=== PATIENT | male | born 1950 | race Caucasian/White ===

== ENCOUNTER → 2016-10-05 | Day surgery (SDC) | payer OTHER ==
[~2016-10-05] MED LIST: ENOX60P SQ; KLOR20TA6 PO; LACTATED RINGER'S 1000 ML INJ 1,000 ML ONE; LISI20 PO; LORA-474 PO; METO100T PO; PROPOFOL 500 MG/50 ML BTL IV ONE
== END | disposition home or self-care (01) ==
LOC: ESDC 11:25
PROVIDERS: ATTEND Internal Medicine Gastroenterology
DX: Z12.11 Encounter for screening for malignant neoplasm of colon (principal); Z86.010 Personal history of colon polyps; D12.3 Benign neoplasm of transverse colon; K62.1 Rectal polyp
CPT/HCPCS: 00810; 45385; 45388; 88305; J7120

== ENCOUNTER 2017-08-05 12:57 | Day surgery (SDC) | payer OTHER ==
[~2017-08-05 12:57] MED LIST changes: -LACTATED RINGER'S 1000 ML INJ 1,000 ML ONE; -PROPOFOL 500 MG/50 ML BTL IV ONE
[2017-08-05 13:24] VITALS: BP 142/76; PULSE 91; RESP 16; TEMP 98; O2SAT 98
[2017-08-05 14:22] VITALS: BP 141/90; PULSE 86; RESP 20; TEMP 97.3
[2017-08-05 14:37] VITALS: BP 149/102; PULSE 80; RESP 20; O2SAT 98
[2017-08-05] MEDS ORDERED: LIDOCAINE HCL 1% 20 ML VIAL ONE (15:27)
--- NOTE | 2017-08-05 16:13 | RADRPT ---
EXAM DATE/TIME: 08/05/2017 13:25 [facility] COMPARISON: No previous studies available for comparison. EXTERNAL COMPARISON: [facility], CT SOFT TISSUE NECK W/ CONTRAST, Jul 13 2017. INDICATIONS : Right neck lymphadenopathy. MEDICAL HISTORY : Hypertension. Gastroesophageal reflux disease. Seizures. Atrial fibrillation. Gout. Dyspnea. SURGICAL HISTORY : Tonsillectomy. Basal cell removed. ENCOUNTER: Initial ACUITY: 4 - 6 months PAIN SCORE: 0/10 LOCATION: Right neck ORGAN: Right lymph node neck. SPECIMENS: One core specimen(s) submitted for pathologic evaluation. DEVICE: 18 gauge Temno needle Post procedure scanning reveals no hematoma or other complication. The possibility does exist that the tissue obtained will be non-diagnostic. If the sample is non-kole gnostic a repeat biopsy or surgical biopsy may need to be performed. TECHNIQUE: 1. Ultrasound guidance for needle biopsy. 2. Needle biopsy. The risks, benefits and alternatives to the procedure were explained and verbal and written consent w as obtained. The site was prepped in sterile fashion. Full sterile technique was used, including ca p, mask, sterile gloves and gown and a large sterile sheet. Hand hygiene and 2% chlorhexidine and/or betadine/alcohol prep was utilized per protocol for cutaneous antisepsis. The skin and subcutaneous tissues were infiltrated with local anesthetic solution. Sterile gel and sterile probe cover were u tilized for ultrasound guidance. With the patient on the ultrasound table, images were obtained. A needle was advanced into the identified target and the number of specimens as above obtained and abad bmitted for pathologic evaluation. The patient tolerated the procedure well and left the ultrasound suite in stable condition. CONCLUSION: Uncomplicated ultrasound guided needle biopsy. Pankaj Whitley MD on August 05, 2017 at 16:10 Board Certified Radiologist. This report was verified electronically.
== END 2017-08-05 14:40 | disposition home or self-care (01) ==
LOC: HRAD 12:57 → HRIP 13:01 → HRAD 14:40
PROVIDERS: ATTEND Surgery
DX: R59.0 Localized enlarged lymph nodes (principal); I10 Essential (primary) hypertension; I48.91 Unspecified atrial fibrillation; K21.9 Gastro-esophageal reflux disease without esophagitis; M10.9 Gout, unspecified
CPT/HCPCS: 38505; 76942; 88305; 88341; 88342

== ENCOUNTER 2017-10-28 06:57 | Day surgery (SDC) | payer OTHER ==
[~2017-10-28] VITALS: Ht 304.8 cm; Wt 95.5 kg
[2017-10-28 07:25] VITALS: BP 129/103; PULSE 50; RESP 20; TEMP 97.9; O2SAT 97
[2017-10-28] MEDS ORDERED: NIFE30TA61 PO (07:33)
[2017-10-28] MEDS ORDERED: LOSA50TA PO (07:33)
[2017-10-28] MEDS ORDERED: ALLO300T2 PO (07:33)
[2017-10-28] MEDS ORDERED: LORA-392 PO (07:33)
[2017-10-28] MEDS ORDERED: REST30CA PO (07:33)
[2017-10-28] MEDS ORDERED: METO100T PO (07:33)
[2017-10-28 07:57] LABS: AUTOMATED NEUTROPHIL # 4.5 TH/MM3 (1.8-7.7); BASOPHIL # 0.1 TH/MM3 (0-0.2); BASOPHIL % 0.7 % (0.0-2.0); EOSINOPHIL # 0.4 TH/MM3 (0-0.4); HEMATOCRIT 38.8 % (39.0-51.0); HEMOGLOBIN 13.4 GM/DL (13.0-17.0); LYMPH % 30.6 % (9.0-44.0); LYMPHOCYTE # 2.6 TH/MM3 (1.0-4.8); MEAN CELL VOLUME 93.1 FL (80.0-100.0); MEAN CORPUSCULAR HEMOGLOBIN 32.2 PG (27.0-34.0); MEAN CORPUSCULAR HGB CONC 34.6 % (32.0-36.0); MEAN PLATELET VOLUME 9.2 FL (7.0-11.0); MONO % 10.7 % (0.0-8.0); MONOCYTE # 0.9 TH/MM3 (0-0.9); PLATELET COUNT 182 TH/MM3 (150-450); RED BLOOD COUNT 4.17 MIL/MM3 (4.50-5.90); RED CELL DISTRIBUTION WIDTH 14.8 % (11.6-17.2); WHITE BLOOD COUNT 8.4 TH/MM3 (4.0-11.0)
[2017-10-28] MEDS ORDERED: SODIUM CHLORIDE 0.9% 1000 ML IV SCH (08:00)
[2017-10-28 08:04] LABS: INTERNATIONAL NORMALIZED RATIO 1.1 RATIO; PROTHROMBIN TIME - PATIENT 11.1 SEC (9.8-11.6)
[2017-10-28] MEDS ORDERED: cefTRIAXone 2 GM PREMIX INJ 50 ML IV ONE (08:30)
[2017-10-28] MEDS ORDERED: MIDAZOLAM HCL 5 MG/5 ML VIAL ONE (08:36)
[2017-10-28] MEDS ORDERED: fentaNYL CITRATE 250 MCG/5 ML AMP ONE (08:37)
[2017-10-28] MEDS ORDERED: GLUCAGON 1 MG/ML VIAL ONE (08:53)
[2017-10-28] MEDS ORDERED: IOHEXOL 350 MG/ML 50 ML BTL (for RAD DIAG) G-TUBE ONE (09:15)
[2017-10-28 09:30] VITALS: BP 133/87; PULSE 95; RESP 16; TEMP 97.4; O2SAT 96
[2017-10-28 09:45] VITALS: BP 120/84; PULSE 81; RESP 18; O2SAT 95
--- NOTE | 2017-10-28 10:03 | PD.RAD ---
Post Procedure Progress Note Pre Procedure Diagnosis: (1) Cancer Post Procedure Diagnosis: (1) Cancer Procedure Date: Oct 28, 2017 Supervising Radiologist: Rom Sanchez Proceduralist/Assist: RT Gin(R), RT Rosy(R) Anesthesia: Conscious Sedation Plan of Activity Patient to Unit: [facility]OPU Patient Condition: Good See PACS Report for procedural detail/treatment Feeding Tube Gastrostomy Placement Rom Sanchez MD Oct 28, 2017 10:03
[2017-10-28 10:15] VITALS: BP 126/89; PULSE 70; RESP 16; O2SAT 94
[2017-10-28 10:45] VITALS: BP 145/92; PULSE 68; RESP 16; O2SAT 94
--- NOTE | 2017-10-28 14:39 | RADRPT ---
EXAM DATE/TIME: 10/28/2017 08:15 [facility] COMPARISON: No previous studies available for comparison. INDICATIONS : Patient with history of tongue cancer in need of G-Tube placement. MEDICAL HISTORY : Right neck mass, CVA, GERD, HTN, Seizure SURGICAL HISTORY : Neck mass biopsy, Neck mass dissection, Tonsillectomy ENCOUNTER: Initial ACUITY: 7-11 months PAIN SCORE: 3/10 LOCATION: Left leg/sciatica FLUORO TIME: 2.3 minutes IMAGE SERIES: 1 SEDATION TIME: 30 minutes CONTRAST: 20 cc Omnipaque (iohexol) 350 MEDICATION(S): 1.) 2 mg midazolam (Versed) IV 2.) 100 mcg Fentanyl (Sublimaze) IV Prophylactic antibiotics were administered with appropriate pre-procedure timing. Vancomycin within 2 hours of procedure, Ancef (or alternative) within 1 hour of procedure. DEVICE(S): 1.) 18 Fr gastrostomy tube PROCEDURE : 1. Limited abdominal ultrasound. 2. Fluoroscopically guided gastrostomy tube placement. 3. Conscious sedation with continuous EKG and oximetry monitoring. The risks, benefits and alternatives to the procedure were explained and verbal and written consent w as obtained. The site was prepped in sterile fashion. Full sterile technique was used, including ca p, mask, sterile gloves and gown and a large sterile sheet. Hand hygiene and 2% chlorhexidine and/or betadine/alcohol prep was utilized per protocol for cutaneous antisepsis. The skin and subcutaneous tissues were infiltrated with local anesthetic solution. Sterile gel and sterile probe cover were u tilized for ultrasound guidance. Ultrasound was used to abbie the position of the liver. The stomach was insufflated with room air. Th ree percutaneous fasteners were placed to secure the anterior gastric wall. A small incision was made between the fasteners. The stomach was accessed with an 18 gauge needle. A n 0.035 wire was advanced into the small bowel. The tract was dilated. The gastrostomy tube was int roduced through a peel-away sheath. The position was confirmed with an injection of contrast. Conscious sedation was performed with the prescribed dosages and duration as above in the presence of an independent trained radiology nurse to assist in the monitoring of the patient. EKG and oximetry remained stable throughout the procedure. The patient tolerated the procedure well and there were n o complications. The patient was sent to post anesthesia recovery in stable condition. CONCLUSION: Uncomplicated gastrostomy tube placement as above. Rom Sanchez MD on October 28, 2017 at 14:36 Board Certified Radiologist. This report was verified electronically.
== END 2017-10-28 11:45 | disposition home or self-care (01) ==
LOC: HROP 06:57 → HRIP 07:00 → HROP 11:45
PROVIDERS: ATTEND Internal Medicine Hematology & Oncology
DX: C01 Malignant neoplasm of base of tongue (principal); I48.91 Unspecified atrial fibrillation; I10 Essential (primary) hypertension; K21.9 Gastro-esophageal reflux disease without esophagitis; Z86.73 Personal history of transient ischemic attack (TIA), and cerebral infarction without residual deficits
CPT/HCPCS: 49440; 85025; 85610; 85730; 99152; 99153; C1769; C1887; J1610; J2250; J3010; J7030; Q9967

== ENCOUNTER 2017-12-11 17:28 | Inpatient (IN) | payer OTHER ==
[~2017-12-11] VITALS: Ht 175.3 cm; Wt 86.2 kg
[~2017-12-11 17:28] MED LIST changes: +ALLO300T2 PO; -ENOX60P SQ; -KLOR20TA6 PO; -LISI20 PO; +LORA-392 PO; -LORA-474 PO; +LOSA50TA PO; +NIFE30TA61 PO; +REST30CA PO
[2017-12-11 17:44] VITALS: BP 85/52; PULSE 85; RESP 20; TEMP 100.7; O2SAT 97
[2017-12-11 17:55] VITALS: BP 121/72; PULSE 112; RESP 14; TEMP 98.9; O2SAT 97
[2017-12-11] MEDS ORDERED: PROC10TA PO (17:55)
[2017-12-11] MEDS ORDERED: PROM1SUP9 RECTAL (17:55)
[2017-12-11] MEDS ORDERED: ACETAMINOPHEN 325 MG TAB PO ONE (19:00)
[2017-12-11 19:23] VITALS: O2SAT 97
--- NOTE | 2017-12-11 19:24 | RADRPT ---
EXAM DATE/TIME: 12/11/2017 19:00 [facility] COMPARISON: CHEST SINGLE AP, March 09, 2016, 15:16. INDICATIONS : Fever and cough with discharge. MEDICAL HISTORY : Hypertension. Coronary artery disease. SURGICAL HISTORY : Tonsillectomy. ENCOUNTER: Initial ACUITY: 1 day PAIN SCORE: 0/10 LOCATION: Bilateral chest FINDINGS: A single view of the chest demonstrates the lungs to be symmetrically aerated without evidence of mas s, infiltrate or effusion. The cardiomediastinal contours are unremarkable. Osseous structures are intact. A left central line in place. CONCLUSION: No acute disease. No significant change has occurred. Eduardo Sebastian MD on December 11, 2017 at 19:21 Board Certified Radiologist. This report was verified electronically.
--- NOTE | 2017-12-11 19:29 | PD ---
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 Toledo, had his radiation done just a few days ago, has been having nausea, thick oral secretions, feeling more weak, poor p.o. intake, and fevers according to his . His fevers have been 102. He denies any coughing, abdominal pains, shortness of breath, or other symptoms. Modifying Factors: None Associated Signs & Symptoms: Nausea, not feeling well, fevers Risk Factors: Oral cancer, on chemo and radiation PFSH Past Medical History Hx Anticoagulant Therapy: Yes Arthritis: Yes Atrial Fibrillation: Yes Autoimmune Disease: No Blood Disorders: No Anxiety: Yes Depression: Yes Heart Rhythm Problems: Yes (Afib) High Cholesterol: No Chest Pain: No Congestive Heart Failure: No Cerebrovascular Accident: Yes (DECEMBER 2015) Diminished Hearing: No Endocrine: No Gastrointestinal Disorders: Yes (LIVER ENZYMES RECENTLY ELEVATED) GERD: Yes Gout: Yes Genitourinary: No Headaches: Yes Hiatal Hernia: No Hypertension: Yes Immune Disorder: No Musculoskeletal: Yes (Gout) Neurologic: No Psychiatric: No Reproductive: No Migraines: Yes Seizures: Yes Sleep Apnea: Yes Ulcer: No PNEUMOCCOCAL Vaccine (Year): 2 Past Surgical History Abdominal Surgery: No AICD: No Arteriovenous Shunt: No Cardiac Surgery: No Ear Surgery: No Endocrine Surgery: No Eye Surgery: No Genitourinary Surgery: No Gynecologic Surgery: No Insulin Pump: No Joint Replacement: No Neurologic Surgery: No Oral Surgery: No Pacemaker: No Thoracic Surgery: No Tonsillectomy: Yes Social History Alcohol Use: Yes ("OCCASIONALLY") Tobacco Use: No (QUIT 71) Substance Use: No Allergies-Medications (Allergen,Severity, Reaction): Coded Allergies: codeine (Unverified Allergy, Severe, UNKNOWN CHILDHOOD, 10/28/17) doxycycline (Unverified Allergy, Severe, Rash, 10/28/17) *MDRO Multi-Drug Resistant Organism (Verified Adverse Reaction, Unknown, ) MRSA PCR screen (nares) POSITIVE - 03/09/16 Reported Meds & Prescriptions Reported Meds & Active Scripts Active Reported Promethazine Supp (Promethazine HCl) 25 Mg Supp 25 Mg RECTAL Q6H PRN Prochlorperazine Maleate 10 Mg Tab 10 Mg PO Q6H PRN Ativan (Lorazepam) 0.5 Mg Tab 0.5 Mg PO Q6H PRN Restoril (Temazepam) 30 Mg Cap 30 Mg PO HS PRN Losartan (Losartan Potassium) 50 Mg Tab 50 Mg PO DAILY Allopurinol 300 Mg Tab 300 Mg PO DAILY Nifedipine ER 24 HR (Nifedipine) 30 Mg Tab 30 Mg PO DAILY Metoprolol Tartrate 100 Mg Tab 100 Mg PO BID Review of Systems Except as stated in HPI: all other systems reviewed are Neg Physical Exam Narrative GENERAL: Well-developed elderly white male patient currently in moderate distress. Awake and oriented 3. SKIN: Focused skin assessment warm/dry. HEAD: Atraumatic. Normocephalic. EYES: Pupils equal and round. No scleral icterus. No injection or drainage. ENT: No nasal bleeding or discharge. Mucous membranes pink and moist. He is able to control his secretions. Airway intact. NECK: Trachea midline. No JVD. Supple. CARDIOVASCULAR: Regular rate and rhythm. No murmur appreciated. RESPIRATORY: No accessory muscle use. Clear to auscultation. Breath sounds equal bilaterally. GASTROINTESTINAL: Abdomen soft, non-tender, nondistended. Hepatic and splenic margins not palpable. G-tube in place. MUSCULOSKELETAL: No obvious deformities. No clubbing. No cyanosis. No edema. NEUROLOGICAL: Awake and alert. No obvious cranial nerve deficits. Motor grossly within normal limits. Normal speech. PSYCHIATRIC: Appropriate mood and affect; insight and judgment normal. Data Data Last Documented VS Vital Signs Date Time Temp Pulse Resp B/P (MAP) Pulse Ox O2 Delivery O2 Flow Rate FiO2 12/11/17 21:54 99 115/73 (87) 97 Room Air 12/11/17 17:57 14 12/11/17 17:55 98.9 Orders Orders Sepsis Workup Initiated (12/11/17 ) Complete Blood Count With Diff (12/11/17 18:58) Comprehensive Metabolic Panel (12/11/17 18:58) Lactic Acid Sepsis Protocol (12/11/17 18:58) Urinalysis - C+S If Indicated (12/11/17 18:58) Blood Culture (12/11/17 18:58) Chest, Single Ap (12/11/17 18:58) Blood Glucose (12/11/17 18:58) Ecg Monitoring (12/11/17 18:58) Iv Access Insert/Monitor (12/11/17 18:58) Oximetry (12/11/17 18:58) Oxygen Administration (12/11/17 18:58) Acetaminophen (Tylenol) (12/11/17 19:00) Potassium Chlor 20 Meq Premix (Kcl 20 Me (12/11/17 20:30) Sodium Chlor 0.9% 1000 Ml Inj (Ns 1000 M (12/11/17 21:00) Urine Culture (12/11/17 22:18) Piperacil-Tazo 4.5 Gm Premix (Zosyn 4.5 (12/11/17 22:53) Admit Order (Ed Use Only) (12/11/17 22:59) Labs Laboratory Tests Test 12/11/17 19:18 12/11/17 22:18 White Blood Count 6.0 TH/MM3 Red Blood Count 4.11 MIL/MM3 Hemoglobin 12.9 GM/DL Hematocrit 37.6 % Mean Corpuscular Volume 91.5 FL Mean Corpuscular Hemoglobin 31.4 PG Mean Corpuscular Hemoglobin Concent 34.3 % Red Cell Distribution Width 15.1 % Platelet Count 68 TH/MM3 Mean Platelet Volume 9.6 FL Neutrophils (%) (Auto) 90.7 % Lymphocytes (%) (Auto) 2.3 % Monocytes (%) (Auto) 6.7 % Eosinophils (%) (Auto) 0.1 % Basophils (%) (Auto) 0.2 % Neutrophils # (Auto) 5.4 TH/MM3 Lymphocytes # (Auto) 0.1 TH/MM3 Monocytes # (Auto) 0.4 TH/MM3 Eosinophils # (Auto) 0.0 TH/MM3 Basophils # (Auto) 0.0 TH/MM3 CBC Comment AUTO DIFF Differential Total Cells Counted 100 Neutrophils % (Manual) 83 % Band Neutrophils % 9 % Lymphocytes % 5 % Monocytes % 3 % Neutrophils # (Manual) 5.5 TH/MM3 Differential Comment FINAL DIFF MANUAL Toxic Vacuolation PRESENT Platelet Estimate LOW Platelet Morphology Comment ENLARGED Blood Urea Nitrogen 21 MG/DL Creatinine 1.59 MG/DL Random Glucose 116 MG/DL Total Protein 6.7 GM/DL Albumin 3.2 GM/DL Calcium Level 7.9 MG/DL Alkaline Phosphatase 71 U/L Aspartate Amino Transf (AST/SGOT) 60 U/L Alanine Aminotransferase (ALT/SGPT) 126 U/L Total Bilirubin 1.2 MG/DL Sodium Level 129 MEQ/L Potassium Level 2.0 MEQ/L Chloride Level 87 MEQ/L Carbon Dioxide Level 27.7 MEQ/L Anion Gap 14 MEQ/L Estimat Glomerular Filtration Rate 44 ML/MIN Lactic Acid Level 1.7 mmol/L Urine Color DARK-YELLOW Urine Turbidity HAZY Urine pH 6.5 Urine Specific [place] 1.029 Urine Protein 300 mg/dL Urine Glucose (UA) 300 mg/dL Urine Ketones 40 mg/dL Urine Occult Blood MOD Urine Nitrite NEG Urine Bilirubin NEG Urine Urobilinogen 8.0 MG/DL Urine Leukocyte Esterase NEG Urine RBC 4 /hpf Urine WBC 15 /hpf Urine Squamous Epithelial Cells 1 /hpf Urine Bacteria FEW /hpf Urine Mucus MANY /lpf Microscopic Urinalysis Comment CATH-CULTURE IND MDM Medical Decision Making Medical Screen Exam Complete: Yes Emergency Medical Condition: Yes Medical Record Reviewed: Yes Interpretation(s) Laboratory Tests Test 12/11/17 19:18 12/11/17 22:18 Red Blood Count 4.11 MIL/MM3 (4.50-5.90) Hemoglobin 12.9 GM/DL (13.0-17.0) Hematocrit 37.6 % (39.0-51.0) Platelet Count 68 TH/MM3 (150-450) Neutrophils (%) (Auto) 90.7 % (16.0-70.0) Lymphocytes (%) (Auto) 2.3 % (9.0-44.0) Lymphocytes # (Auto) 0.1 TH/MM3 (1.0-4.8) Neutrophils % (Manual) 83 % (16-70) Band Neutrophils % 9 % (0-6) Lymphocytes % 5 % (9-44) Toxic Vacuolation PRESENT (NONE SEEN) Platelet Estimate LOW (NORMAL) Platelet Morphology Comment ENLARGED (NORMAL) Blood Urea Nitrogen 21 MG/DL (7-18) Creatinine 1.59 MG/DL (0.60-1.30) Random Glucose 116 MG/DL (74-106) Albumin 3.2 GM/DL (3.4-5.0) Calcium Level 7.9 MG/DL (8.5-10.1) Aspartate Amino Transf (AST/SGOT) 60 U/L (15-37) Alanine Aminotransferase (ALT/SGPT) 126 U/L (12-78) Total Bilirubin 1.2 MG/DL (0.2-1.0) Sodium Level 129 MEQ/L (136-145) Potassium Level 2.0 MEQ/L (3.5-5.1) Chloride Level 87 MEQ/L (98-107) Estimat Glomerular Filtration Rate 44 ML/MIN (>89) Urine Color DARK-YELLOW (YELLW/STRAW) Urine Turbidity HAZY (CLEAR) Urine Protein 300 mg/dL (NEG-TRACE) Urine Glucose (UA) 300 mg/dL (NEG) Urine Ketones 40 mg/dL (NEG) Urine Occult Blood MOD (NEG) Urine Urobilinogen 8.0 MG/DL (LESS THAN Urine RBC 4 /hpf (0-3) Urine WBC 15 /hpf (0-5) Urine Bacteria FEW /hpf (NONE) Urine Mucus MANY /lpf (OCC) Last 24 hours Impressions Chest X-Ray 12/11/17 5415 Signed Impressions: Service Date/Time: Wednesday, December 11, 2017 19:00 - CONCLUSION: No acute disease. No significant change has occurred. Eduardo Sebastian MD Differential Diagnosis Neutropenic fever versus sepsis versus pneumonia versus dehydration versus electrolyte abnormalities Narrative Course Chest x-ray was unremarkable for signs of pneumonia. His lab work shows significant hypokalemia, low sodium as well and IV fluids as well as KCl IV was given. His BUN and creatinine is elevated and I do suspect underlying dehydration. His lactate is elevated. UA shows a UTI. IV antibiotics were initiated after cultures were drawn. At this point, my plan would be to admit the patient for further treatment. Case is discussed with Dr. Joseph for admission. Diagnosis Primary Impression: Hypokalemia Additional Impressions: Dehydration UTI (urinary tract infection) Sepsis Admitting Information Admitting Physician Requests: Admit Buck Guillermo MD December 11, 2017 19:29
[2017-12-11 19:34] LABS: AUTOMATED NEUTROPHIL # 5.4 TH/MM3 (1.8-7.7); BASOPHIL % 0.2 % (0.0-2.0); EOSINOPHIL % 0.1 % (0.0-4.0); HEMATOCRIT 37.6 % (39.0-51.0); HEMOGLOBIN 12.9 GM/DL (13.0-17.0); LYMPH % 2.3 % (9.0-44.0); LYMPHOCYTE # 0.1 TH/MM3 (1.0-4.8); MEAN CELL VOLUME 91.5 FL (80.0-100.0); MEAN CORPUSCULAR HEMOGLOBIN 31.4 PG (27.0-34.0); MEAN CORPUSCULAR HGB CONC 34.3 % (32.0-36.0); MEAN PLATELET VOLUME 9.6 FL (7.0-11.0); MONO % 6.7 % (0.0-8.0); MONOCYTE # 0.4 TH/MM3 (0-0.9); NEUT % 90.7 % (16.0-70.0); PLATELET COUNT 68 TH/MM3 (150-450); RED BLOOD COUNT 4.11 MIL/MM3 (4.50-5.90); RED CELL DISTRIBUTION WIDTH 15.1 % (11.6-17.2)
[2017-12-11 20:06] LABS: ALBUMIN 3.2 GM/DL (3.4-5.0); ALT (GPT) 126 U/L (12-78); AST (GOT) 60 U/L (15-37); BICARBONATE 27.7 MEQ/L (21.0-32.0); BLOOD UREA NITROGEN 21 MG/DL (7-18); CALCIUM 7.9 MG/DL (8.5-10.1); CHLORIDE 87 MEQ/L (98-107); CREATININE 1.59 MG/DL (0.60-1.30); GLOMERULAR FILTRATION RATE 44 ML/MIN (>89); GLUCOSE,RANDOM 116 MG/DL (74-106); SODIUM (NA) 129 MEQ/L (136-145)
[2017-12-11 20:07] LABS: BANDS 9 % (0-6); LYMPHOCYTES 5 % (9-44); MONOCYTES 3 % (0-8); NEUTROPHIL # MANUAL DIFF 5.5 TH/MM3 (1.8-7.7); POLYS (SEG NEUTROPHILS) 83 % (16-70)
[2017-12-11 20:08] LABS: TOXIC VACUOLATION PRESENT (NONE SEEN)
[2017-12-11 20:09] LABS: ALKALINE PHOSPHATASE 71 U/L (45-117); TOTAL BILIRUBIN ADULT 1.2 MG/DL (0.2-1.0); TOTAL PROTEIN 6.7 GM/DL (6.4-8.2)
[2017-12-11] MEDS ORDERED: SODIUM CHLOR 0.9% 1000 ML INJ 1,000 ML IV ONE (21:00)
[2017-12-11] MEDS: POTASSIUM CHLOR 20 MEQ PREMIX 100 ML IV SCH (21:10)
[2017-12-11 21:54] VITALS: BP 115/73; PULSE 99; O2SAT 97
[2017-12-11 22:45] LABS: BACTERIA, URINE FEW /hpf; BLOOD, URINE MOD (NEG); GLUCOSE,URINE 300 mg/dL (NEG); KETONE, URINE 40 mg/dL (NEG); MUCUS URINE MANY /lpf (OCC); NITRITE,URINE NEG (NEG); PH, URINE 6.5 (5.0-8.5); SQUAMOUS EPITHELIAL CELL URINE 1 /hpf (0-5); URINE COLOR DARK-YELLOW (YELLW/STRAW); URINE LEUKOCYTE ESTERASE NEG (NEG)
[2017-12-11 22:47] LABS: BILIRUBIN, URINE NEG (NEG)
[2017-12-11] MEDS ORDERED: PIPERACIL-TAZO 4.5 GM PREMIX 100 ML IV STA (22:53)
[2017-12-11] MEDS ORDERED: ONDANSETRON ODT 4 MG TAB PO PRN (23:15)
[2017-12-12 00:45] VITALS: BP 149/72; PULSE 90; RESP 18; TEMP 100.2; O2SAT 100
[2017-12-12 04:00] VITALS: BP 149/79; PULSE 100; RESP 18; TEMP 98; O2SAT 97
[2017-12-12] MEDS: PIPERACIL-TAZO 3.375 GM PREMIX 50 ML IV SCH ×3 (05:45→22:11)
[2017-12-12 07:24] LABS: AUTOMATED NEUTROPHIL # 4.8 TH/MM3 (1.8-7.7); BASOPHIL % 0.1 % (0.0-2.0); HEMATOCRIT 34.7 % (39.0-51.0); LYMPH % 1.1 % (9.0-44.0); LYMPHOCYTE # 0.1 TH/MM3 (1.0-4.8); MEAN CELL VOLUME 91.5 FL (80.0-100.0); MEAN CORPUSCULAR HEMOGLOBIN 31.7 PG (27.0-34.0); MEAN CORPUSCULAR HGB CONC 34.6 % (32.0-36.0); MONO % 6.7 % (0.0-8.0); MONOCYTE # 0.3 TH/MM3 (0-0.9); NEUT % 92.1 % (16.0-70.0); PLATELET COUNT 38 TH/MM3 (150-450); RED BLOOD COUNT 3.79 MIL/MM3 (4.50-5.90); WHITE BLOOD COUNT 5.2 TH/MM3 (4.0-11.0)
[2017-12-12 07:46] LABS: BICARBONATE 26.2 MEQ/L (21.0-32.0); CALCIUM 7.2 MG/DL (8.5-10.1); CREATININE 1.7 MG/DL (0.60-1.30)
[2017-12-12 08:00] VITALS: BP 112/73; PULSE 101; RESP 19; TEMP 99; O2SAT 94
[2017-12-12] MEDS: NS + KCL 20 MEQ INJ 1,000 ML IV SCH ×2 (08:15)
[2017-12-12 08:31] LABS: CALCIUM-PROTEIN CORRECTED 7.8 MG/DL (8.5-10.1)
[2017-12-12 08:48] LABS: BANDS 17 % (0-6); LYMPHOCYTES 2 % (9-44); MONOCYTES 2 % (0-8); POLYS (SEG NEUTROPHILS) 79 % (16-70)
[2017-12-12 08:49] LABS: KERATOCYTES 1+ (NORMAL)
[2017-12-12] MEDS ORDERED: Vancomycin Consult Pharmacy 1 EA OTHER SCH ×2 (09:45→16:45)
[2017-12-12] MEDS ORDERED: VANCOMYCIN INJ 1,000 MG in SODIUM CHLOR 0.9% 250 ML INJ 250 ML IV ONE (09:45)
--- NOTE | 2017-12-12 09:45 | HHI.HP ---
HPI Service [facility] Hospitalists Primary Care Physician Gary Arriaza D.O. Admission Diagnosis dehydration/hypokalemia/bacteremia Chief Complaint: fever, nausea, and decreased PO intake. 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 Patient currently on chemotherapy with Dr. Toledo and radiation with Dr. Summers for the past four weeks. Patient had radiation just a few days ago. Since that time patient has been having nausea, thick oral secretions, feeling more weak, poor p.o. intake, and fevers. Patient has a PEG tube in place but has not yet started using it. Patient had been tolerating smoothies orally up until two days ago. He denies chest pain, cough, abdominal pain, shortness of breath or dysuria. Review of Systems Constitutional: COMPLAINS OF: Fatigue, Fever, Chills, Change in appetite Ears, nose, mouth, throat: COMPLAINS OF: Throat pain Past Family Social History Past Medical History Alcohol withdrawal seizures pancreatitis Anxiety Atrial fibrillation GERD Gout Hypertension Personal history of alcohol abuse Personal history of tobaccoism Transiently positive for circulating lupus anticoagulant Hemorrhagic stroke (Was on warfarin at that time, INR was therapeutic when he presented at 2.1) in 2016 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 upper extremity DVTs in 2016 Pulmonary emboli in 2016 Past Surgical History Skin ca removed from left arm Tonsillectomy Tracheostomy creation and reversal in 2016 Oropharyngeal squamous cell cancer s/p resection with modified radical neck dissection 09/2017 at [facility] Reported Medications Promethazine Supp (Promethazine HCl) 25 Mg Supp 25 Mg RECTAL Q6H PRN Prochlorperazine Maleate 10 Mg Tab 10 Mg PO Q6H PRN Ativan (Lorazepam) 0.5 Mg Tab 0.5 Mg PO Q6H PRN Restoril (Temazepam) 30 Mg Cap 30 Mg PO HS PRN Losartan (Losartan Potassium) 50 Mg Tab 50 Mg PO DAILY Allopurinol 300 Mg Tab 300 Mg PO DAILY Nifedipine ER 24 HR (Nifedipine) 30 Mg Tab 30 Mg PO DAILY Metoprolol Tartrate 100 Mg Tab 100 Mg PO BID Allergies: Coded Allergies: codeine (Unverified Allergy, Severe, UNKNOWN CHILDHOOD, 10/28/17) doxycycline (Unverified Allergy, Severe, Rash, 10/28/17) *MDRO Multi-Drug Resistant Organism (Verified Adverse Reaction, Unknown, ) MRSA PCR screen (nares) POSITIVE - 03/09/16 Physical Exam Vital Signs Vital Signs Date Time Temp Pulse Resp B/P (MAP) Pulse Ox O2 Delivery O2 Flow Rate FiO2 12/12/17 08:00 99.0 101 19 112/73 (86) 94 12/12/17 04:00 98.0 100 18 149/79 (102) 97 12/12/17 00:45 100.2 90 18 149/72 (97) 100 12/11/17 21:54 99 115/73 (87) 97 Room Air 12/11/17 19:23 Room Air 12/11/17 19:23 97 Room Air 12/11/17 17:57 112 14 98 Room Air 12/11/17 17:55 98.9 112 14 121/72 (88) 97 Room Air 12/11/17 17:44 100.7 85 20 85/52 (63) 97 Physical Exam GENERAL: This is a well-developed patient 67 year old male patient, appears fatigued and actively vomiting SKIN: No rashes, ecchymoses or lesions. Cool and dry. PORT site accessed site appears clean no erythema, tenderness or drainage HEAD: Atraumatic. Normocephalic. No temporal or scalp tenderness. EYES: Extraocular motions intact. No scleral icterus. No injection or drainage. ENT: Nose without bleeding, purulent drainage or septal hematoma. Throat without erythema, tonsillar hypertrophy or exudate. Uvula midline. Airway patent. NECK: Trachea midline. No JVD or lymphadenopathy. Supple, nontender, no meningeal signs. CARDIOVASCULAR: Tachycardic RESPIRATORY: Clear to auscultation. Breath sounds equal bilaterally. GASTROINTESTINAL: Abdomen soft, non-tender, nondistended. PEG tube in place site appears clean no erythremia or drainage MUSCULOSKELETAL: Extremities without clubbing, cyanosis, or edema. No joint tenderness, effusion, or edema noted. No calf tenderness. Negative Homans sign bilaterally. NEUROLOGICAL: Awake and alert. Motor and sensory grossly within normal limits. Five out of 5 muscle strength in all muscle groups. Normal speech. Laboratory Laboratory Tests Test 12/11/17 19:18 12/11/17 22:18 12/12/17 06:09 White Blood Count 6.0 5.2 Red Blood Count 4.11 3.79 Hemoglobin 12.9 12.0 Hematocrit 37.6 34.7 Mean Corpuscular Volume 91.5 91.5 Mean Corpuscular Hemoglobin 31.4 31.7 Mean Corpuscular Hemoglobin Concent 34.3 34.6 Red Cell Distribution Width 15.1 15.0 Platelet Count 68 38 Mean Platelet Volume 9.6 9.0 Neutrophils (%) (Auto) 90.7 92.1 Lymphocytes (%) (Auto) 2.3 1.1 Monocytes (%) (Auto) 6.7 6.7 Eosinophils (%) (Auto) 0.1 0.0 Basophils (%) (Auto) 0.2 0.1 Neutrophils # (Auto) 5.4 4.8 Lymphocytes # (Auto) 0.1 0.1 Monocytes # (Auto) 0.4 0.3 Eosinophils # (Auto) 0.0 0.0 Basophils # (Auto) 0.0 0.0 CBC Comment AUTO DIFF AUTO DIFF Differential Total Cells Counted 100 100 Neutrophils % (Manual) 83 79 Band Neutrophils % 9 17 Lymphocytes % 5 2 Monocytes % 3 2 Neutrophils # (Manual) 5.5 5.0 Differential Comment FINAL DIFF MANUAL FINAL DIFF MANUAL Toxic Vacuolation PRESENT Platelet Estimate LOW LOW Platelet Morphology Comment ENLARGED NORMAL Blood Urea Nitrogen 21 26 Creatinine 1.59 1.70 Random Glucose 116 111 Total Protein 6.7 6.0 Albumin 3.2 Calcium Level 7.9 7.2 Alkaline Phosphatase 71 Aspartate Amino Transf (AST/SGOT) 60 Alanine Aminotransferase (ALT/SGPT) 126 Total Bilirubin 1.2 Sodium Level 129 132 Potassium Level 2.0 1.7 Chloride Level 87 92 Carbon Dioxide Level 27.7 26.2 Anion Gap 14 14 Estimat Glomerular Filtration Rate 44 40 Lactic Acid Level 1.7 Urine Color DARK-YELLOW Urine Turbidity HAZY Urine pH 6.5 Urine Specific [place] 1.029 Urine Protein 300 Urine Glucose (UA) 300 Urine Ketones 40 Urine Occult Blood MOD Urine Nitrite NEG Urine Bilirubin NEG Urine Urobilinogen 8.0 Urine Leukocyte Esterase NEG Urine RBC 4 Urine WBC 15 Urine Squamous Epithelial Cells 1 Urine Bacteria FEW Urine Mucus MANY Microscopic Urinalysis Comment CATH-CULTURE IND Keratocytes 1+ Protein Corrected Calcium 7.8 Magnesium Level 1.4 Date/Time Source Procedure Growth Status 12/11/17 19:18 Blood Peripheral Aerobic Blood Culture Pending Resulted 12/11/17 19:18 Anaerobic Blood Culture - Preliminary Gram Positive Cocci Resulted 12/11/17 22:18 Urine Catheterized Urine Urine Culture Pending Received Result Diagram: 12/12/17 0609 12/12/17 0609 Imaging Last Impressions Chest X-Ray 12/11/17 1858 Signed Impressions: Service Date/Time: Wednesday, December 11, 2017 19:00 - CONCLUSION: No acute disease. No significant change has occurred. MD Adeel Aguilar VTE Risk Assessment Siddharthrinmanav VTE Risk Assessment: Mod/High Risk (score >= 2) Caprini Risk Assessment Model Point Value = 1 Point Value = 2 Point Value = 3 Point Value = 5 Age 41-60 Minor surgery BMI > 25 kg/m2 Swollen legs Varicose veins or History of unexplained or recurrent spontaneous Oral contraceptives or hormone replacement Sepsis (< 1 month) Serious lung disease, including pneumonia (< 1 month) Abnormal pulmonary function Acute myocardial infarction Congestive heart failure (< 1 month) History of inflammatory bowel disease Medical patient at bed rest Age 61-74 Arthroscopic surgery Major open surgery (> 45 min) Laparoscopic surgery (> 45 min) Malignancy Confined to bed (> 72 hours) Immobilizing plaster cast Central venous access Age >= 75 History of VTE Family history of VTE Factor V Leiden Prothrombin [id number] Lupus anticoagulant Anticardiolipin antibodies Elevated serum homocysteine Heparin-induced thrombocytopenia Other congenital or acquired thrombophilia Stroke (< 1 month) Elective arthroplasty Hip, pelvis, or leg fracture Acute spinal cord injury (< 1 month) Prophylaxis Regimen Total Risk Factor Score Risk Level Prophylaxis Regimen 0-1 Low Early ambulation 2 Moderate Order ONE of the following: *Sequential Compression Device (SCD) *Heparin 5000 units SQ BID 3-4 Higher Order ONE of the following medications: *Heparin 5000 units SQ TID *Enoxaparin/Lovenox 40 mg SQ daily (WT < 150 kg, CrCl > 30 mL/min) *Enoxaparin/Lovenox 30 mg SQ daily (WT < 150 kg, CrCl > 10-29 mL/min) *Enoxaparin/Lovenox 30 mg SQ BID (WT < 150 kg, CrCl > 30 mL/min) AND/OR *Sequential Compression Device (SCD) 5 or more Highest Order ONE of the following medications: *Heparin 5000 units SQ TID (Preferred with Epidurals) *Enoxaparin/Lovenox 40 mg SQ daily (WT < 150 kg, CrCl > 30 mL/min) *Enoxaparin/Lovenox 30 mg SQ daily (WT < 150 kg, CrCl > 10-29 mL/min) *Enoxaparin/Lovenox 30 mg SQ BID (WT < 150 kg, CrCl > 30 mL/min) AND *Sequential Compression Device (SCD) Assessment and Plan Problem List: (1) Squamous cell carcinoma of oropharynx ICD Codes: C10.9 - Malignant neoplasm of oropharynx, unspecified Plan: This is a 67-year-old male with a past medical history which includes 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 Patient currently on chemotherapy with Dr. Toledo and radiation with Dr. Summers for the past four weeks. Patient had his radiation done just a few days ago. Since that time patient has been having nausea, thick oral secretions, feeling more weak, poor p.o. intake, and fevers according to his . Patient has a PEG tube in place but has not yet started using it. Patient had been tolerating smoothies orally up until two days ago. His fevers have been 102 at home. He denies any coughing, abdominal pains, shortness of breath, or other symptoms. Dr. Summers notified Will consult Dr. Toledo in AM (2) Bacteremia ICD Codes: R78.81 - Bacteremia Plan: Patient has 4/4 bottles growing gram positive cocci Patient on vancomycin with pharmacy to dose and Zosyn Draw Blood culture from PORT consult ID (3) Positive blood cultures ICD Codes: R78.81 - Bacteremia Plan: see above (4) Thrombocytopenia ICD Codes: D69.6 - Thrombocytopenia, unspecified Plan: Plt count 38,000. Patient with recent chemotherapy No active bleeding No chemical DVT prophylaxis recheck CBC in AM Consult Dr. Toledo in AM (5) Hypokalemia ICD Codes: E87.6 - Hypokalemia Status: Acute Plan: Patient has had poor PO intake after chemotherapy and radiation Potassium today 1.7 with magnesium 1.4 both replaced repeat potassium at 1700 continuous cardiac telemetry (6) Dehydration ICD Codes: E86.0 - Dehydration Status: Acute Plan: Poor PO intake after chemotherapy and radiation Continue aggressive IVF replacement BMP in AM Assessment and Plan Patient examined. Assessment and plan formulated with Lea Esparza PA-C. I agree with the above. Pt is a 67 y/o M with head/neck cancer. Pt underwent surgical resection 09/2017. Pt follows with Dr. Toledo, Oncology. Pt started on Radiation Therapy this week. Pt presented to ER with c/o fever, nausea, and decreased PO intake. Blood Cx --> Gram Positive Cocci Hypokalemia Replete potassium continue IV vancomycin consult infectious disease. Physician Certification 2 Midnight Certification Type: Admission for Inpatient Services Order for Inpatient Services The services are ordered in accordance with Medicare regulations or non- Medicare payer requirements, as applicable. In the case of services not specified as inpatient-only, they are appropriately provided as inpatient services in accordance with the 2-midnight benchmark. Estimated LOS (days): 3 days is the estimated time the patient will need to remain in the hospital, assuming treatment plan goals are met and no additional complications. Post-Hospital Plan: Not yet determined Lea Esparza December 12, 2017 09:45 Antonino Kearney DO December 12, 2017 10:33
[2017-12-12] MEDS ORDERED: POTASSIUM CHLORIDE 20 MEQ PWD PACKET PEG SCH (10:30)
[2017-12-12] MEDS: NS + KCL 40 MEQ INJ 1,000 ML IV SCH ×2 (10:36→20:30)
[2017-12-12] MEDS: MAGNESIUM SULFATE 1 GM PREMIX 100 ML IV SCH ×2 (10:36→12:38)
[2017-12-12] MEDS ORDERED: VANCOMYCIN 1,500 MG/NS 500 ML IV ONE ×2 (11:00)
[2017-12-12 12:00] VITALS: BP 116/80; PULSE 114; RESP 18; TEMP 98.9; O2SAT 96
[2017-12-12] MEDS: METOPROLOL TARTRATE 50 MG TAB PO SCH ×2 (12:41→20:47)
[2017-12-12] MEDS: METOCLOPRAMIDE HCL 10 MG/2 ML VIAL IV PUSH PRN (12:42)
[2017-12-12] MEDS: POTASSIUM CHLOR 20 MEQ PREMIX 100 ML IV SCH ×5 (14:53→20:48)
[2017-12-12 16:00] VITALS: BP 126/78; PULSE 105; RESP 16; TEMP 100.1; O2SAT 93
--- NOTE | 2017-12-12 17:11 | MB ---
cc: Seven Alonso MD DATE: 12/12/2017 REQUESTING PHYSICIAN: Dr. Kearney REASON: Bacteremia. HISTORY OF PRESENT ILLNESS: This is a 67-year-old white male who has a history of squamous cell carcinoma of the tongue. The patient presented to the Emergency Department with fever, nausea and decreased p.o. intake. In the Emergency Department, he had a temperature of 100.7 degrees and blood pressure of 85/52. Urinalysis showed a few bacteria and 15 white cells. Urine culture was obtained. Blood culture was taken and a blood culture has MRSA identified in 1 bottle and all 4 bottles have gram-positive cocci. The urine culture has immature growth. The patient received a dose of vancomycin. He is currently lying in bed and is in no acute distress. He tells me that he had some chills last night. Besides that, he states that he has back pain which he thinks is caused by lying in bed. The patient post-chemotherapy. He had an Infusaport in the left chest via which chemotherapy was given. He also received radiation therapy to the neck. The patient underwent modified radical neck dissection in September 2017 at [facility]. He had resection of the base of the tongue also. He denies dysuria. He denies urinary urgency. The temperature has improved. The white blood cell count has been normal since admission but there was left shift with 90% neutrophils and today's white count reveals 17% bands and the platelet count has dropped to 38,000 today. Yesterday's platelet count was 68,000. C. difficile toxin is negative. The patient is taking in mostly liquid nutrition. PAST MEDICAL HISTORY: Hypertension, atrial fibrillation, alcohol abuse, alcohol withdrawal seizures, anxiety, gastroesophageal reflux disease, gout, history of pulmonary embolism, history of DVT, history of hemorrhagic CVA, history of skin cancer removal from the left arm. ALLERGIES: DOXYCYCLINE, CODEINE. The patient had MRSA nares culture in March 2016. MEDICATIONS: 1. Vancomycin was given earlier today. 2. Piperacillin/tazobactam. 3. Restoril. 4. Lopressor. 5. Reglan. 6. Potassium. SOCIAL HISTORY: The patient is . No tobacco, occasional alcohol. No illicit drugs. FAMILY HISTORY: Noncontributory. REVIEW OF SYSTEMS: Significant for decreased hearing, occasional chills and back pain and some difficulty swallowing. Otherwise, negative on a 10-point review. PHYSICAL EXAMINATION: GENERAL: This is a well-developed, slender male, in no acute distress. VITAL SIGNS: Temperature 98.9, BP 116/80, respirations 18, heart rate 114. HEENT: The head is post-surgery with defect noted at the right side of the neck. Extraocular movements are grossly intact. Pupils reactive to light. No icterus. Oropharynx: Moist mucosa. NECK: Supple. No adenopathy. No swelling. LUNGS: Clear breath sounds. CHEST: Infusaport is present at the left chest and has no erythema at the entry. HEART: Irregular S1, S2. No murmurs, rubs or gallops. ABDOMEN: Bowel sounds present. Soft. No tenderness appreciated. RECTAL: Not performed. EXTREMITIES: No clubbing, cyanosis or edema. SKIN: No rash. NEUROLOGIC: No gross focal findings. PSYCHIATRIC: The patient is calm and cooperative. LABORATORY DATA: WBC 5.2, platelets 38, 79% neutrophils, 17% bands, hemoglobin 12.0. Creatinine 1.7, BUN 26, estimated GFR 4.0, sodium 132, AST 60, ALT 126. IMPRESSION: 1. Bacteremia due to methicillin-resistant staphylococcus aureus. 2. Abnormal urinary tract infection. Urine culture pending. 3. History of squamous cell carcinoma of the tongue. The patient undergoing radiation and chemotherapy. 4. The patient was admitted with fever and has renal insufficiency. 5. The renal insufficiency suggests acute kidney disease. RECOMMENDATIONS: 1. Continue the vancomycin adjusted for renal function. 2. Monitor urine culture. 3. Follow repeat blood culture, which was obtained today. 4. If the urine culture has MRSA, it could be the source of the infection. If not, one would have to consider the possibility of the catheter (Infusaport) being associated with infection. Thank you for this consultation. The patient's progress will be monitored and further recommendations will be given on followup if necessary. MD LEANNA Lopez/KAVON , 04:34 PM , 05:10 PM CARI
[2017-12-12 20:00] VITALS: BP 123/79; PULSE 100; RESP 18; TEMP 98.3; O2SAT 97
[2017-12-12 21:30] LABS: BICARBONATE 27.5 MEQ/L (21.0-32.0); CALCIUM 7.5 MG/DL (8.5-10.1); CREATININE 1.82 MG/DL (0.60-1.30)
[2017-12-13] VITALS (8 sets, daily range): BP systolic 116–127; BP diastolic 67–81; PULSE 67–109; RESP 16–18; TEMP 98–98.7; O2SAT 96–98
[2017-12-13] MEDS: POTASSIUM CHLOR 20 MEQ PREMIX 100 ML IV SCH ×8 (03:38→21:41)
[2017-12-13] MEDS: PIPERACIL-TAZO 3.375 GM PREMIX 50 ML IV SCH ×2 (05:07→14:00)
[2017-12-13] MEDS: NS + KCL 40 MEQ INJ 1,000 ML IV SCH ×2 (06:05→17:40)
[2017-12-13 07:06] LABS: HEMATOCRIT 33.9 % (39.0-51.0); HEMOGLOBIN 11.7 GM/DL (13.0-17.0); MEAN CELL VOLUME 91.5 FL (80.0-100.0); MEAN CORPUSCULAR HEMOGLOBIN 31.5 PG (27.0-34.0); MEAN CORPUSCULAR HGB CONC 34.4 % (32.0-36.0); MEAN PLATELET VOLUME 9.9 FL (7.0-11.0); PLATELET COUNT 33 TH/MM3 (150-450); RED CELL DISTRIBUTION WIDTH 15.2 % (11.6-17.2)
[2017-12-13 07:38] LABS: BICARBONATE 26.8 MEQ/L (21.0-32.0); CALCIUM 7.2 MG/DL (8.5-10.1); CREATININE 1.74 MG/DL (0.60-1.30)
[2017-12-13] MEDS ORDERED: DIPHENOXYLATE/ATROPINE 2.5 MG/0.025 MG TAB PO PRN (07:45)
[2017-12-13 08:00] LABS: TOTAL PROTEIN 5.6 GM/DL (6.4-8.2)
[2017-12-13 08:04] LABS: BANDS 15 % (0-6); LYMPHOCYTES 1 % (9-44); MONOCYTES 6 % (0-8); NEUTROPHIL # MANUAL DIFF 3.7 TH/MM3 (1.8-7.7); OVALOCYTES 1+ (NORMAL); POLYS (SEG NEUTROPHILS) 78 % (16-70)
[2017-12-13 08:05] LABS: TOXIC GRANULATION 1+ (NORMAL)
[2017-12-13] MEDS: METOPROLOL TARTRATE 50 MG TAB PO SCH ×2 (09:00→21:41)
--- NOTE | 2017-12-13 09:23 | PD.CONS ---
History of Present Illness Service Hematology/oncology Consult Requested By [facility]. Reason for Consult Patient with diagnosis of oropharyngeal squamous cell carcinoma, currently on concurrent chemoradiotherapy with cisplatin dosed at 100 mg per metered squared every 21 days. MRSA sepsis Chemotherapy associated myelosuppression Chemotherapy associated mucositis Primary Care Physician Gary Arriaza D.O. Diagnoses: History of Present Illness Chief complaint: Patient reports fatigue, soreness in the throat, thick mucus, difficulty swallowing. He also reports fevers of up to 101.9F measured at home. Patient reports ongoing weight loss secondary to difficulty swallowing and poor nutritional intake. History of presenting illness: Was initially seen by me about 2 years ago, he at that time was hospitalized following Mr. España is a 67-year-old man who is well-known to me from my outpatient practice. Mr. España uncontrolled seizures which were presumed to be secondary to alcohol withdrawal. The patient at that time was on a ventilator due to respiratory failure, he had developed deep venous thromboses and pulmonary emboli secondary to sepsis and intravenous access. He was initiated on anticoagulation, while on anticoagulation he developed an intracranial hemorrhage. Thankfully the deep venous thromboses and pulmonary emboli had resolved by then and he was not rechallenge with anticoagulation. About 4 months ago the patient was diagnosed with an oropharyngeal squamous cell carcinoma, he underwent transoral surgical resection of the primary tumor involving the base of the neck as well as surgical resection of the involved cervical lymph nodes. The patient was found to have pathologic stage T2 N2 M0; stage Priscilla disease. His primary surgical resection was performed at the [facility] in [place] and he has been on postoperative concurrent chemoradiotherapy here in [place]. The patient received his second dose of cisplatin 100 mg per metered squared about a week ago, he has had difficulty with increasing soreness in the throat , increasing difficulty swallowing and low-grade fevers at home. He came into the emergency department yesterday morning with complaints of fever , his measured a temperature of 101.9F at home. Blood cultures are positive for MRSA 2 bottles. He is on broad-spectrum antibiotic coverage with vancomycin and cefepime. Additionally the patient is noted to have acute renal insufficiency, electrolyte derangements including hypokalemia and hypomagnesemia and myelosuppression primarily with thrombocytopenia which is likely related to chemotherapy. Review of Systems Constitutional: COMPLAINS OF: Fatigue, Fever, Weight loss, Chills, Dizziness, Change in appetite, DENIES: Diaphoretic episodes, Weight gain, Night Sweats Endocrine: COMPLAINS OF: Heat/cold intolerance, DENIES: Polydipsia, Polyuria, Polyphagia Eyes: DENIES: Blurred vision, Diplopia, Eye inflammation, Eye pain, Vision loss , Photosensitivity, Double Vision Ears, nose, mouth, throat: COMPLAINS OF: Tinnitus, Hearing loss, DENIES: Vertigo, Nasal discharge, Oral lesions, Throat pain, Hoarseness, Ear Pain, Running Nose, Epistaxis, Sinus Pain, Toothache, Odynophagia Respiratory: COMPLAINS OF: Cough, Sputum production, Shortness of breath, DENIES: Apneas, Snoring, Wheezing, Hemoptysis Cardiovascular: COMPLAINS OF: Palpitations, Dyspnea on Exertion, DENIES: Chest pain, Syncope, PND, Lower Extremity Edema, Orthopnea, Claudication Gastrointestinal: COMPLAINS OF: Nausea, Vomiting, Difficulty Swallowing, Anorexia, DENIES: Abdominal pain, Black stools, Bloody stools, Constipation, Diarrhea Genitourinary: DENIES: Sexual dysfunction, Urinary frequency, Urinary incontinence, Urgency, Hematuria, Dysuria, Nocturia, Penile Discharge, Testicular Pain, Testicular Swelling Musculoskeletal: DENIES: Joint pain, Muscle aches, Stiffness, Joint Swelling, Back pain, Neck pain Integumentary: DENIES: Abnormal pigmentation, Nail changes, Pruritus, Rash Hematologic/lymphatic: DENIES: Bruising, Lymphadenopathy Immunologic/allergic: DENIES: Eczema, Urticaria Neurologic: COMPLAINS OF: Headache, DENIES: Abnormal gait, Localized weakness, Paresthesias, Seizures, Speech Problems, Tremor, Poor Balance Psychiatric: DENIES: Anxiety, Confusion, Mood changes, Depression, Hallucinations, Agitation, Suicidal Ideation, Homicidal Ideation, Delusions Except as stated in HPI: all other systems reviewed are Neg Past Family Social History Allergies: Coded Allergies: codeine (Unverified Allergy, Severe, UNKNOWN CHILDHOOD, 10/28/17) doxycycline (Unverified Allergy, Severe, Rash, 10/28/17) *MDRO Multi-Drug Resistant Organism (Verified Adverse Reaction, Unknown, ) MRSA PCR screen (nares) POSITIVE - 03/09/16 Past Medical History Squamosal carcinoma of the oropharynx. Atrial fibrillation History of alcohol withdrawal seizures Anxiety Gastroesophageal reflux disease Gout History of intracranial hemorrhage Hypertension History of pulmonary emboli History of lower extremity and upper extremity deep venous thromboses History of ischemic stroke Patient was also transiently positive for circulating lupus anticoagulant Past Surgical History Infusion port placement PEG tube placement Removal of non-melanoma skin cancers on left arm Tonsillectomy Tracheostomy with creation and reversal in 2015 Transoral resection of base of the tongue malignancy with modified radical right neck dissection and removal of pathologic enlarged cervical lymph nodes performed in September 2017. Active Ordered Medications Half normal saline 100 cc/h Zosyn 3.375 g IV every 8 hours Vancomycin per pharmacy protocol Lomotil 1 tablet p.o. every 6 hours needed for diarrhea Ativan 0.5 mg every 6 hours needed for anxiety Metoclopramide 10 mg IV every 6 hours needed for nausea and vomiting Metoprolol 50 mg p.o. every 12 hours Zofran 4 mg p.o. every 6 hours needed for nausea and vomiting. Potassium per replacement protocol Temazepam 30 mg p.o. nightly as needed for insomnia Family History No known oncologic diagnoses in the family. Social History Patient lives at home with his , he formerly was a smoker and heavy drinker , he no longer smokes or drinks. The patient is a musician, he actively plays in a band. Physical Exam Vital Signs Vital Signs Date Time Temp Pulse Resp B/P (MAP) Pulse Ox O2 Delivery O2 Flow Rate FiO2 12/13/17 05:05 98.3 106 18 124/73 (90) 97 12/13/17 00:00 98.6 99 18 123/74 (90) 96 12/12/17 20:00 98.3 100 18 123/79 (94) 97 12/12/17 16:00 100.1 105 16 126/78 (94) 93 12/12/17 12:00 98.9 114 18 116/80 (92) 96 Physical Exam GENERAL: Elderly male, laying in bed, he appears to be frail, he seems to have some difficulty speaking due to dryness in the mouth. He is not acutely distressed however. SKIN: Radiation related changes along the right side of his neck. hes, ecchymoses or lesions. Cool and dry. HEAD: Atraumatic. Normocephalic. No temporal or scalp tenderness. EYES: Pupils equal round and reactive. Extraocular motions intact. No scleral icterus. No injection or drainage. ENT: Oral exam, thick mucus which is dried and sticky on the hard and soft palate, he seems not to have any ulceration or active bleeding some erythema in the oropharynx. NECK: Trachea midline. No JVD or lymphadenopathy. Supple, nontender, no meningeal signs. No pathologically enlarged cervical lymph nodes. CARDIOVASCULAR: Irregular rhythm, S1-S2 no murmurs rubs gallops. RESPIRATORY: Good air movement of the upper and middle lung zones, decreased bibasilar breath sounds, poor inspiratory effort. GASTROINTESTINAL: PEG tube in place, abdomen is nontender nondistended no palpable organ enlargement. MUSCULOSKELETAL: Generally decreased muscle mass, adequate tone and strength. NEUROLOGICAL: Awake and alert. Cranial nerves II through XII intact. Motor and sensory grossly within normal limits. Five out of 5 muscle strength in all muscle groups. Normal speech. Laboratory Laboratory Tests Test 12/12/17 13:34 12/12/17 20:20 12/13/17 06:35 Stool C. difficile Toxin (PCR) NEGATIVE Stl C. difficile Toxin Epiderm 027 PRESUMPTIVE NEGATIVE Blood Urea Nitrogen 30 32 Creatinine 1.82 1.74 Random Glucose 109 143 Calcium Level 7.5 7.2 Sodium Level 133 136 Potassium Level 2.3 2.4 Chloride Level 95 99 Carbon Dioxide Level 27.5 26.8 Anion Gap 11 10 Estimat Glomerular Filtration Rate 37 39 White Blood Count 4.0 Red Blood Count 3.70 Hemoglobin 11.7 Hematocrit 33.9 Mean Corpuscular Volume 91.5 Mean Corpuscular Hemoglobin 31.5 Mean Corpuscular Hemoglobin Concent 34.4 Red Cell Distribution Width 15.2 Platelet Count 33 Mean Platelet Volume 9.9 CBC Comment AUTO DIFF Differential Total Cells Counted 100 Neutrophils % (Manual) 78 Band Neutrophils % 15 Lymphocytes % 1 Monocytes % 6 Neutrophils # (Manual) 3.7 Differential Comment FINAL DIFF MANUAL Toxic Granulation 1+ Platelet Estimate LOW Platelet Morphology Comment NORMAL Ovalocytes 1+ Total Protein 5.6 Protein Corrected Calcium 8.0 Random Vancomycin Level 20.0 Date/Time Source Procedure Growth Status 12/12/17 10:19 Blood Line Aerobic Blood Culture Pending Received 12/12/17 10:19 Blood Line Anaerobic Blood Culture Pending Received 12/11/17 22:18 Urine Catheterized Urine Urine Culture - Preliminary IMMATURE GROWTH - REINCUBATE Resulted Result Diagram: 12/13/17 0635 12/13/17 0635 Assessment and Plan Assessment and Plan 67-year-old man with a diagnosis of an oropharyngeal squamous cell carcinoma ( involving the right base of the tongue) associated with right cervical lymph node involvement. Status post surgical resection at the [facility] in September 2017; pathologic stage T2 N2 M0. Currently on postoperative concurrent chemoradiotherapy with cisplatin dosed at 100 mg per metered squared every 21 days. He is status post 2 infusions of chemotherapy with a third dose planned for late November 2017. The patient presents to the hospital with complaints of fevers of up to 101.9F measured at home, T-max in the hospital been 100.7. He was noted to have 2 sets of blood cultures positive for gram- positive cocci, microbiology lab indicates MRSA positivity. He is on broad- spectrum antibiotic coverage with vancomycin and cefepime. The patient has significant toxicity related to chemoradiotherapy with Acute renal injury, myelosuppression and electrolyte derangement specifically with hypokalemia and hypomagnesemia. He also has protein calorie malnutrition and relies heavily on his feeding tube and tube feeds for caloric intake. The oncology service is been asked to see him given the ongoing toxicity related to treatment. Plan: 1. Squamous cell carcinoma with oropharynx: He has significant treatment associated toxicity including mucositis, myelosuppression and likely renal injury secondary to cisplatin. Recommend aggressive hydration, electrolyte replacement and nutritional support with tube feeds. Chemotherapy will remain on hold until his renal function improves and his counts improve. Additional toxicity includes autotoxicity with Loss of hearing acuity especially out of his right ear. 2. MRSA bacteremia: Appreciate infectious diseases input. He is on vancomycin and Zosyn. He does have an infusion port in place and it is yet not clear if the port will need to be removed, if the port needs to come out, I would support that decision. 3. Electrolyte abnormalities: Magnesium and potassium. 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 Disposition: Continue ongoing care. Oncology for follow with you. Pascual Toledo MD December 13, 2017 09:23
--- NOTE | 2017-12-13 10:22 | HHI.PR ---
Subjective Remarks Patient continues to c/o thick sputum N/V improved diarrhea improved tolerating small amounts of liquid PO TF running at 35ml/H Objective Vitals Vital Signs Date Time Temp Pulse Resp B/P (MAP) Pulse Ox O2 Delivery O2 Flow Rate FiO2 12/13/17 08:00 98.4 104 18 116/81 (93) 96 12/13/17 05:05 98.3 106 18 124/73 (90) 97 12/13/17 00:00 98.6 99 18 123/74 (90) 96 12/12/17 20:00 98.3 100 18 123/79 (94) 97 12/12/17 16:00 100.1 105 16 126/78 (94) 93 12/12/17 12:00 98.9 114 18 116/80 (92) 96 Result Diagram: 12/13/17 0635 12/13/17 0635 Other Results Laboratory Tests Test 12/11/17 19:18 12/11/17 22:18 12/12/17 06:09 12/12/17 13:34 White Blood Count 6.0 TH/MM3 5.2 TH/MM3 Red Blood Count 4.11 MIL/MM3 3.79 MIL/MM3 Hemoglobin 12.9 GM/DL 12.0 GM/DL Hematocrit 37.6 % 34.7 % Mean Corpuscular Volume 91.5 FL 91.5 FL Mean Corpuscular Hemoglobin 31.4 PG 31.7 PG Mean Corpuscular Hemoglobin Concent 34.3 % 34.6 % Red Cell Distribution Width 15.1 % 15.0 % Platelet Count 68 TH/MM3 38 TH/MM3 Mean Platelet Volume 9.6 FL 9.0 FL Neutrophils (%) (Auto) 90.7 % 92.1 % Lymphocytes (%) (Auto) 2.3 % 1.1 % Monocytes (%) (Auto) 6.7 % 6.7 % Eosinophils (%) (Auto) 0.1 % 0.0 % Basophils (%) (Auto) 0.2 % 0.1 % Neutrophils # (Auto) 5.4 TH/MM3 4.8 TH/MM3 Lymphocytes # (Auto) 0.1 TH/MM3 0.1 TH/MM3 Monocytes # (Auto) 0.4 TH/MM3 0.3 TH/MM3 Eosinophils # (Auto) 0.0 TH/MM3 0.0 TH/MM3 Basophils # (Auto) 0.0 TH/MM3 0.0 TH/MM3 CBC Comment AUTO DIFF AUTO DIFF Differential Total Cells Counted 100 100 Neutrophils % (Manual) 83 % 79 % Band Neutrophils % 9 % 17 % Lymphocytes % 5 % 2 % Monocytes % 3 % 2 % Neutrophils # (Manual) 5.5 TH/MM3 5.0 TH/MM3 Differential Comment FINAL DIFF MANUAL FINAL DIFF MANUAL Toxic Vacuolation PRESENT Platelet Estimate LOW LOW Platelet Morphology Comment ENLARGED NORMAL Blood Urea Nitrogen 21 MG/DL 26 MG/DL Creatinine 1.59 MG/DL 1.70 MG/DL Random Glucose 116 MG/DL 111 MG/DL Total Protein 6.7 GM/DL 6.0 GM/DL Albumin 3.2 GM/DL Calcium Level 7.9 MG/DL 7.2 MG/DL Alkaline Phosphatase 71 U/L Aspartate Amino Transf (AST/SGOT) 60 U/L Alanine Aminotransferase (ALT/SGPT) 126 U/L Total Bilirubin 1.2 MG/DL Sodium Level 129 MEQ/L 132 MEQ/L Potassium Level 2.0 MEQ/L 1.7 MEQ/L Chloride Level 87 MEQ/L 92 MEQ/L Carbon Dioxide Level 27.7 MEQ/L 26.2 MEQ/L Anion Gap 14 MEQ/L 14 MEQ/L Estimat Glomerular Filtration Rate 44 ML/MIN 40 ML/MIN Lactic Acid Level 1.7 mmol/L Urine Color DARK-YELLOW Urine Turbidity HAZY Urine pH 6.5 Urine Specific [place] 1.029 Urine Protein 300 mg/dL Urine Glucose (UA) 300 mg/dL Urine Ketones 40 mg/dL Urine Occult Blood MOD Urine Nitrite NEG Urine Bilirubin NEG Urine Urobilinogen 8.0 MG/DL Urine Leukocyte Esterase NEG Urine RBC 4 /hpf Urine WBC 15 /hpf Urine Squamous Epithelial Cells 1 /hpf Urine Bacteria FEW /hpf Urine Mucus MANY /lpf Microscopic Urinalysis Comment CATH-CULTURE IND Keratocytes 1+ Protein Corrected Calcium 7.8 MG/DL Magnesium Level 1.4 MG/DL Stool C. difficile Toxin (PCR) NEGATIVE Stl C. difficile Toxin Epiderm 027 PRESUMPTIVE NEGATIVE Test 12/12/17 20:20 12/13/17 06:35 Blood Urea Nitrogen 30 MG/DL 32 MG/DL Creatinine 1.82 MG/DL 1.74 MG/DL Random Glucose 109 MG/DL 143 MG/DL Calcium Level 7.5 MG/DL 7.2 MG/DL Sodium Level 133 MEQ/L 136 MEQ/L Potassium Level 2.3 MEQ/L 2.4 MEQ/L Chloride Level 95 MEQ/L 99 MEQ/L Carbon Dioxide Level 27.5 MEQ/L 26.8 MEQ/L Anion Gap 11 MEQ/L 10 MEQ/L Estimat Glomerular Filtration Rate 37 ML/MIN 39 ML/MIN White Blood Count 4.0 TH/MM3 Red Blood Count 3.70 MIL/MM3 Hemoglobin 11.7 GM/DL Hematocrit 33.9 % Mean Corpuscular Volume 91.5 FL Mean Corpuscular Hemoglobin 31.5 PG Mean Corpuscular Hemoglobin Concent 34.4 % Red Cell Distribution Width 15.2 % Platelet Count 33 TH/MM3 Mean Platelet Volume 9.9 FL CBC Comment AUTO DIFF Differential Total Cells Counted 100 Neutrophils % (Manual) 78 % Band Neutrophils % 15 % Lymphocytes % 1 % Monocytes % 6 % Neutrophils # (Manual) 3.7 TH/MM3 Differential Comment FINAL DIFF MANUAL Toxic Granulation 1+ Platelet Estimate LOW Platelet Morphology Comment NORMAL Ovalocytes 1+ Total Protein 5.6 GM/DL Protein Corrected Calcium 8.0 MG/DL Magnesium Level 2.0 MG/DL Random Vancomycin Level 20.0 COMMENT Imaging Last Impressions Chest X-Ray 12/11/17 3004 Signed Impressions: Service Date/Time: Monday, December 11, 2017 19:00 - CONCLUSION: No acute disease. No significant change has occurred. Eduardo Sebastian MD Objective Remarks GENERAL: This is a well-developed patient 67 year old male patient, appears fatigued SKIN: No rashes, ecchymoses or lesions. Cool and dry. PORT site accessed site appears clean no erythema, tenderness or drainage HEAD: Atraumatic. Normocephalic. No temporal or scalp tenderness. ENT: dry mucous membranes CARDIOVASCULAR: Tachycardic RESPIRATORY: Clear to auscultation. Breath sounds equal bilaterally. GASTROINTESTINAL: Abdomen soft, non-tender, nondistended. PEG tube in place site appears clean no erythremia or drainage MUSCULOSKELETAL: Extremities without clubbing, cyanosis, or edema. No joint tenderness, effusion, or edema noted. No calf tenderness. Negative Homans sign bilaterally. NEUROLOGICAL: Awake and alert. Motor and sensory grossly within normal limits. Five out of 5 muscle strength in all muscle groups. soft speech. A/P Problem List: (1) Squamous cell carcinoma of oropharynx ICD Codes: C10.9 - Malignant neoplasm of oropharynx, unspecified Plan: Squamous cell carcinoma of oropharynx This is a 67-year-old male with a past medical history which includes oropharyngeal squamous cell cancer s/p resection with modified radical neck dissection 09/2017 at [facility]. Patient currently on chemotherapy with Dr. Toledo and radiation with Dr. Summers for the past four weeks. Patient had his radiation done just a few days ago. Since that time patient has been having nausea, thick oral secretions, feeling more weak, poor p.o. intake, and fevers according to his . Patient has a PEG tube in place but has not yet started using it. Patient had been tolerating smoothies orally up until two days ago. His fevers have been 102 at home. He denies any coughing, abdominal pains, shortness of breath, or other symptoms. Dr. Summers notified Consult medical oncology patient known to Dr. 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 Bacteremia Patient has 3/4 bottles growing gram positive cocci with 1/4 growing S. Aureus MRSA Patient on vancomycin with pharmacy to dose and Zosyn Draw Blood culture from PORT (pending) PORT may need to be removed consult ID, appreciate input Positive blood cultures see above Thrombocytopenia Plt count 38,000 -> 33,000 Patient with recent chemotherapy, currently on hold due to patient's KEVIN and blood counts No active bleeding No chemical DVT prophylaxis recheck CBC in AM Consult Dr. Toledo also following Hypokalemia Patient has had poor PO intake after chemotherapy and radiation Potassium on admission 1.7 -> 2.4 (12/13) magnesium on admission 1.4 -> 2.0 (12/13) replace repeat potassium at 1500 continuous cardiac telemetry Dehydration Poor PO intake after chemotherapy and radiation Continue aggressive IVF replacement BMP in AM (2) Bacteremia ICD Codes: R78.81 - Bacteremia (3) Positive blood cultures ICD Codes: R78.81 - Bacteremia (4) Thrombocytopenia ICD Codes: D69.6 - Thrombocytopenia, unspecified (5) Hypokalemia ICD Codes: E87.6 - Hypokalemia Status: Acute (6) Dehydration ICD Codes: E86.0 - Dehydration Status: Acute Assessment and Plan Patient examined. Assessment and plan formulated with Lea Esparza PA-C. I agree with the above. mrsa bacteremia. i think the port will need to be removed. abx per ID. will discuss with ID. oncology consulted discussed with enrobing machine corder. calorie count in progress. tf's titrating. Lea Esparza December 13, 2017 10:22 Anthony Lakhani MD December 13, 2017 21:26
[2017-12-13] MEDS ORDERED: VANCOMYCIN 1,500 MG/NS 500 ML IV ONE ×4 (15:00)
[2017-12-13] MEDS: LORazepam 0.5 MG TAB PO PRN (15:20)
--- NOTE | 2017-12-13 16:07 | HHI.IDPN ---
Note Infectious Disease Note Patient reports that he has some pain between the shoulders. He feels that it may be related to heartburn. Also thinks it could be from anxiety. is at bedside. Reports that he did not sleep much last night. He had complained yesterday of lower back pain which he says is still present. He denies chills. No redness of breath. The blood culture from 12/11 has MRSA in all 4 bottles. Urine culture from 12/11 has MRSA. Repeat blood culture from 12/12 has gram-positive cocci in 1 of 2 bottles. This is a 67-year-old white male who has a history of squamous cell carcinoma of the tongue. The patient presented to the Emergency Department with fever, nausea and decreased p.o. intake. In the Emergency Department, he had a temperature of 100.7 degrees and blood pressure of 85/52. Urinalysis showed a few bacteria and 15 white cells. The patient post-chemotherapy. He had an Infusaport in the left chest via which chemotherapy was given. This was placed 5 weeks ago. He also received radiation therapy to the neck. The patient underwent modified radical neck dissection in September 2017 at [facility]. PAST MEDICAL HISTORY: Hypertension, atrial fibrillation, alcohol abuse, alcohol withdrawal seizures, anxiety, gastroesophageal reflux disease, gout, history of pulmonary embolism, history of DVT, history of hemorrhagic CVA, history of skin cancer removal from the left arm. ALLERGIES: DOXYCYCLINE, CODEINE. The patient had MRSA nares culture in March 2016. MEDICATIONS: Current Medications Medications (Trade) Dose Ordered Sig/Fátima Route PRN Reason Start Time Stop Time Status Last Admin Dose Admin Ondansetron HCl (Zofran Odt) 4 mg Q6HR PRN PO nausea 12/11/17 23:15 12/11/17 23:58 Piperacillin Sod/ Tazobactam Sod 50 ml @ 100 mls/hr Q8HR IV 12/12/17 06:00 12/13/17 14:00 Pharmacy Profile Note 0 ml @ 0 mls/hr UNSCH OTHER 12/12/17 09:45 Potassium Chloride/Sodium Chloride 1,000 ml @ 100 mls/hr Q10H IV 12/12/17 10:30 12/12/17 10:36 Metoclopramide HCl (Reglan Inj) 10 mg Q6HR PRN IV PUSH NAUSEA OR VOMITING 12/12/17 11:15 12/12/17 12:42 Lorazepam (Ativan) 0.5 mg Q6H PRN PO ANXIETY AND/OR AGITATION 12/12/17 11:15 12/13/17 15:20 Temazepam (Restoril) 30 mg HS PRN PO INSOMNIA 12/12/17 21:00 Metoprolol Tartrate (Lopressor) 50 mg Q12HR PO 12/12/17 11:30 12/13/17 09:00 Diphenoxylate HCl/ Atropine (Lomotil Tab) 1 tab Q6H PRN PO DIARRHEA 12/13/17 07:45 Potassium Chloride 100 ml @ 50 mls/hr Q2H IV 12/13/17 10:00 12/13/17 21:59 12/13/17 14:00 Vancomycin HCl 1500 mg/Sodium Chloride 515 ml @ 257.5 mls/ hr ONCE ONCE IV 12/13/17 15:00 12/13/17 16:59 12/13/17 15:00 SOCIAL HISTORY: The patient is . No tobacco, occasional alcohol. No illicit drugs. Objective: Vital Signs Date Time Temp Pulse Resp B/P (MAP) Pulse Ox O2 Delivery O2 Flow Rate FiO2 12/13/17 14:28 109 12/13/17 13:09 98.0 98 17 122/76 (91) 97 12/13/17 08:00 98.4 104 18 116/81 (93) 96 12/13/17 05:05 98.3 106 18 124/73 (90) 97 12/13/17 00:00 98.6 99 18 123/74 (90) 96 12/12/17 20:00 98.3 100 18 123/79 (94) 97 12/12/17 16:00 100.1 105 16 126/78 (94) 93 Laboratory Tests Test 12/11/17 19:18 12/12/17 06:09 12/13/17 06:35 White Blood Count 6.0 TH/MM3 5.2 TH/MM3 4.0 TH/MM3 Red Blood Count 4.11 MIL/MM3 3.79 MIL/MM3 3.70 MIL/MM3 Hemoglobin 12.9 GM/DL 12.0 GM/DL 11.7 GM/DL Hematocrit 37.6 % 34.7 % 33.9 % Mean Corpuscular Volume 91.5 FL 91.5 FL 91.5 FL Mean Corpuscular Hemoglobin 31.4 PG 31.7 PG 31.5 PG Mean Corpuscular Hemoglobin Concent 34.3 % 34.6 % 34.4 % Red Cell Distribution Width 15.1 % 15.0 % 15.2 % Platelet Count 68 TH/MM3 38 TH/MM3 33 TH/MM3 Mean Platelet Volume 9.6 FL 9.0 FL 9.9 FL Neutrophils (%) (Auto) 90.7 % 92.1 % Lymphocytes (%) (Auto) 2.3 % 1.1 % Monocytes (%) (Auto) 6.7 % 6.7 % Eosinophils (%) (Auto) 0.1 % 0.0 % Basophils (%) (Auto) 0.2 % 0.1 % Neutrophils # (Auto) 5.4 TH/MM3 4.8 TH/MM3 Lymphocytes # (Auto) 0.1 TH/MM3 0.1 TH/MM3 Monocytes # (Auto) 0.4 TH/MM3 0.3 TH/MM3 Eosinophils # (Auto) 0.0 TH/MM3 0.0 TH/MM3 Basophils # (Auto) 0.0 TH/MM3 0.0 TH/MM3 CBC Comment AUTO DIFF AUTO DIFF AUTO DIFF Differential Total Cells Counted 100 100 100 Neutrophils % (Manual) 83 % 79 % 78 % Band Neutrophils % 9 % 17 % 15 % Lymphocytes % 5 % 2 % 1 % Monocytes % 3 % 2 % 6 % Neutrophils # (Manual) 5.5 TH/MM3 5.0 TH/MM3 3.7 TH/MM3 Differential Comment FINAL DIFF MANUAL FINAL DIFF MANUAL FINAL DIFF MANUAL Toxic Vacuolation PRESENT Platelet Estimate LOW LOW LOW Platelet Morphology Comment ENLARGED NORMAL NORMAL Keratocytes 1+ Toxic Granulation 1+ Ovalocytes 1+ Laboratory Tests Test 12/11/17 19:18 12/12/17 06:09 12/12/17 20:20 12/13/17 06:35 Blood Urea Nitrogen 21 MG/DL 26 MG/DL 30 MG/DL 32 MG/DL Creatinine 1.59 MG/DL 1.70 MG/DL 1.82 MG/DL 1.74 MG/DL Random Glucose 116 MG/DL 111 MG/DL 109 MG/DL 143 MG/DL Total Protein 6.7 GM/DL 6.0 GM/DL 5.6 GM/DL Albumin 3.2 GM/DL Calcium Level 7.9 MG/DL 7.2 MG/DL 7.5 MG/DL 7.2 MG/DL Alkaline Phosphatase 71 U/L Aspartate Amino Transf (AST/SGOT) 60 U/L Alanine Aminotransferase (ALT/SGPT) 126 U/L Total Bilirubin 1.2 MG/DL Sodium Level 129 MEQ/L 132 MEQ/L 133 MEQ/L 136 MEQ/L Potassium Level 2.0 MEQ/L 1.7 MEQ/L 2.3 MEQ/L 2.4 MEQ/L Chloride Level 87 MEQ/L 92 MEQ/L 95 MEQ/L 99 MEQ/L Carbon Dioxide Level 27.7 MEQ/L 26.2 MEQ/L 27.5 MEQ/L 26.8 MEQ/L Anion Gap 14 MEQ/L 14 MEQ/L 11 MEQ/L 10 MEQ/L Estimat Glomerular Filtration Rate 44 ML/MIN 40 ML/MIN 37 ML/MIN 39 ML/MIN Lactic Acid Level 1.7 mmol/L Protein Corrected Calcium 7.8 MG/DL 8.0 MG/DL Magnesium Level 1.4 MG/DL 2.0 MG/DL Test 12/13/17 14:43 Potassium Level 3.0 MEQ/L Microbiology Date/Time Source Procedure Growth Status 12/12/17 10:19 Blood Line Aerobic Blood Culture - Preliminary Gram Positive Cocci Resulted 12/12/17 10:19 Blood Line Anaerobic Blood Culture - Preliminary NO GROWTH IN 1 DAY Resulted 12/11/17 19:18 Blood Peripheral Aerobic Blood Culture - Final S. Aureus Mrsa Complete 12/11/17 19:18 Anaerobic Blood Culture - Final S. Aureus Mrsa Complete 12/11/17 19:01 Blood Peripheral Aerobic Blood Culture - Preliminary S. Aureus Mrsa Resulted 12/11/17 19:01 Anaerobic Blood Culture - Final S. Aureus Mrsa Resulted 12/11/17 22:18 Urine Catheterized Urine Urine Culture - Preliminary S. Aureus Mrsa Resulted PHYSICAL EXAMINATION: GENERAL: No acute distress. Patient is awake and alert. HEENT: The head is post-surgery with defect noted at the right side of the neck. Extraocular movements are grossly intact. Pupils reactive to light. No icterus. Oropharynx: Moist mucosa. NECK: Supple. No adenopathy. No swelling. LUNGS: Clear breath sounds. CHEST: Infusaport is present at the left chest and has no erythema at the entry. HEART: Irregular S1, S2. No murmurs, rubs or gallops. ABDOMEN: Bowel sounds present. Soft. No tenderness appreciated. EXTREMITIES: No clubbing, cyanosis or edema. SKIN: No rash. NEUROLOGIC: No gross focal findings. PSYCHIATRIC: Calm and cooperative. IMPRESSION: 1. Bacteremia due to MRSA. 2. Abnormal urinary tract infection. MRSA 3. History of squamous cell carcinoma of the tongue. Patient undergoing radiation and chemotherapy. 4. Acute kidney disease. Renal insufficiency. Clinically the patient looks stable. RECOMMENDATIONS: 1. We will hold off on additional Vancomycin and give daptomycin to avoid renal toxicity. 2. Stop piperacillin/tazobactam. 3. Repeat the blood culture. 4. Follow the last blood culture. If he has continued positive blood cultures it may be due to the [id number] and we May have to remove the [id number]. I have ordered a new set of blood cultures today. Seven Alonso MD December 13, 2017 16:07
[2017-12-13] MEDS: DAPTOmycin INJ 400 MG in SODIUM CHLORIDE 0.9% INJ 100 ML IV SCH (17:41)
[2017-12-14] VITALS (9 sets, daily range): BP systolic 118–141; BP diastolic 59–91; PULSE 62–139; RESP 17–20; TEMP 97.8–99.2; O2SAT 98–100
[2017-12-14] MEDS: NS + KCL 40 MEQ INJ 1,000 ML IV SCH ×2 (04:38→13:04)
[2017-12-14 08:20] LABS: BICARBONATE 27.6 MEQ/L (21.0-32.0); CALCIUM 7.5 MG/DL (8.5-10.1); CREATININE 1.57 MG/DL (0.60-1.30)
[2017-12-14] MEDS: METOPROLOL TARTRATE 50 MG TAB PO SCH ×2 (08:38→20:59)
[2017-12-14] MEDS ORDERED: POTASSIUM CHLORIDE 25 MEQ EFFERVESCENT TAB PO STA (08:56)
[2017-12-14] MEDS: METOCLOPRAMIDE HCL 10 MG/2 ML VIAL IV PUSH PRN (10:33)
[2017-12-14 11:44] LABS: AUTOMATED NEUTROPHIL # 4.5 TH/MM3 (1.8-7.7); BASOPHIL % 0.4 % (0.0-2.0); HEMATOCRIT 33.7 % (39.0-51.0); HEMOGLOBIN 11.5 GM/DL (13.0-17.0); LYMPH % 5.5 % (9.0-44.0); LYMPHOCYTE # 0.3 TH/MM3 (1.0-4.8); MEAN CELL VOLUME 91.8 FL (80.0-100.0); MEAN CORPUSCULAR HEMOGLOBIN 31.3 PG (27.0-34.0); MEAN CORPUSCULAR HGB CONC 34.1 % (32.0-36.0); MEAN PLATELET VOLUME 10.1 FL (7.0-11.0); MONO % 8.8 % (0.0-8.0); MONOCYTE # 0.5 TH/MM3 (0-0.9); NEUT % 85.3 % (16.0-70.0); PLATELET COUNT 30 TH/MM3 (150-450); RED BLOOD COUNT 3.67 MIL/MM3 (4.50-5.90); RED CELL DISTRIBUTION WIDTH 15.3 % (11.6-17.2); WHITE BLOOD COUNT 5.3 TH/MM3 (4.0-11.0)
--- NOTE | 2017-12-14 12:02 | HHI.PR ---
Subjective Remarks Patient continues to c/o thick oral secretions Potassium 2.6 this AM Objective Vitals Vital Signs Date Time Temp Pulse Resp B/P (MAP) Pulse Ox O2 Delivery O2 Flow Rate FiO2 12/14/17 05:00 104 12/14/17 04:30 98.3 62 20 118/60 (79) 98 12/14/17 01:14 105 12/14/17 00:40 97.8 64 17 120/59 (79) 99 12/13/17 22:14 101 12/13/17 21:30 98.7 67 16 125/67 (86) 98 12/13/17 16:00 98.0 89 18 127/75 (92) 96 12/13/17 14:28 109 12/13/17 13:09 98.0 98 17 122/76 (91) 97 12/14/17 12/14/17 12/15/17 15:00 23:00 07:00 Intake Total 641 ml Balance 641 ml Tube Feeding 641 ml Result Diagram: 12/13/17 0635 12/14/17 0636 Other Results Laboratory Tests Test 12/11/17 19:18 12/11/17 22:18 12/12/17 06:09 12/12/17 13:34 White Blood Count 6.0 TH/MM3 5.2 TH/MM3 Red Blood Count 4.11 MIL/MM3 3.79 MIL/MM3 Hemoglobin 12.9 GM/DL 12.0 GM/DL Hematocrit 37.6 % 34.7 % Mean Corpuscular Volume 91.5 FL 91.5 FL Mean Corpuscular Hemoglobin 31.4 PG 31.7 PG Mean Corpuscular Hemoglobin Concent 34.3 % 34.6 % Red Cell Distribution Width 15.1 % 15.0 % Platelet Count 68 TH/MM3 38 TH/MM3 Mean Platelet Volume 9.6 FL 9.0 FL Neutrophils (%) (Auto) 90.7 % 92.1 % Lymphocytes (%) (Auto) 2.3 % 1.1 % Monocytes (%) (Auto) 6.7 % 6.7 % Eosinophils (%) (Auto) 0.1 % 0.0 % Basophils (%) (Auto) 0.2 % 0.1 % Neutrophils # (Auto) 5.4 TH/MM3 4.8 TH/MM3 Lymphocytes # (Auto) 0.1 TH/MM3 0.1 TH/MM3 Monocytes # (Auto) 0.4 TH/MM3 0.3 TH/MM3 Eosinophils # (Auto) 0.0 TH/MM3 0.0 TH/MM3 Basophils # (Auto) 0.0 TH/MM3 0.0 TH/MM3 CBC Comment AUTO DIFF AUTO DIFF Differential Total Cells Counted 100 100 Neutrophils % (Manual) 83 % 79 % Band Neutrophils % 9 % 17 % Lymphocytes % 5 % 2 % Monocytes % 3 % 2 % Neutrophils # (Manual) 5.5 TH/MM3 5.0 TH/MM3 Differential Comment FINAL DIFF MANUAL FINAL DIFF MANUAL Toxic Vacuolation PRESENT Platelet Estimate LOW LOW Platelet Morphology Comment ENLARGED NORMAL Blood Urea Nitrogen 21 MG/DL 26 MG/DL Creatinine 1.59 MG/DL 1.70 MG/DL Random Glucose 116 MG/DL 111 MG/DL Total Protein 6.7 GM/DL 6.0 GM/DL Albumin 3.2 GM/DL Calcium Level 7.9 MG/DL 7.2 MG/DL Alkaline Phosphatase 71 U/L Aspartate Amino Transf (AST/SGOT) 60 U/L Alanine Aminotransferase (ALT/SGPT) 126 U/L Total Bilirubin 1.2 MG/DL Sodium Level 129 MEQ/L 132 MEQ/L Potassium Level 2.0 MEQ/L 1.7 MEQ/L Chloride Level 87 MEQ/L 92 MEQ/L Carbon Dioxide Level 27.7 MEQ/L 26.2 MEQ/L Anion Gap 14 MEQ/L 14 MEQ/L Estimat Glomerular Filtration Rate 44 ML/MIN 40 ML/MIN Lactic Acid Level 1.7 mmol/L Urine Color DARK-YELLOW Urine Turbidity HAZY Urine pH 6.5 Urine Specific [place] 1.029 Urine Protein 300 mg/dL Urine Glucose (UA) 300 mg/dL Urine Ketones 40 mg/dL Urine Occult Blood MOD Urine Nitrite NEG Urine Bilirubin NEG Urine Urobilinogen 8.0 MG/DL Urine Leukocyte Esterase NEG Urine RBC 4 /hpf Urine WBC 15 /hpf Urine Squamous Epithelial Cells 1 /hpf Urine Bacteria FEW /hpf Urine Mucus MANY /lpf Microscopic Urinalysis Comment CATH-CULTURE IND Keratocytes 1+ Protein Corrected Calcium 7.8 MG/DL Magnesium Level 1.4 MG/DL Stool C. difficile Toxin (PCR) NEGATIVE Stl C. difficile Toxin Epiderm 027 PRESUMPTIVE NEGATIVE Test 12/12/17 20:20 12/13/17 06:35 12/13/17 14:43 12/14/17 06:36 Blood Urea Nitrogen 30 MG/DL 32 MG/DL 29 MG/DL Creatinine 1.82 MG/DL 1.74 MG/DL 1.57 MG/DL Random Glucose 109 MG/DL 143 MG/DL 121 MG/DL Calcium Level 7.5 MG/DL 7.2 MG/DL 7.5 MG/DL Sodium Level 133 MEQ/L 136 MEQ/L 140 MEQ/L Potassium Level 2.3 MEQ/L 2.4 MEQ/L 3.0 MEQ/L 2.6 MEQ/L Chloride Level 95 MEQ/L 99 MEQ/L 102 MEQ/L Carbon Dioxide Level 27.5 MEQ/L 26.8 MEQ/L 27.6 MEQ/L Anion Gap 11 MEQ/L 10 MEQ/L 10 MEQ/L Estimat Glomerular Filtration Rate 37 ML/MIN 39 ML/MIN 44 ML/MIN White Blood Count 4.0 TH/MM3 Red Blood Count 3.70 MIL/MM3 Hemoglobin 11.7 GM/DL Hematocrit 33.9 % Mean Corpuscular Volume 91.5 FL Mean Corpuscular Hemoglobin 31.5 PG Mean Corpuscular Hemoglobin Concent 34.4 % Red Cell Distribution Width 15.2 % Platelet Count 33 TH/MM3 Mean Platelet Volume 9.9 FL CBC Comment AUTO DIFF Differential Total Cells Counted 100 Neutrophils % (Manual) 78 % Band Neutrophils % 15 % Lymphocytes % 1 % Monocytes % 6 % Neutrophils # (Manual) 3.7 TH/MM3 Differential Comment FINAL DIFF MANUAL Toxic Granulation 1+ Platelet Estimate LOW Platelet Morphology Comment NORMAL Ovalocytes 1+ Total Protein 5.6 GM/DL Protein Corrected Calcium 8.0 MG/DL Magnesium Level 2.0 MG/DL Random Vancomycin Level 20.0 COMMENT Test 12/14/17 10:51 Imaging Last Impressions Chest X-Ray 12/11/17 [id number] Signed Impressions: Service Date/Time: Monday, December 11, 2017 19:00 - CONCLUSION: No acute disease. No significant change has occurred. Eduardo Sebastian MD Objective Remarks GENERAL: This is a well-developed patient 67 year old male patient, appears fatigued SKIN: No rashes, ecchymoses or lesions. Cool and dry. PORT site accessed site appears clean no erythema, tenderness or drainage HEAD: Atraumatic. Normocephalic. No temporal or scalp tenderness. ENT: dry mucous membranes CARDIOVASCULAR: Tachycardic RESPIRATORY: Clear to auscultation. Breath sounds equal bilaterally. GASTROINTESTINAL: Abdomen soft, non-tender, nondistended. PEG tube in place site appears clean no erythremia or drainage MUSCULOSKELETAL: Extremities without clubbing, cyanosis, or edema. No joint tenderness, effusion, or edema noted. No calf tenderness. Negative Homans sign bilaterally. NEUROLOGICAL: Awake and alert. Motor and sensory grossly within normal limits. Five out of 5 muscle strength in all muscle groups. soft speech. A/P Problem List: (1) Squamous cell carcinoma of oropharynx ICD Codes: C10.9 - Malignant neoplasm of oropharynx, unspecified Plan: Squamous cell carcinoma of oropharynx This is a 67-year-old male with a past medical history which includes oropharyngeal squamous cell cancer s/p resection with modified radical neck dissection 09/2017 at [facility]. Patient currently on chemotherapy with Dr. Toledo and radiation with Dr. Summers for the past four weeks. Patient had his radiation done just a few days ago. Since that time patient has been having nausea, thick oral secretions, feeling more weak, poor p.o. intake, and fevers according to his . Patient has a PEG tube in place but has not yet started using it. Patient had been tolerating smoothies orally up until two days ago. His fevers have been 102 at home. He denies any coughing, abdominal pains, shortness of breath, or other symptoms. Dr. Summers notified Consult medical oncology patient known to Dr. 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 Bacteremia Positive blood cultures Patient has 5/5 bottles MRSA comanagement with ID, appreciate input DC's Vancomycin and Zosyn Repeat Blood culture pending PORT may need to be removed Thrombocytopenia Plt count 38,000 -> 33,000 Patient with recent chemotherapy, currently on hold due to patient's KEVIN and blood counts No active bleeding No chemical DVT prophylaxis recheck CBC pending and repeat in AM Consult Dr. Toledo also following Hypokalemia Patient has had poor PO intake after chemotherapy and radiation Potassium on admission 1.7 -> 2.4 (12/13) -> 3.0 (12/13) -> 2.6 (12/14) magnesium on admission 1.4 -> 2.0 (12/13) replace repeat potassium at 1500 continuous cardiac telemetry Dehydration Poor PO intake Poor PO intake after chemotherapy and radiation Continue aggressive IVF replacement Tube feeding Jevity goal rate of 55 ml?h Free water flush increased to 100 ml Q8H BMP in AM Xerostomia Start Salagen (2) Bacteremia ICD Codes: R78.81 - Bacteremia (3) Positive blood cultures ICD Codes: R78.81 - Bacteremia (4) Thrombocytopenia ICD Codes: D69.6 - Thrombocytopenia, unspecified (5) Hypokalemia ICD Codes: E87.6 - Hypokalemia Status: Acute (6) Dehydration ICD Codes: E86.0 - Dehydration Status: Acute Assessment and Plan Patient examined. Assessment and plan formulated with Lea Esparza PA-C. I agree with the above. mrsa bacteremia. i think the port will need to be removed. discussed with ID abx per ID. will discuss with ID. oncology consulted discussed with disabilities caregiver. calorie count in progress. tf's titrating. pt c/o dry/thick secretions Lea Esparza December 14, 2017 12:02 Anthony Lakhani MD December 14, 2017 12:04
[2017-12-14 12:21] LABS: OVALOCYTES 1+ (NORMAL); TOXIC GRANULATION 1+ (NORMAL)
[2017-12-14] MEDS: FREE WATER G-TUBE SCH ×2 (13:05→20:59)
[2017-12-14] MEDS: POTASSIUM CHLORIDE 25 MEQ EFFERVESCENT TAB G-TUBE SCH ×2 (13:05→17:08)
[2017-12-14] MEDS: PILOCARPINE HCL 5 MG TAB PO SCH ×2 (14:46→21:07)
--- NOTE | 2017-12-14 15:43 | HHI.IDPN ---
Note Infectious Disease Note Patient reports that he continues to get pain between the shoulders. Denies shortness of breath. is at bedside. No chills. No nausea or vomiting. Afebrile. The blood culture from 12/11 has MRSA in all 4 bottles. Urine culture from 12/11 has MRSA. Repeat blood culture from 12/12 has gram-positive cocci in 1 of 2 bottles. Blood culture from 12/13 has no growth in 1 day. Patient reports that the Ocfrbo-v-Irch is giving some difficulty withdrawing blood. This is a 67-year-old white male who has a history of squamous cell carcinoma of the tongue. The patient presented to the Emergency Department with fever, nausea and decreased p.o. intake. In the Emergency Department, he had a temperature of 100.7 degrees and blood pressure of 85/52. Urinalysis showed a few bacteria and 15 white cells. The patient post-chemotherapy. He had an Infusaport in the left chest via which chemotherapy was given. This was placed 5 weeks ago. He also received radiation therapy to the neck. The patient underwent modified radical neck dissection in September 2017 at [facility]. PAST MEDICAL HISTORY: Hypertension, atrial fibrillation, alcohol abuse, alcohol withdrawal seizures, anxiety, gastroesophageal reflux disease, gout, history of pulmonary embolism, history of DVT, history of hemorrhagic CVA, history of skin cancer removal from the left arm. ALLERGIES: DOXYCYCLINE, CODEINE. The patient had MRSA nares culture in March 2016. MEDICATIONS: Current Medications Medications (Trade) Dose Ordered Sig/Fátima Route PRN Reason Start Time Stop Time Status Last Admin Dose Admin Ondansetron HCl (Zofran Odt) 4 mg Q6HR PRN PO nausea 12/11/17 23:15 12/11/17 23:58 Potassium Chloride/Sodium Chloride 1,000 ml @ 100 mls/hr Q10H IV 12/12/17 10:30 12/14/17 13:04 Metoclopramide HCl (Reglan Inj) 10 mg Q6HR PRN IV PUSH NAUSEA OR VOMITING 12/12/17 11:15 12/14/17 10:33 Lorazepam (Ativan) 0.5 mg Q6H PRN PO ANXIETY AND/OR AGITATION 12/12/17 11:15 12/13/17 15:20 Temazepam (Restoril) 30 mg HS PRN PO INSOMNIA 12/12/17 21:00 12/14/17 00:00 Metoprolol Tartrate (Lopressor) 50 mg Q12HR PO 12/12/17 11:30 12/14/17 08:38 Diphenoxylate HCl/ Atropine (Lomotil Tab) 1 tab Q6H PRN PO DIARRHEA 12/13/17 07:45 Daptomycin 400 mg/ Sodium Chloride 100 ml @ 200 mls/hr Q24H IV 12/13/17 18:00 12/13/17 17:41 Potassium Bicarb/ Potassium Chloride (K-Lyte Cl Eff) 25 meq Q6HR G-TUBE 12/14/17 12:00 12/14/17 13:05 Water (Free Water) 100 ml Q8HR G-TUBE 12/14/17 14:00 12/14/17 13:05 [place] (Salagen) 5 mg Q8HR PO 12/14/17 14:00 12/14/17 14:46 SOCIAL HISTORY: The patient is . No tobacco, occasional alcohol. No illicit drugs. Objective: Vital Signs Date Time Temp Pulse Resp B/P (MAP) Pulse Ox O2 Delivery O2 Flow Rate FiO2 12/14/17 13:12 113 12/14/17 12:00 98.1 94 18 131/76 (94) 98 12/14/17 08:00 97.8 100 18 139/88 (105) 98 12/14/17 05:00 104 12/14/17 04:30 98.3 62 20 118/60 (79) 98 12/14/17 01:14 105 12/14/17 00:40 97.8 64 17 120/59 (79) 99 12/13/17 22:14 101 12/13/17 21:30 98.7 67 16 125/67 (86) 98 12/13/17 16:00 98.0 89 18 127/75 (92) 96 Laboratory Tests Test 12/13/17 06:35 12/14/17 10:51 White Blood Count 4.0 TH/MM3 5.3 TH/MM3 Red Blood Count 3.70 MIL/MM3 3.67 MIL/MM3 Hemoglobin 11.7 GM/DL 11.5 GM/DL Hematocrit 33.9 % 33.7 % Mean Corpuscular Volume 91.5 FL 91.8 FL Mean Corpuscular Hemoglobin 31.5 PG 31.3 PG Mean Corpuscular Hemoglobin Concent 34.4 % 34.1 % Red Cell Distribution Width 15.2 % 15.3 % Platelet Count 33 TH/MM3 30 TH/MM3 Mean Platelet Volume 9.9 FL 10.1 FL CBC Comment AUTO DIFF AUTO DIFF Differential Total Cells Counted 100 Neutrophils % (Manual) 78 % Band Neutrophils % 15 % Lymphocytes % 1 % Monocytes % 6 % Neutrophils # (Manual) 3.7 TH/MM3 Differential Comment FINAL DIFF MANUAL AUTO DIFF CONFIRMED Toxic Granulation 1+ 1+ Platelet Estimate LOW LOW Platelet Morphology Comment NORMAL NORMAL Ovalocytes 1+ 1+ Neutrophils (%) (Auto) 85.3 % Lymphocytes (%) (Auto) 5.5 % Monocytes (%) (Auto) 8.8 % Eosinophils (%) (Auto) 0.0 % Basophils (%) (Auto) 0.4 % Neutrophils # (Auto) 4.5 TH/MM3 Lymphocytes # (Auto) 0.3 TH/MM3 Monocytes # (Auto) 0.5 TH/MM3 Eosinophils # (Auto) 0.0 TH/MM3 Basophils # (Auto) 0.0 TH/MM3 Laboratory Tests Test 12/12/17 20:20 12/13/17 06:35 12/13/17 14:43 12/14/17 06:36 Blood Urea Nitrogen 30 MG/DL 32 MG/DL 29 MG/DL Creatinine 1.82 MG/DL 1.74 MG/DL 1.57 MG/DL Random Glucose 109 MG/DL 143 MG/DL 121 MG/DL Calcium Level 7.5 MG/DL 7.2 MG/DL 7.5 MG/DL Sodium Level 133 MEQ/L 136 MEQ/L 140 MEQ/L Potassium Level 2.3 MEQ/L 2.4 MEQ/L 3.0 MEQ/L 2.6 MEQ/L Chloride Level 95 MEQ/L 99 MEQ/L 102 MEQ/L Carbon Dioxide Level 27.5 MEQ/L 26.8 MEQ/L 27.6 MEQ/L Anion Gap 11 MEQ/L 10 MEQ/L 10 MEQ/L Estimat Glomerular Filtration Rate 37 ML/MIN 39 ML/MIN 44 ML/MIN Total Protein 5.6 GM/DL Protein Corrected Calcium 8.0 MG/DL Magnesium Level 2.0 MG/DL Test 12/14/17 10:51 Potassium Level 2.8 MEQ/L Microbiology Date/Time Source Procedure Growth Status 12/13/17 18:05 Blood Peripheral Aerobic Blood Culture - Preliminary NO GROWTH IN 1 DAY Resulted 12/13/17 18:05 Blood Peripheral Anaerobic Blood Culture - Preliminary NO GROWTH IN 1 DAY Resulted 12/13/17 18:00 Blood Peripheral Aerobic Blood Culture - Preliminary NO GROWTH IN 1 DAY Resulted 12/13/17 18:00 Blood Peripheral Anaerobic Blood Culture - Preliminary NO GROWTH IN 1 DAY Resulted 12/12/17 10:19 Blood Line Aerobic Blood Culture - Final S. Aureus Mrsa Resulted 12/12/17 10:19 Blood Line Anaerobic Blood Culture - Preliminary NO GROWTH IN 2 DAYS Resulted 12/11/17 19:18 Blood Peripheral Aerobic Blood Culture - Final S. Aureus Mrsa Complete 12/11/17 19:18 Anaerobic Blood Culture - Final S. Aureus Mrsa Complete 12/11/17 19:01 Blood Peripheral Aerobic Blood Culture - Final S. Aureus Mrsa Complete 12/11/17 19:01 Anaerobic Blood Culture - Final S. Aureus Mrsa Complete 12/11/17 22:18 Urine Catheterized Urine Urine Culture - Final S. Aureus Mrsa Complete PHYSICAL EXAMINATION: GENERAL: No acute distress. Patient is awake and alert. HEENT: Extraocular movements are grossly intact. Pupils reactive to light. No icterus. Oropharynx: Moist mucosa. NECK: Supple. No adenopathy. No swelling. LUNGS: Clear breath sounds. CHEST: Infusaport is present at the left chest and has no erythema at the entry. HEART: Irregular S1, S2. No murmurs, rubs or gallops. ABDOMEN: Bowel sounds present. Soft. No tenderness appreciated. EXTREMITIES: No clubbing, cyanosis or edema. SKIN: No rash. NEUROLOGIC: No gross focal findings. PSYCHIATRIC: Calm and cooperative. IMPRESSION: 1. Bacteremia due to MRSA. Probably originated from urinary tract infection. 2. UTI due to MRSA 3. History of squamous cell carcinoma of the tongue. Patient undergoing radiation and chemotherapy. 4. Acute kidney disease. Renal insufficiency. 5. Thrombocytopenia. RECOMMENDATIONS: 1. Continue Daptomycin IV. Monitor CPK. 2. Monitor the repeat blood culture. 3. Monitor clinical status. If he has continued positive blood cultures it may be due to the [id number] and we May have to remove the [id number]. Await blood cultures to be negative before decision for outpatient antibiotics. Seven Alonso MD December 14, 2017 15:43
[2017-12-14] MEDS: DAPTOmycin INJ 400 MG in SODIUM CHLORIDE 0.9% INJ 100 ML IV SCH (17:08)
[2017-12-14 19:52] LABS: INTERNATIONAL NORMALIZED RATIO 1.1 RATIO; PROTHROMBIN TIME - PATIENT 11.5 SEC (9.8-11.6)
[2017-12-14 20:06] LABS: CALCIUM 7.3 MG/DL (8.5-10.1); CREATININE 1.23 MG/DL (0.60-1.30)
[2017-12-14 20:36] LABS: CALCIUM-PROTEIN CORRECTED 8.2 MG/DL (8.5-10.1); TOTAL PROTEIN 5.5 GM/DL (6.4-8.2)
[2017-12-14] MEDS: TEMAZEPAM 15 MG CAP PO PRN ×2 (20:59)
[2017-12-15] VITALS (11 sets, daily range): BP systolic 117–150; BP diastolic 76–99; PULSE 81–121; RESP 18–20; TEMP 97.6–98.6; O2SAT 95–99
[2017-12-15] MEDS: POTASSIUM CHLORIDE 25 MEQ EFFERVESCENT TAB G-TUBE SCH ×4 (00:07→17:03)
[2017-12-15] MEDS: LORazepam 0.5 MG TAB PO PRN ×3 (00:07→21:13)
[2017-12-15] MEDS: NS + KCL 40 MEQ INJ 1,000 ML IV SCH ×3 (00:13→17:03)
[2017-12-15] MEDS: FREE WATER G-TUBE SCH ×3 (05:59→21:23)
[2017-12-15] MEDS: PILOCARPINE HCL 5 MG TAB PO SCH ×3 (05:59→21:16)
[2017-12-15 08:28] LABS: AUTOMATED NEUTROPHIL # 4.1 TH/MM3 (1.8-7.7); BASOPHIL % 0.3 % (0.0-2.0); EOSINOPHIL % 0.1 % (0.0-4.0); HEMATOCRIT 31.8 % (39.0-51.0); HEMOGLOBIN 10.8 GM/DL (13.0-17.0); LYMPH % 6.2 % (9.0-44.0); LYMPHOCYTE # 0.3 TH/MM3 (1.0-4.8); MEAN CELL VOLUME 92.2 FL (80.0-100.0); MEAN CORPUSCULAR HEMOGLOBIN 31.2 PG (27.0-34.0); MEAN CORPUSCULAR HGB CONC 33.8 % (32.0-36.0); MEAN PLATELET VOLUME 9.6 FL (7.0-11.0); MONO % 8.6 % (0.0-8.0); MONOCYTE # 0.4 TH/MM3 (0-0.9); NEUT % 84.8 % (16.0-70.0); PLATELET COUNT 29 TH/MM3 (150-450); RED BLOOD COUNT 3.45 MIL/MM3 (4.50-5.90); RED CELL DISTRIBUTION WIDTH 15.4 % (11.6-17.2); WHITE BLOOD COUNT 4.8 TH/MM3 (4.0-11.0)
[2017-12-15] MEDS: METOPROLOL TARTRATE 50 MG TAB PO SCH ×2 (08:49→21:13)
[2017-12-15 08:52] LABS: CALCIUM 7.6 MG/DL (8.5-10.1); CREATININE 1.16 MG/DL (0.60-1.30)
--- NOTE | 2017-12-15 11:04 | PD.ONC.PN ---
Subjective Subjective Remarks Afebrile overnight. Patient resting in bed. frustrated that he is still waiting to go downstairs. he states he was woken up at 5AM and told he was going down for port removal today. he is very concerned that the radiation he has been receiving has ruined his port. he is also wondering if he needs to continue to receive any additional chemotherapy or radiation since he has completed almost all of his treatments. Objective Data Date Time Temp Pulse Resp B/P (MAP) Pulse Ox O2 Delivery O2 Flow Rate FiO2 12/15/17 10:16 121 12/15/17 08:12 97.8 104 18 135/87 (103) 97 12/15/17 04:00 97.6 111 20 129/77 (94) 99 12/15/17 02:34 111 12/15/17 00:00 98.0 105 20 117/76 (90) 95 12/14/17 20:00 99.2 90 20 141/91 (108) 98 12/14/17 16:00 97.9 87 17 131/80 (97) 100 12/14/17 16:00 94 12/14/17 13:12 113 12/14/17 12:00 98.1 94 18 131/76 (94) 98 12/14/17 12:00 139 12/15/17 12/15/17 12/15/17 07:00 15:00 23:00 Intake Total 1390 ml 875 ml Output Total 500 ml Balance 890 ml 875 ml Result Diagram: 12/15/17 0702 12/15/17 0702 Laboratory Results Laboratory Tests Test 12/14/17 18:50 12/15/17 07:02 Prothrombin Time 11.5 SEC Prothromb Time International Ratio 1.1 RATIO Blood Urea Nitrogen 25 MG/DL 23 MG/DL Creatinine 1.23 MG/DL 1.16 MG/DL Random Glucose 81 MG/DL 84 MG/DL Total Protein 5.5 GM/DL Calcium Level 7.3 MG/DL 7.6 MG/DL Sodium Level 139 MEQ/L 140 MEQ/L Potassium Level 3.3 MEQ/L 3.6 MEQ/L Chloride Level 104 MEQ/L 106 MEQ/L Carbon Dioxide Level 25.0 MEQ/L 25.0 MEQ/L Anion Gap 10 MEQ/L 9 MEQ/L Estimat Glomerular Filtration Rate 59 ML/MIN 63 ML/MIN Protein Corrected Calcium 8.2 MG/DL White Blood Count 4.8 TH/MM3 Red Blood Count 3.45 MIL/MM3 Hemoglobin 10.8 GM/DL Hematocrit 31.8 % Mean Corpuscular Volume 92.2 FL Mean Corpuscular Hemoglobin 31.2 PG Mean Corpuscular Hemoglobin Concent 33.8 % Red Cell Distribution Width 15.4 % Platelet Count 29 TH/MM3 Mean Platelet Volume 9.6 FL Neutrophils (%) (Auto) 84.8 % Lymphocytes (%) (Auto) 6.2 % Monocytes (%) (Auto) 8.6 % Eosinophils (%) (Auto) 0.1 % Basophils (%) (Auto) 0.3 % Neutrophils # (Auto) 4.1 TH/MM3 Lymphocytes # (Auto) 0.3 TH/MM3 Monocytes # (Auto) 0.4 TH/MM3 Eosinophils # (Auto) 0.0 TH/MM3 Basophils # (Auto) 0.0 TH/MM3 CBC Comment AUTO DIFF Differential Comment AUTO DIFF CONFIRMED Total Creatine Kinase 15 U/L Culture Results Microbiology Date/Time Source Procedure Growth Status 12/13/17 18:05 Blood Peripheral Aerobic Blood Culture - Final S. Aureus Mrsa Resulted 12/13/17 18:05 Blood Peripheral Anaerobic Blood Culture - Preliminary NO GROWTH IN 1 DAY Resulted 12/13/17 18:00 Blood Peripheral Aerobic Blood Culture - Preliminary Gram Positive Cocci Resulted 12/13/17 18:00 Blood Peripheral Anaerobic Blood Culture - Preliminary NO GROWTH IN 1 DAY Resulted Administered Medications Medications (Trade) Dose Ordered Sig/Fátima Route PRN Reason Start Time Stop Time Status Last Admin Dose Admin Ondansetron HCl (Zofran Odt) 4 mg Q6HR PRN PO nausea 12/11/17 23:15 12/11/17 23:58 Potassium Chloride/Sodium Chloride 1,000 ml @ 100 mls/hr Q10H IV 12/12/17 10:30 12/15/17 08:50 Metoclopramide HCl (Reglan Inj) 10 mg Q6HR PRN IV PUSH NAUSEA OR VOMITING 12/12/17 11:15 12/14/17 10:33 Lorazepam (Ativan) 0.5 mg Q6H PRN PO ANXIETY AND/OR AGITATION 12/12/17 11:15 12/15/17 05:59 Temazepam (Restoril) 30 mg HS PRN PO INSOMNIA 12/12/17 21:00 12/14/17 20:59 Metoprolol Tartrate (Lopressor) 50 mg Q12HR PO 12/12/17 11:30 12/15/17 08:49 Daptomycin 400 mg/ Sodium Chloride 100 ml @ 200 mls/hr Q24H IV 12/13/17 18:00 12/14/17 17:08 Potassium Bicarb/ Potassium Chloride (K-Lyte Cl Eff) 25 meq Q6HR G-TUBE 12/14/17 12:00 12/15/17 05:58 Water (Free Water) 100 ml Q8HR G-TUBE 12/14/17 14:00 12/15/17 05:59 Pilocarpine (Salagen) 5 mg Q8HR PO 12/14/17 14:00 12/15/17 05:59 Objective Remarks GENERAL: middle aged male, sitting up in bed. SKIN: Warm and dry. port in place, left chest wall. radiation dermatitis noted along neck/chest. HEAD: Normocephalic. EYES: No injection or drainage. MOUTH: thick oral secretions. NECK: Supple, trachea midline. CARDIOVASCULAR: Regular rate and rhythm RESPIRATORY: Breath sounds equal bilaterally. No accessory muscle use. GASTROINTESTINAL: Abdomen soft, non-tender, nondistended. PEG tube clamped. EXTREMITIES: No cyanosis NEUROLOGICAL: awake and alert. normal speech. moving all extremities. Assessment/Plan Assessment 67y/o male with oropharyngeal carcinoma admitted with sepsis. History: s/p surgical resection at the [facility] in September 2017; pathologic stage T2 N2 M0. --Currently on postoperative concurrent chemoradiotherapy with cisplatin dosed at 100 mg per metered squared every 21 days. He is status post 2 infusions of chemotherapy with a third dose planned for late November 2017. Plan 1. Oropharyngeal squamous cell carcinoma: next chemo late November 2017 2. mucositis: continue nutrition via tube feeds. aggressive hydration with IVF. replace electrolytes. pilocarpine PO. 3. sepsis: agree with removal of port. removal has already been arranged in invasive radiology this AM. we will give his next chemotherapy via peripheral line in the clinic. currently receiving Daptomycin. MRSA positive blood cultures 4. electrolyte abnormalities: replace as needed. monitor magnesium daily. 5. malnutrition: resume tube feeds after removal of port. receives Jevity 1.5@ 65cc/hr. currently undergoing calorie count as well by brass buffer. Adilia Jeter December 15, 2017 11:04
--- NOTE | 2017-12-15 13:01 | HHI.PR ---
Subjective Remarks says cotton mouth feels better eager for removal of port Objective Vitals white mucous in mouth less heart reg lung cta abd s/nt/bs/peg ext no edema Vital Signs Date Time Temp Pulse Resp B/P (MAP) Pulse Ox O2 Delivery O2 Flow Rate FiO2 12/15/17 12:00 98.6 81 18 150/79 (102) 97 12/15/17 10:16 121 12/15/17 08:12 97.8 104 18 135/87 (103) 97 12/15/17 04:00 97.6 111 20 129/77 (94) 99 12/15/17 02:34 111 12/15/17 00:00 98.0 105 20 117/76 (90) 95 12/14/17 20:00 99.2 90 20 141/91 (108) 98 12/14/17 16:00 97.9 87 17 131/80 (97) 100 12/14/17 16:00 94 12/14/17 13:12 113 12/15/17 12/15/17 12/16/17 15:00 23:00 07:00 Intake Total 875 ml Balance 875 ml IV Total 875 ml Result Diagram: 12/15/17 0702 12/15/17 0702 Imaging Last Impressions Chest X-Ray 12/11/17 1858 Signed Impressions: Service Date/Time: Monday, December 11, 2017 19:00 - CONCLUSION: No acute disease. No significant change has occurred. Eduardo Sebastian MD A/P Problem List: (1) Squamous cell carcinoma of oropharynx ICD Codes: C10.9 - Malignant neoplasm of oropharynx, unspecified Status: Acute Plan: Squamous cell carcinoma of oropharynx This is a 67-year-old male with a past medical history which includes oropharyngeal squamous cell cancer s/p resection with modified radical neck dissection 09/2017 at [facility]. Patient currently on chemotherapy with Dr. Toledo and radiation with Dr. Summers for the past four weeks. Patient had his radiation done just a few days ago. Since that time patient has been having nausea, thick oral secretions, feeling more weak, poor p.o. intake, and fevers according to his . Patient has a PEG tube in place but has not yet started using it. Patient had been tolerating smoothies orally up until two days ago. His fevers have been 102 at home. He denies any coughing, abdominal pains, shortness of breath, or other symptoms. Dr. Summers notified Consult medical oncology patient known to Dr. 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 Bacteremia Positive blood cultures all blood and urine cx mrsa antibiotics per ID Daptomycin port to be removed today will plan for survellience cx's after port removal. plan picc if neg x 3 days Thrombocytopenia Patient with recent chemotherapy, currently on hold due to patient's KEVIN and blood counts No active bleeding No chemical DVT prophylaxis Dr. Toldeo also following Hypokalemia Patient has had poor PO intake after chemotherapy and radiation continue aggressive replacement. Dehydration Poor PO intake Poor PO intake after chemotherapy and radiation Continue aggressive IVF replacement Tube feeding Jevity goal rate of 55 ml?h Free water flush increased to 100 ml Q8H Xerostomia Start Salagen (2) Bacteremia ICD Codes: R78.81 - Bacteremia (3) Positive blood cultures ICD Codes: R78.81 - Bacteremia (4) Thrombocytopenia ICD Codes: D69.6 - Thrombocytopenia, unspecified (5) Hypokalemia ICD Codes: E87.6 - Hypokalemia Status: Acute (6) Dehydration ICD Codes: E86.0 - Dehydration Status: Acute Anthony Lakhani MD December 15, 2017 13:01
[2017-12-15] MEDS ORDERED: MIDAZOLAM HCL 5 MG/5 ML VIAL ONE (14:31)
[2017-12-15] MEDS ORDERED: fentaNYL CITRATE 250 MCG/5 ML AMP ONE (14:31)
[2017-12-15] MEDS ORDERED: LIDOCAINE 1%/EPINEPHrine 1:100,000 SOLN 30 ML VIAL ONE (14:45)
--- NOTE | 2017-12-15 16:01 | RADRPT ---
EXAM DATE/TIME: 12/15/2017 00:00 [place] COMPARISON: No previous studies available for comparison. INDICATIONS : Patient presents with tongue cancer in need of port removal due to positive blood cultures. 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 Vancomycin within 2 hrs of procedure, Ancef (or alternative) within 1 hr of procedure. PROCEDURE : 1. Removal of [id number]. 2. Conscious sedation with continuous EKG and oximetry monitoring. The risk, benefits and potential complications of [id number] removal were discussed. Written conse nt was obtained. The patient was placed supine. The chest wall was prepped in sterile fashion. Full sterile techniqu e was used, including cap, mask, sterile gloves and gown, and a large sterile sheet. Hand hygiene an d 2% chlorhexidine and/or Betadine/alcohol prep was utilized per protocol for cutaneous antisepsis. The skin and subcutaneous tissues were infiltrated with local anesthetic solution. A small incision w as made, the subcutaneous pocket was opened. The port was dissected from the subcutaneous tissues and easily removed in one piece. The pocket incision was closed with subcuticular Vicryl suture. Steri -Strips were applied. Conscious sedation was performed with the prescribed dosages and duration as above in the presence of an independent trained radiology nurse to assist in the monitoring of the patient. EKG and oximetry remained stable throughout the procedure. The patient tolerated the procedure well and there were no complications. The patient was sent to post anesthesia recovery in stable condition. CONCLUSION: Uncomplicated port removal as above. Abdirashid Bowens MD on December 15, 2017 at 15:59 Board Certified Radiologist. This report was verified electronically.
[2017-12-15] MEDS: DAPTOmycin INJ 400 MG in SODIUM CHLORIDE 0.9% INJ 100 ML IV SCH (17:03)
[2017-12-15 21:08] LABS: MAGNESIUM 1.1 MG/DL (1.5-2.5)
[2017-12-16] VITALS (9 sets, daily range): BP systolic 120–138; BP diastolic 73–96; PULSE 91–112; RESP 18–20; TEMP 97.3–99.1; O2SAT 95–99
[2017-12-16] MEDS: NS + KCL 40 MEQ INJ 1,000 ML IV SCH ×3 (00:13→21:21)
[2017-12-16] MEDS: POTASSIUM CHLORIDE 25 MEQ EFFERVESCENT TAB G-TUBE SCH ×4 (00:15→18:06)
[2017-12-16] MEDS: FREE WATER G-TUBE SCH ×3 (06:00→21:20)
[2017-12-16] MEDS: PILOCARPINE HCL 5 MG TAB PO SCH ×3 (06:03→21:19)
[2017-12-16 08:51] LABS: AUTOMATED NEUTROPHIL # 3.4 TH/MM3 (1.8-7.7); BASOPHIL % 0.2 % (0.0-2.0); EOSINOPHIL % 0.2 % (0.0-4.0); HEMATOCRIT 31.5 % (39.0-51.0); HEMOGLOBIN 10.7 GM/DL (13.0-17.0); LYMPH % 7.5 % (9.0-44.0); LYMPHOCYTE # 0.3 TH/MM3 (1.0-4.8); MEAN CELL VOLUME 92.9 FL (80.0-100.0); MEAN CORPUSCULAR HEMOGLOBIN 31.5 PG (27.0-34.0); MEAN CORPUSCULAR HGB CONC 33.9 % (32.0-36.0); MEAN PLATELET VOLUME 9.1 FL (7.0-11.0); MONO % 7.4 % (0.0-8.0); MONOCYTE # 0.3 TH/MM3 (0-0.9); NEUT % 84.7 % (16.0-70.0); PLATELET COUNT 49 TH/MM3 (150-450); RED BLOOD COUNT 3.39 MIL/MM3 (4.50-5.90); RED CELL DISTRIBUTION WIDTH 15.4 % (11.6-17.2)
[2017-12-16] MEDS: METOPROLOL TARTRATE 50 MG TAB PO SCH ×2 (08:58→21:20)
[2017-12-16 09:15] LABS: CALCIUM 7.5 MG/DL (8.5-10.1); CREATININE 1.12 MG/DL (0.60-1.30); MAGNESIUM 1.1 MG/DL (1.5-2.5)
--- NOTE | 2017-12-16 10:38 | HHI.PR ---
Subjective Remarks Pt is frustrated today and complains of his lips peeling related to his radiation and difficulty with his hearing deficits related to his chemo He is not eating much by mouth because he can't taste much food Pt had port out yesterday Tolerating food feeds @ 55mL/hr Objective Vitals Vital Signs Date Time Temp Pulse Resp B/P (MAP) Pulse Ox O2 Delivery O2 Flow Rate FiO2 12/16/17 08:17 98.1 91 20 138/73 (94) 97 12/16/17 04:00 98.1 99 18 135/85 (102) 97 12/16/17 00:00 97.3 99 18 124/84 (97) 97 12/15/17 20:03 107 12/15/17 20:00 97.8 98 18 135/91 (106) 99 12/15/17 17:01 97.9 98 18 147/99 (115) 97 12/15/17 14:10 98.1 100 20 143/91 99 12/15/17 12:14 96 12/15/17 12:00 98.6 81 18 150/79 (102) 97 12/16/17 12/16/17 12/17/17 15:00 23:00 07:00 Output Total 300 ml Balance -300 ml Output Urine Total 300 ml Result Diagram: 12/16/1772612/16/17726 Other Results Laboratory Tests Test 12/14/17 10:51 12/14/17 18:50 12/15/17 07:02 12/15/17 20:29 White Blood Count 5.3 TH/MM3 4.8 TH/MM3 Red Blood Count 3.67 MIL/MM3 3.45 MIL/MM3 Hemoglobin 11.5 GM/DL 10.8 GM/DL Hematocrit 33.7 % 31.8 % Mean Corpuscular Volume 91.8 FL 92.2 FL Mean Corpuscular Hemoglobin 31.3 PG 31.2 PG Mean Corpuscular Hemoglobin Concent 34.1 % 33.8 % Red Cell Distribution Width 15.3 % 15.4 % Platelet Count 30 TH/MM3 29 TH/MM3 Mean Platelet Volume 10.1 FL 9.6 FL Neutrophils (%) (Auto) 85.3 % 84.8 % Lymphocytes (%) (Auto) 5.5 % 6.2 % Monocytes (%) (Auto) 8.8 % 8.6 % Eosinophils (%) (Auto) 0.0 % 0.1 % Basophils (%) (Auto) 0.4 % 0.3 % Neutrophils # (Auto) 4.5 TH/MM3 4.1 TH/MM3 Lymphocytes # (Auto) 0.3 TH/MM3 0.3 TH/MM3 Monocytes # (Auto) 0.5 TH/MM3 0.4 TH/MM3 Eosinophils # (Auto) 0.0 TH/MM3 0.0 TH/MM3 Basophils # (Auto) 0.0 TH/MM3 0.0 TH/MM3 CBC Comment AUTO DIFF AUTO DIFF Differential Comment AUTO DIFF CONFIRMED AUTO DIFF CONFIRMED Toxic Granulation 1+ Platelet Estimate LOW Platelet Morphology Comment NORMAL Ovalocytes 1+ Potassium Level 2.8 MEQ/L 3.3 MEQ/L 3.6 MEQ/L 3.2 MEQ/L Prothrombin Time 11.5 SEC Prothromb Time International Ratio 1.1 RATIO Blood Urea Nitrogen 25 MG/DL 23 MG/DL Creatinine 1.23 MG/DL 1.16 MG/DL Random Glucose 81 MG/DL 84 MG/DL Total Protein 5.5 GM/DL Calcium Level 7.3 MG/DL 7.6 MG/DL Sodium Level 139 MEQ/L 140 MEQ/L Chloride Level 104 MEQ/L 106 MEQ/L Carbon Dioxide Level 25.0 MEQ/L 25.0 MEQ/L Anion Gap 10 MEQ/L 9 MEQ/L Estimat Glomerular Filtration Rate 59 ML/MIN 63 ML/MIN Protein Corrected Calcium 8.2 MG/DL Total Creatine Kinase 15 U/L Magnesium Level 1.1 MG/DL Test 12/16/17 07:27 White Blood Count 4.0 TH/MM3 Red Blood Count 3.39 MIL/MM3 Hemoglobin 10.7 GM/DL Hematocrit 31.5 % Mean Corpuscular Volume 92.9 FL Mean Corpuscular Hemoglobin 31.5 PG Mean Corpuscular Hemoglobin Concent 33.9 % Red Cell Distribution Width 15.4 % Platelet Count 49 TH/MM3 Mean Platelet Volume 9.1 FL Neutrophils (%) (Auto) 84.7 % Lymphocytes (%) (Auto) 7.5 % Monocytes (%) (Auto) 7.4 % Eosinophils (%) (Auto) 0.2 % Basophils (%) (Auto) 0.2 % Neutrophils # (Auto) 3.4 TH/MM3 Lymphocytes # (Auto) 0.3 TH/MM3 Monocytes # (Auto) 0.3 TH/MM3 Eosinophils # (Auto) 0.0 TH/MM3 Basophils # (Auto) 0.0 TH/MM3 CBC Comment AUTO DIFF Differential Comment AUTO DIFF CONFIRMED Platelet Estimate LOW Platelet Morphology Comment NORMAL Blood Urea Nitrogen 21 MG/DL Creatinine 1.12 MG/DL Random Glucose 134 MG/DL Calcium Level 7.5 MG/DL Magnesium Level 1.1 MG/DL Sodium Level 141 MEQ/L Potassium Level 3.6 MEQ/L Chloride Level 106 MEQ/L Carbon Dioxide Level 26.0 MEQ/L Anion Gap 9 MEQ/L Estimat Glomerular Filtration Rate 65 ML/MIN Imaging Last Impressions Port Line Revision 12/15/17 0000 Signed Impressions: Service Date/Time: Friday, December 15, 2017 00:00 - CONCLUSION: Uncomplicated port removal as above. Abdirashid Bowens MD Chest X-Ray 12/11/17 1858 Signed Impressions: Service Date/Time: Monday, December 11, 2017 19:00 - CONCLUSION: No acute disease. No significant change has occurred. Eduardo Sebastian MD Objective Remarks General: NAD, ENT: White mucous in mouth less, lips are peeling Cardiac: Regular Chest: CTA Abd: +Bs, soft, nontender, peg in place Ext: No edema A/P Problem List: (1) Squamous cell carcinoma of oropharynx ICD Codes: C10.9 - Malignant neoplasm of oropharynx, unspecified Status: Acute Plan: Squamous cell carcinoma of oropharynx Mucositis Dehydration Poor PO intake - This is a 67-year-old male with a past medical history which includes oropharyngeal squamous cell cancer s/p resection with modified radical neck dissection 09/2017 at [facility]. Patient currently on chemotherapy with Dr. Toledo and radiation with Dr. Summers for the past four weeks. Patient had his radiation done just a few days ago. Since that time patient has been having nausea, thick oral secretions, feeling more weak, poor p.o. intake, and fevers according to his . Patient has a PEG tube in place but has not yet started using it. - Patient had been tolerating smoothies orally up until two days ago. His fevers have been 102 at home. - Dr. Summers notified - Medical oncology following patient known to Dr. 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 - Pt with poor PO intake after chemo - Pt started on pilocarpine PO with some improvement - Continue nutrition via tube feeds with Jevity goal rate of 55 ml/hr, pt with ongoing calorie count and to be re-evaluated by Gripper Machine Operator today - Would like recommendations for bolus +/- continues night feedings depending on caloric needs - Free water flush 100 ml Q8H - IVF - Replace electrolytes PRN MRSA Bacteremia - All blood and urine cx MRSA - Antibiotics per ID Daptomycin - Port removed on 12/15 - Surveillance cx's drawn on 12/16, after port removal. Plan picc if neg x 3 days Thrombocytopenia - Patient with recent chemotherapy, currently on hold due to patient's KEVIN and blood counts - No active bleeding - No chemical DVT prophylaxis - Dr. Toledo also following Hypokalemia - Patient has had poor PO intake after chemotherapy and radiation - Replacement PRN (2) Bacteremia ICD Codes: R78.81 - Bacteremia (3) Positive blood cultures ICD Codes: R78.81 - Bacteremia (4) Thrombocytopenia ICD Codes: D69.6 - Thrombocytopenia, unspecified (5) Hypokalemia ICD Codes: E87.6 - Hypokalemia Status: Acute (6) Dehydration ICD Codes: E86.0 - Dehydration Status: Acute Assessment and Plan Patient examined. Assessment and plan formulated with Brandi Canada PA-C. I agree with the above. mrsa bacteremia. persistent positive cx's. port removed. repeat blood cx today. picc when 3d neg cx. on dapto cont tf. calorie count ending today. pt/ demanding home losartan be resumed despite well controlled bp. Brandi Canada December 16, 2017 10:38 Anthony Lakhani MD December 16, 2017 14:03
--- NOTE | 2017-12-16 13:52 | HHI.IDPN ---
Note Infectious Disease Note Patient states he feels okay. Went for removal of Cuyoez-d-Etxr on 12/15. Denies chills. Pain No shortness of breath. Afebrile. Last blood culture from 12/13 still has MRSA. The blood culture from 12/11 has MRSA in all 4 bottles. Urine culture from 12/11 has MRSA. Repeat blood culture from 12/12 has MRSA. This is a 67-year-old white male who has a history of squamous cell carcinoma of the tongue. The patient presented to the Emergency Department with fever, nausea and decreased p.o. intake. In the Emergency Department, he had a temperature of 100.7 degrees and blood pressure of 85/52. Urinalysis showed a few bacteria and 15 white cells. The patient post-chemotherapy. He had an Infusaport in the left chest via which chemotherapy was given. This was placed 5 weeks ago. He also received radiation therapy to the neck. The patient underwent modified radical neck dissection in September [address] [facility]. PAST MEDICAL HISTORY: Hypertension, atrial fibrillation, alcohol abuse, alcohol withdrawal seizures, anxiety, gastroesophageal reflux disease, gout, history of pulmonary embolism, history of DVT, history of hemorrhagic CVA, history of skin cancer removal from the left arm. ALLERGIES: DOXYCYCLINE, CODEINE. The patient had MRSA nares culture in March 2016. MEDICATIONS: Current Medications Medications (Trade) Dose Ordered Sig/Fátima Route PRN Reason Start Time Stop Time Status Last Admin Dose Admin Ondansetron HCl (Zofran Odt) 4 mg Q6HR PRN PO nausea 12/11/17 23:15 12/11/17 23:58 Potassium Chloride/Sodium Chloride 1,000 ml @ 100 mls/hr Q10H IV 12/12/17 10:30 12/16/17 10:21 Metoclopramide HCl (Reglan Inj) 10 mg Q6HR PRN IV PUSH NAUSEA OR VOMITING 12/12/17 11:15 12/14/17 10:33 Lorazepam (Ativan) 0.5 mg Q6H PRN PO ANXIETY AND/OR AGITATION 12/12/17 11:15 12/15/17 21:13 Temazepam (Restoril) 30 mg HS PRN PO INSOMNIA 12/12/17 21:00 12/14/17 20:59 Diphenoxylate HCl/ Atropine (Lomotil Tab) 1 tab Q6H PRN PO DIARRHEA 12/13/17 07:45 Daptomycin 400 mg/ Sodium Chloride 100 ml @ 200 mls/hr Q24H IV 12/13/17 18:00 12/15/17 17:03 Potassium Bicarb/ Potassium Chloride (K-Lyte Cl Eff) 25 meq Q6HR G-TUBE 12/14/17 12:00 12/16/17 11:50 Water (Free Water) 100 ml Q8HR G-TUBE 12/14/17 14:00 12/16/17 06:00 Pilocarpine (Salagen) 5 mg Q8HR PO 12/14/17 14:00 12/16/17 06:03 Metoprolol Tartrate (Lopressor) 75 mg Q12HR PO 12/15/17 21:00 12/16/17 08:58 Losartan Potassium (Cozaar) 25 mg DAILY PO 12/17/17 09:00 SOCIAL HISTORY: The patient is . No tobacco, occasional alcohol. No illicit drugs. Objective: Vital Signs Date Time Temp Pulse Resp B/P (MAP) Pulse Ox O2 Delivery O2 Flow Rate FiO2 12/16/17 13:25 112 12/16/17 11:19 98.6 96 20 120/85 (97) 96 12/16/17 11:14 103 12/16/17 08:17 98.1 91 20 138/73 (94) 97 12/16/17 04:00 98.1 99 18 135/85 (102) 97 12/16/17 00:00 97.3 99 18 124/84 (97) 97 12/15/17 20:03 107 12/15/17 20:00 97.8 98 18 135/91 (106) 99 12/15/17 17:01 97.9 98 18 147/99 (115) 97 12/15/17 14:10 98.1 100 20 143/91 99 Laboratory Tests Test 12/15/17 07:02 12/16/17 07:27 White Blood Count 4.8 TH/MM3 4.0 TH/MM3 Red Blood Count 3.45 MIL/MM3 3.39 MIL/MM3 Hemoglobin 10.8 GM/DL 10.7 GM/DL Hematocrit 31.8 % 31.5 % Mean Corpuscular Volume 92.2 FL 92.9 FL Mean Corpuscular Hemoglobin 31.2 PG 31.5 PG Mean Corpuscular Hemoglobin Concent 33.8 % 33.9 % Red Cell Distribution Width 15.4 % 15.4 % Platelet Count 29 TH/MM3 49 TH/MM3 Mean Platelet Volume 9.6 FL 9.1 FL Neutrophils (%) (Auto) 84.8 % 84.7 % Lymphocytes (%) (Auto) 6.2 % 7.5 % Monocytes (%) (Auto) 8.6 % 7.4 % Eosinophils (%) (Auto) 0.1 % 0.2 % Basophils (%) (Auto) 0.3 % 0.2 % Neutrophils # (Auto) 4.1 TH/MM3 3.4 TH/MM3 Lymphocytes # (Auto) 0.3 TH/MM3 0.3 TH/MM3 Monocytes # (Auto) 0.4 TH/MM3 0.3 TH/MM3 Eosinophils # (Auto) 0.0 TH/MM3 0.0 TH/MM3 Basophils # (Auto) 0.0 TH/MM3 0.0 TH/MM3 CBC Comment AUTO DIFF AUTO DIFF Differential Comment AUTO DIFF CONFIRMED AUTO DIFF CONFIRMED Platelet Estimate LOW Platelet Morphology Comment NORMAL Laboratory Tests Test 12/14/17 18:50 12/15/17 07:02 12/15/17 20:29 12/16/17 07:27 Blood Urea Nitrogen 25 MG/DL 23 MG/DL 21 MG/DL Creatinine 1.23 MG/DL 1.16 MG/DL 1.12 MG/DL Random Glucose 81 MG/DL 84 MG/DL 134 MG/DL Total Protein 5.5 GM/DL Calcium Level 7.3 MG/DL 7.6 MG/DL 7.5 MG/DL Sodium Level 139 MEQ/L 140 MEQ/L 141 MEQ/L Potassium Level 3.3 MEQ/L 3.6 MEQ/L 3.2 MEQ/L 3.6 MEQ/L Chloride Level 104 MEQ/L 106 MEQ/L 106 MEQ/L Carbon Dioxide Level 25.0 MEQ/L 25.0 MEQ/L 26.0 MEQ/L Anion Gap 10 MEQ/L 9 MEQ/L 9 MEQ/L Estimat Glomerular Filtration Rate 59 ML/MIN 63 ML/MIN 65 ML/MIN Protein Corrected Calcium 8.2 MG/DL Total Creatine Kinase 15 U/L Magnesium Level 1.1 MG/DL 1.1 MG/DL Microbiology Date/Time Source Procedure Growth Status 12/16/17 07:44 Blood Peripheral Aerobic Blood Culture Pending Received 12/16/17 07:44 Blood Peripheral Anaerobic Blood Culture Pending Received 12/16/17 07:27 Blood Peripheral Aerobic Blood Culture Pending Received 12/16/17 07:27 Blood Peripheral Anaerobic Blood Culture Pending Received 12/13/17 18:05 Blood Peripheral Aerobic Blood Culture - Final S. Aureus Mrsa Resulted 12/13/17 18:05 Blood Peripheral Anaerobic Blood Culture - Preliminary NO GROWTH IN 3 DAYS Resulted 12/13/17 18:00 Blood Peripheral Aerobic Blood Culture - Final S. Aureus Mrsa Resulted 12/13/17 18:00 Blood Peripheral Anaerobic Blood Culture - Preliminary NO GROWTH IN 3 DAYS Resulted PHYSICAL EXAMINATION: GENERAL: No acute distress. Patient is awake and alert. HEENT: Extraocular movements are grossly intact. Pupils reactive to light. No icterus. Oropharynx: Moist mucosa. NECK: Supple. No adenopathy. No swelling. LUNGS: Breath sounds are clear. CHEST: Infusaport is present at the left chest and has no erythema at the entry. HEART: Irregular S1, S2. No murmurs, rubs or gallops. ABDOMEN: Bowel sounds present. Soft. No tenderness appreciated. EXTREMITIES: No clubbing, cyanosis or edema. SKIN: No rash. NEUROLOGIC: No gross focal findings. PSYCHIATRIC: Calm and cooperative. IMPRESSION: 1. Bacteremia due to MRSA. Secondary to infected Bjijpi-o-Ybez. Infuse-a- Port removed. 2. UTI due to MRSA 3. History of squamous cell carcinoma of the tongue. Patient undergoing radiation and chemotherapy. 4. Acute kidney disease. Renal insufficiency. 5. Thrombocytopenia. RECOMMENDATIONS: 1. Continue Daptomycin IV. 2. Obtain 2D echocardiogram to make sure there is no vegetation on the heart valves. 3. Monitor the repeat blood culture. 3. Monitor clinical status. Once we get clear blood cultures we can place a PICC line and continue treatment outpatient. Duration of antibiotics depending upon whether he has Heart valve vegetation on not. Discussed with Dr. Elise Toledo. Seven Alonso MD December 16, 2017 13:52
[2017-12-16] MEDS: DAPTOmycin INJ 400 MG in SODIUM CHLORIDE 0.9% INJ 100 ML IV SCH (18:06)
--- NOTE | 2017-12-16 19:54 | PD.ONC.PN ---
Subjective Subjective Remarks Pt seen and examined at 1:15pm. This note reflects the findings of that encounter. Mr. España reports continued soreness and dryness of the mouth, he has a thick phlegm which makes it hard for him to speak and swallow. His port was d/arvin yesterday. Objective Data Date Time Temp Pulse Resp B/P (MAP) Pulse Ox O2 Delivery O2 Flow Rate FiO2 12/16/17 16:43 102 12/16/17 16:08 99.1 96 20 138/96 (110) 98 12/16/17 13:25 112 12/16/17 11:19 98.6 96 20 120/85 (97) 96 12/16/17 11:14 103 12/16/17 08:17 98.1 91 20 138/73 (94) 97 12/16/17 04:00 98.1 99 18 135/85 (102) 97 12/16/17 00:00 97.3 99 18 124/84 (97) 97 12/15/17 20:03 107 12/15/17 20:00 97.8 98 18 135/91 (106) 99 12/16/17 12/16/17 12/16/17 07:00 15:00 23:00 Intake Total 200 ml 1786 ml 360 ml Output Total 800 ml 550 ml Balance 200 ml 986 ml -190 ml Result Diagram: 12/16/1772612/16/17726 Laboratory Results Laboratory Tests Test 12/15/17 20:29 12/16/17 07:27 Potassium Level 3.2 MEQ/L 3.6 MEQ/L Magnesium Level 1.1 MG/DL 1.1 MG/DL White Blood Count 4.0 TH/MM3 Red Blood Count 3.39 MIL/MM3 Hemoglobin 10.7 GM/DL Hematocrit 31.5 % Mean Corpuscular Volume 92.9 FL Mean Corpuscular Hemoglobin 31.5 PG Mean Corpuscular Hemoglobin Concent 33.9 % Red Cell Distribution Width 15.4 % Platelet Count 49 TH/MM3 Mean Platelet Volume 9.1 FL Neutrophils (%) (Auto) 84.7 % Lymphocytes (%) (Auto) 7.5 % Monocytes (%) (Auto) 7.4 % Eosinophils (%) (Auto) 0.2 % Basophils (%) (Auto) 0.2 % Neutrophils # (Auto) 3.4 TH/MM3 Lymphocytes # (Auto) 0.3 TH/MM3 Monocytes # (Auto) 0.3 TH/MM3 Eosinophils # (Auto) 0.0 TH/MM3 Basophils # (Auto) 0.0 TH/MM3 CBC Comment AUTO DIFF Differential Comment AUTO DIFF CONFIRMED Platelet Estimate LOW Platelet Morphology Comment NORMAL Blood Urea Nitrogen 21 MG/DL Creatinine 1.12 MG/DL Random Glucose 134 MG/DL Calcium Level 7.5 MG/DL Sodium Level 141 MEQ/L Chloride Level 106 MEQ/L Carbon Dioxide Level 26.0 MEQ/L Anion Gap 9 MEQ/L Estimat Glomerular Filtration Rate 65 ML/MIN Culture Results Microbiology Date/Time Source Procedure Growth Status 12/16/17 07:44 Blood Peripheral Aerobic Blood Culture Pending Received 12/16/17 07:44 Blood Peripheral Anaerobic Blood Culture Pending Received 12/16/17 07:27 Blood Peripheral Aerobic Blood Culture Pending Received 12/16/17 07:27 Blood Peripheral Anaerobic Blood Culture Pending Received Administered Medications Medications (Trade) Dose Ordered Sig/Fátima Route PRN Reason Start Time Stop Time Status Last Admin Dose Admin Ondansetron HCl (Zofran Odt) 4 mg Q6HR PRN PO nausea 12/11/17 23:15 12/11/17 23:58 Potassium Chloride/Sodium Chloride 1,000 ml @ 100 mls/hr Q10H IV 12/12/17 10:30 12/16/17 10:21 Metoclopramide HCl (Reglan Inj) 10 mg Q6HR PRN IV PUSH NAUSEA OR VOMITING 12/12/17 11:15 12/14/17 10:33 Lorazepam (Ativan) 0.5 mg Q6H PRN PO ANXIETY AND/OR AGITATION 12/12/17 11:15 12/15/17 21:13 Temazepam (Restoril) 30 mg HS PRN PO INSOMNIA 12/12/17 21:00 12/14/17 20:59 Daptomycin 400 mg/ Sodium Chloride 100 ml @ 200 mls/hr Q24H IV 12/13/17 18:00 12/16/17 18:06 Potassium Bicarb/ Potassium Chloride (K-Lyte Cl Eff) 25 meq Q6HR G-TUBE 12/14/17 12:00 12/16/17 18:06 Water (Free Water) 100 ml Q8HR G-TUBE 12/14/17 14:00 5/17/18 15:19 Pilocarpine (Salagen) 5 mg Q8HR PO 12/14/17 14:00 12/16/17 15:19 Metoprolol Tartrate (Lopressor) 75 mg Q12HR PO 12/15/17 21:00 12/16/17 08:58 Objective Remarks GENERAL: Elderly male, laying in bed, he appears to be frail, he seems to have some difficulty speaking due to dryness in the mouth. He is not acutely distressed however. SKIN: Radiation related changes along the right side of his neck. NO, ecchymoses or lesions. Cool and dry. HEAD: Atraumatic. Normocephalic. No temporal or scalp tenderness. EYES: Pupils equal round and reactive. Extraocular motions intact. No scleral icterus. No injection or drainage. ENT: Oral exam, thick mucus which is dried and sticky on the hard and soft palate, he seems not to have any ulceration or active bleeding some erythema in the oropharynx. NECK: Trachea midline. No JVD or lymphadenopathy. Supple, nontender, no meningeal signs. No pathologically enlarged cervical lymph nodes. CARDIOVASCULAR: Irregular rhythm, S1-S2 no murmurs rubs gallops. RESPIRATORY: Good air movement of the upper and middle lung zones, decreased bibasilar breath sounds, poor inspiratory effort. GASTROINTESTINAL: PEG tube in place, abdomen is nontender nondistended no palpable organ enlargement. MUSCULOSKELETAL: Generally decreased muscle mass, adequate tone and strength. NEUROLOGICAL: Awake and alert. Cranial nerves II through XII intact. Motor and sensory grossly within normal limits. Five out of 5 muscle strength in all muscle groups. Normal speech, but hard to understand at times due to dryness of the mouth. Assessment/Plan Assessment 67y/o male with oropharyngeal carcinoma admitted with MRSA sepsis. History: s/p surgical resection at the [facility] in September 2017; pathologic stage T2 N2 M0. --Currently on postoperative concurrent chemoradiotherapy with cisplatin dosed at 100 mg per metered squared every 21 days. He is status post 2 infusions of chemotherapy with a third dose planned for late November 2017. Plan 1. Oropharyngeal squamous cell carcinoma: next chemo late November 2017, he may not be able to tolerate this dose. 2. Mucositis: continue nutrition via tube feeds. aggressive hydration with IVF. replace electrolytes. pilocarpine PO. 3. MRSA sepsis: with persistent bacteremia. Will monitor repeat blood cultures drawn today. Case discussed with ID attending. Concern for endocarditis; ECHO ordered. On Daptomycin. 4. Electrolyte abnormalities: replace as needed. monitor magnesium daily. 5. Malnutrition: resume tube feeds after removal of port. receives Jevity 1.5@ 65cc/hr. currently undergoing calorie count as well by it support consultant. 6. Chemotherapy related myelosuppression; significant thrombocytopenia; s/p 1 unit plt transfusion on 12/15 prior to port d/c. 7. KEVIN: Improved; this was also likely due to cisplatin chemotherapy. His renal function is improved. Pascual Toledo MD December 16, 2017 19:54
[2017-12-16] MEDS: TEMAZEPAM 15 MG CAP PO PRN (21:20)
[2017-12-17] VITALS (8 sets, daily range): BP systolic 132–151; BP diastolic 78–91; PULSE 58–116; RESP 18–20; TEMP 97.1–98.9; O2SAT 97–98
[2017-12-17] MEDS: POTASSIUM CHLORIDE 25 MEQ EFFERVESCENT TAB G-TUBE SCH ×5 (00:28→22:58)
[2017-12-17 05:11] LABS: AUTOMATED NEUTROPHIL # 2.9 TH/MM3 (1.8-7.7); BASOPHIL % 0.3 % (0.0-2.0); EOSINOPHIL % 0.3 % (0.0-4.0); HEMATOCRIT 28.8 % (39.0-51.0); HEMOGLOBIN 9.8 GM/DL (13.0-17.0); LYMPH % 11.6 % (9.0-44.0); LYMPHOCYTE # 0.4 TH/MM3 (1.0-4.8); MEAN CELL VOLUME 92.7 FL (80.0-100.0); MEAN CORPUSCULAR HEMOGLOBIN 31.5 PG (27.0-34.0); MONOCYTE # 0.4 TH/MM3 (0-0.9); NEUT % 77.8 % (16.0-70.0); PLATELET COUNT 61 TH/MM3 (150-450); RED CELL DISTRIBUTION WIDTH 15.5 % (11.6-17.2); WHITE BLOOD COUNT 3.7 TH/MM3 (4.0-11.0)
[2017-12-17] MEDS: PILOCARPINE HCL 5 MG TAB PO SCH ×3 (05:25→21:43)
[2017-12-17] MEDS: FREE WATER G-TUBE SCH ×3 (05:26→22:00)
[2017-12-17 05:40] LABS: BICARBONATE 26.1 MEQ/L (21.0-32.0); CALCIUM 7.4 MG/DL (8.5-10.1); CREATININE 1.04 MG/DL (0.60-1.30)
[2017-12-17 06:03] LABS: CALCIUM-PROTEIN CORRECTED 8.4 MG/DL (8.5-10.1); TOTAL PROTEIN 5.3 GM/DL (6.4-8.2)
[2017-12-17] MEDS: NS + KCL 40 MEQ INJ 1,000 ML IV SCH ×2 (09:32→21:40)
[2017-12-17] MEDS: MAGNESIUM SULFATE 1 GM PREMIX 100 ML IV SCH ×3 (09:32→12:23)
[2017-12-17] MEDS: METOPROLOL TARTRATE 50 MG TAB PO SCH (09:32)
[2017-12-17] MEDS: LOSARTAN 25 MG TAB PO SCH (09:33)
--- NOTE | 2017-12-17 10:34 | HHI.PR ---
Subjective Remarks Pt complains of some chest wall pain with coughing today Afebrile Objective Vitals Vital Signs Date Time Temp Pulse Resp B/P (MAP) Pulse Ox O2 Delivery O2 Flow Rate FiO2 12/17/17 09:47 108 12/17/17 08:24 97.4 73 20 151/79 (103) 98 12/17/17 04:00 98.9 98 18 144/78 (100) 97 12/17/17 00:00 97.5 105 18 133/84 (100) 98 12/16/17 20:00 97.8 108 18 125/73 (90) 99 12/16/17 16:43 102 12/16/17 16:08 99.1 96 20 138/96 (110) 98 12/16/17 13:25 112 12/16/17 11:19 98.6 96 20 120/85 (97) 96 12/16/17 11:14 103 Result Diagram: 12/17/17 0400 12/17/17 0430 Other Results Laboratory Tests Test 12/15/17 20:29 12/16/17 07:27 12/17/17 04:00 12/17/17 04:30 Potassium Level 3.2 MEQ/L 3.6 MEQ/L 3.6 MEQ/L Magnesium Level 1.1 MG/DL 1.1 MG/DL 1.0 MG/DL White Blood Count 4.0 TH/MM3 3.7 TH/MM3 Red Blood Count 3.39 MIL/MM3 3.10 MIL/MM3 Hemoglobin 10.7 GM/DL 9.8 GM/DL Hematocrit 31.5 % 28.8 % Mean Corpuscular Volume 92.9 FL 92.7 FL Mean Corpuscular Hemoglobin 31.5 PG 31.5 PG Mean Corpuscular Hemoglobin Concent 33.9 % 34.0 % Red Cell Distribution Width 15.4 % 15.5 % Platelet Count 49 TH/MM3 61 TH/MM3 Mean Platelet Volume 9.1 FL 9.0 FL Neutrophils (%) (Auto) 84.7 % 77.8 % Lymphocytes (%) (Auto) 7.5 % 11.6 % Monocytes (%) (Auto) 7.4 % 10.0 % Eosinophils (%) (Auto) 0.2 % 0.3 % Basophils (%) (Auto) 0.2 % 0.3 % Neutrophils # (Auto) 3.4 TH/MM3 2.9 TH/MM3 Lymphocytes # (Auto) 0.3 TH/MM3 0.4 TH/MM3 Monocytes # (Auto) 0.3 TH/MM3 0.4 TH/MM3 Eosinophils # (Auto) 0.0 TH/MM3 0.0 TH/MM3 Basophils # (Auto) 0.0 TH/MM3 0.0 TH/MM3 CBC Comment AUTO DIFF AUTO DIFF Differential Comment AUTO DIFF CONFIRMED AUTO DIFF CONFIRMED Platelet Estimate LOW LOW Platelet Morphology Comment NORMAL NORMAL Blood Urea Nitrogen 21 MG/DL 18 MG/DL Creatinine 1.12 MG/DL 1.04 MG/DL Random Glucose 134 MG/DL 125 MG/DL Calcium Level 7.5 MG/DL 7.4 MG/DL Sodium Level 141 MEQ/L 143 MEQ/L Chloride Level 106 MEQ/L 110 MEQ/L Carbon Dioxide Level 26.0 MEQ/L 26.1 MEQ/L Anion Gap 9 MEQ/L 7 MEQ/L Estimat Glomerular Filtration Rate 65 ML/MIN 71 ML/MIN Total Protein 5.3 GM/DL Protein Corrected Calcium 8.4 MG/DL Imaging Last Impressions Port Line Revision 12/15/17 0000 Signed Impressions: Service Date/Time: Friday, December 15, 2017 00:00 - CONCLUSION: Uncomplicated port removal as above. Abdirashid Bowens MD Chest X-Ray 12/11/178 Signed Impressions: Service Date/Time: Monday, December 11, 2017 19:00 - CONCLUSION: No acute disease. No significant change has occurred. Eduardo Sebastian MD Objective Remarks General: NAD, ENT: White mucous in mouth less, lips are peeling Cardiac: Regular Chest: CTA Abd: +Bs, soft, nontender, peg in place Ext: No edema A/P Problem List: (1) Squamous cell carcinoma of oropharynx ICD Codes: C10.9 - Malignant neoplasm of oropharynx, unspecified Status: Acute Plan: Squamous cell carcinoma of oropharynx Mucositis Dehydration Poor PO intake - This is a 67-year-old male with a past medical history which includes oropharyngeal squamous cell cancer s/p resection with modified radical neck dissection 09/2017 at [facility]. Patient currently on chemotherapy with Dr. Toledo and radiation with Dr. Summers for the past four weeks. Patient had his radiation done just a few days ago. Since that time patient has been having nausea, thick oral secretions, feeling more weak, poor p.o. intake, and fevers according to his . Patient has a PEG tube in place but has not yet started using it. - Patient had been tolerating smoothies orally up until two days ago. His fevers have been 102 at home. - Dr. Summers notified - Medical oncology following patient known to Dr. 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 - Pt with poor PO intake after chemo - Pt started on pilocarpine PO with some improvement - Continue nutrition via tube feeds with Jevity goal rate of 65 ml/hr - Would like recommendations for bolus +/- continues night feedings depending on caloric needs - Free water flush 100 ml Q8H - IVF - Replace electrolytes PRN MRSA Bacteremia - All blood and urine cx MRSA - Antibiotics per ID Daptomycin - Port removed on 12/15 - Surveillance cx's drawn on 12/16 are pending, after port removal. Plan picc if neg x 3 days - 2D echo ordered to assess for any vegetation on the heart valves Thrombocytopenia - Patient with recent chemotherapy, currently on hold due to patient's KEVIN and blood counts - Labs are improving - No active bleeding - No chemical DVT prophylaxis - Dr. Toledo also following Hypokalemia - Patient has had poor PO intake after chemotherapy and radiation - Replacement PRN (2) Bacteremia ICD Codes: R78.81 - Bacteremia (3) Positive blood cultures ICD Codes: R78.81 - Bacteremia (4) Thrombocytopenia ICD Codes: D69.6 - Thrombocytopenia, unspecified (5) Hypokalemia ICD Codes: E87.6 - Hypokalemia Status: Acute (6) Dehydration ICD Codes: E86.0 - Dehydration Status: Acute Assessment and Plan Patient examined. Assessment and plan formulated with Brandi Canada PA-C. I agree with the above. mrsa bacteremia. persistent positive cx's. port removed. repeat blood ngtd x 1 day. picc when 3d neg cx. on dapto await nutrition regimen for home tf Brandi Canada December 17, 2017 10:34 Anthony Lakhani MD December 17, 2017 13:24
[2017-12-17] MEDS: NAPROXEN 500 MG TAB PO SCH ×4 (11:00→22:57)
--- NOTE | 2017-12-17 14:54 | HHI.IDPN ---
Note Infectious Disease Note Patient reports that he has pain in his right chest anteriorly when he coughs. Went for removal of [id number] on 12/15. No shortness of breath. No chills. Afebrile. 2D echo pending. Line blood culture from 12/16 has no growth in 24 hours. last blood culture from 12/13 still has MRSA. The blood culture from 12/11 has MRSA in all 4 bottles. Urine culture from 12/11 has MRSA. Repeat blood culture from 12/12 has MRSA. This is a 67-year-old white male who has a history of squamous cell carcinoma of the tongue. The patient presented to the Emergency Department with fever, nausea and decreased p.o. intake. In the Emergency Department, he had a temperature of 100.7 degrees and blood pressure of 85/52. Urinalysis showed a few bacteria and 15 white cells. The patient post-chemotherapy. He had an Infusaport in the left chest via which chemotherapy was given. This was placed 5 weeks ago. He also received radiation therapy to the neck. The patient underwent modified radical neck dissection in September 2017 at [facility]. PAST MEDICAL HISTORY: Hypertension, atrial fibrillation, alcohol abuse, alcohol withdrawal seizures, anxiety, gastroesophageal reflux disease, gout, history of pulmonary embolism, history of DVT, history of hemorrhagic CVA, history of skin cancer removal from the left arm. ALLERGIES: DOXYCYCLINE, CODEINE. The patient had MRSA nares culture in March 2016. MEDICATIONS: Current Medications Medications (Trade) Dose Ordered Sig/Fátima Route PRN Reason Start Time Stop Time Status Last Admin Dose Admin Ondansetron HCl (Zofran Odt) 4 mg Q6HR PRN PO nausea 12/11/17 23:15 12/11/17 23:58 Potassium Chloride/Sodium Chloride 1,000 ml @ 100 mls/hr Q10H IV 12/12/17 10:30 12/17/17 09:32 Metoclopramide HCl (Reglan Inj) 10 mg Q6HR PRN IV PUSH NAUSEA OR VOMITING 12/12/17 11:15 12/14/17 10:33 Lorazepam (Ativan) 0.5 mg Q6H PRN PO ANXIETY AND/OR AGITATION 12/12/17 11:15 12/15/17 21:13 Temazepam (Restoril) 30 mg HS PRN PO INSOMNIA 12/12/17 21:00 12/16/17 21:20 Diphenoxylate HCl/ Atropine (Lomotil Tab) 1 tab Q6H PRN PO DIARRHEA 12/13/17 07:45 Daptomycin 400 mg/ Sodium Chloride 100 ml @ 200 mls/hr Q24H IV 12/13/17 18:00 12/16/17 18:06 Potassium Bicarb/ Potassium Chloride (K-Lyte Cl Eff) 25 meq Q6HR G-TUBE 12/14/17 12:00 12/17/17 12:23 Water (Free Water) 100 ml Q8HR G-TUBE 12/14/17 14:00 12/17/17 14:47 Pilocarpine (Salagen) 5 mg Q8HR PO 12/14/17 14:00 12/17/17 14:47 Metoprolol Tartrate (Lopressor) 75 mg Q12HR PO 12/15/17 21:00 12/17/17 09:32 Losartan Potassium (Cozaar) 25 mg DAILY PO 12/17/17 09:00 12/17/17 09:33 Naproxen (Naprosyn) 500 mg Q12H PO 12/17/17 11:00 12/17/17 23:01 SOCIAL HISTORY: The patient is . No tobacco, occasional alcohol. No illicit drugs. Objective: Vital Signs Date Time Temp Pulse Resp B/P (MAP) Pulse Ox O2 Delivery O2 Flow Rate FiO2 12/17/17 13:18 109 12/17/17 11:57 97.7 58 20 139/91 (107) 98 12/17/17 09:47 108 12/17/17 08:24 97.4 73 20 151/79 (103) 98 12/17/17 04:00 98.9 98 18 144/78 (100) 97 12/17/17 00:00 97.5 105 18 133/84 (100) 98 12/16/17 20:00 97.8 108 18 125/73 (90) 99 12/16/17 16:43 102 12/16/17 16:08 99.1 96 20 138/96 (110) 98 Laboratory Tests Test 12/16/17 07:27 12/17/17 04:00 White Blood Count 4.0 TH/MM3 3.7 TH/MM3 Red Blood Count 3.39 MIL/MM3 3.10 MIL/MM3 Hemoglobin 10.7 GM/DL 9.8 GM/DL Hematocrit 31.5 % 28.8 % Mean Corpuscular Volume 92.9 FL 92.7 FL Mean Corpuscular Hemoglobin 31.5 PG 31.5 PG Mean Corpuscular Hemoglobin Concent 33.9 % 34.0 % Red Cell Distribution Width 15.4 % 15.5 % Platelet Count 49 TH/MM3 61 TH/MM3 Mean Platelet Volume 9.1 FL 9.0 FL Neutrophils (%) (Auto) 84.7 % 77.8 % Lymphocytes (%) (Auto) 7.5 % 11.6 % Monocytes (%) (Auto) 7.4 % 10.0 % Eosinophils (%) (Auto) 0.2 % 0.3 % Basophils (%) (Auto) 0.2 % 0.3 % Neutrophils # (Auto) 3.4 TH/MM3 2.9 TH/MM3 Lymphocytes # (Auto) 0.3 TH/MM3 0.4 TH/MM3 Monocytes # (Auto) 0.3 TH/MM3 0.4 TH/MM3 Eosinophils # (Auto) 0.0 TH/MM3 0.0 TH/MM3 Basophils # (Auto) 0.0 TH/MM3 0.0 TH/MM3 CBC Comment AUTO DIFF AUTO DIFF Differential Comment AUTO DIFF CONFIRMED AUTO DIFF CONFIRMED Platelet Estimate LOW LOW Platelet Morphology Comment NORMAL NORMAL Laboratory Tests Test 12/15/17 20:29 12/16/17 07:27 12/17/17 04:30 Potassium Level 3.2 MEQ/L 3.6 MEQ/L 3.6 MEQ/L Magnesium Level 1.1 MG/DL 1.1 MG/DL 1.0 MG/DL Blood Urea Nitrogen 21 MG/DL 18 MG/DL Creatinine 1.12 MG/DL 1.04 MG/DL Random Glucose 134 MG/DL 125 MG/DL Calcium Level 7.5 MG/DL 7.4 MG/DL Sodium Level 141 MEQ/L 143 MEQ/L Chloride Level 106 MEQ/L 110 MEQ/L Carbon Dioxide Level 26.0 MEQ/L 26.1 MEQ/L Anion Gap 9 MEQ/L 7 MEQ/L Estimat Glomerular Filtration Rate 65 ML/MIN 71 ML/MIN Total Protein 5.3 GM/DL Protein Corrected Calcium 8.4 MG/DL Microbiology Date/Time Source Procedure Growth Status 12/16/17 07:44 Blood Peripheral Aerobic Blood Culture - Preliminary NO GROWTH IN 1 DAY Resulted 12/16/17 07:44 Blood Peripheral Anaerobic Blood Culture - Preliminary NO GROWTH IN 1 DAY Resulted 12/16/17 07:27 Blood Peripheral Aerobic Blood Culture - Preliminary NO GROWTH IN 1 DAY Resulted 12/16/17 07:27 Blood Peripheral Anaerobic Blood Culture - Preliminary NO GROWTH IN 1 DAY Resulted Microbiology Date/Time Source Procedure Growth Status 12/16/17 07:44 Blood Peripheral Aerobic Blood Culture Pending Received 12/16/17 07:44 Blood Peripheral Anaerobic Blood Culture Pending Received 12/16/17 07:27 Blood Peripheral Aerobic Blood Culture Pending Received 12/16/17 07:27 Blood Peripheral Anaerobic Blood Culture Pending Received 12/13/17 18:05 Blood Peripheral Aerobic Blood Culture - Final S. Aureus Mrsa Resulted 12/13/17 18:05 Blood Peripheral Anaerobic Blood Culture - Preliminary NO GROWTH IN 3 DAYS Resulted 12/13/17 18:00 Blood Peripheral Aerobic Blood Culture - Final S. Aureus Mrsa Resulted 12/13/17 18:00 Blood Peripheral Anaerobic Blood Culture - Preliminary NO GROWTH IN 3 DAYS Resulted PHYSICAL EXAMINATION: GENERAL: No acute distress. Awake and alert. HEENT: Extraocular movements are grossly intact. Pupils reactive to light. No icterus. Oropharynx: Moist mucosa. NECK: Supple. No adenopathy. No swelling. LUNGS: Clear breath sounds HEART: Irregular S1, S2. No murmurs, rubs or gallops. ABDOMEN: Bowel sounds present. Soft. No tenderness appreciated. EXTREMITIES: No clubbing, cyanosis or edema. SKIN: No rash. NEUROLOGIC: No gross focal findings. PSYCHIATRIC: Calm and cooperative. IMPRESSION: 1. Bacteremia due to MRSA. Secondary to infected [id number]. Infuse-a- Port removed. 2. UTI due to MRSA 3. History of squamous cell carcinoma of the tongue. Patient undergoing radiation and chemotherapy. 4. Acute kidney disease. 5. Thrombocytopenia improving. RECOMMENDATIONS: 1. Continue Daptomycin IV. 2. Awaiting 2D echocardiogram to make sure there is no vegetation on the heart valves. 3. Monitor the repeat blood culture. 3. Monitor clinical status. Once we get clear blood cultures we can place a PICC line and continue treatment outpatient. Duration of antibiotics depending upon whether he has heart valve vegetation or not. Seven Alonso MD December 17, 2017 14:54
--- NOTE | 2017-12-17 16:16 | ECHRPT ---
Indication: SEPSIS ENDOCARDITIS CONCLUSIONS Normal left ventricular size. Wall thickness is measured at the upper limits of normal. The left ventricular systolic function is low normal with an estimated ejection fraction in the rang e of 50- 55%. The left atrial size is moderately dilated. The pulmonary valve is not well visualized. BP: / HR: Rhythm: Atrial fibrillation Technical Quality: FINDINGS LEFT VENTRICLE Normal left ventricular size. Wall thickness is measured at the upper limits of normal. The left ventricular systolic function is low normal with an estimated ejection fraction in the rang e of 50- 55%. RIGHT VENTRICLE Normal right ventricular size and systolic function. LEFT ATRIUM The left atrial size is moderately dilated. RIGHT ATRIUM The right atrial size is normal. ATRIAL SEPTUM Normal atrial septal thickness without atrial level shunting by limited color doppler interrogation. AORTA The aortic root and proximal ascending aorta are normal in size on limited imaging. MITRAL VALVE Structurally normal mitral valve. No mitral valve stenosis or regurgitation. AORTIC VALVE Trileaflet aortic valve. No aortic valve stenosis or regurgitation. TRICUSPID VALVE Structurally normal tricuspid valve. No tricuspid valve stenosis or regurgitation. PULMONARY VALVE The pulmonary valve is not well visualized. VESSELS The inferior vena cava is normal in size. PERICARDIUM No pericardial effusion. Denis Abad MD, FACC (Electronically Signed) Final Date:17 Dec 2017 16:15
[2017-12-17] MEDS: DAPTOmycin INJ 400 MG in SODIUM CHLORIDE 0.9% INJ 100 ML IV SCH (17:03)
[2017-12-17] MEDS: LORazepam 0.5 MG TAB PO PRN (17:09)
[2017-12-17] MEDS: TEMAZEPAM 15 MG CAP PO PRN (21:43)
[2017-12-17] MEDS: METOPROLOL TARTRATE 100 MG TAB PO SCH (21:49)
[2017-12-18] VITALS: BP 122/84; PULSE 87; RESP 16; TEMP 97.7; O2SAT 99
[2017-12-18 04:34] VITALS: BP 116/85; PULSE 100; RESP 20; TEMP 98; O2SAT 98
[2017-12-18] MEDS: FREE WATER G-TUBE SCH ×3 (05:03→21:10)
[2017-12-18] MEDS: PILOCARPINE HCL 5 MG TAB PO SCH ×3 (05:04→21:11)
[2017-12-18] MEDS: POTASSIUM CHLORIDE 25 MEQ EFFERVESCENT TAB G-TUBE SCH (05:04)
[2017-12-18 07:46] LABS: BASOPHIL % 0.5 % (0.0-2.0); EOSINOPHIL % 0.8 % (0.0-4.0); HEMATOCRIT 29.3 % (39.0-51.0); LYMPH % 11.2 % (9.0-44.0); LYMPHOCYTE # 0.3 TH/MM3 (1.0-4.8); MEAN CELL VOLUME 92.4 FL (80.0-100.0); MEAN CORPUSCULAR HEMOGLOBIN 31.6 PG (27.0-34.0); MEAN CORPUSCULAR HGB CONC 34.2 % (32.0-36.0); MEAN PLATELET VOLUME 9.6 FL (7.0-11.0); MONO % 13.5 % (0.0-8.0); MONOCYTE # 0.4 TH/MM3 (0-0.9); PLATELET COUNT 75 TH/MM3 (150-450); RED BLOOD COUNT 3.17 MIL/MM3 (4.50-5.90); RED CELL DISTRIBUTION WIDTH 15.5 % (11.6-17.2); WHITE BLOOD COUNT 2.7 TH/MM3 (4.0-11.0)
[2017-12-18 08:00] VITALS: BP 123/92; PULSE 108; PULSE 123; RESP 18; TEMP 97.7; O2SAT 98
[2017-12-18] MEDS: METOPROLOL TARTRATE 100 MG TAB PO SCH ×2 (08:12→21:09)
[2017-12-18] MEDS: LORazepam 0.5 MG TAB PO PRN ×2 (08:12→21:11)
[2017-12-18] MEDS: LOSARTAN 25 MG TAB PO SCH (08:13)
[2017-12-18] MEDS: NS + KCL 40 MEQ INJ 1,000 ML IV SCH (08:13)
[2017-12-18 08:16] LABS: BICARBONATE 28.6 MEQ/L (21.0-32.0); CALCIUM 7.6 MG/DL (8.5-10.1); CREATININE 0.99 MG/DL (0.60-1.30); MAGNESIUM 1.5 MG/DL (1.5-2.5)
--- NOTE | 2017-12-18 09:06 | HHI.PR ---
Subjective Remarks c/o right ant chest and right scapular pain with coughing Objective Vitals heart irreg lung course bs abd s/nt. peg ext no edema Vital Signs Date Time Temp Pulse Resp B/P (MAP) Pulse Ox O2 Delivery O2 Flow Rate FiO2 12/18/17 04:34 98.0 100 20 116/85 (95) 98 12/18/17 00:00 97.7 87 16 122/84 (97) 99 12/17/17 20:40 97.1 103 20 146/79 (101) 98 12/17/17 16:09 98.6 116 20 132/85 (101) 98 12/17/17 13:18 109 12/17/17 11:57 97.7 58 20 139/91 (107) 98 12/17/17 09:47 108 Result Diagram: 12/18/17 0616 12/18/17 0616 Imaging Last Impressions Port Line Revision 12/15/17 0000 Signed Impressions: Service Date/Time: Friday, December 15, 2017 00:00 - CONCLUSION: Uncomplicated port removal as above. Abdirashid Bowens MD Chest X-Ray 12/11/17 2128 Signed Impressions: Service Date/Time: Monday, December 11, 2017 19:00 - CONCLUSION: No acute disease. No significant change has occurred. Eduardo Sebastian MD Objective Remarks General: NAD, A/P Problem List: (1) Squamous cell carcinoma of oropharynx ICD Codes: C10.9 - Malignant neoplasm of oropharynx, unspecified Status: Acute Plan: Squamous cell carcinoma of oropharynx Mucositis Dehydration Poor PO intake - This is a 67-year-old male with a past medical history which includes oropharyngeal squamous cell cancer s/p resection with modified radical neck dissection 09/2017 at [facility]. Patient currently on chemotherapy with Dr. Toledo and radiation with Dr. Summers for the past four weeks. Patient had his radiation done just a few days ago. Since that time patient has been having nausea, thick oral secretions, feeling more weak, poor p.o. intake, and fevers according to his . Patient has a PEG tube in place but has not yet started using it. - Patient had been tolerating smoothies orally up until two days ago. His fevers have been 102 at home. - Dr. Summers notified - Medical oncology following patient known to Dr. 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 - Pt with poor PO intake after chemo - Pt started on pilocarpine PO with some improvement of oral thick secretion and mucositis - Continue nutrition via tube feeds with Jevity goal rate of 65 ml/hr - Would like recommendations for bolus +/- continues night feedings depending on caloric needs. pending - Free water flush 100 ml Q8H -pt k and mg much better today. stop ivf, kcl replacement and recheck. MRSA Bacteremia - All blood and urine cx MRSA - Antibiotics per ID Daptomycin - Port removed on 12/15 - Surveillance cx's drawn on 12/16 are ngtd, after port removal. Plan picc if neg x 3 days - 2D echo ordered to assess for any vegetation on the heart valves. no vegetation noted. Thrombocytopenia - Patient with recent chemotherapy, currently on hold due to patient's KEVIN and blood counts - Labs are improving - No active bleeding - No chemical DVT prophylaxis - Dr. Toledo also following Hypokalemia - Patient has had poor PO intake after chemotherapy and radiation - Replacement PRN AFIB -PT with afib/rvr his lopressor is increase back to 100mg po bid. monitor. hold losartan in case we need the bp for additional rate control meds. (2) Bacteremia ICD Codes: R78.81 - Bacteremia (3) Positive blood cultures ICD Codes: R78.81 - Bacteremia (4) Thrombocytopenia ICD Codes: D69.6 - Thrombocytopenia, unspecified (5) Hypokalemia ICD Codes: E87.6 - Hypokalemia Status: Acute (6) Dehydration ICD Codes: E86.0 - Dehydration Status: Acute Anthony Lakhani MD December 18, 2017 09:06
[2017-12-18] MEDS ORDERED: CYCLOBENZAPRINE HCL 10 MG TAB PO ONE (09:30)
[2017-12-18] MEDS ORDERED: PILL SPLITTER OTHER PRN (09:30)
--- NOTE | 2017-12-18 10:10 | PD.ONC.PN ---
Subjective Subjective Remarks Afebrile Patient resting in bed watching TV in no obvious distress Reports he still has thick saliva making it difficult to swallow Tolerating Ensures okay Objective Data Date Time Temp Pulse Resp B/P (MAP) Pulse Ox O2 Delivery O2 Flow Rate FiO2 12/18/17 08:00 97.7 108 18 123/92 (102) 98 12/18/17 04:34 98.0 100 20 116/85 (95) 98 12/18/17 00:00 97.7 87 16 122/84 (97) 99 12/17/17 20:40 97.1 103 20 146/79 (101) 98 12/17/17 16:09 98.6 116 20 132/85 (101) 98 12/17/17 13:18 109 12/17/17 11:57 97.7 58 20 139/91 (107) 98 12/18/17 12/18/17 12/18/17 07:00 15:00 23:00 Intake Total 0 ml 800 ml Balance 0 ml 800 ml Result Diagram: 12/18/1716 12/18/17615 Laboratory Results Laboratory Tests Test 12/18/17 06:16 White Blood Count 2.7 TH/MM3 Red Blood Count 3.17 MIL/MM3 Hemoglobin 10.0 GM/DL Hematocrit 29.3 % Mean Corpuscular Volume 92.4 FL Mean Corpuscular Hemoglobin 31.6 PG Mean Corpuscular Hemoglobin Concent 34.2 % Red Cell Distribution Width 15.5 % Platelet Count 75 TH/MM3 Mean Platelet Volume 9.6 FL Neutrophils (%) (Auto) 74.0 % Lymphocytes (%) (Auto) 11.2 % Monocytes (%) (Auto) 13.5 % Eosinophils (%) (Auto) 0.8 % Basophils (%) (Auto) 0.5 % Neutrophils # (Auto) 2.0 TH/MM3 Lymphocytes # (Auto) 0.3 TH/MM3 Monocytes # (Auto) 0.4 TH/MM3 Eosinophils # (Auto) 0.0 TH/MM3 Basophils # (Auto) 0.0 TH/MM3 CBC Comment AUTO DIFF Blood Urea Nitrogen 20 MG/DL Creatinine 0.99 MG/DL Random Glucose 108 MG/DL Calcium Level 7.6 MG/DL Magnesium Level 1.5 MG/DL Sodium Level 145 MEQ/L Potassium Level 5.0 MEQ/L Chloride Level 110 MEQ/L Carbon Dioxide Level 28.6 MEQ/L Anion Gap 6 MEQ/L Estimat Glomerular Filtration Rate 75 ML/MIN Culture Results Microbiology Date/Time Source Procedure Growth Status 12/16/17 07:44 Blood Peripheral Aerobic Blood Culture - Preliminary NO GROWTH IN 1 DAY Resulted 12/16/17 07:44 Blood Peripheral Anaerobic Blood Culture - Preliminary NO GROWTH IN 1 DAY Resulted 12/16/17 07:27 Blood Peripheral Aerobic Blood Culture - Preliminary NO GROWTH IN 1 DAY Resulted 12/16/17 07:27 Blood Peripheral Anaerobic Blood Culture - Preliminary NO GROWTH IN 1 DAY Resulted 12/18/17 04:50 Urine Catheterized Urine Urine Culture Pending Received Administered Medications Medications (Trade) Dose Ordered Sig/Fátima Route PRN Reason Start Time Stop Time Status Last Admin Dose Admin Ondansetron HCl (Zofran Odt) 4 mg Q6HR PRN PO nausea 12/11/17 23:15 12/11/17 23:58 Metoclopramide HCl (Reglan Inj) 10 mg Q6HR PRN IV PUSH NAUSEA OR VOMITING 12/12/17 11:15 12/14/17 10:33 Lorazepam (Ativan) 0.5 mg Q6H PRN PO ANXIETY AND/OR AGITATION 12/12/17 11:15 12/18/17 08:12 Temazepam (Restoril) 30 mg HS PRN PO INSOMNIA 12/12/17 21:00 12/17/17 21:43 Daptomycin 400 mg/ Sodium Chloride 100 ml @ 200 mls/hr Q24H IV 12/13/17 18:00 12/17/17 17:03 Water (Free Water) 100 ml Q8HR G-TUBE 12/14/17 14:00 12/18/17 05:03 Pilocarpine (Salagen) 5 mg Q8HR PO 12/14/17 14:00 12/18/17 05:04 Metoprolol Tartrate (Lopressor) 100 mg BID PO 12/17/17 21:00 12/18/17 08:12 Objective Remarks GENERAL: Older male resting in bed in no obvious distress SKIN: Warm and dry. XRT changes to left neck, shoulder HEAD: Normocephalic. Xerostomia EYES: No scleral icterus. No injection or drainage. NECK: Supple, trachea midline. No JVD or lymphadenopathy. CARDIOVASCULAR: Regular rate and rhythm without murmurs. RESPIRATORY: Breath sounds equal bilaterally. No accessory muscle use. GASTROINTESTINAL: PEG tube in place with tube feed infusing continuously EXTREMITIES: No cyanosis, or edema. MUSCULOSKELETAL: Adequate muscle tone. NEUROLOGICAL: No obvious focal deficit. Awake, alert, and oriented x3. Assessment/Plan Assessment 67y/o male with oropharyngeal carcinoma admitted with MRSA sepsis. History: s/p surgical resection at the [facility] in September 2017; pathologic stage T2 N2 M0. --Currently on postoperative concurrent chemoradiotherapy with cisplatin dosed at 100 mg per metered squared every 21 days. He is status post 2 infusions of chemotherapy with a third dose planned for late November 2017. Plan 1. Oropharyngeal squamous cell carcinoma: next chemo late November 2017, he may not be able to tolerate this dose. 2. Mucositis: Continue pilocarpine, free water flushes 3. MRSA sepsis: with persistent bacteremia. Echocardiogram shows no vegetation. ID following. On daptomycin. 4. Malnutrition: resume tube feeds after removal of port. receives Jevity 1.5; dietitian following. Patient may be switched to bolus tube feeds as opposed to continuous pump. 5. Chemotherapy related myelosuppression; significant thrombocytopenia; continue to monitor CBC. May need to start Neupogen in the next few days 6. KEVIN: Improved; this was also likely due to cisplatin chemotherapy. His renal function is improved. Attending Statement The exam, history, and the medical decision-making described in the above note were completed with the assistance of the mid-level provider. I reviewed and agree with the findings presented. I attest that I had a [id number] encounter with the patient on the same day, and personally performed and documented my assessment and findings in the medical record. Feeling better. Now afebrile, still has thick mucus. WBC trending down. Not neutropenic. Continue to monitor. Ileana Espitia December 18, 2017 10:10 Edmund Grant MD December 18, 2017 14:54
[2017-12-18 12:00] VITALS: BP 126/74; PULSE 117; PULSE 83; RESP 18; TEMP 98.4; O2SAT 99
[2017-12-18 16:00] VITALS: BP 148/95; PULSE 104; PULSE 126; RESP 18; TEMP 97.6; O2SAT 96
[2017-12-18] MEDS: DAPTOmycin INJ 400 MG in SODIUM CHLORIDE 0.9% INJ 100 ML IV SCH (17:10)
[2017-12-18 20:00] VITALS: BP 156/94; PULSE 120; RESP 19; TEMP 98; O2SAT 95
[2017-12-19] VITALS (9 sets, daily range): BP systolic 122–137; BP diastolic 79–95; PULSE 104–139; RESP 18–20; TEMP 97.6–98.3; O2SAT 96–98
[2017-12-19] MEDS: FREE WATER G-TUBE SCH ×3 (06:00→20:59)
[2017-12-19] MEDS: PILOCARPINE HCL 5 MG TAB PO SCH ×3 (06:15→20:50)
[2017-12-19] MEDS: METOPROLOL TARTRATE 100 MG TAB PO SCH ×2 (08:08→20:49)
[2017-12-19 09:07] LABS: BICARBONATE 27.4 MEQ/L (21.0-32.0); CALCIUM 7.6 MG/DL (8.5-10.1); CREATININE 1.01 MG/DL (0.60-1.30); MAGNESIUM 1.1 MG/DL (1.5-2.5)
--- NOTE | 2017-12-19 12:53 | HHI.PR ---
Subjective Remarks Pt has no new clinical complaints. Objective Vitals Vital Signs Date Time Temp Pulse Resp B/P (MAP) Pulse Ox O2 Delivery O2 Flow Rate FiO2 12/19/17 12:31 139 12/19/17 08:00 128 12/19/17 08:00 98.3 104 18 133/90 (104) 97 12/19/17 04:00 97.7 129 19 122/85 (97) 97 12/19/17 00:00 97.6 110 20 123/88 (100) 98 12/18/17 20:00 98.0 120 19 156/94 (114) 95 12/18/17 16:00 126 12/18/17 16:00 97.6 104 18 148/95 (112) 96 Result Diagram: 12/18/17 0616 12/19/17 0749 Imaging Last Impressions Port Line Revision 12/15/17 0000 Signed Impressions: Service Date/Time: Friday, December 15, 2017 00:00 - CONCLUSION: Uncomplicated port removal as above. Abdirashid Bowens MD Chest X-Ray 12/11/17 9888 Signed Impressions: Service Date/Time: Monday, December 11, 2017 19:00 - CONCLUSION: No acute disease. No significant change has occurred. Eduardo Sebastian MD Objective Remarks GENERAL: This is a well-nourished, well-developed patient, in no apparent distress. CARDIOVASCULAR: Regular rate and rhythm without murmurs, gallops, or rubs. RESPIRATORY: Clear to auscultation. Breath sounds equal bilaterally. No wheezes , rales, or rhonchi. GASTROINTESTINAL: Abdomen soft, non-tender, nondistended. Normal active bowel sounds MUSCULOSKELETAL: Extremities without clubbing, cyanosis, or edema. NEURO: Alert & Oriented x4 to person, place, time, situation. Moves all ext x4 A/P Problem List: (1) Squamous cell carcinoma of oropharynx ICD Codes: C10.9 - Malignant neoplasm of oropharynx, unspecified Status: Acute Plan: Squamous cell carcinoma of oropharynx Mucositis Dehydration Poor PO intake - This is a 67-year-old male with a past medical history which includes oropharyngeal squamous cell cancer s/p resection with modified radical neck dissection 09/2017 at [facility]. Patient currently on chemotherapy with Dr. Toledo and radiation with Dr. Summers for the past four weeks. Patient had his radiation done just a few days ago. Since that time patient has been having nausea, thick oral secretions, feeling more weak, poor p.o. intake, and fevers according to his . Patient has a PEG tube in place but has not yet started using it. - Patient had been tolerating smoothies orally up until two days ago. His fevers have been 102 at home. - Dr. Summers notified - Medical oncology following patient known to Dr. 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 - Pt with poor PO intake after chemo - Pt started on pilocarpine PO with some improvement of oral thick secretion and mucositis - Continue nutrition via tube feeds with Jevity goal rate of 65 ml/hr - Change TF to bolus feeding per Dietary recommendations - 360mls at 8am, 12pm, 8pm 240mls at 11am, 5pm 30mls water flush before and after each bolus feeding 300mls free water flush q 6 hrs - Continue replacing Magnesium - repeat BMP/Mag in AM MRSA Bacteremia - All blood and urine cx MRSA - Antibiotics per ID Daptomycin - Port removed on 12/15 - Repeat Blood Cx (12/16) --> NGD - Will d/w ID. Would like to place PICC at this time. Anticipate PICC 12/20 - 2D echo ordered to assess for any vegetation on the heart valves. no vegetation noted. - D/t sensitivities pt will need to be discharged on Daptomycin. Thrombocytopenia - Patient with recent chemotherapy, currently on hold due to patient's KEVIN and blood counts - Labs are improving - No active bleeding - No chemical DVT prophylaxis - Dr. Toledo also following Hypokalemia - Patient has had poor PO intake after chemotherapy and radiation - Replacement PRN AFIB -PT with afib/rvr his lopressor is increase back to 100mg po bid. monitor. hold losartan in case we need the bp for additional rate control meds. (2) Atrial fibrillation with RVR ICD Codes: I48.91 - Atrial fibrillation with RVR Status: Acute Plan: - pt has chronic atrial fibrillation - continue metoprolol 100mg PO BID - start Cardizem CD 120mg daily, may require dose adjustment - observe on telemetry - Pt has thrombocytopenia (3) Bacteremia ICD Codes: R78.81 - Bacteremia Status: Acute (4) Positive blood cultures ICD Codes: R78.81 - Bacteremia (5) Thrombocytopenia ICD Codes: D69.6 - Thrombocytopenia, unspecified (6) Hypokalemia ICD Codes: E87.6 - Hypokalemia Status: Acute (7) Dehydration ICD Codes: E86.0 - Dehydration Status: Acute Antonino Kearney DO December 19, 2017 12:53
[2017-12-19] MEDS: MAGNESIUM SULFATE 1 GM PREMIX 100 ML IV SCH ×3 (13:23→15:45)
[2017-12-19] MEDS: DILTIAZEM-CD 120 MG CAP ER PO SCH (14:25)
[2017-12-19] MEDS: DAPTOmycin INJ 400 MG in SODIUM CHLORIDE 0.9% INJ 100 ML IV SCH (17:31)
[2017-12-19] MEDS: LORazepam 0.5 MG TAB PO PRN (17:44)
[2017-12-19] MEDS: TEMAZEPAM 15 MG CAP PO PRN (23:41)
[2017-12-20] VITALS (9 sets, daily range): BP systolic 126–148; BP diastolic 68–86; PULSE 99–118; RESP 16–20; TEMP 97.5–98.8; O2SAT 95–98
[2017-12-20] MEDS: PILOCARPINE HCL 5 MG TAB PO SCH ×3 (06:05→22:04)
[2017-12-20] MEDS: FREE WATER G-TUBE SCH ×3 (06:09→22:05)
--- NOTE | 2017-12-20 07:50 | PD.ONC.PN ---
Subjective Subjective Remarks Patient seen and examined, vital signs, labs, medications and microbiology reports reviewed. Subjectively; patient reports soreness in his mouth is improved, he is taking sips of water and nutritional supplements. His tube feedings are no longer on continuous infusion but rather on bolus feeds. He tells me he has been able to get up and get out of bed and ambulate in the room. Blood cultures have remained negative since 12/16/2017. Objective Data Date Time Temp Pulse Resp B/P (MAP) Pulse Ox O2 Delivery O2 Flow Rate FiO2 12/20/17 04:00 97.5 114 20 131/80 (97) 96 12/20/17 00:00 98.8 99 18 148/80 (102) 96 12/19/17 20:03 109 12/19/17 20:00 98.2 109 18 137/88 (104) 97 12/19/17 16:35 119 12/19/17 16:00 98.0 111 18 137/79 (98) 96 12/19/17 12:31 139 12/19/17 12:00 97.7 111 18 137/95 (109) 98 12/19/17 08:00 128 12/19/17 08:00 98.3 104 18 133/90 (104) 97 12/20/17 12/20/17 12/20/17 07:00 15:00 23:00 Intake Total 380 ml Output Total 450 ml Balance -70 ml Result Diagram: 12/18/17 0616 12/19/17 0749 Laboratory Results Laboratory Tests Test 12/19/17 07:49 Blood Urea Nitrogen 22 MG/DL Creatinine 1.01 MG/DL Random Glucose 131 MG/DL Calcium Level 7.6 MG/DL Magnesium Level 1.1 MG/DL Sodium Level 142 MEQ/L Potassium Level 4.1 MEQ/L Chloride Level 107 MEQ/L Carbon Dioxide Level 27.4 MEQ/L Anion Gap 8 MEQ/L Estimat Glomerular Filtration Rate 73 ML/MIN Culture Results Microbiology Date/Time Source Procedure Growth Status 12/18/17 04:50 Urine Catheterized Urine Urine Culture - Preliminary Lorena Albicans Resulted Administered Medications Medications (Trade) Dose Ordered Sig/Fátima Route PRN Reason Start Time Stop Time Status Last Admin Dose Admin Ondansetron HCl (Zofran Odt) 4 mg Q6HR PRN PO nausea 12/11/17 23:15 12/11/17 23:58 Metoclopramide HCl (Reglan Inj) 10 mg Q6HR PRN IV PUSH NAUSEA OR VOMITING 12/12/17 11:15 12/14/17 10:33 Lorazepam (Ativan) 0.5 mg Q6H PRN PO ANXIETY AND/OR AGITATION 12/12/17 11:15 12/19/17 17:44 Temazepam (Restoril) 30 mg HS PRN PO INSOMNIA 12/12/17 21:00 12/19/17 23:41 Daptomycin 400 mg/ Sodium Chloride 100 ml @ 200 mls/hr Q24H IV 12/13/17 18:00 12/19/17 17:31 Water (Free Water) 100 ml Q8HR G-TUBE 12/14/17 14:00 12/20/17 06:09 Pilocarpine (Salagen) 5 mg Q8HR PO 12/14/17 14:00 12/20/17 06:05 Metoprolol Tartrate (Lopressor) 100 mg BID PO 12/17/17 21:00 12/19/17 20:49 Diltiazem HCl (Cardizem Cd) 120 mg DAILY PO 12/19/17 14:00 12/19/17 14:25 Objective Remarks GENERAL: Elderly male, laying in bed, he appears to be frail, he seems to have some difficulty speaking due to dryness in the mouth. He is not acutely distressed however. Clinically appears to be doing better. SKIN: Radiation radiation related skin changes have improved when compared to last week. HEAD: Atraumatic. Normocephalic. No temporal or scalp tenderness. EYES: Pupils equal round and reactive. Extraocular motions intact. No scleral icterus. No injection or drainage. ENT: Oral exam: Continues to have mucositis, he has thick phlegm but this is decreased. NECK: Trachea midline. No JVD or lymphadenopathy. Supple, nontender, no meningeal signs. No pathologically enlarged cervical lymph nodes. Postsurgical changes noted. CARDIOVASCULAR: Irregular rhythm, S1-S2 no murmurs rubs gallops. RESPIRATORY: Good air movement of the upper and middle lung zones, decreased bibasilar breath sounds, poor inspiratory effort. GASTROINTESTINAL: PEG tube in place, abdomen is nontender nondistended no palpable organ enlargement. MUSCULOSKELETAL: Generally decreased muscle mass, adequate tone and strength. NEUROLOGICAL: Awake and alert. Cranial nerves II through XII intact. Motor and sensory grossly within normal limits. Five out of 5 muscle strength in all muscle groups. Normal speech, but hard to understand at times due to dryness of the mouth. Assessment/Plan Assessment 67y/o male with oropharyngeal carcinoma admitted with MRSA sepsis. History: s/p surgical resection at the [facility] in September 2017; pathologic stage T2 N2 M0. Currently on postoperative concurrent chemoradiotherapy with cisplatin dosed at 100 mg per metered squared every 21 days. He is status post 2 infusions of chemotherapy with a third dose planned for late November 2017. Plan 1. Oropharyngeal squamous cell carcinoma: Chemoradiotherapy is currently on hold, awaiting recovery from his acute issues. 2. Mucositis: Continue pilocarpine, free water flushes. Clinically improved. 3. MRSA sepsis: with persistent bacteremia. Echocardiogram shows no vegetation. ID following. On daptomycin. 4. Malnutrition: He is back to his bolus tube feeds and is also taking sips of liquids orally. 5. Chemotherapy related myelosuppression: Repeat CBC this morning. 6. KEVIN: Renal function is back to baseline. Continue ongoing care. He may be approaching discharge with outpatient intravenous antibiotic delivery. Pascual Toledo MD December 20, 2017 07:50
[2017-12-20] MEDS: METOPROLOL TARTRATE 100 MG TAB PO SCH ×2 (08:45→22:04)
[2017-12-20] MEDS: DILTIAZEM-CD 120 MG CAP ER PO SCH (08:45)
[2017-12-20 08:52] LABS: CREATININE 0.98 MG/DL (0.60-1.30); MAGNESIUM 1.5 MG/DL (1.5-2.5)
[2017-12-20 11:29] LABS: AUTOMATED NEUTROPHIL # 1.2 TH/MM3 (1.8-7.7); BASOPHIL % 0.7 % (0.0-2.0); EOSINOPHIL % 0.8 % (0.0-4.0); HEMATOCRIT 26.8 % (39.0-51.0); LYMPH % 17.8 % (9.0-44.0); LYMPHOCYTE # 0.3 TH/MM3 (1.0-4.8); MEAN CELL VOLUME 93.2 FL (80.0-100.0); MEAN CORPUSCULAR HEMOGLOBIN 31.4 PG (27.0-34.0); MEAN CORPUSCULAR HGB CONC 33.6 % (32.0-36.0); MEAN PLATELET VOLUME 9.5 FL (7.0-11.0); MONOCYTE # 0.4 TH/MM3 (0-0.9); NEUT % 59.7 % (16.0-70.0); PLATELET COUNT 107 TH/MM3 (150-450); RED BLOOD COUNT 2.87 MIL/MM3 (4.50-5.90); RED CELL DISTRIBUTION WIDTH 15.7 % (11.6-17.2)
--- NOTE | 2017-12-20 12:41 | HHI.PR ---
Subjective Remarks Pt having PICC line placed No new complaints Afebrile HR is still not well controlled Objective Vitals Vital Signs Date Time Temp Pulse Resp B/P (MAP) Pulse Ox O2 Delivery O2 Flow Rate FiO2 12/20/17 08:48 98.1 118 19 129/86 (100) 97 12/20/17 08:00 114 12/20/17 04:00 97.5 114 20 131/80 (97) 96 12/20/17 00:00 98.8 99 18 148/80 (102) 96 12/19/17 20:03 109 12/19/17 20:00 98.2 109 18 137/88 (104) 97 12/19/17 16:35 119 12/19/17 16:00 98.0 111 18 137/79 (98) 96 12/20/17 12/20/17 12/21/17 15:00 23:00 07:00 Output Total 60.0 ml Balance -60.0 ml Tube Feeding Residual Discard 60.0 ml Result Diagram: 12/20/17 1110 12/20/17 0723 Other Results Laboratory Tests Test 12/19/17 07:49 12/20/17 07:23 12/20/17 11:10 Blood Urea Nitrogen 22 MG/DL 17 MG/DL Creatinine 1.01 MG/DL 0.98 MG/DL Random Glucose 131 MG/DL 86 MG/DL Calcium Level 7.6 MG/DL 8.0 MG/DL Magnesium Level 1.1 MG/DL 1.5 MG/DL Sodium Level 142 MEQ/L 140 MEQ/L Potassium Level 4.1 MEQ/L 4.2 MEQ/L Chloride Level 107 MEQ/L 104 MEQ/L Carbon Dioxide Level 27.4 MEQ/L 28.0 MEQ/L Anion Gap 8 MEQ/L 8 MEQ/L Estimat Glomerular Filtration Rate 73 ML/MIN 76 ML/MIN White Blood Count 2.0 TH/MM3 Red Blood Count 2.87 MIL/MM3 Hemoglobin 9.0 GM/DL Hematocrit 26.8 % Mean Corpuscular Volume 93.2 FL Mean Corpuscular Hemoglobin 31.4 PG Mean Corpuscular Hemoglobin Concent 33.6 % Red Cell Distribution Width 15.7 % Platelet Count 107 TH/MM3 Mean Platelet Volume 9.5 FL Neutrophils (%) (Auto) 59.7 % Lymphocytes (%) (Auto) 17.8 % Monocytes (%) (Auto) 21.0 % Eosinophils (%) (Auto) 0.8 % Basophils (%) (Auto) 0.7 % Neutrophils # (Auto) 1.2 TH/MM3 Lymphocytes # (Auto) 0.3 TH/MM3 Monocytes # (Auto) 0.4 TH/MM3 Eosinophils # (Auto) 0.0 TH/MM3 Basophils # (Auto) 0.0 TH/MM3 CBC Comment DIFF FINAL Differential Comment Imaging Last Impressions Port Line Revision 12/15/17 0000 Signed Impressions: Service Date/Time: Friday, December 15, 2017 00:00 - CONCLUSION: Uncomplicated port removal as above. Abdirashid Bowens MD Chest X-Ray 12/11/17 1858 Signed Impressions: Service Date/Time: Monday, December 11, 2017 19:00 - CONCLUSION: No acute disease. No significant change has occurred. Eduardo Sebastian MD Objective Remarks General: NAD, Cardiac: Irregular, tachy Chest: CTA Abd: +Bs, soft, nontender, peg in place Ext: No edema A/P Problem List: (1) Squamous cell carcinoma of oropharynx ICD Codes: C10.9 - Malignant neoplasm of oropharynx, unspecified Status: Acute Plan: Squamous cell carcinoma of oropharynx Mucositis Dehydration Poor PO intake - This is a 67-year-old male with a past medical history which includes oropharyngeal squamous cell cancer s/p resection with modified radical neck dissection 09/[address] [facility]. Patient currently on chemotherapy with Dr. Toledo and radiation with Dr. Summers for the past four weeks. Patient had his radiation done just a few days ago. Since that time patient has been having nausea, thick oral secretions, feeling more weak, poor p.o. intake, and fevers according to his . Patient has a PEG tube in place but has not yet started using it. - Patient had been tolerating smoothies orally up until two days ago. His fevers have been 102 at home. - Dr. Summers notified - Medical oncology following patient known to Dr. 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 - Pt with poor PO intake after chemo - Pt started on pilocarpine PO with some improvement of oral thick secretion and mucositis - Continue nutrition via tube feeds with Jevity goal rate of 65 ml/hr - Change TF to bolus feeding per Dietary recommendations - 360mls at 8am, 12pm, 8pm - 240mls at 11am, 5pm - 30mls water flush before and after each bolus feeding - 300mls free water flush q 6 hrs - repeat BMP/Mag in AM MRSA Bacteremia - All blood and urine cx MRSA - Antibiotics per ID Daptomycin - Port removed on 12/15 - Repeat Blood Cx (12/16) --> NGD - PICC to be placed today - 2D echo ordered to assess for any vegetation on the heart valves. no vegetation noted. - D/t sensitivities pt will need to be discharged on Daptomycin. C Abx ordered have been written on ID Thrombocytopenia - Patient with recent chemotherapy, currently on hold due to patient's KEVIN and blood counts - Labs are improving - No active bleeding - No chemical DVT prophylaxis - Dr. Toledo also following Hypokalemia - Patient has had poor PO intake after chemotherapy and radiation - Replacement PRN A. FIB, chronic - Pt with A. fib/rvr - His Lopressor was increased back to 100mg po bid but still with intermittent RVR - Pt started on Cardizem 120mg po daily on 12/19/17 - HR still not well controlled on 12/20, Cardizem increased to 180mg po daily today - Losartan has been held for addition of rate control meds. - Telemetry (2) Atrial fibrillation with RVR ICD Codes: I48.91 - Atrial fibrillation with RVR Status: Acute Plan: - See above (3) Bacteremia ICD Codes: R78.81 - Bacteremia Status: Acute Plan: - See above (4) Thrombocytopenia ICD Codes: D69.6 - Thrombocytopenia, unspecified Plan: - See above (5) Hypokalemia ICD Codes: E87.6 - Hypokalemia Status: Acute Plan: - See above (6) Dehydration ICD Codes: E86.0 - Dehydration Status: Acute Plan: - See above Assessment and Plan Patient examined. Assessment and plan formulated with Brandi Canada PA-C. I agree with the above. Brandi Canada December 20, 2017 12:41 Antonino Kearney DO December 22, 2017 15:01
--- NOTE | 2017-12-20 12:50 | HHI.FF ---
Infusion Therapy Location of Infusion Therapy: Home Health Care IV Infusion Order Patient Information Patient Weight 89 kg Diagnosis: (1) Sepsis (2) UTI (urinary tract infection) Coded Allergies: codeine (Unverified Allergy, Severe, UNKNOWN CHILDHOOD, 10/28/17) doxycycline (Unverified Allergy, Severe, Rash, 10/28/17) *MDRO Multi-Drug Resistant Organism (Verified Adverse Reaction, Unknown, ) MRSA PCR screen (nares) POSITIVE - 03/09/16 Administer Medication Daptomycin 600 mg IV q 24 hours Stop Treatment: December 30, 2017 Additional Information Venous access: PICC Line Additional Instructions [x] Peripheral flush and dressing changes per protocol [x] Implanted port and central commercial lines assistant: * Implanted port: 10 ml Normal Saline followed by 5 ml Heparin 100 units/ml Heparin flush after each use and monthly to maintain. [] May leave port accessed during therapy. [] May leave peripheral site accessed for duration of therapy. [x] If patient has SOB or respiratory distress, check oxygen saturation. If less than 90% or clinical signs of respiratory distress, administer oxygen at 2 L/min. via nasal cannula and notify physician. [x] Anaphylaxis/Reaction orders: * Stop infusion. * Keep IV line open with saline flush. * Notify physician. * Monitor vital signs every 15 minutes until symptoms resolve. * Check Oxygen saturation; Oxygen at 2 L/min. via nasal cannula if less than 90% or clinical signs of respiratory distress. * Administer diphenhydramine (Benadryl) 25 mg IV STAT, (unless patient has received as pre-med). May repeat once, if necessary. * Solu-Cortef 250 mg IVP over 30-60 seconds, use 100 mg vials for each dissolution. * Epinephrine (1mg/1 ml) 0.3 mg subcutaneously or IVP now with any signs of respiratory distress. * Check with physician for new additional pre-med orders if patient is re- challenged or re-treated. [x] May remove PICC line when treatment complete, after confirming with Physician. [x] If the patient is admitted to the hospital, the ED, or transferred via [facility] , complete transfer form including medication reconciliation order sheet. Laboratory Tests Weekly Labs: CBC w/diff, Serum CK Levels Seven Alonso MD December 20, 2017 12:50
--- NOTE | 2017-12-20 13:00 | HHI.IDPN ---
Note Infectious Disease Note Patient notes chest pressure in the right chest when he tries to hiccup. Notes pain at the lateral left knee. Ambulated in room. No shortness of breath. No chills. Afebrile. 2D ECHO has no vegetation. Blood culture from 12/16 has no growth. Blood culture from 12/13 still has MRSA. Went for removal of Pctvie-f-Iyel on 12/15. The blood culture from 12/11 has MRSA in all 4 bottles. Urine culture from 12/11 has MRSA. Repeat blood culture from 12/12 has MRSA. This is a 67-year-old white male who has a history of squamous cell carcinoma of the tongue. The patient presented to the Emergency Department with fever, nausea and decreased p.o. intake. In the Emergency Department, he had a temperature of 100.7 degrees and blood pressure of 85/52. Urinalysis showed a few bacteria and 15 white cells. The patient post-chemotherapy. He had an Infusaport in the left chest via which chemotherapy was given. This was placed 5 weeks ago. He also received radiation therapy to the neck. The patient underwent modified radical neck dissection in September 2017 at [facility]. PAST MEDICAL HISTORY: Hypertension, atrial fibrillation, alcohol abuse, alcohol withdrawal seizures, anxiety, gastroesophageal reflux disease, gout, history of pulmonary embolism, history of DVT, history of hemorrhagic CVA, history of skin cancer removal from the left arm. ALLERGIES: DOXYCYCLINE, CODEINE. The patient had MRSA nares culture in March 2016. MEDICATIONS: Current Medications Medications (Trade) Dose Ordered Sig/Fátima Route PRN Reason Start Time Stop Time Status Last Admin Dose Admin Ondansetron HCl (Zofran Odt) 4 mg Q6HR PRN PO nausea 12/11/17 23:15 12/11/17 23:58 Metoclopramide HCl (Reglan Inj) 10 mg Q6HR PRN IV PUSH NAUSEA OR VOMITING 12/12/17 11:15 12/14/17 10:33 Lorazepam (Ativan) 0.5 mg Q6H PRN PO ANXIETY AND/OR AGITATION 12/12/17 11:15 12/19/17 17:44 Temazepam (Restoril) 30 mg HS PRN PO INSOMNIA 12/12/17 21:00 12/19/17 23:41 Diphenoxylate HCl/ Atropine (Lomotil Tab) 1 tab Q6H PRN PO DIARRHEA 12/13/17 07:45 Daptomycin 400 mg/ Sodium Chloride 100 ml @ 200 mls/hr Q24H IV 12/13/17 18:00 12/19/17 17:31 Water (Free Water) 100 ml Q8HR G-TUBE 12/14/17 14:00 12/20/17 06:09 Pilocarpine (Salagen) 5 mg Q8HR PO 12/14/17 14:00 12/20/17 06:05 Metoprolol Tartrate (Lopressor) 100 mg BID PO 12/17/17 21:00 12/20/17 08:45 Miscellaneous (Pill Splitter) 1 ea UNSCH PRN OTHER SEE LABEL COMMENTS 12/18/17 09:30 Diltiazem HCl (Cardizem Cd) 120 mg DAILY PO 12/19/17 14:00 12/20/17 08:45 SOCIAL HISTORY: The patient is . No tobacco, occasional alcohol. No illicit drugs. Objective: Vital Signs Date Time Temp Pulse Resp B/P (MAP) Pulse Ox O2 Delivery O2 Flow Rate FiO2 12/20/17 08:48 98.1 118 19 129/86 (100) 97 12/20/17 08:00 114 12/20/17 04:00 97.5 114 20 131/80 (97) 96 12/20/17 00:00 98.8 99 18 148/80 (102) 96 12/19/17 20:03 109 12/19/17 20:00 98.2 109 18 137/88 (104) 97 12/19/17 16:35 119 12/19/17 16:00 98.0 111 18 137/79 (98) 96 Laboratory Tests Test 12/20/17 11:10 White Blood Count 2.0 TH/MM3 Red Blood Count 2.87 MIL/MM3 Hemoglobin 9.0 GM/DL Hematocrit 26.8 % Mean Corpuscular Volume 93.2 FL Mean Corpuscular Hemoglobin 31.4 PG Mean Corpuscular Hemoglobin Concent 33.6 % Red Cell Distribution Width 15.7 % Platelet Count 107 TH/MM3 Mean Platelet Volume 9.5 FL Neutrophils (%) (Auto) 59.7 % Lymphocytes (%) (Auto) 17.8 % Monocytes (%) (Auto) 21.0 % Eosinophils (%) (Auto) 0.8 % Basophils (%) (Auto) 0.7 % Neutrophils # (Auto) 1.2 TH/MM3 Lymphocytes # (Auto) 0.3 TH/MM3 Monocytes # (Auto) 0.4 TH/MM3 Eosinophils # (Auto) 0.0 TH/MM3 Basophils # (Auto) 0.0 TH/MM3 CBC Comment DIFF FINAL Differential Comment Laboratory Tests Test 12/19/17 07:49 12/20/17 07:23 Blood Urea Nitrogen 22 MG/DL 17 MG/DL Creatinine 1.01 MG/DL 0.98 MG/DL Random Glucose 131 MG/DL 86 MG/DL Calcium Level 7.6 MG/DL 8.0 MG/DL Magnesium Level 1.1 MG/DL 1.5 MG/DL Sodium Level 142 MEQ/L 140 MEQ/L Potassium Level 4.1 MEQ/L 4.2 MEQ/L Chloride Level 107 MEQ/L 104 MEQ/L Carbon Dioxide Level 27.4 MEQ/L 28.0 MEQ/L Anion Gap 8 MEQ/L 8 MEQ/L Estimat Glomerular Filtration Rate 73 ML/MIN 76 ML/MIN Microbiology Date/Time Source Procedure Growth Status 12/18/17 04:50 Urine Catheterized Urine Urine Culture - Final Lorena Albicans Complete PHYSICAL EXAMINATION: GENERAL: No acute distress. Awake and alert. HEENT: Extraocular movements are grossly intact. Pupils reactive to light. No icterus. Oropharynx: Moist mucosa. NECK: Supple. No adenopathy. No swelling. LUNGS: Clear. HEART: Irregular S1, S2. No murmurs, rubs or gallops. ABDOMEN: Bowel sounds present. Soft. No tenderness appreciated. EXTREMITIES: No clubbing, cyanosis or edema. Lateral left knee mildly tender. No erythema. SKIN: No rash. NEUROLOGIC: No gross focal findings. PSYCHIATRIC: Calm and cooperative. IMPRESSION: 1. Bacteremia due to MRSA. Secondary to infected [id number]. Infuse-a- Port removed. Repeat blood culture negative. 2. UTI due to MRSA 3. History of squamous cell carcinoma of the tongue. Patient undergoing radiation and chemotherapy. 4. Acute kidney disease. Improved. 5. Thrombocytopenia improved. 6. Left knee pain probably from strain. RECOMMENDATIONS: 1. Continue Daptomycin IV until 12/30/2017. 2. PIC line. 3. Antibiotics written on infusion form. Case management to arrange antibiotics. Seven Alonso MD December 20, 2017 13:00
[2017-12-20] MEDS ORDERED: DILTIAZEM HCL 60 MG TAB PO ONE (14:30)
[2017-12-20] MEDS: LORazepam 0.5 MG TAB PO PRN ×2 (14:30→22:04)
[2017-12-20] MEDS ORDERED: SODIUM CHLORIDE 0.9% FLUSH 10 ML FLUSH IV FLUSH PRN (14:45)
--- NOTE | 2017-12-20 15:49 | RADRPT ---
EXAM DATE/TIME: 12/20/2017 15:11 [facility] COMPARISON: No previous studies available for comparison. INDICATIONS : Post attempted PICC line insertion MEDICAL HISTORY : Hypertension. Coronary artery disease SURGICAL HISTORY : Tonsillectomy. ENCOUNTER: Subsequent ACUITY: 1 week PAIN SCORE: 0/10 LOCATION: chest FINDINGS: Right arm PICC line turns back on itself over the medial right subclavian region. The tip does not re ach the SVC. Lungs are symmetrically aerated and grossly clear. Cardiac contours are satisfactory for technique and projection. CONCLUSION: PICC line is coiled in the right innominate vein Wagner Mccray MD on December 20, 2017 at 15:47 Board Certified Radiologist. This report was verified electronically.
[2017-12-20] MEDS: DAPTOmycin INJ 600 MG in SODIUM CHLORIDE 0.9% INJ 100 ML IV SCH (18:29)
--- NOTE | 2017-12-20 20:06 | RADRPT ---
EXAM DATE/TIME: 12/20/2017 19:46 [facility] COMPARISON: CHEST SINGLE AP, December 20, 2017, 15:11. INDICATIONS : Post PICC line reposition MEDICAL HISTORY : Hypertension. Coronary artery disease SURGICAL HISTORY : Tonsillectomy. ENCOUNTER: Subsequent ACUITY: 1 week PAIN SCORE: 0/10 LOCATION: chest FINDINGS: A single view of the chest demonstrates the lungs to be symmetrically aerated without evidence of mas s, infiltrate or effusion. The cardiomediastinal contours are unremarkable. Osseous structures are intact. A right-sided PICC line with the tip at the caval atrial junction. CONCLUSION: 1. PICC line in good position. Tremayne Haji Jr., MD on December 20, 2017 at 20:04 Board Certified Radiologist. This report was verified electronically.
[2017-12-20] MEDS ORDERED: ACETAMINOPHEN 325 MG TAB PO PRN (21:30)
[2017-12-21] VITALS: BP_SYST 111; BP_SYST 114; BP_DIAS 62; BP_DIAS 72; PULSE 102; PULSE 61; RESP 16; TEMP 98.4; O2SAT 97
[2017-12-21 04:00] VITALS: BP 135/78; PULSE 110; RESP 16; TEMP 97.6; O2SAT 95
[2017-12-21] MEDS: PILOCARPINE HCL 5 MG TAB PO SCH ×3 (05:42→21:04)
[2017-12-21] MEDS: FREE WATER G-TUBE SCH ×3 (05:43→21:05)
[2017-12-21 06:29] LABS: AUTOMATED NEUTROPHIL # 1.1 TH/MM3 (1.8-7.7); BASOPHIL % 0.4 % (0.0-2.0); EOSINOPHIL % 0.8 % (0.0-4.0); HEMATOCRIT 26.3 % (39.0-51.0); LYMPH % 20.8 % (9.0-44.0); LYMPHOCYTE # 0.5 TH/MM3 (1.0-4.8); MEAN CELL VOLUME 93.2 FL (80.0-100.0); MEAN CORPUSCULAR HEMOGLOBIN 31.9 PG (27.0-34.0); MEAN CORPUSCULAR HGB CONC 34.2 % (32.0-36.0); MEAN PLATELET VOLUME 9.4 FL (7.0-11.0); MONO % 28.4 % (0.0-8.0); MONOCYTE # 0.6 TH/MM3 (0-0.9); NEUT % 49.6 % (16.0-70.0); PLATELET COUNT 120 TH/MM3 (150-450); RED BLOOD COUNT 2.82 MIL/MM3 (4.50-5.90); RED CELL DISTRIBUTION WIDTH 15.8 % (11.6-17.2); WHITE BLOOD COUNT 2.2 TH/MM3 (4.0-11.0)
[2017-12-21 06:50] LABS: BICARBONATE 30.2 MEQ/L (21.0-32.0); CALCIUM 7.6 MG/DL (8.5-10.1); CREATININE 0.96 MG/DL (0.60-1.30); MAGNESIUM 1.4 MG/DL (1.5-2.5)
[2017-12-21 08:00] VITALS: BP 137/80; PULSE 103; PULSE 119; RESP 17; TEMP 98.9; O2SAT 96
[2017-12-21] MEDS ORDERED: DILTIAZEM-CD 180 MG CAP ER PO SCH (09:00)
[2017-12-21] MEDS: SODIUM CHLORIDE 0.9% FLUSH 10 ML FLUSH IV FLUSH SCH (10:17)
[2017-12-21] MEDS: METOPROLOL TARTRATE 100 MG TAB PO SCH ×2 (10:21→21:05)
[2017-12-21 12:00] VITALS: BP 107/72; PULSE 100; PULSE 93; RESP 18; TEMP 99.2; O2SAT 97
--- NOTE | 2017-12-21 13:56 | HHI.PR ---
Subjective Remarks Pt having trouble tolerating the bolus TF per nursing staff He is still having issues with A. fib RVR with HR in the 100-120's on telemetry Objective Vitals Vital Signs Date Time Temp Pulse Resp B/P (MAP) Pulse Ox O2 Delivery O2 Flow Rate FiO2 12/21/17 08:00 119 12/21/17 08:00 98.9 103 17 137/80 (99) 96 12/21/17 04:00 97.6 110 16 135/78 (97) 95 12/21/17 00:00 98.4 102 16 114/72 (86) 97 12/20/17 20:13 118 12/20/17 20:00 98.2 116 16 137/77 (97) 97 12/20/17 16:00 97.8 99 18 130/71 (90) 98 Result Diagram: 12/21/17 0600 12/21/17 0600 Other Results Laboratory Tests Test 12/20/17 07:23 12/20/17 11:10 12/21/17 06:00 Blood Urea Nitrogen 17 MG/DL 19 MG/DL Creatinine 0.98 MG/DL 0.96 MG/DL Random Glucose 86 MG/DL 88 MG/DL Calcium Level 8.0 MG/DL 7.6 MG/DL Magnesium Level 1.5 MG/DL 1.4 MG/DL Sodium Level 140 MEQ/L 140 MEQ/L Potassium Level 4.2 MEQ/L 3.7 MEQ/L Chloride Level 104 MEQ/L 101 MEQ/L Carbon Dioxide Level 28.0 MEQ/L 30.2 MEQ/L Anion Gap 8 MEQ/L 9 MEQ/L Estimat Glomerular Filtration Rate 76 ML/MIN 78 ML/MIN White Blood Count 2.0 TH/MM3 2.2 TH/MM3 Red Blood Count 2.87 MIL/MM3 2.82 MIL/MM3 Hemoglobin 9.0 GM/DL 9.0 GM/DL Hematocrit 26.8 % 26.3 % Mean Corpuscular Volume 93.2 FL 93.2 FL Mean Corpuscular Hemoglobin 31.4 PG 31.9 PG Mean Corpuscular Hemoglobin Concent 33.6 % 34.2 % Red Cell Distribution Width 15.7 % 15.8 % Platelet Count 107 TH/MM3 120 TH/MM3 Mean Platelet Volume 9.5 FL 9.4 FL Neutrophils (%) (Auto) 59.7 % 49.6 % Lymphocytes (%) (Auto) 17.8 % 20.8 % Monocytes (%) (Auto) 21.0 % 28.4 % Eosinophils (%) (Auto) 0.8 % 0.8 % Basophils (%) (Auto) 0.7 % 0.4 % Neutrophils # (Auto) 1.2 TH/MM3 1.1 TH/MM3 Lymphocytes # (Auto) 0.3 TH/MM3 0.5 TH/MM3 Monocytes # (Auto) 0.4 TH/MM3 0.6 TH/MM3 Eosinophils # (Auto) 0.0 TH/MM3 0.0 TH/MM3 Basophils # (Auto) 0.0 TH/MM3 0.0 TH/MM3 CBC Comment DIFF FINAL DIFF FINAL Differential Comment Imaging Last Impressions Port Line Revision 12/15/17 0000 Signed Impressions: Service Date/Time: Friday, December 15, 2017 00:00 - CONCLUSION: Uncomplicated port removal as above. Abdirashid Bowens MD Chest X-Ray 12/11/17 1858 Signed Impressions: Service Date/Time: Monday, December 11, 2017 19:00 - CONCLUSION: No acute disease. No significant change has occurred. Eduardo Sebastian MD Objective Remarks General: NAD, Cardiac: Irregular, tachy Chest: CTA Abd: +Bs, soft, nontender, peg in place Ext: No edema A/P Problem List: (1) Squamous cell carcinoma of oropharynx ICD Codes: C10.9 - Malignant neoplasm of oropharynx, unspecified Status: Acute Plan: Squamous cell carcinoma of oropharynx Mucositis Dehydration Poor PO intake - This is a 67-year-old male with a past medical history which includes oropharyngeal squamous cell cancer s/p resection with modified radical neck dissection 09/2017 at [facility]. Patient currently on chemotherapy with Dr. Toledo and radiation with Dr. Summers for the past four weeks. Patient had his radiation done just a few days ago. Since that time patient has been having nausea, thick oral secretions, feeling more weak, poor p.o. intake, and fevers according to his . Patient has a PEG tube in place but has not yet started using it. - Patient had been tolerating smoothies orally up until two days ago. His fevers have been 102 at home. - Dr. Summers notified - Medical oncology following patient known to Dr. 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 - Pt with poor PO intake after chemo - Pt started on pilocarpine PO with some improvement of oral thick secretion and mucositis - TF changed to bolus feeding per Dietary recommendations on 12/19: - 360mls at 8am, 12pm, 8pm - 240mls at 11am, 5pm - 30mls water flush before and after each bolus feeding - 300mls free water flush q 6 hrs - Pt unable to tolerate the 11Am and 5PM TF in addition to the 8AM, 12PM and 8PM and flushes. The 11Am and 5PM TF were stopped on 12/20 - Pt still not tolerating bolus TF, change back to continuous TF with Jevity 1.5 to goal rate of 65mL/hr on 12/21 MRSA Bacteremia - All blood and urine cx MRSA - Antibiotics per ID Daptomycin - Port removed on 12/15 - Repeat Blood Cx (12/16) --> NGD - PICC placed on 12/20 - 2D echo ordered to assess for any vegetation on the heart valves. no vegetation noted. - D/t sensitivities pt will need to be discharged on Daptomycin. C Abx ordered have been written on ID - Pt will complete a course of Daptomycin 600 mg IV [id number], stop treatment on 12/30/2017 Thrombocytopenia - Patient with recent chemotherapy, currently on hold due to patient's KEVIN and blood counts - Labs are improving - No active bleeding - No chemical DVT prophylaxis - Dr. Toledo also following Hypokalemia Hypomagnesemia - Patient has had poor PO intake after chemotherapy and radiation - Electrolyte replacement PRN - Repeat BMP/Mag in AM A. FIB, chronic - Pt with A. fib/rvr - His Lopressor was increased back to 100mg po bid but still with intermittent RVR - Pt started on Cardizem 120mg po daily on 12/19/17 - HR still not well controlled, Cardizem increased to 180mg po daily on 12/20 but HR is still not well controlled - Increase Cardizem CD to 240mg daily on 12/21 - Losartan has been held for addition of rate control meds. - Telemetry (2) Atrial fibrillation with RVR ICD Codes: I48.91 - Atrial fibrillation with RVR Status: Acute Plan: - See above (3) Bacteremia ICD Codes: R78.81 - Bacteremia Status: Acute Plan: - See above (4) Thrombocytopenia ICD Codes: D69.6 - Thrombocytopenia, unspecified Plan: - See above (5) Hypokalemia ICD Codes: E87.6 - Hypokalemia Status: Acute Plan: - See above (6) Dehydration ICD Codes: E86.0 - Dehydration Status: Acute Plan: - See above Assessment and Plan Patient examined. Assessment and plan formulated with Brandi Canada PA-C. I agree with the above. Brandi Canada December 21, 2017 13:56 Antonino Kearney DO December 22, 2017 15:02
[2017-12-21] MEDS: MAGNESIUM SULFATE 1 GM PREMIX 100 ML IV SCH ×2 (15:24→18:12)
[2017-12-21] MEDS ORDERED: DILTIAZEM HCL 60 MG TAB PO ONE (15:45)
[2017-12-21 16:00] VITALS: BP 117/75; PULSE 102; RESP 19; TEMP 98.9; O2SAT 99
[2017-12-21] MEDS: ACETAMINOPHEN/HYDROcodone 325 MG/5 MG TAB PO PRN (18:13)
[2017-12-21] MEDS: CELECOXIB 100 MG CAP PO SCH ×2 (18:13→21:04)
[2017-12-21] MEDS: DAPTOmycin INJ 600 MG in SODIUM CHLORIDE 0.9% INJ 100 ML IV SCH (18:17)
[2017-12-21 20:00] VITALS: BP 118/71; PULSE 106; PULSE 86; RESP 18; TEMP 98.7; O2SAT 96
[2017-12-21] MEDS: TEMAZEPAM 15 MG CAP PO PRN (23:07)
[2017-12-22] VITALS (9 sets, daily range): BP systolic 115–129; BP diastolic 68–97; PULSE 84–122; RESP 18; TEMP 97.4–98.3; O2SAT 96–98
[2017-12-22] MEDS: FREE WATER G-TUBE SCH ×3 (05:24→21:17)
[2017-12-22] MEDS: PILOCARPINE HCL 5 MG TAB PO SCH ×3 (05:24→21:17)
[2017-12-22] MEDS: METOPROLOL TARTRATE 100 MG TAB PO SCH ×2 (09:40→21:17)
[2017-12-22] MEDS: SODIUM CHLORIDE 0.9% FLUSH 10 ML FLUSH IV FLUSH SCH (09:40)
[2017-12-22] MEDS: CELECOXIB 100 MG CAP PO SCH ×2 (09:40→21:17)
[2017-12-22] MEDS: DILTIAZEM-CD 240 MG CAP ER PO SCH (09:40)
--- NOTE | 2017-12-22 15:01 | HHI.PR ---
Subjective Remarks No new complaints. Objective Vitals Vital Signs Date Time Temp Pulse Resp B/P (MAP) Pulse Ox O2 Delivery O2 Flow Rate FiO2 12/22/17 12:00 98.3 84 18 129/77 (94) 97 12/22/17 08:00 97.8 98 18 115/97 (103) 97 12/22/17 04:00 98.0 101 18 119/73 (88) 98 12/22/17 03:42 91 12/22/17 00:35 97.4 100 18 120/81 (94) 97 12/22/17 00:15 122 12/21/17 20:00 98.7 86 18 118/71 (87) 96 12/21/17 20:00 106 12/21/17 16:00 98.9 102 19 117/75 (89) 99 Result Diagram: 12/21/17 0600 12/21/17 0600 Imaging Last Impressions Chest X-Ray 12/20/17 0000 Signed Impressions: Service Date/Time: Wednesday, December 20, 2017 19:46 - CONCLUSION: 1. PICC line in good position. Tremayne Haji Jr., MD Port Line Revision 12/15/17 0000 Signed Impressions: Service Date/Time: Friday, December 15, 2017 00:00 - CONCLUSION: Uncomplicated port removal as above. Abdirashid Bowens MD Objective Remarks General: NAD, Cardiac: Irregular, tachy Chest: CTA Abd: +Bs, soft, nontender, peg in place Ext: No edema A/P Problem List: (1) Squamous cell carcinoma of oropharynx ICD Codes: C10.9 - Malignant neoplasm of oropharynx, unspecified Status: Acute Plan: Squamous cell carcinoma of oropharynx Mucositis Dehydration Poor PO intake - This is a 67-year-old male with a past medical history which includes oropharyngeal squamous cell cancer s/p resection with modified radical neck dissection 09/2017 at [facility]. Patient currently on chemotherapy with Dr. Toledo and radiation with Dr. Summers for the past four weeks. Patient had his radiation done just a few days ago. Since that time patient has been having nausea, thick oral secretions, feeling more weak, poor p.o. intake, and fevers according to his . Patient has a PEG tube in place but has not yet started using it. - Patient had been tolerating smoothies orally up until two days ago. His fevers have been 102 at home. - Dr. uSmmers notified - Medical oncology following patient known to Dr. 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 - Pt with poor PO intake after chemo - Pt started on pilocarpine PO with some improvement of oral thick secretion and mucositis - TF changed to bolus feeding per Dietary recommendations on 12/19: - 360mls at 8am, 12pm, 8pm - 240mls at 11am, 5pm - 30mls water flush before and after each bolus feeding - 300mls free water flush q 6 hrs - Pt unable to tolerate the 11Am and 5PM TF in addition to the 8AM, 12PM and 8PM and flushes. The 11Am and 5PM TF were stopped on 12/20 - Pt still not tolerating bolus TF, change back to continuous TF with Jevity 1.5 to goal rate of 65mL/hr on 12/21 MRSA Bacteremia - All blood and urine cx MRSA - Antibiotics per ID Daptomycin - Port removed on 12/15 - Repeat Blood Cx (12/16) --> NGD - PICC placed on 12/20 - 2D echo ordered to assess for any vegetation on the heart valves. no vegetation noted. - D/t sensitivities pt will need to be discharged on Daptomycin. C Abx ordered have been written on ID - Pt will complete a course of Daptomycin 600 mg IV [id number], stop treatment on 12/30/2017 Thrombocytopenia - Patient with recent chemotherapy, currently on hold due to patient's KEVIN and blood counts - Labs are improving - No active bleeding - No chemical DVT prophylaxis - Dr. Toledo also following Hypokalemia Hypomagnesemia - Patient has had poor PO intake after chemotherapy and radiation - Electrolyte replacement PRN - Repeat BMP/Mag in AM A. FIB, chronic - Pt with A. fib/rvr - His Lopressor was increased back to 100mg po bid but still with intermittent RVR - Pt started on Cardizem 120mg po daily on 12/19/17 - HR still not well controlled, Cardizem increased to 180mg po daily on 12/20 but HR is still not well controlled - Increase Cardizem CD to 240mg daily on 12/21 - Pt's telemetry showed A.Fib RVR for several hours today (12/22) - Pt did NOT receive any prn treatment but HR did improve. For now continue current dosing. - If pt again develops RVR then will increase Cardizem CD to 360mg - Losartan has been held for addition of rate control meds. - Anticipate d/c in 1-2 days, but need to make sure A.Fib is controlled prior to discharge. - Telemetry (2) Atrial fibrillation with RVR ICD Codes: I48.91 - Atrial fibrillation with RVR Status: Acute Plan: - See above (3) Bacteremia ICD Codes: R78.81 - Bacteremia Status: Acute Plan: - See above (4) Thrombocytopenia ICD Codes: D69.6 - Thrombocytopenia, unspecified Plan: - See above (5) Hypokalemia ICD Codes: E87.6 - Hypokalemia Status: Acute Plan: - See above (6) Dehydration ICD Codes: E86.0 - Dehydration Status: Acute Plan: - See above Antonino Kearney DO December 22, 2017 15:01
[2017-12-22] MEDS: DAPTOmycin INJ 600 MG in SODIUM CHLORIDE 0.9% INJ 100 ML IV SCH (18:31)
[2017-12-22] MEDS: ACETAMINOPHEN/HYDROcodone 325 MG/5 MG TAB PO PRN (18:33)
[2017-12-22] MEDS: LORazepam 0.5 MG TAB PO PRN (21:17)
[2017-12-22] MEDS: TEMAZEPAM 15 MG CAP PO PRN (21:17)
[2017-12-23] VITALS (8 sets, daily range): BP systolic 114–134; BP diastolic 67–75; PULSE 85–115; RESP 16–18; TEMP 97.6–99.3; O2SAT 97–98
[2017-12-23] MEDS: ACETAMINOPHEN/HYDROcodone 325 MG/5 MG TAB PO PRN ×2 (00:31→22:30)
[2017-12-23] MEDS: FREE WATER G-TUBE SCH ×3 (05:36→22:38)
[2017-12-23] MEDS: PILOCARPINE HCL 5 MG TAB PO SCH ×3 (05:36→22:29)
[2017-12-23 06:01] LABS: AUTOMATED NEUTROPHIL # 1.1 TH/MM3 (1.8-7.7); BASOPHIL % 0.4 % (0.0-2.0); EOSINOPHIL % 1.3 % (0.0-4.0); HEMOGLOBIN 9.5 GM/DL (13.0-17.0); LYMPH % 17.6 % (9.0-44.0); LYMPHOCYTE # 0.4 TH/MM3 (1.0-4.8); MEAN CELL VOLUME 94.3 FL (80.0-100.0); MEAN CORPUSCULAR HEMOGLOBIN 31.9 PG (27.0-34.0); MEAN CORPUSCULAR HGB CONC 33.8 % (32.0-36.0); MEAN PLATELET VOLUME 9.4 FL (7.0-11.0); MONO % 28.7 % (0.0-8.0); MONOCYTE # 0.6 TH/MM3 (0-0.9); PLATELET COUNT 164 TH/MM3 (150-450); RED BLOOD COUNT 2.96 MIL/MM3 (4.50-5.90); RED CELL DISTRIBUTION WIDTH 15.4 % (11.6-17.2); WHITE BLOOD COUNT 2.1 TH/MM3 (4.0-11.0)
[2017-12-23 06:25] LABS: ALBUMIN 2.3 GM/DL (3.4-5.0); AST (GOT) 19 U/L (15-37); BICARBONATE 31.2 MEQ/L (21.0-32.0); BLOOD UREA NITROGEN 22 MG/DL (7-18); CHLORIDE 100 MEQ/L (98-107); CREATININE 0.97 MG/DL (0.60-1.30); GLOMERULAR FILTRATION RATE 77 ML/MIN (>89); GLUCOSE,RANDOM 123 MG/DL (74-106); MAGNESIUM 1.4 MG/DL (1.5-2.5); SODIUM (NA) 139 MEQ/L (136-145)
[2017-12-23 06:26] LABS: ALT (GPT) 23 U/L (12-78)
[2017-12-23 06:29] LABS: ALKALINE PHOSPHATASE 71 U/L (45-117); TOTAL BILIRUBIN ADULT 0.4 MG/DL (0.2-1.0); TOTAL PROTEIN 6.2 GM/DL (6.4-8.2)
[2017-12-23] MEDS: SODIUM CHLORIDE 0.9% FLUSH 10 ML FLUSH IV FLUSH SCH (09:00)
[2017-12-23] MEDS: DILTIAZEM-CD 240 MG CAP ER PO SCH (10:05)
[2017-12-23] MEDS: ENOXAPARIN SODIUM 40 MG/0.4 ML SYRINGE SQ SCH (10:06)
[2017-12-23] MEDS: METOPROLOL TARTRATE 100 MG TAB PO SCH ×2 (10:06→22:29)
[2017-12-23] MEDS: CELECOXIB 100 MG CAP PO SCH ×2 (10:07→22:30)
[2017-12-23] MEDS: LORazepam 0.5 MG TAB PO PRN (14:24)
[2017-12-23] MEDS ORDERED: DILTIAZEM HCL 60 MG TAB PO ONE (17:30)
[2017-12-23] MEDS: DAPTOmycin INJ 600 MG in SODIUM CHLORIDE 0.9% INJ 100 ML IV SCH (17:46)
[2017-12-23] MEDS: TEMAZEPAM 15 MG CAP PO PRN (22:30)
[2017-12-24 00:50] VITALS: BP 119/65; PULSE 89; RESP 16; TEMP 98.8; O2SAT 99
[2017-12-24 04:40] VITALS: BP 120/69; PULSE 80; RESP 17; TEMP 98; O2SAT 100
[2017-12-24] MEDS: PILOCARPINE HCL 5 MG TAB PO SCH ×3 (06:47→21:38)
[2017-12-24] MEDS: ACETAMINOPHEN/HYDROcodone 325 MG/5 MG TAB PO PRN (06:48)
[2017-12-24] MEDS: FREE WATER G-TUBE SCH ×3 (06:51→21:38)
[2017-12-24 08:00] VITALS: BP 108/59; PULSE 96; RESP 19; TEMP 97.8; O2SAT 95
--- NOTE | 2017-12-24 08:32 | PD.CONS ---
HPI Service cardiology Consult Requested By Reason for Consult afib RVR Primary Care Physician Gary Arriaza D.O. History of Present Illness This is a 67 yo WM with afib, HTN, DVT/PE (non-occlusive RUE), etoh abuse, tobacco abuse, hemorrhagic CVA and recently diagnosed tongue cancer with several rounds of chemotherapy and radiation admitted on 12/12/17 for fever, nausea, poor oral intake and MRSA bacteremia. We are consulted to address his afib which has been of elevated rate over the past several days (~110). Rate controlling medications have been titrated up and rate is currently controlled on cardizem and lopressor. Recent echocardiogram shows normal EF without vegetations. Last lexiscan in 2016 shows no ischemia. He reports R-sided pleuritic/muscular-type chest discomfort with deep breaths. No sob or palpitations. He is receiving bolus tube feeds and oral intake improving. (Marisel Brar) Review of Systems Consitutional: COMPLAINS OF: Fatigue, Fever, Weight loss, DENIES: Chills, Weight gain Respiratory: COMPLAINS OF: See HPI, Cough, DENIES: Snoring, Shortness of breath , Wheezing, Sputum production Cardiovascular: COMPLAINS OF: See HPI, Tachycardia, DENIES: Chest pain, Palpitations, Syncope Gastrointestinal: COMPLAINS OF: Nausea, DENIES: Vomiting, Change in bowel habits, Reflux, Bloody stools, Melena (Marisel Brar) Past Family Social History Allergies: Coded Allergies: codeine (Unverified Allergy, Severe, UNKNOWN CHILDHOOD, 12/21/17) Patient states, "I have tolerated Lortab without allergic reaction." doxycycline (Unverified Allergy, Severe, Rash, 10/28/17) *MDRO Multi-Drug Resistant Organism (Verified Adverse Reaction, Unknown, ) MRSA PCR screen (nares) POSITIVE - 03/09/16 Past Medical History Alcohol withdrawal seizures pancreatitis Anxiety Atrial fibrillation GERD Gout Hypertension Personal history of alcohol abuse Personal history of tobaccoism Transiently positive for circulating lupus anticoagulant Hemorrhagic stroke (Was on warfarin at that time, INR was therapeutic when he presented at 2.1) in 2016 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 upper extremity DVTs in 2016 Pulmonary emboli in 2016 Past Surgical History Skin ca removed from left arm Tonsillectomy Tracheostomy creation and reversal in 2016 Oropharyngeal squamous cell cancer s/p resection with modified radical neck dissection 09/2017 at [facility] Reported Medications Reported Meds & Active Scripts Active Reported Promethazine Supp (Promethazine HCl) 25 Mg Supp 25 Mg RECTAL Q6H PRN Prochlorperazine Maleate 10 Mg Tab 10 Mg PO Q6H PRN Ativan (Lorazepam) 0.5 Mg Tab 0.5 Mg PO Q6H PRN Restoril (Temazepam) 30 Mg Cap 30 Mg PO HS PRN Losartan (Losartan Potassium) 50 Mg Tab 25 Mg PO DAILY Allopurinol 300 Mg Tab 300 Mg PO DAILY Nifedipine ER 24 HR (Nifedipine) 30 Mg Tab 30 Mg PO DAILY Metoprolol Tartrate 100 Mg Tab 100 Mg PO BID Active Ordered Medications Current Medications Medications (Trade) Dose Ordered Sig/Fátima Route Start Time Stop Time Status Last Admin (Zofran Odt) 4 mg Q6HR PRN PO 12/11/17 23:15 12/11/17 23:58 (Reglan Inj) 10 mg Q6HR PRN IV PUSH 12/12/17 11:15 12/14/17 10:33 (Ativan) 0.5 mg Q6H PRN PO 12/12/17 11:15 12/23/17 14:24 (Restoril) 30 mg HS PRN PO 12/12/17 21:00 12/23/17 22:30 (Lomotil Tab) 1 tab Q6H PRN PO 12/13/17 07:45 (Free Water) 100 ml Q8HR G-TUBE 12/14/17 14:00 12/24/17 06:51 (Salagen) 5 mg Q8HR PO 12/14/17 14:00 12/24/17 06:47 (Lopressor) 100 mg BID PO 12/17/17 21:00 12/23/17 22:29 (Pill Splitter) 1 ea UNSCH PRN OTHER 12/18/17 09:30 Daptomycin 600 mg/ Sodium Chloride 100 ml @ 200 mls/hr Q24H IV 12/20/17 18:00 12/23/17 17:46 (NS Flush) See Protocol DAILY IV FLUSH 12/21/17 09:00 12/23/17 09:00 (NS Flush) See Protocol UNSCH PRN IV FLUSH 12/20/17 14:45 (Heparin Central Flush) See Protocol DAILY IV FLUSH 12/21/17 09:00 12/23/17 10:08 (Heparin Central Flush) See Protocol UNSCH PRN IV FLUSH 12/20/17 14:45 (NS Flush) UNSCH PRN IV FLUSH 12/20/17 14:45 (Tylenol) 650 mg Q6H PRN PO 12/20/17 21:30 12/20/17 22:04 ([place] 5-325 Mg) 1 tab Q6H PRN PO 12/20/17 21:30 Future hold 12/24/17 06:48 (Lovenox Inj) 40 mg Q24H SQ 12/23/17 08:00 12/23/17 10:06 (Cardizem Cd) 360 mg DAILY PO 12/24/17 09:00 Family History non-contributory Social History Personal history of alcohol and tobacco abuse (Marisel Brar) Physical Exam Vital Signs Vital Signs Date Time Temp Pulse Resp B/P (MAP) Pulse Ox O2 Delivery O2 Flow Rate FiO2 12/24/17 04:40 98.0 80 17 120/69 (86) 100 12/24/17 00:50 98.8 89 16 119/65 (83) 99 12/23/17 23:34 18 12/23/17 21:20 99.0 87 16 117/67 (84) 98 12/23/17 16:00 99.3 99 18 122/71 (88) 98 12/23/17 12:00 98.6 85 18 122/68 (86) 98 Physical Exam GENERAL: SKIN: Warm and dry. HEAD: Atraumatic. Normocephalic. EYES: Pupils equal and round. No scleral icterus. No injection or drainage. ENT: No nasal bleeding or discharge. Mucous membranes pink and moist. NECK: Trachea midline. No JVD. CARDIOVASCULAR: Regular rate, irregularly irregular rhythm. no murmurs RESPIRATORY: No accessory muscle use. Clear to auscultation. Breath sounds equal bilaterally. GASTROINTESTINAL: Abdomen soft, non-tender, nondistended. MUSCULOSKELETAL: Extremities without clubbing, cyanosis, or edema. No obvious deformities. NEUROLOGICAL: Awake and alert. No obvious cranial nerve deficits. Normal speech. PSYCHIATRIC: Appropriate mood and affect; insight and judgment normal. Laboratory Date/Time Source Procedure Growth Status 12/16/17 07:44 Blood Peripheral Aerobic Blood Culture - Final NO GROWTH IN 5 DAYS Complete 12/16/17 07:44 Blood Peripheral Anaerobic Blood Culture - Final NO GROWTH IN 5 DAYS Complete 12/18/17 04:50 Urine Catheterized Urine Urine Culture - Final Lorena Albicans Complete (Marisel Brar) Result Diagram: 12/23/17 0535 12/23/17 0535 Assessment and Plan Problem List: (1) atrial fibrillation with RVR Status: Acute Assessment and Plan 67 yo WM with afib, HTN, DVT/PE (non-occlusive RUE), etoh abuse, tobacco abuse, hemorrhagic CVA and recently diagnosed tongue cancer with several rounds of chemotherapy and radiation admitted on 12/12/17 for fever, nausea, poor oral intake and MRSA bacteremia. We are consulted to address his afib which has been of elevated rate over the past several days (~110). Rate controlling medications have been titrated up and rate is currently controlled on cardizem and lopressor. Recent echocardiogram shows normal EF without vegetations. Last lexiscan in 2015 shows no ischemia. He reports R-sided pleuritic/muscular-type chest discomfort with deep breaths. No sob or palpitations. He is receiving bolus tube feeds and oral intake improving. afib RVR- rate currently controlled on cardizem and lopressor. continue rate control strategy. normal EF will sign off contact with questions. (Marisel Brar) Assessment and Plan agree with above (Denis Abad MD) Marisel Brar December 24, 2017 08:32 Denis Abad MD December 24, 2017 09:02
--- NOTE | 2017-12-24 08:46 | PD.ONC.PN ---
Subjective Subjective Remarks Patient seen and examined, vital signs, labs, medications, microbiology and managed security sales consultant notes reviewed. Patient has been advised continuation of daptomycin until 12/30/2017 by infectious diseases. Subjectively; patient reports pain in his left knee associated with swelling. Reports having new bedsores and tells me he is back on continuous tube feeds because he was unable to tolerate the bolus tube feeds. He tells me he is mostly bedbound and though he is able to ambulate he prefers to be in bed. Objective Data Date Time Temp Pulse Resp B/P (MAP) Pulse Ox O2 Delivery O2 Flow Rate FiO2 12/24/17 04:40 98.0 80 17 120/69 (86) 100 12/24/17 00:50 98.8 89 16 119/65 (83) 99 12/23/17 23:34 18 12/23/17 21:20 99.0 87 16 117/67 (84) 98 12/23/17 16:00 99.3 99 18 122/71 (88) 98 12/23/17 12:00 98.6 85 18 122/68 (86) 98 12/24/17 12/24/17 12/24/17 07:00 15:00 23:00 Intake Total 850 ml Output Total 975 ml Balance -125 ml Result Diagram: 12/23/17 0535 12/23/17 0535 Administered Medications Medications (Trade) Dose Ordered Sig/Fátima Route PRN Reason Start Time Stop Time Status Last Admin Dose Admin Ondansetron HCl (Zofran Odt) 4 mg Q6HR PRN PO nausea 12/11/17 23:15 12/11/17 23:58 Metoclopramide HCl (Reglan Inj) 10 mg Q6HR PRN IV PUSH NAUSEA OR VOMITING 12/12/17 11:15 12/14/17 10:33 Lorazepam (Ativan) 0.5 mg Q6H PRN PO ANXIETY AND/OR AGITATION 12/12/17 11:15 12/23/17 14:24 Temazepam (Restoril) 30 mg HS PRN PO INSOMNIA 12/12/17 21:00 12/23/17 22:30 Water (Free Water) 100 ml Q8HR G-TUBE 12/14/17 14:00 12/24/17 06:51 Pilocarpine (Salagen) 5 mg Q8HR PO 12/14/17 14:00 12/24/17 06:47 Metoprolol Tartrate (Lopressor) 100 mg BID PO 12/17/17 21:00 12/23/17 22:29 Daptomycin 600 mg/ Sodium Chloride 100 ml @ 200 mls/hr Q24H IV 12/20/17 18:00 12/23/17 17:46 Sodium Chloride (NS Flush) See Protocol DAILY IV FLUSH 12/21/17 09:00 12/23/17 09:00 Heparin Sodium (Porcine) (Heparin Central Flush) See Protocol DAILY IV FLUSH 12/21/17 09:00 12/23/17 10:08 Acetaminophen (Tylenol) 650 mg Q6H PRN PO PAIN SCALE 1 TO 5 12/20/17 21:30 12/20/17 22:04 Acetaminophen/ Hydrocodone Bitart ([place] 5-325 Mg) 1 tab Q6H PRN PO PAIN SCALE 6 TO 10 12/20/17 21:30 Future hold 12/24/17 06:48 Enoxaparin Sodium (Lovenox Inj) 40 mg Q24H SQ 12/23/17 08:00 12/23/17 10:06 Objective Remarks GENERAL: Elderly male, laying in bed, he appears to be frail, he seems to have some difficulty speaking due to dryness in the mouth. He is not acutely distressed however. SKIN: Radiation radiation related skin changes have improved when compared to last week. Buttocks was also examined, he has a cream over the buttocks and along the gluteal cleft. There appears to be some erythema and blistering of the skin on both the right and the left buttock just adjacent to the cleft. HEAD: Atraumatic. Normocephalic. No temporal or scalp tenderness. EYES: Pupils equal round and reactive. Extraocular motions intact. No scleral icterus. No injection or drainage. ENT: Oral exam: Continues to have mucositis, he has thick phlegm but this is decreased. NECK: Trachea midline. No JVD or lymphadenopathy. Supple, nontender, no meningeal signs. No pathologically enlarged cervical lymph nodes. Postsurgical changes noted. CARDIOVASCULAR: Irregular rhythm, S1-S2 no murmurs rubs gallops. RESPIRATORY: Good air movement of the upper and middle lung zones, decreased bibasilar breath sounds, poor inspiratory effort. GASTROINTESTINAL: PEG tube in place, abdomen is nontender nondistended no palpable organ enlargement. MUSCULOSKELETAL: Generally decreased muscle mass, adequate tone and strength. NEUROLOGICAL: Awake and alert. Cranial nerves II through XII intact. Motor and sensory grossly within normal limits. Five out of 5 muscle strength in all muscle groups. Normal speech, but hard to understand at times due to dryness of the mouth. Assessment/Plan Assessment 67y/o male with oropharyngeal carcinoma admitted with MRSA sepsis. History: s/p surgical resection at the [facility] in September 2017; pathologic stage T2 N2 M0. Currently on postoperative concurrent chemoradiotherapy with cisplatin dosed at 100 mg per metered squared every 21 days. He is status post 2 infusions of chemotherapy with a third dose planned for late November 2017. Plan 1. Oropharyngeal squamous cell carcinoma: Chemoradiotherapy is currently on hold, awaiting recovery from his acute issues. He has approximately 10 fractions of radiation remaining, I would advise he complete his treatment without additional systemic chemotherapy due to the toxicities he suffered previously. 2. Mucositis: Gradually improving, he tells me he is able to swallow a little bit better. 3. MRSA sepsis: with persistent bacteremia. Echocardiogram shows no vegetation. On daptomycin; blood cultures have been negative since 12/16/2017. Daptomycin has been recommended up until 12/30/2017. 4. Malnutrition: He is back to his bolus tube feeds and is also taking sips of liquids orally. 5. Chemotherapy related myelosuppression: Mostly resolved, platelet counts are back to normal, hemoglobin is improving, he is slightly leukopenic but is not neutropenic. 6. KEVIN: Renal function is back to baseline. Continue ongoing care. Pascual Toledo MD December 24, 2017 08:46
[2017-12-24] MEDS: SODIUM CHLORIDE 0.9% FLUSH 10 ML FLUSH IV FLUSH SCH (09:00)
[2017-12-24] MEDS: ENOXAPARIN SODIUM 40 MG/0.4 ML SYRINGE SQ SCH (10:16)
[2017-12-24] MEDS: DILTIAZEM-CD 180 MG CAP ER PO SCH (10:16)
[2017-12-24] MEDS: METOPROLOL TARTRATE 100 MG TAB PO SCH ×2 (10:19→21:37)
[2017-12-24 12:00] VITALS: BP 117/72; PULSE 91; RESP 20; TEMP 98.8; O2SAT 98
[2017-12-24 16:00] VITALS: BP 118/56; PULSE 78; RESP 20; TEMP 98; O2SAT 97
--- NOTE | 2017-12-24 16:04 | HHI.PR ---
Subjective Remarks Patient offers no new concerns/complaints HR improved Objective Vitals Vital Signs Date Time Temp Pulse Resp B/P (MAP) Pulse Ox O2 Delivery O2 Flow Rate FiO2 12/24/17 12:00 98.8 91 20 117/72 (87) 98 12/24/17 08:00 97.8 96 19 108/59 (75) 95 12/24/17 04:40 98.0 80 17 120/69 (86) 100 12/24/17 00:50 98.8 89 16 119/65 (83) 99 12/23/17 23:34 18 12/23/17 21:20 99.0 87 16 117/67 (84) 98 12/24/17 12/24/17 12/25/17 15:00 23:00 07:00 Intake Total 120 ml Balance 120 ml Intake Oral 120 ml Result Diagram: 12/23/17 0535 12/23/17 0535 Other Results Laboratory Tests Test 12/23/17 05:35 White Blood Count 2.1 TH/MM3 Red Blood Count 2.96 MIL/MM3 Hemoglobin 9.5 GM/DL Hematocrit 28.0 % Mean Corpuscular Volume 94.3 FL Mean Corpuscular Hemoglobin 31.9 PG Mean Corpuscular Hemoglobin Concent 33.8 % Red Cell Distribution Width 15.4 % Platelet Count 164 TH/MM3 Mean Platelet Volume 9.4 FL Neutrophils (%) (Auto) 52.0 % Lymphocytes (%) (Auto) 17.6 % Monocytes (%) (Auto) 28.7 % Eosinophils (%) (Auto) 1.3 % Basophils (%) (Auto) 0.4 % Neutrophils # (Auto) 1.1 TH/MM3 Lymphocytes # (Auto) 0.4 TH/MM3 Monocytes # (Auto) 0.6 TH/MM3 Eosinophils # (Auto) 0.0 TH/MM3 Basophils # (Auto) 0.0 TH/MM3 CBC Comment DIFF FINAL Differential Comment Blood Urea Nitrogen 22 MG/DL Creatinine 0.97 MG/DL Random Glucose 123 MG/DL Total Protein 6.2 GM/DL Albumin 2.3 GM/DL Calcium Level 8.0 MG/DL Magnesium Level 1.4 MG/DL Alkaline Phosphatase 71 U/L Aspartate Amino Transf (AST/SGOT) 19 U/L Alanine Aminotransferase (ALT/SGPT) 23 U/L Total Bilirubin 0.4 MG/DL Sodium Level 139 MEQ/L Potassium Level 3.6 MEQ/L Chloride Level 100 MEQ/L Carbon Dioxide Level 31.2 MEQ/L Anion Gap 8 MEQ/L Estimat Glomerular Filtration Rate 77 ML/MIN Imaging Last Impressions Chest X-Ray 12/20/17 0000 Signed Impressions: Service Date/Time: Wednesday, December 20, 2017 19:46 - CONCLUSION: 1. PICC line in good position. Tremayne Haji Jr., MD [place] Revision 12/15/17 0000 Signed Impressions: Service Date/Time: Friday, December 15, 2017 00:00 - CONCLUSION: Uncomplicated port removal as above. 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 Patient currently on chemotherapy with Dr. Toledo and radiation with Dr. Summers for the past four weeks. Patient had his radiation done just a few days ago. Since that time patient has been having nausea, thick oral secretions, feeling more weak, poor p.o. intake, and fevers according to his . Patient has a PEG tube in place but has not yet started using it. - Patient had been tolerating smoothies orally up until two days ago. His fevers have been 102 at home. - Dr. Summers notified - Medical oncology following patient known to Dr. 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 - Pt with poor PO intake after chemo - Pt started on pilocarpine PO with some improvement of oral thick secretion and mucositis - Pt unable to tolerate bolus TF - TF with Jevity 1.5 to goal rate of 65mL/hr on 12/21 MRSA Bacteremia - All blood and urine cx MRSA - Antibiotics per ID Daptomycin - Port removed on 12/15 - Repeat Blood Cx (12/16) --> NGD - PICC placed on 12/20 - 2D echo ordered to assess for any vegetation on the heart valves. no vegetation noted. - D/t sensitivities pt will need to be discharged on Daptomycin. [facility] Abx ordered have been written on ID - Pt will complete a course of Daptomycin 600 mg IV [id number], stop treatment on 12/30/2017 Thrombocytopenia - Patient with recent chemotherapy, currently on hold due to patient's KEVIN and blood counts - Labs are improving - No active bleeding - No chemical DVT prophylaxis - Dr. Toledo also following Hypokalemia Hypomagnesemia - Patient has had poor PO intake after chemotherapy and radiation - Electrolyte replacement PRN - Repeat BMP/Mag in AM A. FIB, chronic - Pt with A. fib/rvr - His Lopressor was increased back to 100mg po bid but still with intermittent RVR - Pt started on Cardizem 120mg po daily on 12/19/17 - HR still not well controlled, Cardizem increased to 180mg po daily on 12/20 but HR is still not well controlled - Increase Cardizem CD to 240mg daily on 12/21 - Pt's telemetry showed A.Fib RVR for several hours today (12/22) - Pt did NOT receive any prn treatment but HR did improve. For now continue current dosing. - If pt again develops RVR then will increase Cardizem CD to 360mg - Losartan has been held for addition of rate control meds. - Telemetry - cardiology consulted, agree with current plan. Cardiology signed off -Plan to DC in AM (2) Atrial fibrillation with RVR ICD Codes: I48.91 - Atrial fibrillation with RVR Status: Acute Plan: - See above (3) Bacteremia ICD Codes: R78.81 - Bacteremia Status: Acute Plan: - See above (4) Thrombocytopenia ICD Codes: D69.6 - Thrombocytopenia, unspecified Plan: - See above (5) Hypokalemia ICD Codes: E87.6 - Hypokalemia Status: Acute Plan: - See above (6) Dehydration ICD Codes: E86.0 - Dehydration Status: Acute Plan: - See above Assessment and Plan Patient examined. Assessment and plan formulated with Lea Esparza PA-C. I agree with the above. Pt stable. Discharge orders written 12/24 for in the AM 12/25. Await arrangement per Case MgmtLea Green December 24, 2017 16:04 Antonino Kearney DO December 26, 2017 23:23
[2017-12-24] MEDS ORDERED: Free Water G-TUBE (16:08)
[2017-12-24] MEDS ORDERED: PILO5 PO (16:08)
[2017-12-24] MEDS ORDERED: CARD180C5 PO (16:08)
--- NOTE | 2017-12-24 16:10 | HHI.FF ---
Face to Face Verification Diagnosis: (1) Atrial fibrillation with RVR (2) Bacteremia (3) Squamous cell carcinoma of oropharynx (4) Thrombocytopenia (5) Positive blood cultures (6) Dehydration Home Health Nursing Order: Medical education Signs/symptoms of disease process Medication education-adverse effect Nursing assessment with vital signs IV medication administration Instructions: Tube feeding CBC and BMP in 1 week with results to PCP Dr. Arriaza and oncologist Dr. Toledo Weekly: CBC w/diff, Serum CK Levels results to PCP Dr. Arriaza and oncologist Dr. Toledo I have seen patient Royer España on 12/24/17. My clinical findings support the need for the requested home health care services because: Ltd mobility - disease progression Deconditioned w/ increased weakness Limited ability to care for self I certify that my clinical findings support that this patient is homebound because: Unsafe to leave home unassisted Lea Esparza December 24, 2017 16:10 Antonino Kearney DO December 24, 2017 16:44
[2017-12-24] MEDS ORDERED: KANGAROO JOEY P1 MIS (16:14)
--- NOTE | 2017-12-24 16:19 | HHI.DCPOC ---
Discharge Care Plan Diagnosis: (1) Dehydration (2) Positive blood cultures (3) Atrial fibrillation with RVR (4) Squamous cell carcinoma of oropharynx (5) Bacteremia Goals to Promote Your Health * To prevent worsening of your condition and complications * To maintain your health at the optimal level Directions to Meet Your Goals Take your medications as prescribed Follow your dietary instruction Follow activity as directed Keep your appointments as scheduled Take your immunizations and boosters as scheduled If your symptoms worsen call your PCP, if no PCP go to Urgent Care Center or Emergency Room Smoking is Dangerous to Your Health. Avoid second hand smoke Call the 24-hour hour crisis hotline for domestic abuse at Lea Esparza December 24, 2017 16:19 Antonino Kearney DO December 26, 2017 23:26
--- NOTE | 2017-12-24 16:23 | HHI.DS ---
Discharge Summary Admission Date December 11, 2017 at 23:00 Discharge Date: December 26, 2017 Admitting Diagnosis dehydration/hypokalemia/bacteremia (1) Squamous cell carcinoma of oropharynx Diagnosis: Principal ICD Codes: C10.9 - Malignant neoplasm of oropharynx, unspecified Status: Acute (2) Atrial fibrillation with RVR Diagnosis: Principal ICD Codes: I48.91 - Atrial fibrillation with RVR Status: Acute (3) Bacteremia Diagnosis: Principal ICD Codes: R78.81 - Bacteremia Status: Acute (4) Thrombocytopenia Diagnosis: Secondary ICD Codes: D69.6 - Thrombocytopenia, unspecified (5) Hypokalemia Diagnosis: Principal ICD Codes: E87.6 - Hypokalemia Status: Acute (6) Dehydration Diagnosis: Principal ICD Codes: E86.0 - Dehydration Status: Acute Consultants Dr. Alonso, ID Dr. Toledo, oncology Dr. Abad, cardiology Procedures Port removed on 12/15 Brief History This is a 67-year-old male with a past medical history which includes: ETOH abuse, pancreatitis, ETOH withdraw seizures, anxiety, atrial fibrillation, GERD , gout, hypertension, tobacco abuse, DVT, PE, hemorrhagic CVA and oropharyngeal squamous cell cancer s/p resection with modified radical neck dissection 09/2017 at [facility]. Patient currently on chemotherapy with Dr. Toledo and radiation with Dr. Summers for the past four weeks. Patient had radiation just a few days ago. Since that time patient has been having nausea, thick oral secretions, feeling more weak, poor p.o. intake, and fevers. Patient has a PEG tube in place but has not yet started using it. Patient had been tolerating smoothies orally up until two days ago. He denies chest pain, cough, abdominal pain, shortness of breath or dysuria. CBC/BMP: 12/23/17 0535 12/23/17 0535 Significant Findings Laboratory Tests Test 12/23/17 05:35 White Blood Count 2.1 TH/MM3 (4.0-11.0) Red Blood Count 2.96 MIL/MM3 (4.50-5.90) Hemoglobin 9.5 GM/DL (13.0-17.0) Hematocrit 28.0 % (39.0-51.0) Monocytes (%) (Auto) 28.7 % (0.0-8.0) Neutrophils # (Auto) 1.1 TH/MM3 (1.8-7.7) Lymphocytes # (Auto) 0.4 TH/MM3 (1.0-4.8) Blood Urea Nitrogen 22 MG/DL (7-18) Random Glucose 123 MG/DL (74-106) Total Protein 6.2 GM/DL (6.4-8.2) Albumin 2.3 GM/DL (3.4-5.0) Calcium Level 8.0 MG/DL (8.5-10.1) Magnesium Level 1.4 MG/DL (1.5-2.5) Estimat Glomerular Filtration Rate 77 ML/MIN (>89) PE at Discharge General: NAD, Cardiac: Irregular irregular Chest: CTA Abd: +Bs, soft, nontender, peg in place Ext: No edema Hospital Course Squamous cell carcinoma of oropharynx Mucositis Dehydration Poor PO intake - This is a 67-year-old male with a past medical history which includes oropharyngeal squamous cell cancer s/p resection with modified radical neck dissection 09/2017 at [facility]. Patient currently on chemotherapy with Dr. Toledo and radiation with Dr. Summers for the past four weeks. Patient had his radiation done just a few days ago. Since that time patient has been having nausea, thick oral secretions, feeling more weak, poor p.o. intake, and fevers according to his . Patient has a PEG tube in place but has not yet started using it. - Patient had been tolerating smoothies orally up until two days ago. His fevers have been 102 at home. - Dr. Summers notified - Medical oncology following patient known to Dr. 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 - Pt with poor PO intake after chemo - Pt started on pilocarpine PO with some improvement of oral thick secretion and mucositis - Pt unable to tolerate bolus TF - TF with Jevity 1.5 to goal rate of 65mL/hr on 12/21 MRSA Bacteremia - All blood and urine cx MRSA - Antibiotics per ID Daptomycin - Port removed on 12/15 - Repeat Blood Cx (12/16) --> NGD - PICC placed on 12/20 - 2D echo ordered to assess for any vegetation on the heart valves. no vegetation noted. - D/t sensitivities pt will need to be discharged on Daptomycin. [facility] Abx ordered have been written on ID - Pt will complete a course of Daptomycin 600 mg IV [id number], stop treatment on 12/30/2017 Thrombocytopenia - Patient with recent chemotherapy, currently on hold due to patient's KEVIN and blood counts - Labs are improving - No active bleeding - No chemical DVT prophylaxis - Dr. Toledo also following Hypokalemia Hypomagnesemia - Patient has had poor PO intake after chemotherapy and radiation - Electrolyte replacement PRN - Repeat BMP/Mag in AM A. FIB, chronic - Pt with A. fib/rvr - His Lopressor was increased back to 100mg po bid but still with intermittent RVR - Pt started on Cardizem 120mg po daily on 12/19/17 - HR still not well controlled, Cardizem increased to 180mg po daily on 12/20 but HR is still not well controlled - Increase Cardizem CD to 240mg daily on 12/21 - Pt's telemetry showed A.Fib RVR for several hours today (12/22) - Pt did NOT receive any prn treatment but HR did improve. For now continue current dosing. - If pt again develops RVR then will increase Cardizem CD to 360mg - Losartan has been held for addition of rate control meds. - Telemetry - cardiology consulted, agree with current plan. Cardiology signed off - patient is weak and is a high fall risk will not initiate anticoagulation at this time. Will defer to cardiology at outpatient follow up. Pt Condition on Discharge: Stable Discharge Disposition: Disch w/ Home Health Serv Discharge Instructions DIET: Follow Instructions for: As Tolerated, No Restrictions, On Tube Feeding Activities you can perform: Regular-No Restrictions Follow up Referrals: Oncology - [address] Toledo PCP Follow-up - [address] Arriaza New Medications: Kangaroo Javi Feeding Tube Pump Set (Kangaroo Javi Feeding Tube Pump Set) 1 Mis Mis EA .XX DIRECTED, #1 Diltiazem CD 24 HR (Cardizem CD 24 HR) 180 Mg Caper 360 MG PO DAILY for heart rate, #30 CAP 0 Refills Hydrocodone/Acetaminophen (Hydrocodone-Acetamin 5-325 mg) 5 Mg-325 Mg Tablet 1 TAB PO Q4HR PRN for pain, #20 TAB 0 Refills Pilocarpine (Salagen) 5 Mg Tab 5 MG PO Q8HR for Excess saliva, #20 TAB 0 Refills [Free Water] () 1 ML FLUSH 100 ML G-TUBE Q8HR for flush feedig tube for 30 Days, EACH 0 Refills Continued Medications: Allopurinol (Allopurinol) 300 Mg Tab 300 MG PO DAILY for Gout, #30 TAB 0 Refills Lorazepam (Ativan) 0.5 Mg Tab 0.5 MG PO Q6H PRN for ANXIETY AND/OR AGITATION, TAB 0 Refills Metoprolol Tartrate (Metoprolol Tartrate) 100 Mg Tab 100 MG PO BID, #60 TAB 0 Refills Temazepam (Restoril) 30 Mg Cap 30 MG PO HS PRN for INSOMNIA, #30 CAP 0 Refills Discontinued Medications: Losartan (Losartan) 50 Mg Tab 25 MG PO DAILY for Blood Pressure Management, #30 TAB 0 Refills Nifedipine ER 24 HR (Nifedipine ER 24 HR) 30 Mg Tab 30 MG PO DAILY, #30 TAB 0 Refills Prochlorperazine Maleate (Prochlorperazine Maleate) 10 Mg Tab 10 MG PO Q6H PRN for NAUSEA OR VOMITING, TAB 0 Refills Promethazine Supp (Promethazine Supp) 25 Mg Supp 25 MG RECTAL Q6H PRN for NAUSEA OR VOMITING, SUPP 0 Refills Additional Information Patient examined. Assessment and plan formulated with Lea Esparza PA-C. I agree with the above. Discharge to home with [facility] was held up for several days due to difficulties arranging for equipment over the . Lea Esparza December 24, 2017 16:23 Antonino Kearney DO December 28, 2017 15:23
[2017-12-24] MEDS ORDERED: HYDR-3516 PO (16:45)
[2017-12-24] MEDS: DAPTOmycin INJ 600 MG in SODIUM CHLORIDE 0.9% INJ 100 ML IV SCH (18:27)
[2017-12-24] MEDS: LORazepam 0.5 MG TAB PO PRN (18:47)
[2017-12-24 20:30] VITALS: BP 111/63; PULSE 80; RESP 18; TEMP 98; O2SAT 98
[2017-12-24] MEDS: TEMAZEPAM 15 MG CAP PO PRN (21:38)
[2017-12-25 00:45] VITALS: BP 115/66; PULSE 74; RESP 17; TEMP 97.6; O2SAT 98
[2017-12-25 03:30] VITALS: BP 110/64; PULSE 68; RESP 22; TEMP 97.5; O2SAT 98
[2017-12-25 04:00] VITALS: PULSE 102
[2017-12-25] MEDS: PILOCARPINE HCL 5 MG TAB PO SCH ×3 (06:33→22:15)
[2017-12-25] MEDS: FREE WATER G-TUBE SCH ×3 (06:36→22:00)
[2017-12-25 08:23] VITALS: BP 141/90; PULSE 108; RESP 18; TEMP 98.2; O2SAT 95
[2017-12-25] MEDS: SODIUM CHLORIDE 0.9% FLUSH 10 ML FLUSH IV FLUSH SCH (09:00)
[2017-12-25] MEDS: METOPROLOL TARTRATE 100 MG TAB PO SCH ×2 (09:24→22:15)
[2017-12-25] MEDS: ENOXAPARIN SODIUM 40 MG/0.4 ML SYRINGE SQ SCH (09:24)
[2017-12-25] MEDS: DILTIAZEM-CD 180 MG CAP ER PO SCH (09:24)
[2017-12-25] MEDS ORDERED: JEVILIQ12 PEG (13:51)
[2017-12-25] MEDS: DAPTOmycin INJ 600 MG in SODIUM CHLORIDE 0.9% INJ 100 ML IV SCH (18:36)
[2017-12-25] MEDS: LORazepam 0.5 MG TAB PO PRN (18:42)
[2017-12-25 20:00] VITALS: BP 126/79; PULSE 100; RESP 18; TEMP 98.5; O2SAT 96
[2017-12-25] MEDS: ACETAMINOPHEN/HYDROcodone 325 MG/5 MG TAB PO PRN (22:15)
[2017-12-26] VITALS (7 sets, daily range): BP systolic 121–141; BP diastolic 68–87; PULSE 62–136; RESP 16–19; TEMP 97.8–98.8; O2SAT 93–98
[2017-12-26] MEDS: FREE WATER G-TUBE SCH ×3 (05:31→22:00)
[2017-12-26] MEDS: PILOCARPINE HCL 5 MG TAB PO SCH ×3 (05:31→22:36)
[2017-12-26] MEDS: ENOXAPARIN SODIUM 40 MG/0.4 ML SYRINGE SQ SCH (08:03)
[2017-12-26] MEDS: SODIUM CHLORIDE 0.9% FLUSH 10 ML FLUSH IV FLUSH SCH (08:05)
[2017-12-26] MEDS: DILTIAZEM-CD 180 MG CAP ER PO SCH (08:08)
[2017-12-26] MEDS: METOPROLOL TARTRATE 100 MG TAB PO SCH ×2 (08:08→22:36)
[2017-12-26] MEDS: DAPTOmycin INJ 600 MG in SODIUM CHLORIDE 0.9% INJ 100 ML IV SCH (18:29)
[2017-12-26] MEDS: LORazepam 0.5 MG TAB PO PRN (19:34)
--- NOTE | 2017-12-26 20:03 | HHI.PR ---
Subjective Remarks No new complaints. Objective Vitals Vital Signs Date Time Temp Pulse Resp B/P (MAP) Pulse Ox O2 Delivery O2 Flow Rate FiO2 12/26/17 19:30 98.4 100 19 140/78 (98) 96 12/26/17 16:14 98.3 91 18 141/72 (95) 93 12/26/17 12:16 98.8 88 18 121/70 (87) 98 12/26/17 07:58 98.3 62 16 122/68 (86) 95 12/26/17 05:27 98.2 107 19 124/87 (99) 97 12/26/17 05:19 97.8 136 18 137/87 (104) 98 12/26/17 00:50 98.6 85 18 126/74 (91) 95 12/26/17 12/26/17 12/27/17 15:00 23:00 07:00 Output Total 600 ml 350 ml Balance -600 ml -350 ml Output Urine Total 600 ml 350 ml # Bowel Movements 1 Result Diagram: 12/23/17 0535 12/23/17 0535 Imaging Last Impressions Chest X-Ray 12/20/17 0000 Signed Impressions: Service Date/Time: Wednesday, December 20, 2017 19:46 - CONCLUSION: 1. PICC line in good position. Tremayne Haji Jr., MD [place] Revision 12/15/17 0000 Signed Impressions: Service Date/Time: Friday, December 15, 2017 00:00 - CONCLUSION: Uncomplicated port removal as above. Abdirashid Bowens MD Objective Remarks General: NAD, Cardiac: Irregular irregular Chest: CTA Abd: +Bs, soft, nontender, peg in place Ext: No edema Procedures Port removed on 12/15 A/P Problem List: (1) Squamous cell carcinoma of oropharynx ICD Codes: C10.9 - Malignant neoplasm of oropharynx, unspecified Status: Acute Plan: Squamous cell carcinoma of oropharynx Mucositis Dehydration Poor PO intake - This is a 67-year-old male with a past medical history which includes oropharyngeal squamous cell cancer s/p resection with modified radical neck dissection 09/2017 at [facility]. Patient currently on chemotherapy with Dr. Toledo and radiation with Dr. Summers for the past four weeks. Patient had his radiation done just a few days ago. Since that time patient has been having nausea, thick oral secretions, feeling more weak, poor p.o. intake, and fevers according to his . Patient has a PEG tube in place but has not yet started using it. - Patient had been tolerating smoothies orally up until two days ago. His fevers have been 102 at home. - Dr. Summers notified - Medical oncology following patient known to Dr. 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 - Pt with poor PO intake after chemo - Pt started on pilocarpine PO with some improvement of oral thick secretion and mucositis - Pt unable to tolerate bolus TF - TF with Jevity 1.5 to goal rate of 65mL/hr on 12/21 MRSA Bacteremia - All blood and urine cx MRSA - Antibiotics per ID Daptomycin - Port removed on 12/15 - Repeat Blood Cx (12/16) --> NGD - PICC placed on 12/20 - 2D echo ordered to assess for any vegetation on the heart valves. no vegetation noted. - D/t sensitivities pt will need to be discharged on Daptomycin. [facility] Abx ordered have been written on ID - Pt will complete a course of Daptomycin 600 mg IV [id number], stop treatment on 12/30/2017 Thrombocytopenia - Patient with recent chemotherapy, currently on hold due to patient's KEVIN and blood counts - Labs are improving - No active bleeding - No chemical DVT prophylaxis - Dr. Toledo also following Hypokalemia Hypomagnesemia - Patient has had poor PO intake after chemotherapy and radiation - Electrolyte replacement PRN - Repeat BMP/Mag in AM A. FIB, chronic - Pt with A. fib/rvr - His Lopressor was increased back to 100mg po bid but still with intermittent RVR - Pt started on Cardizem 120mg po daily on 12/19/17 - HR still not well controlled, Cardizem increased to 180mg po daily on 12/20 but HR is still not well controlled - Increase Cardizem CD to 240mg daily on 12/21 - Pt's telemetry showed A.Fib RVR for several hours today (12/22) - Pt did NOT receive any prn treatment but HR did improve. For now continue current dosing. - If pt again develops RVR then will increase Cardizem CD to 360mg - Losartan has been held for addition of rate control meds. - Telemetry (2) Atrial fibrillation with RVR ICD Codes: I48.91 - Atrial fibrillation with RVR Status: Acute Plan: - See above (3) Bacteremia ICD Codes: R78.81 - Bacteremia Status: Acute Plan: - See above (4) Thrombocytopenia ICD Codes: D69.6 - Thrombocytopenia, unspecified Plan: - See above (5) Hypokalemia ICD Codes: E87.6 - Hypokalemia Status: Acute Plan: - See above (6) Dehydration ICD Codes: E86.0 - Dehydration Status: Acute Plan: - See above Assessment and Plan Discharge orders written 12/24 for in the AM 12/25. Discharge to home with HHC and home PT per previously written orders once all arrangements made to ensure safe discharge per orders. Antonino Kearney DO December 26, 2017 20:03
[2017-12-26] MEDS: ACETAMINOPHEN/HYDROcodone 325 MG/5 MG TAB PO PRN (22:10)
[2017-12-26] MEDS: TEMAZEPAM 15 MG CAP PO PRN (23:51)
[2017-12-27 01:11] VITALS: BP 116/80; PULSE 95; RESP 18; TEMP 97.8; O2SAT 97
[2017-12-27 04:22] VITALS: BP 132/80; PULSE 77; RESP 18; TEMP 97.4; O2SAT 95
[2017-12-27] MEDS: PILOCARPINE HCL 5 MG TAB PO SCH (05:59)
[2017-12-27] MEDS: FREE WATER G-TUBE SCH (05:59)
[2017-12-27] MEDS: ACETAMINOPHEN/HYDROcodone 325 MG/5 MG TAB PO PRN ×2 (06:10→12:39)
[2017-12-27 07:30] VITALS: PULSE 100
[2017-12-27 08:33] VITALS: BP 121/80; PULSE 86; RESP 18; TEMP 98.3; O2SAT 97
[2017-12-27] MEDS: METOPROLOL TARTRATE 100 MG TAB PO SCH (09:55)
[2017-12-27] MEDS: ENOXAPARIN SODIUM 40 MG/0.4 ML SYRINGE SQ SCH (09:55)
[2017-12-27] MEDS: DILTIAZEM-CD 180 MG CAP ER PO SCH (09:55)
[2017-12-27 12:00] VITALS: PULSE 92
[2017-12-27 12:34] VITALS: BP 139/75; PULSE 91; RESP 18; TEMP 97.4; O2SAT 99
== END 2017-12-27 14:06 | disposition home health service (06) | DRG 872 ==
LOC: NEPC 17:28 → NEDA 23:00 → N05B 12-12 00:47
PROVIDERS: ADMIT Hospitalist; ATTEND Hospitalist
PROC: 0JPT0WZ Removal of Totally Implantable Vascular Access Device from Trunk Subcutaneous Tissue and Fascia, Open Approach (ICD-10-PCS; principal; 2017-12-15)
PROC: 6A550Z2 Pheresis of Platelets, Single (ICD-10-PCS; 2017-12-15)
DX: A41.02 Sepsis due to Methicillin resistant Staphylococcus aureus (principal); N17.9 Acute kidney failure, unspecified; E46 Unspecified protein-calorie malnutrition; I48.2 Chronic atrial fibrillation; D69.59 Other secondary thrombocytopenia; E83.42 Hypomagnesemia; C10.9 Malignant neoplasm of oropharynx, unspecified; R13.10 Dysphagia, unspecified; N39.0 Urinary tract infection, site not specified; I10 Essential (primary) hypertension; E86.0 Dehydration; Z93.1 Gastrostomy status; E87.6 Hypokalemia; K21.9 Gastro-esophageal reflux disease without esophagitis; M10.9 Gout, unspecified; F41.9 Anxiety disorder, unspecified; Z87.891 Personal history of nicotine dependence; Z86.73 Personal history of transient ischemic attack (TIA), and cerebral infarction without residual deficits; Z86.718 Personal history of other venous thrombosis and embolism; Z86.711 Personal history of pulmonary embolism; Z85.810 Personal history of malignant neoplasm of tongue; Z85.828 Personal history of other malignant neoplasm of skin; Z86.14 Personal history of Methicillin resistant Staphylococcus aureus infection; K12.30 Oral mucositis (ulcerative), unspecified; T45.1X5A Adverse effect of antineoplastic and immunosuppressive drugs, initial encounter; H91.91 Unspecified hearing loss, right ear; S86.812A Strain of other muscle(s) and tendon(s) at lower leg level, left leg, initial encounter; X58.XXXA Exposure to other specified factors, initial encounter
CPT/HCPCS: 36430; 36569; 36590; 71045; 76937; 80048; 80053; 80202; 81001; 82550; 83605; 83735; 84132; 84155; 85007; 85025; 85027; 85610; 86403; 87040; 87086; 87147; 87186; 87205; 87493; 93306; 96365; 96366; 99152; J0878; J1642; J1650; J2250; J2543; J2765; J3010; J3370; J3475; J3480; J7030; J7040; P9035

== ENCOUNTER 2018-02-25 17:02 | Inpatient (IN) ==
[2018-02-25] MEDS ORDERED: Piperacil/Tazo 4.5 GM Premix 4.5 GM/100 ML BAG IV.SIG STA (17:36)
[2018-02-25] MEDS ORDERED: Vancomycin Inj 1,000 MG in Sodium Chlor 0.9% Inj 250 ML IV.SIG STA (17:36)
--- NOTE | 2018-02-25 18:00 | ED ---
HPI General Chief complaint: Neuro Symptoms/Deficit Stated complaint: back pain Time Seen by Provider: 02/25/18 17:35 Source: patient and family Mode of arrival: ambulatory Limitations: no limitations History of Present Illness HPI narrative: 67-year-old male patient with history of head and neck cancer currently on chemotherapy, complicated by recent sepsis; has been having back pain for the last week, low-grade fevers, had an MRI done today ordered by his oncologist, Dr. Toledo, and it was found that he has an L4-L5 epidural abscess. Dr. Toledo sent him in after having a discussion with Dr. Lacy who would like the patient to be admitted, get an IR consult in order to drain abscess for evaluation, and to receive IV antibiotics. Dr. Toledo would also like ID consult on the case. Patient reports no incontinence, new neurological deficits , or other issues. Related Data Home Medications Medication Instructions Recorded Confirmed allopurinol 300 mg FEEDING TUBE DAILY 02/25/18 02/25/18 lorazepam 0.5 mg FEEDING TUBE DAILY 02/25/18 02/25/18 metoprolol tartrate 50 mg FEEDING TUBE BID 02/25/18 02/25/18 verapamil 40 mg FEEDING TUBE TID 02/25/18 02/25/18 Allergies Allergy/AdvReac Type Severity Reaction Status Date / Time codeine Allergy Severe Itching Verified 02/25/18 17:42 doxycycline Allergy Severe Rash Verified 02/25/18 17:42 Review of Systems Except as stated in HPI: all other systems reviewed are negative [facility] Medical History Medical History Afib (Acute) G tube feedings (Acute) Gout (Acute) HBP (high blood pressure) (Acute) Hearing impairment (Acute) Tongue cancer (Acute) Social History Social History Substance History: No History of Abuse Second Hand Smoke Exposure: No Smoking Status: Former smoker Tobacco Type: Cigarettes How Often Do You Have a Drink Containing Alcohol: Never Recent Travel in [facility] within the Last 8 Weeks: No Recent Out of Country Travel within the Last 8 Weeks: No Immunization History Tetanus Immunization: >5 Years Hx Influenza Vaccine This Season: No Exam Narrative Exam Narrative: GENERAL: Well-developed elderly white male patient currently in mild distress. Awake, alert, oriented 3. SKIN: Focused skin assessment warm/dry. HEAD: Atraumatic. Normocephalic. EYES: Pupils equal and round. No scleral icterus. No injection or drainage. ENT: No nasal bleeding or discharge. Mucous membranes pink and moist. NECK: Trachea midline. No JVD. There is notable scarring in the neck especially in the right side, postsurgical scarring. CARDIOVASCULAR: Irregularly irregular, no rubs or murmurs. RESPIRATORY: No accessory muscle use. Clear to auscultation. Breath sounds equal bilaterally. GASTROINTESTINAL: Abdomen soft, non-tender, nondistended. Hepatic and splenic margins not palpable. MUSCULOSKELETAL: No obvious deformities. No clubbing. No cyanosis. No edema. NEUROLOGICAL: Awake and alert. No obvious cranial nerve deficits. Motor grossly within normal limits. Normal speech. PSYCHIATRIC: Appropriate mood and affect; insight and judgment normal. Course Hospital Course: Case was discussed with Dr. Galvan who lays out the plan for me, IV antibiotics were initiated after cultures were drawn. Case had been discussed with Dr. Lakhani for admission for further treatment. Patient will need IR, ID consult as well as consult to Dr. Toledo who states he will come put in a consult on the patient. Initial Documented Vital Signs Temperature 97.2 F L 02/25/18 17:13 Respiratory Rate 22 02/25/18 17:13 Blood Pressure 126/77 02/25/18 17:13 Pulse Oximetry 99 02/25/18 17:13 Last Documented Vital Signs Temperature 97.2 F L 02/25/18 17:13 Pulse Rate 83 02/25/18 17:36 Respiratory Rate 22 02/25/18 17:13 Blood Pressure 126/77 02/25/18 17:13 Pulse Oximetry 98 02/25/18 17:36 Medical Decision Making Differential Diagnosis Differential Diagnosis: Epidural abscess versus tumor mass versus inflammatory fluid Discharge Plan Discharge Disposition Patient Disposition: 30 Still Patient Discharge Condition Condition: Stable Discharge Details Anticipated Discharge Date: 02/25/18 Diagnosis: Epidural abscess Physicians Team ED Provider: Buck Guillermo Primary Care Provider: Gary Arriaza Rxs /Orders / Referrals /Forms Prescriptions: No Action verapamil 40 mg Tablet 40 mg Feeding Tube TID RF: 0 lorazepam 0.5 mg Tablet 0.5 mg Feeding Tube DAILY RF: 0 metoprolol tartrate 50 mg Tablet 50 mg Feeding Tube BID RF: 0 allopurinol 300 mg Tablet 300 mg Feeding Tube DAILY RF: 0 Status ED Status: With Doctor
[2018-02-25 18:01] LABS: Baso % (Auto) 0.5 % (0.0-2.0); Eos % (Auto) 0.4 % (0.0-4.0); Hematocrit 29.1 % (39.0-51.0); Hemoglobin 9.5 gm/dL (13.0-17.0); Lymph # (Auto) 0.4 th/mm3 (1.0-4.8); Lymph % (Auto) 6.4 % (9.0-44.0); Mean Corpuscular HGB Conc 32.6 % (32.0-36.0); Mean Corpuscular Hemoglobin 29.2 pg (27.0-34.0); Mean Corpuscular Volume 89.7 fL (80.0-100.0); Mean Platelet Volume 8.6 fL (7.0-11.0); Mono # (Auto) 0.8 th/mm3 (0.0-0.9); Mono % (Auto) 12.4 % (0.0-8.0); Neut # (Auto) 5.4 th/mm3 (1.8-7.7); Neut % (Auto) 80.3 % (16.0-70.0); Platelet Count 250 th/mm3 (150-450); Red Blood Count 3.24 mil/mm3 (4.50-5.90); Red Cell Distribution Width 15.8 % (11.6-17.2); White Blood Count 6.8 th/mm3 (4.0-11.0)
[2018-02-25 18:21] LABS: Alanine Aminotransferase 57 U/L (12-78); Albumin 2.7 g/dL (3.4-5.0); Anion Gap 6 meq/L (5-15); Aspartate Aminotransferase 25 U/L (15-37); Blood Urea Nitrogen 21 mg/dL (7-18); Calcium 8.4 mg/dL (8.5-10.1); Carbon Dioxide 28.1 meq/L (21.0-32.0); Chloride 108 meq/L (98-107); Glomerular Filtration Rate Greater Than 89 mL/min (>89); Glucose,Random 102 mg/dL (74-106); Potassium 3.8 meq/L (3.5-5.1); Sodium 142 meq/L (136-145)
[2018-02-25 18:22] LABS: Activated Partial Thrombo Time 27.8 sec (24.3-30.1); INR 1.2 Ratio; Prothrombin Time 11.9 sec (9.8-11.6)
[2018-02-25 18:24] LABS: Alkaline Phosphatase 94 U/L (45-117); Total Protein 6.8 g/dL (6.4-8.2)
--- NOTE | 2018-02-25 18:51 | XR ---
EXAM DATE: 02/25/2018 6:31 PM EDT AGE/SEX: 67 years / Male INDICATIONS: Chest pain. CLINICAL DATA: This is the patient's initial encounter. Patient reports that signs and symptoms have been present for 3 days and indicates a pain score of 4/10. MEDICAL/SURGICAL HISTORY: . Hypertension. Gastroesophageal reflux disease. Seizures. Atrial fib rillation. Gout. Dyspnea. Tonsillectomy. [place] [facility] [place]. . FINDINGS: A single AP view of the chest demonstrates the lungs to be symmetrically aerated without evidence of mass, infiltrate or effusion. The cardiomediastinal contours are unremarkable. Osseous structures a re intact. CONCLUSION: No acute cardiopulmonary process. Electronically signed by: Wagner Aguilar MD 02/25/2018 6:49 PM EDT
--- NOTE | 2018-02-25 19:05 | P.HPIM ---
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 Pt recieved 2 doses of cisplatin and about 50% of his radiation when he was admitted to [place] for mrsa bacteremia. He had port removed also during this admission and seen by ID. He was given daptomycin and ultimately sent home with daptomycin and f/u. Pt has been unable to resume chemo or radiation due to general weakness. He gets most of his calories thourgh bolus tube feeding and all meds are though the peg. He has had persistent midback pain and now fever. Seen by Dr Toledo last week and MRI ordered. Now shows concern for T4/5 abscess. Pt reviewed with Dr Lacy and Tre and sent here for iv abx, IR bx/aspiration. Pt given vanco and zosyn in ED. Past Medical History Alcohol withdrawal seizures oropharyngeal SCC pancreatitis Anxiety Atrial fibrillation GERD Gout Hypertension Personal history of alcohol abuse Personal history of tobaccoism Transiently positive for circulating lupus anticoagulant Hemorrhagic stroke (Was on warfarin at that time, INR was therapeutic when he presented at 2.1) in 2016 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 upper extremity DVTs in 2016 Pulmonary emboli in 2016 Past Surgical History Skin ca removed from left arm Tonsillectomy Tracheostomy creation and reversal in 2016 Oropharyngeal squamous cell cancer s/p resection with modified radical neck dissection 09/2017 at [facility] Primary Care Physician: Gary Arriaza - Diagnosis (1) Epidural abscess Review of Systems midback pain and fevers PMFSH - History History Provided By: Patient - Medical History Medical History: Medical History (Last Reviewed 02/25/18 @ 17:58 by Buck Guillermo MD) Afib G tube feedings Gout HBP (high blood pressure) Hearing impairment Tongue cancer - Tobacco History Second Hand Smoke Exposure: No Tobacco Use In Past 30 Days: No Smoking Status: Former smoker Tobacco Type: Cigarettes - Alcohol History How Often Do You Have a Drink Containing Alcohol: Never - Substance Use History Substance History: No History of Abuse - Travel History Recent Travel in the [place] Within the Last 8 Weeks: No Recent Travel Out of the Country Within the Last 8 Weeks: No - Immunization History Tetanus Immunization: >5 Years Hx Influenza Vaccine This Season: No Medications and Allergies Active Medications: Active Medications Allopurinol (Zyloprim) 300 mg G-TUBE DAILY BRINA Acetaminophen (Ofirmev Inj) 1,000 mg in 100 mls @ 400 mls/hr IV.SIG ONCE ONE Stop: 02/25/18 19:13 Lorazepam (Ativan) 0.5 mg G-TUBE Q8HR PRN PRN Reason: ANXIETY Metoprolol Tartrate (Lopressor) 100 mg G-TUBE BID BRINA Tramadol HCl (Ultram) 50 mg G-TUBE Q4H PRN PRN Reason: pain 3-10 Verapamil HCl (Isoptin) 40 mg G-TUBE TID BRINA Allergies Allergy/AdvReac Type Severity Reaction Status Date / Time codeine Allergy Severe Itching Verified 02/25/18 17:42 doxycycline Allergy Severe Rash Verified 02/25/18 17:42 Home Medications Medication Instructions Recorded Confirmed Type allopurinol 300 mg FEEDING TUBE DAILY 02/25/18 02/25/18 History lorazepam 0.5 mg FEEDING TUBE DAILY 02/25/18 02/25/18 History metoprolol tartrate 100 mg FEEDING TUBE BID 02/25/18 02/25/18 History verapamil 40 mg FEEDING TUBE TID 02/25/18 02/25/18 History Exam Vital signs: Vital Signs 02/25/18 17:13 02/25/18 17:36 Temperature 97.2 F L Pulse Rate 83 Respiratory Rate 22 Blood Pressure 126/77 Pulse Oximetry 99 98 Intake & Output 02/25/18 02/25/18 02/26/18 06:59 18:59 06:59 Intake Total 100 / 100 Balance 100 / 100 Weight 81.647 kg Intake: IV 100 / 100 Zosyn 4.5 GM Premix 4.5 gm In 100 / 100 100 ml @ 200 mls/hr IV.SIG STAT STA Rx#:[id number] nad heart irreg lung cta abd s/nt/peg no pus or erythema ext no edema no lower ext weakness on exam Results - Labs CBC & Chem 7: 02/25/18 17:40 02/25/18 17:40 Labs: Short CBC 02/25/18 Range/Units 17:40 WBC 6.8 (4.0-11.0) th/mm3 Hgb 9.5 L (13.0-17.0) gm/dL Hct 29.1 L (39.0-51.0) % Plt Count 250 (150-450) th/mm3 BMP 02/25/18 17:40 Sodium 142 Potassium 3.8 Chloride 108 H Carbon Dioxide 28.1 BUN 21 H Creatinine 0.72 Calcium 8.4 L Liver Function 02/25/18 Range/Units 17:40 Total Bilirubin 0.3 (0.2-1.0) mg/dL AST 25 (15-37) U/L ALT 57 (12-78) U/L Alkaline Phosphatase 94 (45-117) U/L Albumin 2.7 L (3.4-5.0) g/dL - Imaging Impressions Chest X-Ray 02/25/18 17:36 CONCLUSION: No acute cardiopulmonary process. Caprini VTE Risk Assessment Caprini VTE Risk Assessment: Moderate/High Risk (score >= 2) Caprini Risk Assessment Model: Point Value = 1 Point Value = 2 Point Value = 3 Point Value = 5 Age 41-60 Minor surgery BMI > 25 kg/m2 Swollen legs Varicose veins or History of unexplained or recurrent spontaneous Oral contraceptives or hormone replacement Sepsis (< 1 month) Serious lung disease, including pneumonia (< 1 month) Abnormal pulmonary function Acute myocardial infarction Congestive heart failure (< 1 month) History of inflammatory bowel disease Medical patient at bed rest Age 61-74 Arthroscopic surgery Major open surgery (> 45 min) Laparoscopic surgery (> 45 min) Malignancy Confined to bed (> 72 hours) Immobilizing plaster cast Central venous access Age >= 75 History of VTE Family history of VTE Factor V Leiden Prothrombin [id number] Lupus anticoagulant Anticardiolipin antibodies Elevated serum homocysteine Heparin-induced thrombocytopenia Other congenital or acquired thrombophilia Stroke (< 1 month) Elective arthroplasty Hip, pelvis, or leg fracture Acute spinal cord injury (< 1 month) Prophylaxis Regimen: Total Risk Factor Score Risk Level Prophylaxis Regimen 0-1 Low Early ambulation 2 Moderate Order ONE of the following: *Sequential Compression Device (SCD) *Heparin 5000 units SQ BID 3-4 Higher Order ONE of the following medications: *Heparin 5000 units SQ TID *Enoxaparin/Lovenox 40 mg SQ daily (WT < 150 kg, CrCl > 30 mL/min) *Enoxaparin/Lovenox 30 mg SQ daily (WT < 150 kg, CrCl > 10-29 mL/min) *Enoxaparin/Lovenox 30 mg SQ BID (WT < 150 kg, CrCl > 30 mL/min) AND/OR *Sequential Compression Device (SCD) 5 or more Highest Order ONE of the following medications: *Heparin 5000 units SQ TID (Preferred with Epidurals) *Enoxaparin/Lovenox 40 mg SQ daily (WT < 150 kg, CrCl > 30 mL/min) *Enoxaparin/Lovenox 30 mg SQ daily (WT < 150 kg, CrCl > 10-29 mL/min) *Enoxaparin/Lovenox 30 mg SQ BID (WT < 150 kg, CrCl > 30 mL/min) AND *Sequential Compression Device (SCD) Assessment and Plan - Assessment (1) Epidural abscess Code(s): G06.2 - Extradural and subdural abscess, unspecified Status: Acute Plan: 1. SCC oropharyngeal. mod radical neck dissection [place] 09/19 Pt was initiated on cisplatin but after second treatment stopped due to infection Pt has only completed about 50percent of his radiation treatment Pt was admitted in November and had persistent positive blood cx for MRSA. infusaport infection s/p removal Pt given picc and iv daptomycin through 12/30 2. Epidural abscess. Pt presented to Dr Toledo last week with persistent mid back pain. MRI concerning for t4/[address] Toledo discussed with Dr Regino gunderson and me. Will resume daptomycin and get ID consult. ED gave vanco and zosyn blood cx's Radiology consult for biospy/aspirate of t4/5 prn pain control keep npo after MN. will hold his tube feeding and give IVF for now. 3. afib. controlled cont verapamil and metoprolol in peg. no anticoagulation..poor candidate
[2018-02-25] MEDS ORDERED: Sod Chloride 0.9% Inj 1,000 ML IV.CONT SCH (19:15)
--- NOTE | 2018-02-25 19:59 | P.CON ---
History of Present Illness Service: Hematology/oncology Consult date: 02/25/18 Requesting Physician: Anthony Lakhani Reason for Consult: Recent diagnosis of head and neck cancer. Primary Care Provider: Gary Arriaza Family Provider: Gary Arriaza Chief Complaint: Severe back pain. History of Present Illness: Mr. España is a 67-year-old man, well-known to the hematology/oncology service. The patient was hospitalized in November 2017 with MRSA bacteremia and was treated with inpatient antibiotic therapy consisting of vancomycin and then daptomycin. Since discharge she has reported progressive midline back pain which initially was localized in between the shoulder blades but over the past 1 week has progressed to radiate in a ringlike pattern along the mid chest at the level of the nipples. He also reports having numbness and tingling in the underarms. The patient has noted low-grade temperatures and feels "warm and sweaty at night ". He saw me about a week ago in my outpatient clinic, I recommended MRI of the thoracic spine to be done, this procedure was performed on 02/25/2018, MRI findings were suspicious for inflammatory process at the T4-T5 level with epidural component causing cord impingement as well as a large paravertebral soft tissue mass/fluid collection. The likely differential diagnosis was inflammatory change, malignant process was the other consideration. I called the patient and advised him to come into the emergency department, for management of an epidural abscess/infection. In August 2017 the patient was diagnosed with T2 N2 M0; stage for a (P 16 positive) Squamous cell carcinoma of the base of the tongue at the [facility]. He underwent surgical resection, he is found to have 2 out of 29 lymph nodes positive. There was extracapsular spread and he was therefore recommended postoperative adjuvant combined chemoradiotherapy. Initiated treatment with cisplatin and radiation, he was only able to tolerate 2 doses cisplatin at a dose of 100 mg per metered squared every 21 days. Radiation was initiated but he completed just a little over half the prescribed fractions of radiation. Radiation was interrupted along with chemotherapy due to renal failure and MRSA sepsis. Review of Systems Constitutional: Reports anorexia, Reports body ache(s), Reports chills, Reports fever(s), Reports lack of energy, Reports malaise, Reports night sweats, Reports weakness, Reports weight loss Eyes: Denies blurry vision Ears, Nose, Mouth, and Throat: Reports abnormal hearing, Reports change in voice , Reports hoarseness Comments: Dryness of the mouth and difficulty swallowing. Cardiovascular: Reports chest pain, Reports chest pain at rest, Reports chest pain with activity, Reports shortness of breath, Denies excessive sweating Respiratory: Reports change in phlegm color, Reports chest congestion, Reports cough, Reports pain on inspiration, Reports pain with cough, Reports shortness of breath, Denies coughing up blood Gastrointestinal: Reports belching, Denies abdominal pain, Denies black, tarry stools, Denies bloating, Denies vomiting, Denies vomiting blood Genitourinary: Denies blood in urine Musculoskeletal: Reports abnormal walking, Reports back pain, Reports body aches , Reports decreased muscle mass, Reports joint pain Skin/Breast: Denies acne, Denies bleeding lesions Neurologic: Reports abnormal hearing Psychiatric: Reports abnormal sleep pattern PMFSH - History History Provided By: Patient - Medical History Medical History: Medical History (Last Updated 02/25/18 @ 19:50 by Pascual Toledo MD) Afib Alcohol withdrawal seizure Bloodstream infection due to Port-A-Cath DVT of upper extremity (deep vein thrombosis) Deep venous thrombosis of both lower extremities G tube feedings Gout HBP (high blood pressure) Hearing impairment History of alcoholism Infection due to Port-A-Cath MRSA (methicillin resistant Staphylococcus aureus) septicemia 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 Pulmonary emboli Squamous cell carcinoma of base of tongue Stroke Subdural hematoma - Surgical History Surgical History: Surgical History (Last Updated 02/25/18 @ 19:50 by Pascual Toledo MD) History of removal of Port-a-Cath History of tonsillectomy S/P percutaneous endoscopic gastrostomy (PEG) tube placement Status post neck dissection Status post partial glossectomy - Tobacco History Second Hand Smoke Exposure: No Tobacco Use In Past 30 Days: No Smoking Status: Former smoker Tobacco Type: Cigarettes - Alcohol History How Often Do You Have a Drink Containing Alcohol: Never - Substance Use History Substance History: No History of Abuse - Travel History Recent Travel in the [place] Within the Last 8 Weeks: No Recent Travel Out of the Country Within the Last 8 Weeks: No - Immunization History Tetanus Immunization: >5 Years Hx Influenza Vaccine This Season: No Medications and Allergies Active Medications: Active Medications Allopurinol (Zyloprim) 300 mg G-TUBE DAILY BRINA Acetaminophen (Ofirmev Inj) 1,000 mg in 100 mls @ 400 mls/hr IV.SIG ONCE ONE Stop: 02/25/18 19:59 Sodium Chloride (Ns Inj) 1,000 mls @ 84 mls/hr IV.CONT .[id number] BRINA Lorazepam (Ativan) 0.5 mg G-TUBE Q8H PRN PRN Reason: ANXIETY Metoprolol Tartrate (Lopressor) 100 mg G-TUBE BID BRINA Tramadol HCl (Ultram) 50 mg G-TUBE Q4H PRN PRN Reason: pain 3-10 Verapamil HCl (Isoptin) 40 mg G-TUBE Q8HR BRINA Allergies Allergy/AdvReac Type Severity Reaction Status Date / Time codeine Allergy Severe Itching Verified 02/25/18 17:42 doxycycline Allergy Severe Rash Verified 02/25/18 17:42 Home Medications Medication Instructions Recorded Confirmed Type allopurinol 300 mg FEEDING TUBE DAILY 02/25/18 02/25/18 History lorazepam 0.5 mg FEEDING TUBE DAILY 02/25/18 02/25/18 History metoprolol tartrate 100 mg FEEDING TUBE BID 02/25/18 02/25/18 History verapamil 40 mg FEEDING TUBE TID 02/25/18 02/25/18 History Physical Exam Vital signs: Vital Signs 02/25/18 17:13 02/25/18 17:36 Temperature 97.2 F L Pulse Rate 83 Respiratory Rate 22 Blood Pressure 126/77 Pulse Oximetry 99 98 Intake & Output 02/25/18 02/25/18 02/26/18 06:59 18:59 06:59 Intake Total 100 / 100 Balance 100 / 100 Weight 81.647 kg Intake: IV 100 / 100 Zosyn 4.5 GM Premix 4.5 gm In 100 / 100 100 ml @ 200 mls/hr IV.SIG STAT STA Rx#:[id number] - Constitutional no acute distress, chronically ill appearing Comments: Laying in bed, very still, he tells me if he moves his back hurts. He is under multiple covers. is at bedside. - Routine HEENT Exam Head: Present: normocephalic, atraumatic Eye: Present: EOMI, PERRL ENT: Present: mucous membranes dry Comments: Dry mucous membranes, thick phlegm in the mouth, no masses noted, no candidiasis. - Routine Neck Exam Present: supple Comments: Status post right-sided neck dissection, - Routine Respiratory Exam Present: CTA bilaterally. Absent: accessory muscle use, prolonged expiratory phase, respiratory distress, rhonchi, stridor - Routine Cardiovascular Exam Present: RRR, S1, S2 - Routine Abdominal Exam Present: soft, normoactive bowel sounds. Absent: tenderness, distended Comments: PEG tube in place. - Routine Extremities Exam Absent: cyanosis - Routine Skin Exam Present: intact - Routine Neurological Exam Present: alert, oriented X3, CN II-XII intact - Detailed Neurological Exam: Coma Scale Eye Opening: Spontaneous - Routine Psychiatric Exam Present: normal affect Assessment and Plan - Plan Mr. España is a 67-year-old man with multiple medical comorbid conditions, from a hematologic standpoint he has a history of bilateral upper and lower extremity deep venous thromboses and pulmonary emboli, these were diagnosed in the setting of sepsis and critical illness several years ago. He was treated with anticoagulation however while on anticoagulation he developed subdural hematomas which necessitated discontinuation of anticoagulation. As of right now he does not have any significant clot burden in the upper and lower extremities. In August 2017 he was diagnosed with locally advanced oropharyngeal squamous cell carcinoma; the tumor was based in the right base of the tongue with metastatic disease to upper cervical lymph nodes; T2N2 (P 16 positive). He underwent surgical resection at the [facility]; trans-oral robot -assisted partial glossectomy with tonsillectomy and right sided selective neck dissection. He was recommended adjuvant systemic chemotherapy which was initiated in October, he received cisplatin for total of 2 doses and was correction through his radiation when he developed MRSA bacteremia, acute kidney failure and was hospitalized at this facility for about 2 weeks. Radiation therapy could not be resumed after that and he still has half of the prescribed radiation fractions remaining. Patient now with severe back pain, MRI of the thoracic spine performed on 2017 with and without IV contrast indicates grossly abnormal findings centered at the T4-T5 vertebral bodies. Findings consistent with suspicious mass/ inflammatory process with epidural soft tissue prominence. Primary concern was for an epidural abscess, secondary differential would be that of malignant process. Recommendations: 1. Epidural fluid collection: Initiate empiric antibiotic therapy for MRSA coverage, daptomycin recommended. Blood cultures have already been ordered. Infectious diseases consult requested. 2. Request neurosurgical evaluation. 3. Request interventional radiology evaluation for CT-guided aspiration/biopsy. Oncology will follow with you. Discussed Condition With: Hospitalist physician. Neurosurgeon. Patient and his . Emergency department physician.
[2018-02-25] MEDS: Metoprolol Tartrate 100 MG Tablet G-TUBE SCH (20:46)
[2018-02-25 20:54] LABS: Bilirubin,Urine Negative (Negative); Clarity,Urine Clear (Clear); Color,Urine Yellow (Yellw/Straw); Glucose,Urine (UA) Negative (Negative); Leukocyte Esterase,Urine Negative (Negative); Nitrite,Urine Negative (Negative); Specific Gravity,Urine 1.023 (1.002-1.035)
[2018-02-25] MEDS: LORazepam 0.5 MG Tablet G-TUBE PRN (22:46)
[2018-02-26] MEDS ORDERED: DAPTOmycin Inj 600 MG in Sodium Chlor 0.9% Inj 100 ML IV.SIG SCH (08:00)
--- NOTE | 2018-02-26 08:58 | P.CONID ---
History of Present Illness Service: Infectious disease Consult date: 02/26/18 Requesting Physician: Anthony Lakhani Primary Care Provider: Gary Arriaza Family Provider: Gary Arriaza Chief Complaint: Severe back pain. History of Present Illness: Patient seen and examined. Records reviewed. Patient is a 67-year-old man, admitted to the hospital for further management of his worsening upper back pain. Patient's last hospitalization was back in November and at that time he had high-grade MRSA bacteremia. He had blood cultures from December 11, and December 13 that were positive for MRSA. His [id number] was removed at that time, however the port was not sent for culture. Patient received IV Cubicin until December 30. He developed acute renal insufficiency due to vancomycin, and that is why he was switched over to daptomycin. According to the patient during that hospitalization he has complained of upper back pain. The pain persisted when he was discharged, and he stated about 3 weeks ago he had a CAT scan of his spine. Because of the persistent pain he had an MRI done February 25, and it showed findings suspicious for inflammatory process at T4-T5 level with an epidural component causing cord impingement, and there is a large paravertebral soft tissue mass/fluid collection. Patient was therefore admitted to the hospital for further evaluation and treatment. He has had some night sweats. Denies any respiratory complaint. No nausea or vomiting. Since admission his temperatures have been documented to be normal. His WBC is normal. Patient has known head and neck cancer, and has had surgery for it back in September. He has received some chemo and radiation, but due to his recent problems they have not been completed. Infectious disease consultation has been requested to evaluate the patient Review of Systems Constitutional: Reports fatigue, Reports malaise, Reports night sweats Eyes: Denies discharge, Denies pain Ears, Nose, Mouth, and Throat: Denies facial pain, Denies nasal discharge, Denies sore throat Cardiovascular: Denies chest pain, Denies shortness of breath Respiratory: Denies cough, Denies shortness of breath Gastrointestinal: Denies abdominal pain, Denies loose stools, Denies nausea, Denies vomiting Genitourinary: Denies painful urination Musculoskeletal: Reports back pain, Denies joint pain, Denies joint swelling Skin/Breast: Denies rash Neurologic: Denies headache(s) PMFSH - History History Provided By: Patient, Significant Other - Medical History Medical History: Medical History (Last Updated 02/26/18 @ 09:15 by Amanda Bland MD) Afib Alcohol withdrawal seizure Bloodstream infection due to Port-A-Cath DVT of upper extremity (deep vein thrombosis) Deep venous thrombosis of both lower extremities G tube feedings Gout Hearing impairment History of alcoholism Hypertension Infection due to Port-A-Cath MRSA (methicillin resistant Staphylococcus aureus) septicemia 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 Pulmonary emboli Squamous cell carcinoma of base of tongue Stroke Subdural hematoma - Surgical History Surgical History: Surgical History (Last Reviewed 02/26/18 @ 08:56 by Amanda Bland MD) History of removal of Port-a-Cath History of tonsillectomy S/P percutaneous endoscopic gastrostomy (PEG) tube placement Status post neck dissection Status post partial glossectomy - Tobacco History Second Hand Smoke Exposure: No Tobacco Use In Past 30 Days: No Smoking Status: Former smoker Tobacco Type: Cigarettes - Alcohol History How Often Do You Have a Drink Containing Alcohol: Never - Substance Use History Substance History: No History of Abuse - Travel History Recent Travel in the [place] Within the Last 8 Weeks: No Recent Travel Out of the Country Within the Last 8 Weeks: No - Immunization History Tetanus Immunization: Unsure Hx Influenza Vaccine This Season: No Medications and Allergies Active Medications: Active Medications Allopurinol (Zyloprim) 300 mg G-TUBE DAILY BRINA Sodium Chloride (Ns Inj) 1,000 mls @ 84 mls/hr IV.CONT .[id number] [facility] Last Admin: 02/25/18 20:27 Dose: 84 mls/hr Daptomycin 600 mg/ Sodium (Chloride) 100 mls @ 200 mls/hr IV.SIG Q24H BRINA Lorazepam (Ativan) 0.5 mg G-TUBE Q8H PRN PRN Reason: ANXIETY Last Admin: 02/25/18 22:46 Dose: 0.5 mg Metoprolol Tartrate (Lopressor) 100 mg G-TUBE BID BRINA Last Admin: 02/25/18 20:46 Dose: 100 mg Tramadol HCl (Ultram) 50 mg G-TUBE Q4H PRN PRN Reason: pain 3-10 Last Admin: 02/26/18 06:26 Dose: 50 mg Verapamil HCl (Isoptin) 40 mg G-TUBE Q8HR BRINA Last Admin: 02/26/18 06:26 Dose: 40 mg Allergies Allergy/AdvReac Type Severity Reaction Status Date / Time codeine Allergy Severe Itching Verified 02/25/18 17:42 doxycycline Allergy Severe Rash Verified 02/25/18 17:42 Home Medications Medication Instructions Recorded Confirmed Type allopurinol 300 mg FEEDING TUBE DAILY 02/25/18 02/25/18 History lorazepam 0.5 mg FEEDING TUBE DAILY 02/25/18 02/25/18 History metoprolol tartrate 100 mg FEEDING TUBE BID 02/25/18 02/25/18 History verapamil 40 mg FEEDING TUBE TID 02/25/18 02/25/18 History Exam Vital signs: Vital Signs 02/25/18 17:13 02/25/18 17:36 02/25/18 20:24 Temperature 97.2 F L Pulse Rate 83 92 H Respiratory Rate 22 16 Blood Pressure 126/77 127/78 Pulse Oximetry 99 98 99 02/25/18 21:36 02/25/18 23:17 02/26/18 00:00 Temperature 97.7 F 97.4 F L Pulse Rate 86 93 H Respiratory Rate 16 16 16 Blood Pressure 108/63 125/88 Pulse Oximetry 97 97 02/26/18 04:00 Temperature 98.4 F Pulse Rate 127 H Respiratory Rate 16 Blood Pressure 137/82 Pulse Oximetry 98 Intake & Output 02/25/18 02/26/18 02/26/18 18:59 06:59 18:59 Intake Total 100 / 100 350 / 350 Output Total 1000 / 1000 Balance 100 / 100 -650 / -650 Weight 81.647 kg 189 kg Intake: IV 100 / 100 350 / 350 Ofirmev Inj 1,000 mg In 100 ml 100 / 100 @ 400 mls/hr IV.SIG ONCE ONE Rx #:[id number] Zosyn 4.5 GM Premix 4.5 gm In 100 / 100 100 ml @ 200 mls/hr IV.SIG STAT STA Rx#:[id number] Vancomycin Inj 1,000 MG In NS 250 / 250 Inj 250 ML @ 250 mls/hr IV.SIG STAT STA Rx#:[id number] Output: Urine 1000 / 1000 Other: Date of Last Bowel Movement 02/25/18 Weight On Admission 81.647 kg Narrative: Physical Examination GENERAL: Patient is a well-nourished, well-developed male, awake and alert, not in respiratory distress. SKIN: Warm and dry. No generalized rash, no ecchymoses and no evidence of embolic lesions. HEAD: Atraumatic. Normocephalic. No temporal wasting, or tenderness. EYES: [place] conjunctiva. No petechia or hemorrhage. Pupils equal, round and reactive to light. Extraocular movements full and intact. No scleral icterus. No injection or drainage. EARS, NOSE AND THROAT: Nose without bleeding or purulent nasal discharge. No sinus tenderness. Mucous membranes dry. NECK: Supple and not tender, no meningeal signs. Has scars C/W surgical history CARDIOVASCULAR: Regular rate and rhythm. No murmurs, rubs or gallops heard RESPIRATORY: Clear to auscultation. Breath sounds equal bilaterally. No rales , wheezing or rhonchi ABDOMEN: Soft, non-tender, nondistended. Bowel sounds present and normoactive. No guarding. No rebound. No organomegaly. EXTREMITIES: No clubbing, cyanosis, or edema.No joint effusion, has good ROM. No calf tenderness. Well perfused and warm. BACK: Has a mild deformity in thoracic spine, and he is tender below this deformity, no skin changes noted NEUROLOGICAL: Awake and alert. Cranial nerves grossly intact. Motor grossly within normal limits. PSYCHIATRIC: Normal affect, calm and cooperative. LINE: No evidence of infection Results - Labs CBC & Chem 7: 02/25/18 17:40 02/25/18 17:40 Labs: Laboratory Results - last 24 hr 02/25/18 02/25/18 02/25/18 17:40 17:40 17:40 WBC 6.8 RBC 3.24 L Hgb 9.5 L Hct 29.1 L MCV 89.7 MCH 29.2 MCHC 32.6 RDW 15.8 Plt Count 250 MPV 8.6 Neut % (Auto) 80.3 H Lymph % (Auto) 6.4 L [place] % (Auto) 12.4 H Eos % (Auto) 0.4 Baso % (Auto) 0.5 Neut # (Auto) 5.4 Lymph # (Auto) 0.4 L [place] # (Auto) 0.8 Eos # (Auto) 0.0 Baso # (Auto) 0.0 WBC Differential . Differential Comment Auto diff final PT 11.9 H INR 1.2 APTT 27.8 Sodium 142 Potassium 3.8 Chloride 108 H Carbon Dioxide 28.1 Anion Gap 6 BUN 21 H Creatinine 0.72 Estimated GFR Greater than 89 Random Glucose 102 Lactic Acid Calcium 8.4 L Total Bilirubin 0.3 AST 25 ALT 57 Alkaline Phosphatase 94 Total Protein 6.8 Albumin 2.7 L Urine Color Urine Clarity Urine pH Ur Specific [place] Urine Protein Urine Glucose (UA) Urine Ketones Urine Occult Blood Urine Nitrate Urine Bilirubin Urine Urobilinogen Ur Leukocyte Esterase Urine RBC Urine WBC Micro UA Comment Urine Culture Comments 02/25/18 02/25/18 17:40 20:30 WBC RBC Hgb Hct MCV MCH MCHC RDW Plt Count MPV Neut % (Auto) Lymph % (Auto) [place] % (Auto) Eos % (Auto) Baso % (Auto) Neut # (Auto) Lymph # (Auto) [place] # (Auto) Eos # (Auto) Baso # (Auto) WBC Differential Differential Comment PT INR APTT Sodium Potassium Chloride Carbon Dioxide Anion Gap BUN Creatinine Estimated GFR Random Glucose Lactic Acid 1.1 Calcium Total Bilirubin AST ALT Alkaline Phosphatase Total Protein Albumin Urine Color Yellow Urine Clarity Clear Urine pH 6.0 Ur Specific [place] 1.023 Urine Protein Negative Urine Glucose (UA) Negative Urine Ketones Negative Urine Occult Blood Negative Urine Nitrate Negative Urine Bilirubin Negative Urine Urobilinogen 2.0 H Ur Leukocyte Esterase Negative Urine RBC 1 Urine WBC 1 Micro UA Comment Culture not ind Urine Culture Comments Culture not ind - Imaging Impressions Chest X-Ray 02/25/18 17:36 CONCLUSION: No acute cardiopulmonary process. Assessment and Plan - Plan Impression T4-T5 discitis, epidural abscess - very suspicious that he had seeding of spine when he had MRSA sepsis MRSA sepsis December 11, and December 13 - S/P 2 weeks IV Abx Renal insufficiency during Vancomycin Rx Head and NEck CA, S/P surgery, has not completed his chemo and radiation Rx Recommendation Follow C/S IR to do diagnostic aspiration and biopsy of thoracic spine for infection and malignancy IV Cubicin Monitor progress Will make further recommendations on Rx once wokr-up is completed I will follow along with you Thank you for this consultation Explained plan to the patient D/W Dr Lakhani
[2018-02-26 09:14] LABS: Baso % (Auto) 0.5 % (0.0-2.0); Eos # (Auto) 0.1 th/mm3 (0.0-0.4); Eos % (Auto) 1.1 % (0.0-4.0); Hematocrit 26.7 % (39.0-51.0); Hemoglobin 8.7 gm/dL (13.0-17.0); Lymph # (Auto) 0.4 th/mm3 (1.0-4.8); Lymph % (Auto) 5.7 % (9.0-44.0); Mean Corpuscular HGB Conc 32.7 % (32.0-36.0); Mean Corpuscular Volume 88.7 fL (80.0-100.0); Mean Platelet Volume 8.7 fL (7.0-11.0); Mono # (Auto) 0.7 th/mm3 (0.0-0.9); Mono % (Auto) 9.2 % (0.0-8.0); Neut # (Auto) 6.3 th/mm3 (1.8-7.7); Neut % (Auto) 83.5 % (16.0-70.0); Platelet Count 224 th/mm3 (150-450); Red Blood Count 3.02 mil/mm3 (4.50-5.90); Red Cell Distribution Width 15.7 % (11.6-17.2); White Blood Count 7.5 th/mm3 (4.0-11.0)
[2018-02-26 09:37] LABS: Anion Gap 7 meq/L (5-15); Blood Urea Nitrogen 15 mg/dL (7-18); Calcium 8.1 mg/dL (8.5-10.1); Carbon Dioxide 25.7 meq/L (21.0-32.0); Chloride 110 meq/L (98-107); Glomerular Filtration Rate Greater Than 89 mL/min (>89); Glucose,Random 84 mg/dL (74-106); Potassium 3.2 meq/L (3.5-5.1); Sodium 143 meq/L (136-145)
[2018-02-26 09:41] LABS: Creatine Kinase 9 U/L (39-308)
--- NOTE | 2018-02-26 10:17 | P.PNIM ---
Subjective Interval history: no events overnight. Physical Exam Vital signs: Vital Signs 02/25/18 17:13 02/25/18 17:36 02/25/18 20:24 Temperature 97.2 F L Pulse Rate 83 92 H Respiratory Rate 22 16 Blood Pressure 126/77 127/78 Pulse Oximetry 99 98 99 02/25/18 21:36 02/25/18 23:17 02/26/18 00:00 Temperature 97.7 F 97.4 F L Pulse Rate 86 93 H Respiratory Rate 16 16 16 Blood Pressure 108/63 125/88 Pulse Oximetry 97 97 02/26/18 04:00 02/26/18 08:00 Temperature 98.4 F 98.1 F Pulse Rate 127 H 109 H Respiratory Rate 16 14 Blood Pressure 137/82 147/72 H Pulse Oximetry 98 95 Intake & Output 02/25/18 02/26/18 02/26/18 18:59 06:59 18:59 Intake Total 100 / 100 350 / 350 Output Total 1000 / 1000 Balance 100 / 100 -650 / -650 Weight 81.647 kg 189 kg Intake: IV 100 / 100 350 / 350 Ofirmev Inj 1,000 mg In 100 ml 100 / 100 @ 400 mls/hr IV.SIG ONCE ONE Rx #:[id number] Zosyn 4.5 GM Premix 4.5 gm In 100 / 100 100 ml @ 200 mls/hr IV.SIG STAT STA Rx#:[id number] Vancomycin Inj 1,000 MG In NS 250 / 250 Inj 250 ML @ 250 mls/hr IV.SIG STAT STA Rx#:[id number] Output: Urine 1000 / 1000 Other: Date of Last Bowel Movement 02/25/18 Weight On Admission 81.647 kg haert irreg lung cta abd peg tube ext no edema Results - Labs CBC & Chem 7: 02/26/18 07:26 02/26/18 07:26 Laboratory Results - last 24 hr 02/25/18 02/25/18 02/25/18 17:40 17:40 17:40 WBC 6.8 RBC 3.24 L Hgb 9.5 L Hct 29.1 L MCV 89.7 MCH 29.2 MCHC 32.6 RDW 15.8 Plt Count 250 MPV 8.6 Neut % (Auto) 80.3 H Lymph % (Auto) 6.4 L [place] % (Auto) 12.4 H Eos % (Auto) 0.4 Baso % (Auto) 0.5 Neut # (Auto) 5.4 Lymph # (Auto) 0.4 L [place] # (Auto) 0.8 Eos # (Auto) 0.0 Baso # (Auto) 0.0 WBC Differential . Differential Comment Auto diff final PT 11.9 H INR 1.2 APTT 27.8 Sodium 142 Potassium 3.8 Chloride 108 H Carbon Dioxide 28.1 Anion Gap 6 BUN 21 H Creatinine 0.72 Estimated GFR Greater than 89 Random Glucose 102 Lactic Acid Calcium 8.4 L Total Bilirubin 0.3 AST 25 ALT 57 Alkaline Phosphatase 94 Total Creatine Kinase Total Protein 6.8 Albumin 2.7 L Urine Color Urine Clarity Urine pH Ur Specific [place] Urine Protein Urine Glucose (UA) Urine Ketones Urine Occult Blood Urine Nitrate Urine Bilirubin Urine Urobilinogen Ur Leukocyte Esterase Urine RBC Urine WBC Micro UA Comment Urine Culture Comments 02/25/18 02/25/18 02/26/18 17:40 20:30 07:26 WBC 7.5 RBC 3.02 L Hgb 8.7 L Hct 26.7 L MCV 88.7 MCH 29.0 MCHC 32.7 RDW 15.7 Plt Count 224 MPV 8.7 Neut % (Auto) 83.5 H Lymph % (Auto) 5.7 L [place] % (Auto) 9.2 H Eos % (Auto) 1.1 Baso % (Auto) 0.5 Neut # (Auto) 6.3 Lymph # (Auto) 0.4 L [place] # (Auto) 0.7 Eos # (Auto) 0.1 Baso # (Auto) 0.0 WBC Differential . Differential Comment Auto diff final PT INR APTT Sodium Potassium Chloride Carbon Dioxide Anion Gap BUN Creatinine Estimated GFR Random Glucose Lactic Acid 1.1 Calcium Total Bilirubin AST ALT Alkaline Phosphatase Total Creatine Kinase Total Protein Albumin Urine Color Yellow Urine Clarity Clear Urine pH 6.0 Ur Specific [place] 1.023 Urine Protein Negative Urine Glucose (UA) Negative Urine Ketones Negative Urine Occult Blood Negative Urine Nitrate Negative Urine Bilirubin Negative Urine Urobilinogen 2.0 H Ur Leukocyte Esterase Negative Urine RBC 1 Urine WBC 1 Micro UA Comment Culture not ind Urine Culture Comments Culture not ind 02/26/18 07:26 WBC RBC Hgb Hct MCV MCH MCHC RDW Plt Count MPV Neut % (Auto) Lymph % (Auto) [place] % (Auto) Eos % (Auto) Baso % (Auto) Neut # (Auto) Lymph # (Auto) [place] # (Auto) Eos # (Auto) Baso # (Auto) WBC Differential Differential Comment PT INR APTT Sodium 143 Potassium 3.2 L Chloride 110 H Carbon Dioxide 25.7 Anion Gap 7 BUN 15 Creatinine 0.57 L Estimated GFR Greater than 89 Random Glucose 84 Lactic Acid Calcium 8.1 L Total Bilirubin AST ALT Alkaline Phosphatase Total Creatine Kinase 9 L Total Protein Albumin Urine Color Urine Clarity Urine pH Ur Specific [place] Urine Protein Urine Glucose (UA) Urine Ketones Urine Occult Blood Urine Nitrate Urine Bilirubin Urine Urobilinogen Ur Leukocyte Esterase Urine RBC Urine WBC Micro UA Comment Urine Culture Comments - Imaging Impressions Chest X-Ray 02/25/18 17:36 CONCLUSION: No acute cardiopulmonary process. Assessment and Plan - Assessment (1) Epidural abscess Code(s): G06.2 - Extradural and subdural abscess, unspecified Status: Acute Plan: 1. SCC oropharyngeal. mod radical neck dissection [place] 09/19 Pt was initiated on cisplatin but after second treatment stopped due to infection Pt has only completed about 50percent of his radiation treatment Pt was admitted in November and had persistent positive blood cx for MRSA. infusaport infection s/p removal Pt given picc and iv daptomycin through 12/30 2. Epidural abscess and concern for discitis at t4/[address] Toledo last week with persistent mid back pain. MRI concerning for t4/[address] Toledo discussed with Dr Regino gunderson and me. Will resume daptomycin and get ID consult. ED gave beba and rachid Discussed with ID. I called and discussed with Dr Sanchez who will proceed with bx of t4/5 disc and aspiration of ?adjacent abscess today blood cx's prn pain control ivf.replace kcl. resume tube feeding after the procedure today. 3. afib. controlled cont verapamil and metoprolol in peg. no anticoagulation..poor candidate
[2018-02-26] MEDS ORDERED: Potassium Chloride 25 MEQ Effervescent Tablet G-TUBE ONE (11:00)
[2018-02-26] MEDS: Allopurinol 300 MG Tablet G-TUBE SCH (11:04)
[2018-02-26] MEDS: Metoprolol Tartrate 100 MG Tablet G-TUBE SCH ×2 (11:04→21:13)
[2018-02-26] MEDS: DAPTOmycin Inj 700 MG in Sodium Chlor 0.9% Inj 100 ML IV.SIG SCH (11:31)
[2018-02-26] MEDS: LORazepam 0.5 MG Tablet G-TUBE PRN (12:10)
--- NOTE | 2018-02-26 12:17 | P.PNONC ---
Subjective Interval history: Afebrile Patient reports his back pain is currently controlled States he woke up in the middle the night and had to reach for his urinal which exacerbated his pain at that time. Denies shortness of breath Denies fever or chills Objective Vital Signs/Intake & Output: Vital Signs 02/25/18 17:13 02/25/18 17:36 02/25/18 20:24 Temperature 97.2 F L Pulse Rate 83 92 H Respiratory Rate 22 16 Blood Pressure 126/77 127/78 Pulse Oximetry 99 98 99 02/25/18 21:36 02/25/18 23:17 02/26/18 00:00 Temperature 97.7 F 97.4 F L Pulse Rate 86 93 H Respiratory Rate 16 16 16 Blood Pressure 108/63 125/88 Pulse Oximetry 97 97 02/26/18 04:00 02/26/18 08:00 Temperature 98.4 F 98.1 F Pulse Rate 127 H 109 H Respiratory Rate 16 14 Blood Pressure 137/82 147/72 H Pulse Oximetry 98 95 Intake & Output 02/25/18 02/26/18 02/26/18 18:59 06:59 18:59 Intake Total 100 / 100 350 / 350 Output Total 1000 / 1000 Balance 100 / 100 -650 / -650 Weight 180 lb 416 lb 10.778 oz Intake: IV 100 / 100 350 / 350 Ofirmev Inj 1,000 mg In 100 ml 100 / 100 @ 400 mls/hr IV.SIG ONCE ONE Rx #:[id number] Zosyn 4.5 GM Premix 4.5 gm In 100 / 100 100 ml @ 200 mls/hr IV.SIG STAT STA Rx#:[id number] Vancomycin Inj 1,000 MG In NS 250 / 250 Inj 250 ML @ 250 mls/hr IV.SIG STAT STA Rx#:[id number] Output: Urine 1000 / 1000 Other: Date of Last Bowel Movement 02/25/18 Weight On Admission 180 lb 0.013 oz Result Diagrams: 02/26/18 07:26 02/26/18 07:26 Laboratory Results: Laboratory Results - last 24 hr 02/25/18 02/25/18 02/25/18 17:40 17:40 17:40 WBC 6.8 RBC 3.24 L Hgb 9.5 L Hct 29.1 L MCV 89.7 MCH 29.2 MCHC 32.6 RDW 15.8 Plt Count 250 MPV 8.6 Neut % (Auto) 80.3 H Lymph % (Auto) 6.4 L [place] % (Auto) 12.4 H Eos % (Auto) 0.4 Baso % (Auto) 0.5 Neut # (Auto) 5.4 Lymph # (Auto) 0.4 L [place] # (Auto) 0.8 Eos # (Auto) 0.0 Baso # (Auto) 0.0 WBC Differential . Differential Comment Auto diff final PT 11.9 H INR 1.2 APTT 27.8 Sodium 142 Potassium 3.8 Chloride 108 H Carbon Dioxide 28.1 Anion Gap 6 BUN 21 H Creatinine 0.72 Estimated GFR Greater than 89 Random Glucose 102 Lactic Acid Calcium 8.4 L Total Bilirubin 0.3 AST 25 ALT 57 Alkaline Phosphatase 94 Total Creatine Kinase Total Protein 6.8 Albumin 2.7 L Urine Color Urine Clarity Urine pH Ur Specific [place] Urine Protein Urine Glucose (UA) Urine Ketones Urine Occult Blood Urine Nitrate Urine Bilirubin Urine Urobilinogen Ur Leukocyte Esterase Urine RBC Urine WBC Micro UA Comment Urine Culture Comments 02/25/18 02/25/18 02/26/18 17:40 20:30 07:26 WBC 7.5 RBC 3.02 L Hgb 8.7 L Hct 26.7 L MCV 88.7 MCH 29.0 MCHC 32.7 RDW 15.7 Plt Count 224 MPV 8.7 Neut % (Auto) 83.5 H Lymph % (Auto) 5.7 L [place] % (Auto) 9.2 H Eos % (Auto) 1.1 Baso % (Auto) 0.5 Neut # (Auto) 6.3 Lymph # (Auto) 0.4 L [place] # (Auto) 0.7 Eos # (Auto) 0.1 Baso # (Auto) 0.0 WBC Differential . Differential Comment Auto diff final PT INR APTT Sodium Potassium Chloride Carbon Dioxide Anion Gap BUN Creatinine Estimated GFR Random Glucose Lactic Acid 1.1 Calcium Total Bilirubin AST ALT Alkaline Phosphatase Total Creatine Kinase Total Protein Albumin Urine Color Yellow Urine Clarity Clear Urine pH 6.0 Ur Specific [place] 1.023 Urine Protein Negative Urine Glucose (UA) Negative Urine Ketones Negative Urine Occult Blood Negative Urine Nitrate Negative Urine Bilirubin Negative Urine Urobilinogen 2.0 H Ur Leukocyte Esterase Negative Urine RBC 1 Urine WBC 1 Micro UA Comment Culture not ind Urine Culture Comments Culture not ind 02/26/18 07:26 WBC RBC Hgb Hct MCV MCH MCHC RDW Plt Count MPV Neut % (Auto) Lymph % (Auto) [place] % (Auto) Eos % (Auto) Baso % (Auto) Neut # (Auto) Lymph # (Auto) [place] # (Auto) Eos # (Auto) Baso # (Auto) WBC Differential Differential Comment PT INR APTT Sodium 143 Potassium 3.2 L Chloride 110 H Carbon Dioxide 25.7 Anion Gap 7 BUN 15 Creatinine 0.57 L Estimated GFR Greater than 89 Random Glucose 84 Lactic Acid Calcium 8.1 L Total Bilirubin AST ALT Alkaline Phosphatase Total Creatine Kinase 9 L Total Protein Albumin Urine Color Urine Clarity Urine pH Ur Specific [place] Urine Protein Urine Glucose (UA) Urine Ketones Urine Occult Blood Urine Nitrate Urine Bilirubin Urine Urobilinogen Ur Leukocyte Esterase Urine RBC Urine WBC Micro UA Comment Urine Culture Comments Culture Results: Microbiology 02/25/18 17:40 Aerobic Blood Culture - Preliminary Blood - Peripheral No growth in 1 day Anaerobic Blood Culture - Preliminary No growth in 1 day 02/25/18 17:35 Aerobic Blood Culture - Preliminary Blood - Peripheral No growth in 1 day Anaerobic Blood Culture - Preliminary No growth in 1 day Imaging Studies: Impressions Chest X-Ray 02/25/18 17:36 CONCLUSION: No acute cardiopulmonary process. Medications: Active Medications Generic Name Dose Route Start Last Admin Trade Name Freq PRN Reason Stop Dose Admin Allopurinol 300 mg 02/26/18 09:00 02/26/18 11:04 Zyloprim G-TUBE 300 mg DAILY BRINA Administration Sodium Chloride 1,000 mls @ 84 mls/hr 02/25/18 19:15 02/25/18 20:27 Ns Inj IV.CONT 84 mls/hr .[id number] BRINA Administration Daptomycin 700 mg/ Sodium 100 mls @ 200 mls/hr 02/26/18 11:00 02/26/18 11:31 Chloride IV.SIG 200 mls/hr Q24H BRINA Administration Lorazepam 0.5 mg 02/25/18 19:02 02/26/18 12:10 Ativan G-TUBE 0.5 mg Q8H PRN Administration ANXIETY Metoprolol Tartrate 100 mg 02/25/18 21:00 02/26/18 11:04 Lopressor G-TUBE 100 mg BID BRINA Administration Tramadol HCl 50 mg 02/25/18 18:59 02/26/18 12:10 Ultram G-TUBE 50 mg Q4H PRN Administration pain 3-10 Verapamil HCl 40 mg 02/25/18 22:00 02/26/18 06:26 Isoptin G-TUBE 40 mg Q8HR BRINA Administration Objective Remarks: GENERAL: Elderly male asleep in bed in no obvious distress. He wakens easily to verbal stimuli. SKIN: Warm and dry. HEAD: Normocephalic. EYES: No scleral icterus. No injection or drainage. NECK: Supple, trachea midline. No JVD or lymphadenopathy. CARDIOVASCULAR: Irregular rhythm. Tachycardic. RESPIRATORY: Clear but diminished anteriorly. GASTROINTESTINAL: Abdomen soft, non-tender, nondistended. EXTREMITIES: No cyanosis, or edema. MUSCULOSKELETAL: Adequate muscle tone. NEUROLOGICAL: Awake and alert. No obvious focal deficit. Moving all extremities. Assessment/Plan (1) Tongue cancer Code(s): C02.9 - Malignant neoplasm of tongue, unspecified Status: Acute (2) Epidural abscess Code(s): G06.2 - Extradural and subdural abscess, unspecified Status: Acute (3) MRSA (methicillin resistant Staphylococcus aureus) septicemia Code(s): A41.02 - Sepsis due to Methicillin resistant Staphylococcus aureus Status: Acute - Plan 67-year-old male with history of P-16 positive squamous cell carcinoma of the base of the tongue admitted after MRI on 02/25/18 showed findings suspicious for inflammatory process at the T4-T5 level as well as a large paravertebral soft tissue mass/fluid collection. 1. Biopsy today by Dr. Sanchez. Keep patient n.p.o. until after procedure 2. Continue daptomycin for likely infectious process. 3. Continue supportive care. Potassium replacement per attending today.
[2018-02-26] MEDS ORDERED: fentaNYL Citrate Inj 250 MCG/5 ML Ampul ONE (13:47)
[2018-02-26] MEDS ORDERED: Lidocaine 1%/Epinephrine 1:100,000 Inj 20 ML Vial ONE (14:09)
--- NOTE | 2018-02-26 14:34 | ECG ---
Date Performed: 02/25/2018 Time Performed: 17:46:11 PTAGE: 67 years EKG: ATRIAL FIBRILLATION WITH ABERRANT CONDUCTION OR VENTRICULAR PREMATURE COMPLEXES Since previ ous tracing, no significant change noted ABNORMAL RHYTHM ECG PREVIOUS TRACING : 03/09/2016 15.33 DOCTOR: Keshav Membreno Interpretating Date/Time 02/26/2018 14:34:03
--- NOTE | 2018-02-26 15:39 | P.RAD ---
Post CT Procedure Prog Note - Pre Procedure Diagnosis (1) Epidural abscess - Post Procedure Diagnosis (1) Epidural abscess - Procedure Information Procedure Date: 02/26/18 Supervising Radiologist: Rom Sanchez MD Anesthesia: Conscious Sedation - Plan of Activity Patient to Unit: Nursing Unit Patient condition: Fair See PACS Report for procedural detail/treatment. Biopsy CT right Spine Specimen: Fluid Fluid Description: Purulent
--- NOTE | 2018-02-26 16:51 | P.CONNS ---
History of Present Illness Service: neurosurgery Consult date: 02/26/18 Requesting Physician: Anthony Lakhnai Reason for Consult: thoracic lesion Primary Care Provider: Gary Arriaza Family Provider: Gary Arriaza Chief Complaint: Severe back pain. History of Present Illness: This is a 67-year-old male with a history of ETOH abuse, pancreatitis, ETOH withdraw seizures, anxiety, atrial fibrillation, GERD, gout, hypertension, tobacco abuse, DVT, PE, hemorrhagic CVA and oropharyngeal squamous cell cancer s /p resection o0f the carcinoma with a modified radical neck dissection 09/2017 at [facility]. He recieved 2 doses of cisplatin and about 50% of his radiation when he was admitted to [place] for mrsa bacteremia. He had port removed also during this admission and seen by ID. He was given daptomycin and ultimately sent home with daptomycin and f/u. Pt has been unable to resume chemo or radiation due to general weakness. He gets most of his calories thourgh bolus tube feeding and all meds are though the peg. He has had persistent midback pain and now fever. He was seen by Dr Toledo last week and MRI ordered. The study shows a lesion at T4/5. He was given vanco and zosyn in ED. Neurosurgical consultation was requested Review of Systems All other systems reviewed negative except as stated in HPI PMFSH - History History Provided By: Patient, Significant Other - Medical History Medical History: Medical History (Last Reviewed 02/26/18 @ 16:37 by Per Lacy MD) Afib Alcohol withdrawal seizure Bloodstream infection due to Port-A-Cath DVT of upper extremity (deep vein thrombosis) Deep venous thrombosis of both lower extremities G tube feedings Gout Hearing impairment History of alcoholism Hypertension Infection due to Port-A-Cath MRSA (methicillin resistant Staphylococcus aureus) septicemia 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 Pulmonary emboli Squamous cell carcinoma of base of tongue Stroke Subdural hematoma - Surgical History Surgical History: Surgical History (Last Reviewed 02/26/18 @ 16:37 by Per Lacy MD) History of removal of Port-a-Cath History of tonsillectomy S/P percutaneous endoscopic gastrostomy (PEG) tube placement Status post neck dissection Status post partial glossectomy - Tobacco History Second Hand Smoke Exposure: No Tobacco Use In Past 30 Days: No Smoking Status: Former smoker Tobacco Type: Cigarettes - Alcohol History How Often Do You Have a Drink Containing Alcohol: Never - Substance Use History Substance History: No History of Abuse - Travel History Recent Travel in the [place] Within the Last 8 Weeks: No Recent Travel Out of the Country Within the Last 8 Weeks: No - Immunization History Tetanus Immunization: Unsure Hx Influenza Vaccine This Season: No Medications and Allergies Active Medications: Active Medications Allopurinol (Zyloprim) 300 mg G-TUBE DAILY [facility] Last Admin: 02/26/18 11:04 Dose: 300 mg Sodium Chloride (Ns Inj) 1,000 mls @ 84 mls/hr IV.CONT .[id number] [facility] Last Admin: 02/25/18 20:27 Dose: 84 mls/hr Daptomycin 700 mg/ Sodium (Chloride) 100 mls @ 200 mls/hr IV.SIG Q24H [facility] Last Admin: 02/26/18 11:31 Dose: 200 mls/hr Lorazepam (Ativan) 0.5 mg G-TUBE Q8H PRN PRN Reason: ANXIETY Last Admin: 02/26/18 12:10 Dose: 0.5 mg Metoprolol Tartrate (Lopressor) 100 mg G-TUBE BID [facility] Last Admin: 02/26/18 11:04 Dose: 100 mg Tramadol HCl (Ultram) 50 mg G-TUBE Q4H PRN PRN Reason: pain 3-10 Last Admin: 02/26/18 12:10 Dose: 50 mg Verapamil HCl (Isoptin) 40 mg G-TUBE Q8HR [facility] Last Admin: 02/26/18 14:18 Dose: 40 mg Allergies Allergy/AdvReac Type Severity Reaction Status Date / Time codeine Allergy Severe Itching Verified 02/25/18 17:42 doxycycline Allergy Severe Rash Verified 02/25/18 17:42 Home Medications Medication Instructions Recorded Confirmed Type allopurinol 300 mg FEEDING TUBE DAILY 02/25/18 02/25/18 History lorazepam 0.5 mg FEEDING TUBE DAILY 02/25/18 02/25/18 History metoprolol tartrate 100 mg FEEDING TUBE BID 02/25/18 02/25/18 History verapamil 40 mg FEEDING TUBE TID 02/25/18 02/25/18 History Exam Vital signs: Vital Signs 02/25/18 17:13 02/25/18 17:36 02/25/18 20:24 Temperature 97.2 F L Pulse Rate 83 92 H Respiratory Rate 22 16 Blood Pressure 126/77 127/78 Pulse Oximetry 99 98 99 02/25/18 21:36 02/25/18 23:17 02/26/18 00:00 Temperature 97.7 F 97.4 F L Pulse Rate 86 93 H Respiratory Rate 16 16 16 Blood Pressure 108/63 125/88 Pulse Oximetry 97 97 02/26/18 04:00 02/26/18 08:00 02/26/18 12:00 Temperature 98.4 F 98.1 F 97.9 F Pulse Rate 127 H 109 H 104 H Respiratory Rate 16 14 16 Blood Pressure 137/82 147/72 H 129/81 Pulse Oximetry 98 95 96 02/26/18 15:15 02/26/18 15:50 02/26/18 16:00 Temperature 98.6 F Pulse Rate 109 H 104 H 102 H Respiratory Rate 16 16 Blood Pressure 132/75 141/82 H 140/81 Pulse Oximetry 96 94 L 98 Intake & Output 02/25/18 02/26/18 02/26/18 18:59 06:59 18:59 Intake Total 100 / 100 350 / 350 Output Total 1000 / 1000 Balance 100 / 100 -650 / -650 Weight 81.647 kg 189 kg Intake: IV 100 / 100 350 / 350 Ofirmev Inj 1,000 mg In 100 ml 100 / 100 @ 400 mls/hr IV.SIG ONCE ONE Rx #:[id number] Zosyn 4.5 GM Premix 4.5 gm In 100 / 100 100 ml @ 200 mls/hr IV.SIG STAT STA Rx#:[id number] Vancomycin Inj 1,000 MG In NS 250 / 250 Inj 250 ML @ 250 mls/hr IV.SIG STAT STA Rx#:[id number] Output: Urine 1000 / 1000 Other: Date of Last Bowel Movement 02/25/18 Weight On Admission 81.647 kg Narrative: The patient is alert, awake. Comfortable, in no acute distress. Speech is fluent. Cranial nerve examination: pupils to be equal, round and reactive to light. Extra-ocular movements are intact. Facial motor and sensory function are normal and symmetrical. Gross hearing appears intact. Sternocleidomastoid and trapezius muscles are symmetrical. Other cranial nerves are intact. Neck is soft and supple with a good range of motion without pain. Muscle strength is normal in all muscle groups of both upper and lower extremities. Sensory examination is intact to light touch and pin prick in both the upper and lower extremities. Deep tendon reflexes are symmetrical in both upper and lower extremities. There is a bilateral plantar flexion response. Cerebellar examination is unremarkable, without deficits. Lungs are clear Heart regular rhythm is regular rate Skin warm and dry Results - Laboratory Findings CBC and BMP: 02/26/18 07:26 02/26/18 07:26 Abnormal lab findings: Abnormal Labs 02/25/18 02/25/18 02/25/18 17:40 17:40 17:40 RBC 3.24 L Hgb 9.5 L Hct 29.1 L Neut % (Auto) 80.3 H Lymph % (Auto) 6.4 L [place] % (Auto) 12.4 H Lymph # (Auto) 0.4 L PT 11.9 H Potassium Chloride 108 H BUN 21 H Creatinine Calcium 8.4 L Total Creatine Kinase Albumin 2.7 L Urine Urobilinogen 02/25/18 02/26/18 02/26/18 20:30 07:26 07:26 RBC 3.02 L Hgb 8.7 L Hct 26.7 L Neut % (Auto) 83.5 H Lymph % (Auto) 5.7 L [place] % (Auto) 9.2 H Lymph # (Auto) 0.4 L PT Potassium 3.2 L Chloride 110 H BUN Creatinine 0.57 L Calcium 8.1 L Total Creatine Kinase 9 L Albumin Urine Urobilinogen 2.0 H Assessment and Plan - Plan Mr. España is a 67-year-old man with multiple medical comorbid conditions, from a hematologic standpoint he has a history of bilateral upper and lower extremity deep venous thromboses and pulmonary emboli, these were diagnosed in the setting of sepsis and critical illness several years ago. He was treated with anticoagulation however while on anticoagulation he developed subdural hematomas which necessitated discontinuation of anticoagulation. I reviewed his radiological studies including his MRI. MRI findings were suspicious for inflammatory process at the T4-T5 level with epidural component causing cord impingement as well as a large paravertebral soft tissue mass/ fluid collection. The likely differential diagnosis was inflammatory change, malignant process was the other consideration. He was was fpc through his radiation treatment when he developed MRSA bacteremia, acute kidney failure and was hospitalized. Radiation therapy could not be resumed after that and he still has half of the prescribed radiation fractions remaining. Neuro: neuro checks in a serial fashion. MRI shows grossly abnormal findings centered at the T4-T5 vertebral bodies. Findings consistent with suspicious mass/inflammatory process with epidural soft tissue prominence. Primary concern was for an epidural abscess, secondary differential would be that of malignant process. I recommend start empiric antibiotic therapy for MRSA coverage, daptomycin Blood cultures have already been ordered. Infectious diseases consult requested. Consult interventional radiology evaluation for CT-guided aspiration/biopsy. Pulmonary: aggressive pulmonary toilette, nasotracheal suction, and breathing treatments with nebulizers. Daily PT and OT Renal: Continue to monitor closely urine output, BUN and creatinine Endocrine: Continue to Monitor serial Acu checks and SSI as needed in detail ID continue to monitor for signs of infection Continue Protonix for stress ulcer prophylaxis Continue Musa hose and SCD's for DVT prophylaxis Further recommendations will be provided depending on the patient's clinical evaluation and follow up studies. Caprini VTE Risk Assessment Caprini VTE Risk Assessment: Moderate/High Risk (score >= 2) Caprini Risk Assessment Model: Point Value = 1 Point Value = 2 Point Value = 3 Point Value = 5 Age 41-60 Minor surgery BMI > 25 kg/m2 Swollen legs Varicose veins or History of unexplained or recurrent spontaneous Oral contraceptives or hormone replacement Sepsis (< 1 month) Serious lung disease, including pneumonia (< 1 month) Abnormal pulmonary function Acute myocardial infarction Congestive heart failure (< 1 month) History of inflammatory bowel disease Medical patient at bed rest Age 61-74 Arthroscopic surgery Major open surgery (> 45 min) Laparoscopic surgery (> 45 min) Malignancy Confined to bed (> 72 hours) Immobilizing plaster cast Central venous access Age >= 75 History of VTE Family history of VTE Factor V Leiden Prothrombin [id number] Lupus anticoagulant Anticardiolipin antibodies Elevated serum homocysteine Heparin-induced thrombocytopenia Other congenital or acquired thrombophilia Stroke (< 1 month) Elective arthroplasty Hip, pelvis, or leg fracture Acute spinal cord injury (< 1 month) Prophylaxis Regimen: Total Risk Factor Score Risk Level Prophylaxis Regimen 0-1 Low Early ambulation 2 Moderate Order ONE of the following: *Sequential Compression Device (SCD) *Heparin 5000 units SQ BID 3-4 Higher Order ONE of the following medications: *Heparin 5000 units SQ TID *Enoxaparin/Lovenox 40 mg SQ daily (WT < 150 kg, CrCl > 30 mL/min) *Enoxaparin/Lovenox 30 mg SQ daily (WT < 150 kg, CrCl > 10-29 mL/min) *Enoxaparin/Lovenox 30 mg SQ BID (WT < 150 kg, CrCl > 30 mL/min) AND/OR *Sequential Compression Device (SCD) 5 or more Highest Order ONE of the following medications: *Heparin 5000 units SQ TID (Preferred with Epidurals) *Enoxaparin/Lovenox 40 mg SQ daily (WT < 150 kg, CrCl > 30 mL/min) *Enoxaparin/Lovenox 30 mg SQ daily (WT < 150 kg, CrCl > 10-29 mL/min) *Enoxaparin/Lovenox 30 mg SQ BID (WT < 150 kg, CrCl > 30 mL/min) AND *Sequential Compression Device (SCD)
[2018-02-26] MEDS ORDERED: Sod Chloride 0.9% Inj 1,000 ML IV.CONT SCH (21:00)
[2018-02-27 07:11] LABS: Baso % (Auto) 0.6 % (0.0-2.0); Eos # (Auto) 0.1 th/mm3 (0.0-0.4); Eos % (Auto) 1.4 % (0.0-4.0); Hemoglobin 9.4 gm/dL (13.0-17.0); Lymph # (Auto) 0.7 th/mm3 (1.0-4.8); Lymph % (Auto) 12.4 % (9.0-44.0); Mean Corpuscular HGB Conc 32.3 % (32.0-36.0); Mean Corpuscular Hemoglobin 28.8 pg (27.0-34.0); Mean Corpuscular Volume 89.2 fL (80.0-100.0); Mean Platelet Volume 8.7 fL (7.0-11.0); Mono # (Auto) 0.7 th/mm3 (0.0-0.9); Mono % (Auto) 12.3 % (0.0-8.0); Neut # (Auto) 4.4 th/mm3 (1.8-7.7); Neut % (Auto) 73.3 % (16.0-70.0); Platelet Count 234 th/mm3 (150-450); Red Blood Count 3.25 mil/mm3 (4.50-5.90); Red Cell Distribution Width 15.5 % (11.6-17.2)
[2018-02-27 07:29] LABS: Anion Gap 9 meq/L (5-15); Blood Urea Nitrogen 11 mg/dL (7-18); Calcium 8.4 mg/dL (8.5-10.1); Carbon Dioxide 25.5 meq/L (21.0-32.0); Chloride 107 meq/L (98-107); Glomerular Filtration Rate Greater Than 89 mL/min (>89); Glucose,Random 79 mg/dL (74-106); Potassium 3.3 meq/L (3.5-5.1); Sodium 141 meq/L (136-145)
[2018-02-27] MEDS ORDERED: Potassium Chloride 25 MEQ Effervescent Tablet G-TUBE ONE (09:04)
--- NOTE | 2018-02-27 09:04 | P.PNIM ---
Subjective Interval history: pt doing ok. pain controlled. Physical Exam Vital signs: Vital Signs 02/26/18 12:00 02/26/18 15:15 02/26/18 15:50 Temperature 97.9 F 98.6 F Pulse Rate 86 109 H 104 H Respiratory Rate 16 16 Blood Pressure 129/81 132/75 141/82 H Pulse Oximetry 96 96 96 02/26/18 16:00 02/26/18 16:15 02/26/18 16:30 Temperature 97.9 F Pulse Rate 119 H 99 H 100 H Respiratory Rate 14 15 16 Blood Pressure 172/109 H 132/75 138/79 Pulse Oximetry 97 95 95 02/26/18 16:45 02/26/18 16:55 02/26/18 19:46 Temperature 98.4 F Pulse Rate 107 H 98 H 126 H Respiratory Rate 16 16 Blood Pressure 133/72 130/82 Pulse Oximetry 94 L 95 02/26/18 20:00 02/26/18 23:50 02/27/18 00:00 Temperature 98 F 97.9 F Pulse Rate 110 H 102 H 105 H Respiratory Rate 19 20 Blood Pressure 150/90 H 145/88 H Pulse Oximetry 97 98 02/27/18 04:00 Temperature 98.7 F Pulse Rate 100 H Respiratory Rate 20 Blood Pressure 130/89 Pulse Oximetry 98 Intake & Output 02/26/18 02/27/18 02/27/18 18:59 06:59 18:59 Intake Total 580 / 580 Output Total 1450 / 1450 Balance -870 / -870 Weight 189 kg Intake: IV 100 / 100 Cubicin Inj 700 MG In NS Inj 100 / 100 100 ML @ 200 mls/hr IV.SIG Q24H [facility] Rx#:[id number] Oral 480 / 480 Output: Urine 1450 / 1450 Other: # Bowel Movements 1 nad heart reg lung cta abd s/nt peg ext no edema Results - Labs CBC & Chem 7: 02/27/18 06:26 02/27/18 06:26 Laboratory Results - last 24 hr 02/26/18 02/26/18 02/26/18 07:26 07:26 15:57 WBC 7.5 RBC 3.02 L Hgb 8.7 L Hct 26.7 L MCV 88.7 MCH 29.0 MCHC 32.7 RDW 15.7 Plt Count 224 MPV 8.7 Neut % (Auto) 83.5 H Lymph % (Auto) 5.7 L [place]bert % (Auto) 9.2 H Eos % (Auto) 1.1 Baso % (Auto) 0.5 Neut # (Auto) 6.3 Lymph # (Auto) 0.4 L [place] # (Auto) 0.7 Eos # (Auto) 0.1 Baso # (Auto) 0.0 WBC Differential . Differential Comment Auto diff final Sodium 143 Potassium 3.2 L Chloride 110 H Carbon Dioxide 25.7 Anion Gap 7 BUN 15 Creatinine 0.57 L Estimated GFR Greater than 89 POC Glucose 86 Random Glucose 84 Calcium 8.1 L Total Creatine Kinase 9 L 02/27/18 02/27/18 06:26 06:26 WBC 6.0 RBC 3.25 L Hgb 9.4 L Hct 29.0 L MCV 89.2 MCH 28.8 MCHC 32.3 RDW 15.5 Plt Count 234 MPV 8.7 Neut % (Auto) 73.3 H Lymph % (Auto) 12.4 [place] % (Auto) 12.3 H Eos % (Auto) 1.4 Baso % (Auto) 0.6 Neut # (Auto) 4.4 Lymph # (Auto) 0.7 L [place] # (Auto) 0.7 Eos # (Auto) 0.1 Baso # (Auto) 0.0 WBC Differential . Differential Comment Auto diff final Sodium 141 Potassium 3.3 L Chloride 107 Carbon Dioxide 25.5 Anion Gap 9 BUN 11 Creatinine 0.60 Estimated GFR Greater than 89 POC Glucose Random Glucose 79 Calcium 8.4 L Total Creatine Kinase Microbiology 02/26/18 15:35 Fluid - Other Gram Stain - Final 02/25/18 17:40 Blood - Peripheral Aerobic Blood Culture - Preliminary No growth in 1 day 02/25/18 17:40 Blood - Peripheral Anaerobic Blood Culture - Preliminary gram positive cocci 02/25/18 17:35 Blood - Peripheral Aerobic Blood Culture - Preliminary No growth in 1 day 02/25/18 17:35 Blood - Peripheral Anaerobic Blood Culture - Preliminary No growth in 1 day Assessment and Plan - Assessment (1) Epidural abscess Code(s): G06.2 - Extradural and subdural abscess, unspecified Status: Acute Plan: 1. SCC oropharyngeal. mod radical neck dissection [place] 09/19 Pt was initiated on cisplatin but after second treatment stopped due to infection Pt has only completed about 50percent of his radiation treatment Pt was admitted in November and had persistent positive blood cx for MRSA. infusaport infection s/p removal Pt given picc and iv daptomycin through 12/30 2. Epidural abscess at t4/[address] Toledo last week with persistent mid back pain. MRI concerning for t4/[address] Toledo discussed with Dr Regino gunderson and me. Will resume daptomycin and get ID consult. ED gave vanco and zosyn Discussed with ID. I called and discussed with Dr Sanchez who will proceed with bx of t4/5 disc and aspiration of ?adjacent abscess 02/26 Pt had aspiration of fluid on 02/26 with gs/cx pending blood cx's with / gpc so far. discussed with Dr Lacy . might have endocarditis. ID following. prn pain control dc ivf. resume bolus tf's 3. afib. controlled cont verapamil and metoprolol in peg. no anticoagulation..poor candidate
--- NOTE | 2018-02-27 09:48 | P.DIET ---
Nutritional Evaluation Type of nutrition evaluation: initial Nutrition consult regarding: Tube Feeding Objective - Diagnosis Sepsis - Objective [place] body weight: 160 kg % IBW: 112 Body Weight Used for Calculations: Actual (81.2kg) Energy Needs - Lower Range (kCal/kg): 28 Energy Needs - Upper Range (kCal/kg): 33 Lower Limit kCal/kg (kCals): 2,274 Upper Limit kCal/kg (kCals): 2,680 Lower Limit Protein Factor (Grams per Kg): 1.2 Upper Limit Protein Factor (Grams per Kg): 1.5 Lower Protein Needs (Protein): 97 Upper Protein Needs (Protein): 122 Fluid Factor (ml/kg): 30 Estimated Fluid Needs (ml): 2,436 Dietitian Reviewed in Medical Record: Current diet, Curent medications, Intake & Output, Labs, Medical history, Tube feeding Diet Order: TF and CL diet Objective Comments: PMH: ETOH abuse, pancreatitis, ETOH withdraw seizures, anxiety, atrial fibrillation, GERD, gout, hypertension, tobacco abuse, DVT, PE, hemorrhagic CVA and oropharyngeal squamous cell cancer s/p resection with modified radical neck dissection 09/2017 at [facility]. Labs include: Hgb 9.4, Hct 29.0, K+ 3.3 UOP: 1450, +1 BM Assessment Assessment: Pt at nutritional risk r/t dx. Pt with oropharyngeal CA s/p resection jail through chemo and radiation treatments when he had to stop r/t mrsa bacteremia and overall weakness. Pt presents with PEG tube where he gets most of his nutrition. Nutritional needs as assessed above. TF Jevity 1.5 with goal rate of 65 ml/hr will provide 2340 kcals, 100 gms protein and 1186 mls free water. This is adequate to meet pt's nutritional needs at this time. Will monitor clinical course. Recommendations: TF Jevity 1.5 with goal rate 65 ml/hr Dietitian to Monitor: Lab values, Intake & Output, Tube feeding tolerance, Weight change, Medical course
[2018-02-27] MEDS: DAPTOmycin Inj 700 MG in Sodium Chlor 0.9% Inj 100 ML IV.SIG SCH (10:06)
[2018-02-27] MEDS: Allopurinol 300 MG Tablet G-TUBE SCH (10:07)
[2018-02-27] MEDS: Metoprolol Tartrate 100 MG Tablet G-TUBE SCH ×2 (10:08→23:48)
--- NOTE | 2018-02-27 10:15 | P.PNID ---
Subjective Remarks: Patient is a 67-year-old man, admitted to the hospital for further management of his worsening upper back pain. Patient's last hospitalization was back in November and at that time he had high-grade MRSA bacteremia. He had blood cultures from December 11, and December 13 that were positive for MRSA. His Zjahnl-y-Tjaf was removed at that time, however the port was not sent for culture. Patient received IV Cubicin until December 30. He developed acute renal insufficiency due to vancomycin, and that is why he was switched over to daptomycin. According to the patient during that hospitalization he has complained of upper back pain. The pain persisted when he was discharged, and he stated about 3 weeks ago he had a CAT scan of his spine. Because of the persistent pain he had an MRI done February 25, and it showed findings suspicious for inflammatory process at T4-T5 level with an epidural component causing cord impingement, and there is a large paravertebral soft tissue mass/fluid collection. Patient was therefore admitted to the hospital for further evaluation and treatment. He has had some night sweats. Denies any respiratory complaint. No nausea or vomiting. Since admission his temperatures have been documented to be normal. His WBC is normal. Patient has known head and neck cancer, and has had surgery for it back in September. He has received some chemo and radiation, but due to his recent problems they have not been completed. Infectious disease consultation has been requested to evaluate the patient Notes reviewed Temps ok C/O back pain Had aspiration of fluid yesterday - purulent fluid C/S pending One BC with [facility] Antibiotics: Cubicin Lines: PIV no evidence of infection Past Medical History: Afib Alcohol withdrawal seizure Bloodstream infection due to Port-A-Cath DVT of upper extremity (deep vein thrombosis) Deep venous thrombosis of both lower extremities G tube feedings Gout Hearing impairment History of alcoholism Hypertension Infection due to Port-A-Cath MRSA (methicillin resistant Staphylococcus aureus) septicemia 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 Pulmonary emboli Squamous cell carcinoma of base of tongue Stroke Subdural hematoma History of removal of Port-a-Cath History of tonsillectomy S/P percutaneous endoscopic gastrostomy (PEG) tube placement Status post neck dissection Status post partial glossectomy Allergies/Adverse Reactions: Allergies codeine Allergy (Severe, Verified 02/25/18 17:42) Itching doxycycline Allergy (Severe, Verified 02/25/18 17:42) Rash Objective Vital Signs 02/26/18 12:00 02/26/18 15:15 02/26/18 15:50 Temperature 97.9 F 98.6 F Pulse Rate 86 109 H 104 H Respiratory Rate 16 16 Blood Pressure 129/81 132/75 141/82 H Pulse Oximetry 96 96 96 02/26/18 16:00 02/26/18 16:15 02/26/18 16:30 Temperature 97.9 F Pulse Rate 119 H 99 H 100 H Respiratory Rate 14 15 16 Blood Pressure 172/109 H 132/75 138/79 Pulse Oximetry 97 95 95 02/26/18 16:45 02/26/18 16:55 02/26/18 19:46 Temperature 98.4 F Pulse Rate 107 H 98 H 126 H Respiratory Rate 16 16 Blood Pressure 133/72 130/82 Pulse Oximetry 94 L 95 02/26/18 20:00 02/26/18 23:50 02/27/18 00:00 Temperature 98 F 97.9 F Pulse Rate 110 H 102 H 105 H Respiratory Rate 19 20 Blood Pressure 150/90 H 145/88 H Pulse Oximetry 97 98 02/27/18 04:00 Temperature 98.7 F Pulse Rate 100 H Respiratory Rate 20 Blood Pressure 130/89 Pulse Oximetry 98 Intake & Output 02/26/18 02/27/18 02/27/18 18:59 06:59 18:59 Intake Total 580 / 580 Output Total 1450 / 1450 Balance -870 / -870 Weight 189 kg Intake: IV 100 / 100 Cubicin Inj 700 MG In NS Inj 100 / 100 100 ML @ 200 mls/hr IV.SIG Q24H BRINA Rx#:[id number] Oral 480 / 480 Output: Urine 1450 / 1450 Other: # Bowel Movements 1 02/25/18 17:40 Blood - Peripheral Aerobic Blood Culture - Preliminary No growth in 1 day 02/25/18 17:40 Blood - Peripheral Anaerobic Blood Culture - Preliminary S. aureus MRSA 02/26/18 15:35 Fluid - Other Gram Stain - Final 02/25/18 17:35 Blood - Peripheral Aerobic Blood Culture - Preliminary No growth in 1 day 02/25/18 17:35 Blood - Peripheral Anaerobic Blood Culture - Preliminary No growth in 1 day Lab - Hematology Results 02/25/18 02/26/18 02/27/18 17:40 07:26 06:26 WBC 6.8 7.5 6.0 RBC 3.24 L 3.02 L 3.25 L Hgb 9.5 L 8.7 L 9.4 L Hct 29.1 L 26.7 L 29.0 L MCV 89.7 88.7 89.2 MCH 29.2 29.0 28.8 MCHC 32.6 32.7 32.3 RDW 15.8 15.7 15.5 Plt Count 250 224 234 MPV 8.6 8.7 8.7 Neut % (Auto) 80.3 H 83.5 H 73.3 H Lymph % (Auto) 6.4 L 5.7 L 12.4 [place] % (Auto) 12.4 H 9.2 H 12.3 H Eos % (Auto) 0.4 1.1 1.4 Baso % (Auto) 0.5 0.5 0.6 Neut # (Auto) 5.4 6.3 4.4 Lymph # (Auto) 0.4 L 0.4 L 0.7 L [place]ison # (Auto) 0.8 0.7 0.7 Eos # (Auto) 0.0 0.1 0.1 Baso # (Auto) 0.0 0.0 0.0 WBC Differential . . . Differential Comment Auto diff final Auto diff final Auto diff final Lab - Chemistry Results 02/25/18 02/25/18 02/26/18 17:40 17:40 07:26 Sodium 142 143 Potassium 3.8 3.2 L Chloride 108 H 110 H Carbon Dioxide 28.1 25.7 Anion Gap 6 7 BUN 21 H 15 Creatinine 0.72 0.57 L Estimated GFR Greater than 89 Greater than 89 POC Glucose Random Glucose 102 84 Lactic Acid 1.1 Calcium 8.4 L 8.1 L Total Bilirubin 0.3 AST 25 ALT 57 Alkaline Phosphatase 94 Total Creatine Kinase 9 L Total Protein 6.8 Albumin 2.7 L 02/26/18 02/27/18 15:57 06:26 Sodium 141 Potassium 3.3 L Chloride 107 Carbon Dioxide 25.5 Anion Gap 9 BUN 11 Creatinine 0.60 Estimated GFR Greater than 89 POC Glucose 86 Random Glucose 79 Lactic Acid Calcium 8.4 L Total Bilirubin AST ALT Alkaline Phosphatase Total Creatine Kinase Total Protein Albumin Imaging: ITS Impressions Chest X-Ray 02/25/18 17:36 CONCLUSION: No acute cardiopulmonary process. Physical Exam: GENERAL: awake and alert, not in respiratory distress. SKIN: Warm and moist. No generalized rash, no ecchymoses and no evidence of embolic lesions. HEAD: Atraumatic. Normocephalic. No temporal wasting, or tenderness. EYES: [place] conjunctiva. No petechia or hemorrhage. Pupils equal, round and reactive to light. Extraocular movements full and intact. No scleral icterus. No injection or drainage. EARS, NOSE AND THROAT: Nose without bleeding or purulent nasal discharge. No sinus tenderness. Mucous membranes dry. NECK: Supple and not tender, no meningeal signs. Has scars C/W surgical history CARDIOVASCULAR: Regular rate and rhythm. No murmurs, rubs or gallops heard RESPIRATORY: Clear to auscultation. Breath sounds equal bilaterally. No rales , wheezing or rhonchi ABDOMEN: Soft, non-tender, nondistended. Bowel sounds present and normoactive. No guarding. No rebound. No organomegaly. EXTREMITIES: No clubbing, cyanosis, or edema.No joint effusion, has good ROM. No calf tenderness. Well perfused and warm. BACK: Has a mild deformity in thoracic spine, no change, and it is less tender below this deformity, no skin changes noted NEUROLOGICAL: Awake and alert. Cranial nerves grossly intact. Motor grossly within normal limits. PSYCHIATRIC: Normal affect, calm and cooperative. 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
--- NOTE | 2018-02-27 12:18 | P.PNNS ---
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 He recieved 2 doses of cisplatin and about 50% of his radiation when he was admitted to [place] for mrsa bacteremia. He had port removed also during this admission and seen by ID. He was given daptomycin and ultimately sent home with daptomycin and f/u. Pt has been unable to resume chemo or radiation due to general weakness. He gets most of his calories thourgh bolus tube feeding and all meds are though the peg. He has had persistent midback pain and now fever. He was seen by Dr Toledo last week and MRI ordered. The study shows a lesion at T4/5. He was given vanco and zosyn in ED. Neurosurgical consultation was requested 02/27: s/p CT guided biopsy of lesion <Kiersten Dumas - Last Filed: 02/27/18 12:17> Physical Exam Vital signs: Vital Signs 02/26/18 15:15 02/26/18 15:50 02/26/18 16:00 Temperature 98.6 F 97.9 F Pulse Rate 109 H 104 H 119 H Respiratory Rate 16 14 Blood Pressure 132/75 141/82 H 172/109 H Pulse Oximetry 96 96 97 02/26/18 16:15 02/26/18 16:30 02/26/18 16:45 Temperature Pulse Rate 99 H 100 H 107 H Respiratory Rate 15 16 16 Blood Pressure 132/75 138/79 133/72 Pulse Oximetry 95 95 94 L 02/26/18 16:55 02/26/18 19:46 02/26/18 20:00 Temperature 98.4 F 98 F Pulse Rate 98 H 126 H 110 H Respiratory Rate 16 19 Blood Pressure 130/82 150/90 H Pulse Oximetry 95 97 02/26/18 23:50 02/27/18 00:00 02/27/18 04:00 Temperature 97.9 F 98.7 F Pulse Rate 102 H 105 H 100 H Respiratory Rate 20 20 Blood Pressure 145/88 H 130/89 Pulse Oximetry 98 98 02/27/18 08:00 Temperature 97.6 F Pulse Rate 105 H Respiratory Rate 16 Blood Pressure 136/80 Pulse Oximetry 98 Intake & Output 02/26/18 02/27/18 02/27/18 18:59 06:59 18:59 Intake Total 580 / 580 Output Total 1450 / 1450 Balance -870 / -870 Weight 189 kg 82 kg Intake: IV 100 / 100 Cubicin Inj 700 MG In NS Inj 100 / 100 100 ML @ 200 mls/hr IV.SIG Q24H BRINA Rx#:[id number] Oral 480 / 480 Output: Urine 1450 / 1450 Other: # Bowel Movements 1 - Constitutional no acute distress - Routine HEENT Exam Head: Present: normocephalic, atraumatic <Kiersten Dumas - Last Filed: 02/27/18 12:17> Vital signs: Vital Signs 02/26/18 16:15 02/26/18 16:30 02/26/18 16:45 Temperature Pulse Rate 99 H 100 H 107 H Respiratory Rate 15 16 16 Blood Pressure 132/75 138/79 133/72 Pulse Oximetry 95 95 94 L 02/26/18 16:55 02/26/18 19:46 02/26/18 20:00 Temperature 98.4 F 98 F Pulse Rate 98 H 126 H 110 H Respiratory Rate 16 19 Blood Pressure 130/82 150/90 H Pulse Oximetry 95 97 02/26/18 23:50 02/27/18 00:00 02/27/18 04:00 Temperature 97.9 F 98.7 F Pulse Rate 102 H 105 H 100 H Respiratory Rate 20 20 Blood Pressure 145/88 H 130/89 Pulse Oximetry 98 98 02/27/18 08:00 02/27/18 12:00 Temperature 97.6 F 98.3 F Pulse Rate 115 H 108 H Respiratory Rate 16 14 Blood Pressure 136/80 113/79 Pulse Oximetry 98 98 Intake & Output 02/26/18 02/27/18 02/27/18 18:59 06:59 18:59 Intake Total 580 / 580 Output Total 1450 / 1450 Balance -870 / -870 Weight 189 kg 82 kg Intake: IV 100 / 100 Cubicin Inj 700 MG In NS Inj 100 / 100 100 ML @ 200 mls/hr IV.SIG Q24H BRINA Rx#:[id number] Oral 480 / 480 Output: Urine 1450 / 1450 Other: Date of Last Bowel Movement 02/25/18 # Bowel Movements 1 Narrative: Mr España is alert, awake. Comfortable, in no acute distress. Speech is fluent. Cranial nerve examination: pupils to be equal, round and reactive to light. Extra-ocular movements are intact. Facial motor and sensory function are normal and symmetrical. Gross hearing appears intact. Sternocleidomastoid and trapezius muscles are symmetrical. Other cranial nerves are intact. Neck is soft and supple with a good range of motion without pain. Muscle strength is normal in all muscle groups of both upper and lower extremities. Sensory examination is intact to light touch and pin prick in both the upper and lower extremities. Deep tendon reflexes are symmetrical in both upper and lower extremities. There is a bilateral plantar flexion response. Cerebellar examination is unremarkable, without deficits. Lungs are clear Heart regular rhythm is regular rate Skin warm and dry <Per Lacy - Last Filed: 02/27/18 16:07> Assessment and Plan - Plan Mr. España is a 67-year-old man with multiple medical comorbid conditions, from a hematologic standpoint he has a history of bilateral upper and lower extremity deep venous thromboses and pulmonary emboli, these were diagnosed in the setting of sepsis and critical illness several years ago. He was treated with anticoagulation however while on anticoagulation he developed subdural hematomas which necessitated discontinuation of anticoagulation. I reviewed his radiological studies including his MRI. MRI findings were suspicious for inflammatory process at the T4-T5 level with epidural component causing cord impingement as well as a large paravertebral soft tissue mass/ fluid collection. The likely differential diagnosis was inflammatory change, malignant process was the other consideration. He was was fdc through his radiation treatment when he developed MRSA bacteremia, acute kidney failure and was hospitalized. Radiation therapy could not be resumed after that and he still has half of the prescribed radiation fractions remaining. Neuro: neuro checks in a serial fashion. MRI shows grossly abnormal findings centered at the T4-T5 vertebral bodies. Findings consistent with suspicious mass/inflammatory process with epidural soft tissue prominence. Primary concern was for an epidural abscess, secondary differential would be that of malignant process. I recommend start empiric antibiotic therapy for MRSA coverage, daptomycin Blood cultures have already been ordered. Infectious diseases consult requested. s/p CT-guided aspiration/biopsy, follow up results. Pulmonary: aggressive pulmonary toilette, nasotracheal suction, and breathing treatments with nebulizers. Daily PT and OT Renal: Continue to monitor closely urine output, BUN and creatinine Endocrine: Continue to Monitor serial Acu checks and SSI as needed in detail ID continue to monitor for signs of infection Continue Protonix for stress ulcer prophylaxis Continue Musa hose and SCD's for DVT prophylaxis <Kiersten Dumas - Last Filed: 02/27/18 12:17> - Plan Status post CT-guided aspiration and biopsy. Results are pending Continue neuro checks in a serial fashion. MRI shows grossly abnormal findings centered at the T4-T5 vertebral bodies. Findings consistent with suspicious mass/inflammatory process with epidural soft tissue prominence. Primary concern was for an epidural abscess, secondary differential would be that of malignant process. I recommend start empiric antibiotic therapy for MRSA coverage, daptomycin Blood cultures have already been ordered. Infectious diseases consult requested. Consult interventional radiology evaluation for CT-guided aspiration/biopsy. Pulmonary: aggressive pulmonary toilette, nasotracheal suction, and breathing treatments with nebulizers. Daily PT and OT Renal: Continue to monitor closely urine output, BUN and creatinine Endocrine: Continue to Monitor serial Acu checks and SSI as needed in detail ID continue to monitor for signs of infection Continue Protonix for stress ulcer prophylaxis Continue Musa hose and SCD's for DVT prophylaxis Further recommendations will be provided depending on the patient's clinical evaluation and follow up studies. Caprini VTE Risk Assessment Caprini VTE Risk Assessment: Moderate/High Risk (score >= 2) Caprini Risk Assessment Model: Point Value = 1 Point Value = 2 Point Value = 3 Point Value = 5 Age 41-60 Minor surgery BMI > 25 kg/m2 Swollen legs Varicose veins or History of unexplained or recurrent spontaneous Oral contraceptives or hormone replacement Sepsis (< 1 month) Serious lung disease, including pneumonia (< 1 month) Abnormal pulmonary function Acute myocardial infarction Congestive heart failure (< 1 month) History of inflammatory bowel disease Medical patient at bed rest Age 61-74 Arthroscopic surgery Major open surgery (> 45 min) Laparoscopic surgery (> 45 min) Malignancy Confined to bed (> 72 hours) Immobilizing plaster cast Central venous access Age >= 75 History of VTE Family history of VTE Factor V Leiden Prothrombin [id number] Lupus anticoagulant Anticardiolipin antibodies Elevated serum homocysteine Heparin-induced thrombocytopenia Other congenital or acquired thrombophilia Stroke (< 1 month) Elective arthroplasty Hip, pelvis, or leg fracture Acute spinal cord injury (< 1 month) Prophylaxis Regimen: Total Risk Factor Score Risk Level Prophylaxis Regimen 0-1 Low Early ambulation 2 Moderate Order ONE of the following: *Sequential Compression Device (SCD) *Heparin 5000 units SQ BID 3-4 Higher Order ONE of the following medications: *Heparin 5000 units SQ TID *Enoxaparin/Lovenox 40 mg SQ daily (WT < 150 kg, CrCl > 30 mL/min) *Enoxaparin/Lovenox 30 mg SQ daily (WT < 150 kg, CrCl > 10-29 mL/min) *Enoxaparin/Lovenox 30 mg SQ BID (WT < 150 kg, CrCl > 30 mL/min) AND/OR *Sequential Compression Device (SCD) 5 or more Highest Order ONE of the following medications: *Heparin 5000 units SQ TID (Preferred with Epidurals) *Enoxaparin/Lovenox 40 mg SQ daily (WT < 150 kg, CrCl > 30 mL/min) *Enoxaparin/Lovenox 30 mg SQ daily (WT < 150 kg, CrCl > 10-29 mL/min) *Enoxaparin/Lovenox 30 mg SQ BID (WT < 150 kg, CrCl > 30 mL/min) AND *Sequential Compression Device (SCD) The exam, history, and the medical decision-making described in the above note were completed with the assistance of the mid-level provider. I reviewed and agree with the findings presented. I attest that I had a [id number] encounter with the patient on the same day, and personally performed and documented my assessment and findings in the medical record. <Per Lacy - Last Filed: 02/27/18 16:07>
[2018-02-28] MEDS: Metoprolol Tartrate 100 MG Tablet G-TUBE SCH ×2 (08:13→20:24)
[2018-02-28] MEDS: Allopurinol 300 MG Tablet G-TUBE SCH (08:13)
[2018-02-28] MEDS: LORazepam 0.5 MG Tablet G-TUBE PRN ×2 (08:14→20:25)
--- NOTE | 2018-02-28 09:41 | P.PNID ---
Subjective Remarks: Patient is a 67-year-old man, admitted to the hospital for further management of his worsening upper back pain. Patient's last hospitalization was back in November and at that time he had high-grade MRSA bacteremia. He had blood cultures from December 11, and December 13 that were positive for MRSA. His Izhzah-t-Wuxw was removed at that time, however the port was not sent for culture. Patient received IV Cubicin until December 30. He developed acute renal insufficiency due to vancomycin, and that is why he was switched over to daptomycin. According to the patient during that hospitalization he has complained of upper back pain. The pain persisted when he was discharged, and he stated about 3 weeks ago he had a CAT scan of his spine. Because of the persistent pain he had an MRI done February 25, and it showed findings suspicious for inflammatory process at T4-T5 level with an epidural component causing cord impingement, and there is a large paravertebral soft tissue mass/fluid collection. Patient was therefore admitted to the hospital for further evaluation and treatment. He has had some night sweats. Denies any respiratory complaint. No nausea or vomiting. Since admission his temperatures have been documented to be normal. His WBC is normal. Patient has known head and neck cancer, and has had surgery for it back in September. He has received some chemo and radiation, but due to his recent problems they have not been completed. Infectious disease consultation has been requested to evaluate the patient Notes reviewed [place] ok C/O back pain Had aspiration of fluid - purulent fluid, C/S pending One BC with MRSA Antibiotics: Cubicin Lines: PIV no evidence of infection Past Medical History: Afib Alcohol withdrawal seizure Bloodstream infection due to Port-A-Cath DVT of upper extremity (deep vein thrombosis) Deep venous thrombosis of both lower extremities G tube feedings Gout Hearing impairment History of alcoholism Hypertension Infection due to Port-A-Cath MRSA (methicillin resistant Staphylococcus aureus) septicemia 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 Pulmonary emboli Squamous cell carcinoma of base of tongue Stroke Subdural hematoma History of removal of Port-a-Cath History of tonsillectomy S/P percutaneous endoscopic gastrostomy (PEG) tube placement Status post neck dissection Status post partial glossectomy Allergies/Adverse Reactions: Allergies codeine Allergy (Severe, Verified 02/25/18 17:42) Itching doxycycline Allergy (Severe, Verified 02/25/18 17:42) Rash Objective Vital Signs 02/27/18 12:00 02/27/18 16:00 02/27/18 18:18 Temperature 98.3 F 98.3 F Pulse Rate 108 H 95 H Respiratory Rate 14 14 16 Blood Pressure 113/79 112/76 Pulse Oximetry 98 98 02/27/18 20:00 02/28/18 00:00 02/28/18 04:00 Temperature 98.3 F 97.2 F L 98 F Pulse Rate 88 80 86 Respiratory Rate 18 18 17 Blood Pressure 122/76 125/75 120/67 Pulse Oximetry 99 99 99 Intake & Output 02/27/18 02/28/18 02/28/18 18:59 06:59 18:59 Intake Total 1300 / 1300 100 / 100 Output Total 800 / 800 Balance 500 / 500 100 / 100 Weight 82 kg 82 kg Intake: IV 100 / 100 Cubicin Inj 700 MG In NS Inj 100 / 100 100 ML @ 200 mls/hr IV.SIG Q24H BRINA Rx#:[id number] Oral 1300 / 1300 Output: Urine 800 / 800 Other: # Voids 3 1 Date of Last Bowel Movement 02/25/18 02/25/18 # Bowel Movements 0 02/26/18 15:35 Fluid - Other Gram Stain - Final 02/26/18 15:35 Fluid - Other Wound Culture - Pending 02/25/18 17:40 Blood - Peripheral Aerobic Blood Culture - Preliminary No growth in 2 days 02/25/18 17:40 Blood - Peripheral Anaerobic Blood Culture - Preliminary S. aureus MRSA 02/25/18 17:35 Blood - Peripheral Aerobic Blood Culture - Preliminary No growth in 2 days 02/25/18 17:35 Blood - Peripheral Anaerobic Blood Culture - Preliminary No growth in 2 days Lab - Hematology Results 02/27/18 06:26 WBC 6.0 RBC 3.25 L Hgb 9.4 L Hct 29.0 L MCV 89.2 MCH 28.8 MCHC 32.3 RDW 15.5 Plt Count 234 MPV 8.7 Neut % (Auto) 73.3 H Lymph % (Auto) 12.4 Graves % (Auto) 12.3 H Eos % (Auto) 1.4 Baso % (Auto) 0.6 Neut # (Auto) 4.4 Lymph # (Auto) 0.7 L Graves # (Auto) 0.7 Eos # (Auto) 0.1 Baso # (Auto) 0.0 WBC Differential . Differential Comment Auto diff final Lab - Chemistry Results 02/26/18 02/26/18 02/27/18 07:26 15:57 06:26 Sodium 141 Potassium 3.3 L Chloride 107 Carbon Dioxide 25.5 Anion Gap 9 BUN 11 Creatinine 0.60 Estimated GFR Greater than 89 POC Glucose 86 Random Glucose 79 Calcium 8.4 L Total Creatine Kinase 9 L Imaging: ITS Impressions Chest X-Ray 02/25/18 17:36 CONCLUSION: No acute cardiopulmonary process. Physical Exam: GENERAL: awake and alert, not in respiratory distress. SKIN: Warm and moist. No generalized rash, no ecchymoses and no evidence of embolic lesions. HEAD: Atraumatic. Normocephalic. No temporal wasting, or tenderness. EYES: [place] conjunctiva. No petechia or hemorrhage. Pupils equal, round and reactive to light. Extraocular movements full and intact. No scleral icterus. No injection or drainage. EARS, NOSE AND THROAT: Nose without bleeding or purulent nasal discharge. No sinus tenderness. Mucous membranes dry. NECK: Supple and not tender, no meningeal signs. Has scars C/W surgical history CARDIOVASCULAR: Regular rate and rhythm. No murmurs, rubs or gallops heard RESPIRATORY: Clear to auscultation. Breath sounds equal bilaterally. No rales , wheezing or rhonchi ABDOMEN: Soft, non-tender, nondistended. Bowel sounds present and normoactive. No guarding. No rebound. No organomegaly. EXTREMITIES: No clubbing, cyanosis, or edema.No joint effusion, has good ROM. No calf tenderness. Well perfused and warm. BACK: Has a mild deformity in thoracic spine, no change, and it is less tender below this deformity, no skin changes noted NEUROLOGICAL: Awake and alert. Cranial nerves grossly intact. Motor grossly within normal limits. PSYCHIATRIC: Normal affect, calm and cooperative. 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 MRSA sepsis December 11, and December 13 - S/P 2 weeks IV Abx Renal insufficiency during Vancomycin Rx Head and NEck CA, S/P surgery, has not completed his chemo and radiation Rx Recommendation Follow C/S Await Echo Continue IV Cubicin - follow CPK Monitor progress Will make further recommendations on Rx once work-up is completed
[2018-02-28 10:00] LABS: Anion Gap 8 meq/L (5-15); Blood Urea Nitrogen 16 mg/dL (7-18); Calcium 8.7 mg/dL (8.5-10.1); Carbon Dioxide 26.7 meq/L (21.0-32.0); Chloride 107 meq/L (98-107); Glomerular Filtration Rate Greater Than 89 mL/min (>89); Glucose,Random 87 mg/dL (74-106); Potassium 3.5 meq/L (3.5-5.1); Sodium 142 meq/L (136-145)
[2018-02-28] MEDS: DAPTOmycin Inj 700 MG in Sodium Chlor 0.9% Inj 100 ML IV.SIG SCH (10:17)
[2018-02-28] MEDS ORDERED: Famotidine 20 MG Tablet PO PRN (10:53)
--- NOTE | 2018-02-28 11:00 | P.PNONC ---
Subjective Interval history: Afebrile Patient reports his pain is now more localized to the site of biopsy Pain well controlled on Percocet. He is requesting diphenhydramine and Prilosec to take in the evening as his cousin is a PA and recommended this for itching associated with narcotics. Denies nausea with bolus tube feedings Awaiting echocardiogram Objective Vital Signs/Intake & Output: Vital Signs 02/27/18 12:00 02/27/18 16:00 02/27/18 18:18 Temperature 98.3 F 98.3 F Pulse Rate 108 H 95 H Respiratory Rate 14 14 16 Blood Pressure 113/79 112/76 Pulse Oximetry 98 98 02/27/18 20:00 02/28/18 00:00 02/28/18 04:00 Temperature 98.3 F 97.2 F L 98 F Pulse Rate 88 80 86 Respiratory Rate 18 18 17 Blood Pressure 122/76 125/75 120/67 Pulse Oximetry 99 99 99 02/28/18 08:00 02/28/18 09:00 02/28/18 10:03 Temperature 97.7 F Pulse Rate 110 H 113 H Respiratory Rate 18 16 Blood Pressure 150/88 H Pulse Oximetry 98 Intake & Output 02/27/18 02/28/18 02/28/18 18:59 06:59 18:59 Intake Total 1300 / 1300 100 / 100 Output Total 800 / 800 Balance 500 / 500 100 / 100 Weight 180 lb 12.465 oz 180 lb 12.465 oz Intake: IV 100 / 100 Cubicin Inj 700 MG In NS Inj 100 / 100 100 ML @ 200 mls/hr IV.SIG Q24H BRINA Rx#:[id number] Oral 1300 / 1300 Output: Urine 800 / 800 Other: # Voids 3 1 Date of Last Bowel Movement 02/25/18 02/25/18 # Bowel Movements 0 Result Diagrams: 02/27/18 06:26 02/28/18 07:56 Laboratory Results: Laboratory Results - last 24 hr 02/28/18 07:56 Sodium 142 Potassium 3.5 Chloride 107 Carbon Dioxide 26.7 Anion Gap 8 BUN 16 Creatinine 0.60 Estimated GFR Greater than 89 Random Glucose 87 Calcium 8.7 Culture Results: Microbiology 02/25/18 17:40 Aerobic Blood Culture - Preliminary Blood - Peripheral No growth in 2 days Anaerobic Blood Culture - Preliminary S. aureus MRSA 02/26/18 15:35 Gram Stain - Final Fluid - Other 02/25/18 17:35 Aerobic Blood Culture - Preliminary Blood - Peripheral No growth in 2 days Anaerobic Blood Culture - Preliminary No growth in 2 days Medications: Active Medications Generic Name Dose Route Start Last Admin Trade Name Freq PRN Reason Stop Dose Admin Allopurinol 300 mg 02/26/18 09:00 02/28/18 08:13 Zyloprim G-TUBE 300 mg DAILY BRINA Administration Daptomycin 700 mg/ Sodium 100 mls @ 200 mls/hr 02/26/18 11:00 02/28/18 10:17 Chloride IV.SIG 200 mls/hr Q24H BRINA Administration Lorazepam 0.5 mg 02/25/18 19:02 02/28/18 08:14 Ativan G-TUBE 0.5 mg Q8H PRN Administration ANXIETY Metoprolol Tartrate 100 mg 02/25/18 21:00 02/28/18 08:13 Lopressor G-TUBE 100 mg BID BRINA Administration Oxycodone/Acetaminophen 1 tab 02/26/18 16:19 02/28/18 08:27 Percocet 5/325 Mg PO 1 tab Q4H PRN Administration PAIN SCALE 1 TO 10 Tramadol HCl 50 mg 02/25/18 18:59 02/27/18 19:34 Ultram G-TUBE 50 mg Q4H PRN Administration pain 3-10 Verapamil HCl 40 mg 02/25/18 22:00 02/28/18 08:13 Isoptin G-TUBE 40 mg Q8HR BRINA Administration Objective Remarks: GENERAL: Elderly male asleep in bed in no obvious distress. He wakens easily to verbal stimuli. SKIN: Warm and dry. HEAD: Normocephalic. EYES: No scleral icterus. No injection or drainage. NECK: Supple, trachea midline. No JVD or lymphadenopathy. CARDIOVASCULAR: Irregular rhythm. Tachycardic. RESPIRATORY: Clear but diminished anteriorly. GASTROINTESTINAL: Abdomen soft, non-tender, nondistended. EXTREMITIES: No cyanosis, or edema. MUSCULOSKELETAL: Adequate muscle tone. NEUROLOGICAL: Awake and alert. No obvious focal deficit. Moving all extremities. Assessment/Plan (1) Tongue cancer Code(s): C02.9 - Malignant neoplasm of tongue, unspecified Status: Acute (2) Epidural abscess Code(s): G06.2 - Extradural and subdural abscess, unspecified Status: Acute (3) MRSA (methicillin resistant Staphylococcus aureus) septicemia Code(s): A41.02 - Sepsis due to Methicillin resistant Staphylococcus aureus Status: Acute - Plan 67-year-old male with history of P-16 positive squamous cell carcinoma of the base of the tongue admitted after MRI on 02/25/18 showed findings suspicious for inflammatory process at the T4-T5 level as well as a large paravertebral soft tissue mass/fluid collection. 1. Biopsy results pending 2. Patient continues on daptomycin per infectious disease. He will have echocardiogram today to rule out endocarditis. 3. Pt requesting "Histamine blockers" for itching associated with narcotics. OK for benadryl, zantac prn in the evenings.
--- NOTE | 2018-02-28 11:15 | CT ---
EXAM DATE: 02/26/2018 4:08 PM EDT AGE/SEX: 67 years / Male INDICATIONS: Abscess. CLINICAL DATA: This is the patient's initial encounter. Patient reports that signs and symptoms have been present for 1 day and indicates a pain score of 0/10. MEDICAL/SURGICAL HISTORY: Deep venous thrombosis. Carcinoma, squamous cell. Hypertension. Ton sillectomy. partial glossectomy COMPARISON: No prior exams available for comparison. SEDATION TIME (min): 30 BIOPSY SITE: T4/T5 MEDICATION(S): 1mg midazolam (Versed) IV 50mcg fentanyl (Sublimaze) IV DEVICE(S): 16 gauge Mathew blunt needle FLUID: Total volume of 2 of cloudy, red fluid was removed. Fluid was sent to lab for ordered studies.. . . PROCEDURE : CT guided drainage of the T4/T5. Conscious sedation with continuous EKG and oximetry monitoring. EKG and oximetry remained stable throughout the procedure. The risks, benefits and alternatives to the procedure were explained and verbal and written consent w as obtained. Using automated exposure control and adjustment of the mA and/or kV according to patient size, radiation dose was kept as low as reasonably achievable to obtain optimal diagnostic quality i mages. The site was prepped in sterile fashion. Full sterile technique was used, including cap, ma sk, sterile gloves and gown and a large sterile sheet. Hand hygiene and 2% chlorhexidine and/or beta dine/alcohol prep was utilized per protocol for cutaneous antisepsis. The skin and subcutaneous tiss ues were infiltrated with local anesthetic solution. DICOM format image data is available electronic ally for review and comparison. Using CT guidance the prescribed site was localized. Drainage was performed using the prescribed cat heter. The patient tolerated the procedure well and there were no complications. The patient tolerated the procedure well and there were no complications. The patient was sent to post anesthesia recovery in s table condition. FINDINGS: The paraspinal soft tissue density at the T4 level was localized and bloody fluid was aspirated witho ut difficulty and sent to the lab for culture CONCLUSION: Uncomplicated CT-guided aspiration Electronically signed by: Rom Sanchez MD 02/28/2018 11:13 AM EDT
--- NOTE | 2018-02-28 17:05 | P.PNIM ---
Subjective Interval history: Pt has been afebrile Complains of continued back pain Pt is tolerating bolus TF Physical Exam Vital signs: Vital Signs 02/27/18 18:18 02/27/18 20:00 02/28/18 00:00 Temperature 98.3 F 97.2 F L Pulse Rate 88 80 Respiratory Rate 16 18 18 Blood Pressure 122/76 125/75 Pulse Oximetry 99 99 02/28/18 04:00 02/28/18 08:00 02/28/18 09:00 Temperature 98 F 97.7 F Pulse Rate 86 110 H 113 H Respiratory Rate 17 18 Blood Pressure 120/67 150/88 H Pulse Oximetry 99 98 02/28/18 10:03 02/28/18 12:00 02/28/18 12:19 Temperature 98.1 F Pulse Rate 97 H Respiratory Rate 16 20 16 Blood Pressure 141/87 H Pulse Oximetry 97 02/28/18 16:00 Temperature 98.1 F Pulse Rate 94 H Respiratory Rate 20 Blood Pressure 134/87 Pulse Oximetry 98 Intake & Output 02/27/18 02/28/18 02/28/18 18:59 06:59 18:59 Intake Total 1300 / 1300 200 / 200 Output Total 800 / 800 850 / 850 Balance 500 / 500 -650 / -650 Weight 82 kg 82 kg Intake: IV 200 / 200 Cubicin Inj 700 MG In NS Inj 200 / 200 100 ML @ 200 mls/hr IV.SIG Q24H BRINA Rx#:[id number] Oral 1300 / 1300 Output: Urine 800 / 800 850 / 850 Other: # Voids 3 1 Date of Last Bowel Movement 02/25/18 02/25/18 # Bowel Movements 0 Narrative: General: NAD, awake, alert Cardiac: Regular Chest: CTA Abd: +BS, soft, nontender, peg in place Ext: no edema Results - Labs CBC & Chem 7: 03/02/18 06:32 03/02/18 06:32 Laboratory Results - last 24 hr 02/28/18 07:56 Sodium 142 Potassium 3.5 Chloride 107 Carbon Dioxide 26.7 Anion Gap 8 BUN 16 Creatinine 0.60 Estimated GFR Greater than 89 Random Glucose 87 Calcium 8.7 Microbiology 02/26/18 15:35 Fluid - Other Gram Stain - Final 02/26/18 15:35 Fluid - Other Wound Culture - Preliminary No growth in 24 hours 02/25/18 17:40 Blood - Peripheral Aerobic Blood Culture - Preliminary No growth in 3 days 02/25/18 17:40 Blood - Peripheral Anaerobic Blood Culture - Preliminary S. aureus MRSA 02/25/18 17:35 Blood - Peripheral Aerobic Blood Culture - Preliminary No growth in 3 days 02/25/18 17:35 Blood - Peripheral Anaerobic Blood Culture - Preliminary No growth in 3 days - Imaging Impressions Needle Aspiration CT 02/26/18 06:00 CONCLUSION: Uncomplicated CT-guided aspiration Assessment and Plan - Assessment (1) Epidural abscess Code(s): G06.2 - Extradural and subdural abscess, unspecified Status: Acute Plan: Epidural abscess at t4/5 - Pt is a 67 y/o male with ETOH abuse, pancreatitis, ETOH withdraw seizures, anxiety, atrial fibrillation, GERD, gout, hypertension, tobacco abuse, DVT, PE, hemorrhagic CVA and 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 Pt received 2 doses of cisplatin and about 50% of his radiation when he was admitted to [place] for MRSA bacteremia in 11/2017 and he had his port removed during that admission and seen by ID. He was given daptomycin and ultimately sent home on daptomycin. Pt has been unable to resume chemo or radiation due to general weakness. He gets most of his calories through bolus tube feeding and all meds are though the peg. - He has had persistent midback pain had developed fevers as an outpt. He was seen by Dr Toledo last week as an outp and MRI ordered which reportedly showed concern for T4/5 abscess. Pt reviewed with Dr Lacy and Tre and sent to [facility] for iv abx and IR bx/aspiration. - Pt given vanco and zosyn in ED. - He was resumed on daptomycin at admission and ID was consulted - IR was consulted for bx of t4/5 disc and aspiration of ?adjacent abscess on . Pt had aspiration of fluid on 02/26 with gs/cx pending - Blood cx's (02/25/18) with 1/4 positive for MRSA. - 2D echo is pending - Consult Cardiology for FABRIZIO in AM, case discussed with Dr. Abad. - PRN pain control - Pt is tolerating bolus TFs SCC oropharyngeal s/p mod radical neck dissection Lane 09/19 - Pt was initiated on cisplatin but after second treatment stopped due to infection - Pt has only completed about 50% of his radiation treatment - Pt was admitted in November and had persistent positive blood cx for MRSA, infusaport infection s/p removal - Pt had PICC placed and given IV daptomycin through 12/30 A. fib, rate controlled - Cont verapamil and metoprolol in peg. - No anticoagulation..poor candidate (2) Tongue cancer Code(s): C02.9 - Malignant neoplasm of tongue, unspecified Status: Acute (3) MRSA (methicillin resistant Staphylococcus aureus) septicemia Code(s): A41.02 - Sepsis due to Methicillin resistant Staphylococcus aureus Status: Acute (4) HBP (high blood pressure) Code(s): I10 - Essential (primary) hypertension Status: Acute - Attending Attestation Patient examined. Assessment and plan formulated with Brandi Canada PA-C. I agree with the above.
--- NOTE | 2018-02-28 20:59 | ECHRPT ---
Indication: POSS SEPSIS, ENDOCARDITIS CONCLUSIONS Normal left ventricular size. Mild concentric left ventricular hypertrophy. The left ventricular systolic function is [id number] reduced with an estimated ejection fra ction of 35%. Global hypokinesis. Trace mitral valve regurgitation. There is trace tricuspid valve regurgitation. BP: / HR: Rhythm: Sinus MEASUREMENTS (Male / Female) Normal Values Technical Quality:Fair 2D ECHO LV Diastolic Diameter PLAX 4.5 cm 4.2 - 5.9 / 3.9 - 5.3 cm LV Systolic Diameter PLAX 3.7 cm IVS Diastolic Thickness 1.0 cm 0.6 - 1.0 / 0.6 - 0.9 cm LVPW Diastolic Thickness 1.0 cm 0.6 - 1.0 / 0.6 - 0.9 cm LV Relative Wall Thickness 0.5 RV Internal Dim ED PLAX 2.9 cm LVOT Diameter 2.2 cm Aortic Root Diameter 3.7 cm M-MODE AV Cusp Separation MM 2.2 cm DOPPLER AV Peak Velocity 96.5 cm/s AV Peak Gradient 3.7 mmHg AV Mean Gradient 2.0 mmHg AV Velocity Time Integral 14.3 cm LVOT Peak Velocity 49.6 cm/s LVOT Peak Gradient 1.0 mmHg LVOT Velocity Time Integral 8.3 cm AV Area Cont Eq vti 2.2 cm AV Area Cont Eq pk 2.0 cm Mitral E Point Velocity 55.7 cm/s Mitral A Point Velocity 21.2 cm/s Mitral E to A Ratio 2.6 Right Atrial Pressure 10.0 mmHg FINDINGS LEFT VENTRICLE Normal left ventricular size. Mild concentric left ventricular hypertrophy. The left ventricular systolic function is [id number]-uw-pfkhwhq reduced with an estimated ejection fra ction of 35%. Global hypokinesis. RIGHT VENTRICLE Normal right ventricular size and systolic function. LEFT ATRIUM The left atrial size is upper normal. RIGHT ATRIUM The right atrial size is normal. ATRIAL SEPTUM No atrial level shunt is demonstrated by color flow Doppler interrogation. AORTA The aortic root and proximal ascending aorta are normal in size on limited imaging. MITRAL VALVE Trace mitral valve regurgitation. AORTIC VALVE Trileaflet aortic valve. No aortic valve stenosis or regurgitation. TRICUSPID VALVE There is trace tricuspid valve regurgitation. PULMONARY VALVE Trivial pulmonary valve regurgitation. VESSELS The inferior vena cava is normal in size. PERICARDIUM No pericardial effusion. Royer Malloy MD (Electronically Signed) Final Date:28 February 2018 20:58
--- NOTE | 2018-03-01 07:48 | P.CONCA ---
<Geoff Cervantes - Last Filed: 03/01/18 07:39> History of Present Illness Primary Care Provider: Gary Arriaza Family Provider: Gary Arriaza Chief Complaint: Severe back pain. History of Present Illness: 67-year-old male with past medical history of A. fib, hemorrhagic CVA, DVT/PE, SCC of the tongue s/p resection/XRT/chemo. The patient presented for back pain is been treated for thoracic epidural abscess. Patient has a history of MRSA bacteremia in November of this year. Blood cultures are again positive for MRSA. He has been requested, patient is agreeable. Transthoracic echo also showed new finding of decreased ejection fraction of 35% with global hypokinesis. The patient has associated chest pain and shortness of breath with his back pain intermittently over the past 2 months. Chest pain is worse with sneezing. He denies any lower extremity swelling or orthopnea. He has chronic atrial fibrillation, but is not on anticoagulation due to previous brain hemorrhage on blood thinners. 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 G tube feedings Gout Hearing impairment History of alcoholism Hypertension Infection due to Port-A-Cath MRSA (methicillin resistant Staphylococcus aureus) septicemia 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 Pulmonary emboli Squamous cell carcinoma of base of tongue Stroke Subdural hematoma - Surgical History Surgical History: Surgical History (Last Reviewed 02/28/18 @ 10:31 by Eduni Rangel) History of removal of Port-a-Cath History of tonsillectomy S/P percutaneous endoscopic gastrostomy (PEG) tube placement Status post neck dissection Status post partial glossectomy - Family History Family History: Family History (Last Reviewed 02/28/18 @ 08:34 by Eduin Rangel) Other Family history non-contributory - Tobacco History Second Hand Smoke Exposure: No Tobacco Use In Past 30 Days: No Smoking Status: Former smoker Tobacco Type: Cigarettes - Alcohol History How Often Do You Have a Drink Containing Alcohol: Never - Substance Use History Substance History: No History of Abuse - Travel History Recent Travel in the [facility] Within the Last 8 Weeks: No Recent Travel Out of the Country Within the Last 8 Weeks: No - Immunization History Tetanus Immunization: Unsure Hx Influenza Vaccine This Season: No Medications and Allergies Allergies Allergy/AdvReac Type Severity Reaction Status Date / Time codeine Allergy Severe Itching Verified 02/25/18 17:42 doxycycline Allergy Severe Rash Verified 02/25/18 17:42 Home Medications Medication Instructions Recorded Confirmed Type allopurinol 300 mg FEEDING TUBE DAILY 02/25/18 02/25/18 History lorazepam 0.5 mg FEEDING TUBE DAILY 02/25/18 02/25/18 History metoprolol tartrate 100 mg FEEDING TUBE BID 02/25/18 02/25/18 History verapamil 40 mg FEEDING TUBE TID 02/25/18 02/25/18 History Active Medications: Active Medications Allopurinol (Zyloprim) 300 mg G-TUBE DAILY [facility] Last Admin: 02/28/18 08:13 Dose: 300 mg Diphenhydramine HCl (Benadryl) 25 mg PO HS PRN PRN Reason: ITCHING Famotidine (Pepcid) 20 mg PO HS PRN PRN Reason: ITCHING Daptomycin 700 mg/ Sodium (Chloride) 100 mls @ 200 mls/hr IV.SIG Q24H [facility] Last Infusion: 02/28/18 12:19 Dose: Infused Lorazepam (Ativan) 0.5 mg G-TUBE Q8H PRN PRN Reason: ANXIETY Last Admin: 02/28/18 20:25 Dose: 0.5 mg Metoprolol Tartrate (Lopressor) 100 mg G-TUBE BID [facility] Last Admin: 02/28/18 20:24 Dose: 100 mg Oxycodone/Acetaminophen (Percocet 5/325 Mg) 1 tab PO Q4H PRN PRN Reason: PAIN SCALE 1 TO 10 Last Admin: 03/01/18 06:07 Dose: 1 tab Tramadol HCl (Ultram) 50 mg G-TUBE Q4H PRN PRN Reason: pain 3-10 Last Admin: 02/28/18 11:52 Dose: 50 mg Verapamil HCl (Isoptin) 40 mg G-TUBE Q8HR [facility] Last Admin: 02/28/18 22:02 Dose: 40 mg Exam Vital signs: Vital Signs 02/28/18 08:00 02/28/18 09:00 02/28/18 10:03 Temperature 97.7 F Pulse Rate 110 H 113 H Respiratory Rate 18 16 Blood Pressure 150/88 H Pulse Oximetry 98 02/28/18 12:00 02/28/18 12:19 02/28/18 16:00 Temperature 98.1 F 98.1 F Pulse Rate 97 H 90 Respiratory Rate 20 16 20 Blood Pressure 141/87 H 134/87 Pulse Oximetry 97 98 02/28/18 20:00 03/01/18 00:00 03/01/18 02:58 Temperature 97.8 F 98.4 F Pulse Rate 110 H 100 H 106 H Respiratory Rate 12 18 Blood Pressure 135/84 134/88 Pulse Oximetry 97 97 03/01/18 04:00 Temperature 98.5 F Pulse Rate 114 H Respiratory Rate 18 Blood Pressure 131/87 Pulse Oximetry 96 Intake & Output 02/28/18 03/01/18 03/01/18 18:59 06:59 18:59 Intake Total 200 / 200 Output Total 850 / 850 Balance -650 / -650 Intake: IV 200 / 200 Cubicin Inj 700 MG In NS Inj 200 / 200 100 ML @ 200 mls/hr IV.SIG Q24H [facility] Rx#:[id number] Output: Urine 850 / 850 Other: # Voids 2 Date of Last Bowel Movement 02/25/18 Narrative: GENERAL: Well-developed well-nourished. In no acute distress. NECK: No carotid bruits. No JVD. CARDIOVASCULAR: Irregular rate and rhythm. No murmur appreciated. RESPIRATORY: No accessory muscle use. Clear to auscultation. Breath sounds equal bilaterally. MUSCULOSKELETAL: No clubbing or cyanosis. No edema. NEUROLOGICAL: Awake and alert. Normal speech. Results 02/27/18 06:26 02/28/18 07:56 Comprehensive Metabolic Panel 02/28/18 Range/Units 07:56 Sodium 142 (136-145) meq/L Potassium 3.5 (3.5-5.1) meq/L Chloride 107 (98-107) meq/L Carbon Dioxide 26.7 (21.0-32.0) meq/L BUN 16 (7-18) mg/dL Creatinine 0.60 (0.60-1.30) mg/dL Calcium 8.7 (8.5-10.1) mg/dL Intake and Output 02/28/18 03/01/18 03/01/18 22:59 06:59 14:59 Other: # Voids 2 Date of Last Bowel Movement 02/25/18 Assessment and Plan - Plan 67-year-old male with past medical history of A. fib, hemorrhagic CVA, DVT/PE, SCC of the tongue s/p resection/XRT/chemo. The patient presented for back pain is been treated for thoracic epidural abscess. Patient has a history of MRSA bacteremia in November of this year. Blood cultures are again positive for MRSA. He has been requested, patient is agreeable. Transthoracic echo also showed new finding of decreased ejection fraction of 35% with global hypokinesis. The patient has associated chest pain and shortness of breath with his back pain intermittently over the past 2 months. Chest pain is worse with sneezing. He denies any lower extremity swelling or orthopnea. He has chronic atrial fibrillation, but is not on anticoagulation due to previous brain hemorrhage on blood thinners. MRSA bacteremia: FABRIZIO today to rule out endocarditis, keep n.p.o. Cardiomyopathy: EF 35%, previously 55% 11/2017. Global hypokinesis noted, suspect nonischemic etiology. Start low-dose CARISSA inhibitor. Consider changing metoprolol to XL. Consider ischemic workup prior to discharge. Atrial fibrillation: Fair control of rate with verapamil and metoprolol. Patient reports she was taken off of anticoagulation due to brain bleed. Discussed Condition With: Patient, RN, Dr. Abad <Denis Abad - Last Filed: 03/01/18 15:21> History of Present Illness Primary Care Provider: Gary Talley Provider: Gary Arriaza [facility] - Medical History Medical History: Medical History (Last Reviewed 02/28/18 @ 10:31 by Eduin Rangel) Afib Alcohol withdrawal seizure Bloodstream infection due to Port-A-Cath DVT of upper extremity (deep vein thrombosis) Deep venous thrombosis of both lower extremities G tube feedings Gout Hearing impairment History of alcoholism Hypertension Infection due to Port-A-Cath MRSA (methicillin resistant Staphylococcus aureus) septicemia 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 Pulmonary emboli Squamous cell carcinoma of base of tongue Stroke Subdural hematoma - Surgical History Surgical History: Surgical History (Last Reviewed 02/28/18 @ 10:31 by Eduin Rangel) History of removal of Port-a-Cath History of tonsillectomy S/P percutaneous endoscopic gastrostomy (PEG) tube placement Status post neck dissection Status post partial glossectomy - Family History Family History: Family History (Last Reviewed 02/28/18 @ 08:34 by Eduin Rangel) Other Family history non-contributory Medications and Allergies Active Medications: Active Medications Allopurinol (Zyloprim) 300 mg G-TUBE DAILY [facility] Last Admin: 03/01/18 08:40 Dose: Not Given Diphenhydramine HCl (Benadryl) 25 mg PO HS PRN PRN Reason: ITCHING Famotidine (Pepcid) 20 mg PO HS PRN PRN Reason: ITCHING Daptomycin 700 mg/ Sodium (Chloride) 100 mls @ 200 mls/hr IV.SIG Q24H [facility] Last Admin: 03/01/18 10:57 Dose: Not Given Lisinopril (Prinivil) 5 mg PO DAILY [facility] Last Admin: 03/01/18 08:39 Dose: Not Given Lorazepam (Ativan) 0.5 mg G-TUBE Q8H PRN PRN Reason: ANXIETY Last Admin: 02/28/18 20:25 Dose: 0.5 mg Metoprolol Tartrate (Lopressor) 100 mg G-TUBE BID [facility] Last Admin: 03/01/18 08:39 Dose: Not Given Oxycodone/Acetaminophen (Percocet 5/325 Mg) 1 tab PO Q4H PRN PRN Reason: PAIN SCALE 1 TO 10 Last Admin: 03/01/18 06:07 Dose: 1 tab Tramadol HCl (Ultram) 50 mg G-TUBE Q4H PRN PRN Reason: pain 3-10 Last Admin: 02/28/18 11:52 Dose: 50 mg Verapamil HCl (Isoptin) 40 mg G-TUBE Q8HR [facility] Last Admin: 03/01/18 14:09 Dose: 40 mg Exam Vital signs: Vital Signs 02/28/18 16:00 02/28/18 20:00 03/01/18 00:00 Temperature 98.1 F 97.8 F 98.4 F Pulse Rate 90 110 H 100 H Respiratory Rate 20 12 18 Blood Pressure 134/87 135/84 134/88 Pulse Oximetry 98 97 97 03/01/18 02:58 03/01/18 04:00 03/01/18 08:00 Temperature 98.5 F 98.0 F Pulse Rate 106 H 114 H 81 Respiratory Rate 18 12 Blood Pressure 131/87 112/85 Pulse Oximetry 96 97 03/01/18 08:36 03/01/18 12:00 Temperature 98.7 F Pulse Rate 88 Respiratory Rate 16 18 Blood Pressure 125/82 Pulse Oximetry 99 Intake & Output 02/28/18 03/01/18 03/01/18 18:59 06:59 18:59 Intake Total 200 / 200 Output Total 850 / 850 Balance -650 / -650 Intake: IV 200 / 200 Cubicin Inj 700 MG In NS Inj 200 / 200 100 ML @ 200 mls/hr IV.SIG Q24H [facility] Rx#:[id number] Output: Urine 850 / 850 Other: # Voids 2 Date of Last Bowel Movement 02/25/18 Results 02/27/18 06:26 02/28/18 07:56 Intake and Output 03/01/18 03/01/18 03/01/18 06:59 14:59 22:59 Other: # Voids 2 Assessment and Plan - Attending Attestation discussed FABRIZIO with anesthesia due to prior radiation to the neck, will be at increased risk would need to be done in operating room discussed with dr still, will hold off on FABRIZIO for now call with further questions
--- NOTE | 2018-03-01 08:33 | P.PNONC ---
Subjective Interval history: Patient seen and examined today, vital signs, labs, medications, microbiology and virtualization consultant notes reviewed. Subjectively; patient reports improvement in his back pain, more flexibility and he is also able to sleep better. He denies having had fevers or chills. The patient is currently n.p.o. and without tube feeds he is awaiting transesophageal echocardiogram later this morning. Objective Vital Signs/Intake & Output: Vital Signs 02/28/18 09:00 02/28/18 10:03 02/28/18 12:00 Temperature 98.1 F Pulse Rate 113 H 97 H Respiratory Rate 16 20 Blood Pressure 141/87 H Pulse Oximetry 97 02/28/18 12:19 02/28/18 16:00 02/28/18 20:00 Temperature 98.1 F 97.8 F Pulse Rate 90 110 H Respiratory Rate 16 20 12 Blood Pressure 134/87 135/84 Pulse Oximetry 98 97 03/01/18 00:00 03/01/18 02:58 03/01/18 04:00 Temperature 98.4 F 98.5 F Pulse Rate 100 H 106 H 114 H Respiratory Rate 18 18 Blood Pressure 134/88 131/87 Pulse Oximetry 97 96 Intake & Output 02/28/18 03/01/18 03/01/18 18:59 06:59 18:59 Intake Total 200 / 200 Output Total 850 / 850 Balance -650 / -650 Intake: IV 200 / 200 Cubicin Inj 700 MG In NS Inj 200 / 200 100 ML @ 200 mls/hr IV.SIG Q24H [facility] Rx#:[id number] Output: Urine 850 / 850 Other: # Voids 2 Date of Last Bowel Movement 02/25/18 Result Diagrams: 02/27/18 06:26 02/28/18 07:56 Laboratory Results: Laboratory Results - last 24 hr 02/28/18 07:56 Sodium 142 Potassium 3.5 Chloride 107 Carbon Dioxide 26.7 Anion Gap 8 BUN 16 Creatinine 0.60 Estimated GFR Greater than 89 Random Glucose 87 Calcium 8.7 Culture Results: Microbiology 02/26/18 15:35 Gram Stain - Final Fluid - Other Wound Culture - Preliminary No growth in 24 hours 02/25/18 17:40 Aerobic Blood Culture - Preliminary Blood - Peripheral No growth in 3 days Anaerobic Blood Culture - Preliminary S. aureus MRSA 02/25/18 17:35 Aerobic Blood Culture - Preliminary Blood - Peripheral No growth in 3 days Anaerobic Blood Culture - Preliminary No growth in 3 days Imaging Studies: Impressions Needle Aspiration CT 02/26/18 06:00 CONCLUSION: Uncomplicated CT-guided aspiration Medications: Active Medications Generic Name Dose Route Start Last Admin Trade Name Freq PRN Reason Stop Dose Admin Allopurinol 300 mg 02/26/18 09:00 02/28/18 08:13 Zyloprim G-TUBE 300 mg DAILY [facility] Administration Daptomycin 700 mg/ Sodium 100 mls @ 200 mls/hr 02/26/18 11:00 02/28/18 12:19 Chloride IV.SIG Infused Q24H [facility] Infusion Lorazepam 0.5 mg 02/25/18 19:02 02/28/18 20:25 Ativan G-TUBE 0.5 mg Q8H PRN Administration ANXIETY Metoprolol Tartrate 100 mg 02/25/18 21:00 02/28/18 20:24 Lopressor G-TUBE 100 mg BID [facility] Administration Oxycodone/Acetaminophen 1 tab 02/26/18 16:19 03/01/18 06:07 Percocet 5/325 Mg PO 1 tab Q4H PRN Administration PAIN SCALE 1 TO 10 Tramadol HCl 50 mg 02/25/18 18:59 02/28/18 11:52 Ultram G-TUBE 50 mg Q4H PRN Administration pain 3-10 Verapamil HCl 40 mg 02/25/18 22:00 02/28/18 22:02 Isoptin G-TUBE 40 mg Q8HR [facility] Administration Objective Remarks: GENERAL: Elderly and chronically ill-appearing man, he sitting up in bed, appears to be comfortable, not acutely distressed. SKIN: Warm and dry. HEAD: Normocephalic. EYES: Conjunctivae are pale, no scleral icterus. No injection or drainage, PERRLA, EOMI. NECK: Supple, trachea midline. No JVD or lymphadenopathy. LYMPHATIC: No adenopathy. CARDIOVASCULAR: Irregular rhythm, S1-S2 systolic murmur. RESPIRATORY: Breath sounds equal bilaterally. No accessory muscle use. GASTROINTESTINAL: Abdomen soft, non-tender, nondistended, feeding tube in place. EXTREMITIES: No cyanosis, or edema. MUSCULOSKELETAL: Generally decreased muscle mass/atrophy. NEUROLOGICAL: No obvious focal deficit. Awake, alert, and oriented x3. PSYCHIATRIC: Appropriate mood and affect; insight and judgment normal. 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 Patient received 2 cycles of full dose cisplatin 100 milligrams per metered squared on days 1 and 21 with combined radiation. He was unable to tolerate any additional treatment beyond that and still has approximately 16 fractions of radiation remaining his last treatment was delivered in November 2017. The patient suffered MRSA sepsis in November and December 2017 was hospitalized for this, after being discharged from the hospital patient developed pain in his mid back, the pain progressed and an MRI performed last week indicated fluid collection adjacent to the T4 and T5 vertebral bodies. The fluid was aspirated on 02/26/2018, purulent and bloody fluid was aspirated. Blood cultures drawn and 727 were positive for MRSA, fluid culture from the paraspinal collection has not yet grown any bacteria. However it should be known that by the time the fluid was aspirated the patient had received vancomycin and daptomycin for close to 24 hours. Recommendations: 1. MRSA bacteremia with likely paraspinal abscess: Continue IV antibiotics. He is on daptomycin. 2. Obtain EEG to rule out infective endocarditis. 3. Cytopenias related to chronic illness. 4. Head and neck cancer: I am not certain if or when he will be a candidate for completion of the remaining prescribed doses of radiation. Clinically he is without evidence of disease recurrence. 5. History of multiple deep venous thromboses of the limbs, pulmonary emboli, atrial fibrillation and history of intracranial bleeding: Anticoagulation has been withdrawn due to intracranial hemorrhage.
[2018-03-01] MEDS: Metoprolol Tartrate 100 MG Tablet G-TUBE SCH ×2 (08:39→20:32)
[2018-03-01] MEDS: Lisinopril 5 MG Tablet PO SCH (08:39)
[2018-03-01] MEDS: Allopurinol 300 MG Tablet G-TUBE SCH (08:40)
[2018-03-01] MEDS: DAPTOmycin Inj 700 MG in Sodium Chlor 0.9% Inj 100 ML IV.SIG SCH (10:57)
--- NOTE | 2018-03-01 13:54 | P.PNID ---
Subjective Remarks: Patient is a 67-year-old man, admitted to the hospital for further management of his worsening upper back pain. Patient's last hospitalization was back in November and at that time he had high-grade MRSA bacteremia. He had blood cultures from December 11, and December 13 that were positive for MRSA. His [id number] was removed at that time, however the port was not sent for culture. Patient received IV Cubicin until December 30. He developed acute renal insufficiency due to vancomycin, and that is why he was switched over to daptomycin. According to the patient during that hospitalization he has complained of upper back pain. The pain persisted when he was discharged, and he stated about 3 weeks ago he had a CAT scan of his spine. Because of the persistent pain he had an MRI done February 25, and it showed findings suspicious for inflammatory process at T4-T5 level with an epidural component causing cord impingement, and there is a large paravertebral soft tissue mass/fluid collection. Patient was therefore admitted to the hospital for further evaluation and treatment. He has had some night sweats. Denies any respiratory complaint. No nausea or vomiting. Since admission his temperatures have been documented to be normal. His WBC is normal. Patient has known head and neck cancer, and has had surgery for it back in September. He has received some chemo and radiation, but due to his recent problems they have not been completed. Infectious disease consultation has been requested to evaluate the patient Notes reviewed Temps ok Back pain under control Has been ambulating and sitting up FABRIZIO cancelled BC with MRSA Fluid C/S neg x 48H Antibiotics: Cubicin Lines: PIV no evidence of infection Past Medical History: Afib Alcohol withdrawal seizure Bloodstream infection due to Port-A-Cath DVT of upper extremity (deep vein thrombosis) Deep venous thrombosis of both lower extremities G tube feedings Gout Hearing impairment History of alcoholism Hypertension Infection due to Port-A-Cath MRSA (methicillin resistant Staphylococcus aureus) septicemia 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 Pulmonary emboli Squamous cell carcinoma of base of tongue Stroke Subdural hematoma History of removal of Port-a-Cath History of tonsillectomy S/P percutaneous endoscopic gastrostomy (PEG) tube placement Status post neck dissection Status post partial glossectomy Allergies/Adverse Reactions: Allergies codeine Allergy (Severe, Verified 02/25/18 17:42) Itching doxycycline Allergy (Severe, Verified 02/25/18 17:42) Rash Objective Vital Signs 02/28/18 16:00 02/28/18 20:00 03/01/18 00:00 Temperature 98.1 F 97.8 F 98.4 F Pulse Rate 90 110 H 100 H Respiratory Rate 20 12 18 Blood Pressure 134/87 135/84 134/88 Pulse Oximetry 98 97 97 03/01/18 02:58 03/01/18 04:00 03/01/18 08:00 Temperature 98.5 F 98.0 F Pulse Rate 106 H 114 H 81 Respiratory Rate 18 12 Blood Pressure 131/87 112/85 Pulse Oximetry 96 97 03/01/18 08:36 Temperature Pulse Rate Respiratory Rate 16 Blood Pressure Pulse Oximetry Intake & Output 02/28/18 03/01/18 03/01/18 18:59 06:59 18:59 Intake Total 200 / 200 Output Total 850 / 850 Balance -650 / -650 Intake: IV 200 / 200 Cubicin Inj 700 MG In NS Inj 200 / 200 100 ML @ 200 mls/hr IV.SIG Q24H [facility] Rx#:[id number] Output: Urine 850 / 850 Other: # Voids 2 Date of Last Bowel Movement 02/25/18 02/25/18 17:40 Blood - Peripheral Aerobic Blood Culture - Preliminary No growth in 4 days 02/25/18 17:40 Blood - Peripheral Anaerobic Blood Culture - Final S. aureus MRSA 02/26/18 15:35 Fluid - Other Gram Stain - Final 02/26/18 15:35 Fluid - Other Wound Culture - Preliminary No growth in 48 hours 02/28/18 07:56 Blood - Peripheral Aerobic Blood Culture - Preliminary No growth in 1 day 02/28/18 07:56 Blood - Peripheral Anaerobic Blood Culture - Preliminary No growth in 1 day 02/25/18 17:35 Blood - Peripheral Aerobic Blood Culture - Preliminary No growth in 4 days 02/25/18 17:35 Blood - Peripheral Anaerobic Blood Culture - Preliminary No growth in 4 days Lab - Chemistry Results 02/28/18 07:56 Sodium 142 Potassium 3.5 Chloride 107 Carbon Dioxide 26.7 Anion Gap 8 BUN 16 Creatinine 0.60 Estimated GFR Greater than 89 Random Glucose 87 Calcium 8.7 Imaging: ITS Impressions Chest X-Ray 02/25/18 17:36 CONCLUSION: No acute cardiopulmonary process. Needle Aspiration CT 02/26/18 06:00 CONCLUSION: Uncomplicated CT-guided aspiration Physical Exam: GENERAL: awake and alert, not in respiratory distress. SKIN: Warm and moist. No generalized rash, no ecchymoses and no evidence of embolic lesions. HEAD: Atraumatic. Normocephalic. No temporal wasting, or tenderness. EYES: Munjor conjunctiva. No petechia or hemorrhage. Pupils equal, round and reactive to light. Extraocular movements full and intact. No scleral icterus. No injection or drainage. EARS, NOSE AND THROAT: Nose without bleeding or purulent nasal discharge. No sinus tenderness. Mucous membranes dry. NECK: Supple and not tender, no meningeal signs. Has scars C/W surgical history CARDIOVASCULAR: Regular rate and rhythm. No murmurs, rubs or gallops heard RESPIRATORY: Clear to auscultation. Breath sounds equal bilaterally. No rales , wheezing or rhonchi ABDOMEN: Soft, non-tender, nondistended. Bowel sounds present and normoactive. No guarding. No rebound. No organomegaly. EXTREMITIES: No clubbing, cyanosis, or edema.No joint effusion, has good ROM. No calf tenderness. Well perfused and warm. BACK: Has a mild deformity in thoracic spine, no change, and it is less tender below this deformity, no skin changes noted NEUROLOGICAL: Awake and alert. Cranial nerves grossly intact. Motor grossly within normal limits. PSYCHIATRIC: Normal affect, calm and cooperative. 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 MRSA sepsis December 11, and December 13 - S/P 2 weeks IV Abx Renal insufficiency during Vancomycin Rx Head and NEck CA, S/P surgery, has not completed his chemo and radiation Rx Recommendation Follow C/S Continue IV Cubicin - follow CPK Monitor progress Will make further recommendations on Rx once work-up is completed
--- NOTE | 2018-03-01 16:16 | P.PNIM ---
Subjective Interval history: Pt had was supposed to have FABRIZIO today with Dr. Abad but there was concern that the esophagus may be too friable due to previous XRT and would be at increased risk for perforation. The FABRIZIO was not performed Pt resumed on his TF He complains about a rash on just his back from the pads on the bed Physical Exam Vital signs: Vital Signs 02/28/18 20:00 03/01/18 00:00 03/01/18 02:58 Temperature 97.8 F 98.4 F Pulse Rate 110 H 100 H 106 H Respiratory Rate 12 18 Blood Pressure 135/84 134/88 Pulse Oximetry 97 97 03/01/18 04:00 03/01/18 08:00 03/01/18 08:36 Temperature 98.5 F 98.0 F Pulse Rate 114 H 81 Respiratory Rate 18 12 16 Blood Pressure 131/87 112/85 Pulse Oximetry 96 97 03/01/18 12:00 Temperature 98.7 F Pulse Rate 88 Respiratory Rate 18 Blood Pressure 125/82 Pulse Oximetry 99 Intake & Output 02/28/18 03/01/18 03/01/18 18:59 06:59 18:59 Intake Total 200 / 200 Output Total 850 / 850 Balance -650 / -650 Intake: IV 200 / 200 Cubicin Inj 700 MG In NS Inj 200 / 200 100 ML @ 200 mls/hr IV.SIG Q24H BRINA Rx#:[id number] Output: Urine 850 / 850 Other: # Voids 2 Date of Last Bowel Movement 02/25/18 Narrative: General: NAD, awake, alert Cardiac: Regular Chest: CTA Abd: +BS, soft, nontender, peg in place Ext: no edema Skin: two large areas of papular rash below both scapulas Results - Labs CBC & Chem 7: 03/02/18 06:32 03/02/18 06:32 Microbiology 02/25/18 17:40 Blood - Peripheral Aerobic Blood Culture - Preliminary No growth in 4 days 02/25/18 17:40 Blood - Peripheral Anaerobic Blood Culture - Final S. aureus MRSA 02/26/18 15:35 Fluid - Other Gram Stain - Final 02/26/18 15:35 Fluid - Other Wound Culture - Preliminary No growth in 48 hours 02/28/18 07:56 Blood - Peripheral Aerobic Blood Culture - Preliminary No growth in 1 day 02/28/18 07:56 Blood - Peripheral Anaerobic Blood Culture - Preliminary No growth in 1 day 02/25/18 17:35 Blood - Peripheral Aerobic Blood Culture - Preliminary No growth in 4 days 02/25/18 17:35 Blood - Peripheral Anaerobic Blood Culture - Preliminary No growth in 4 days - Imaging Chest X-Ray 02/25/18 17:36 CONCLUSION: No acute cardiopulmonary process. 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 Pt received 2 doses of cisplatin and about 50% of his radiation when he was admitted to [facility] for MRSA bacteremia in 11/2017 and he had his port removed during that admission and seen by ID. He was given daptomycin and ultimately sent home on daptomycin. Pt has been unable to resume chemo or radiation due to general weakness. He gets most of his calories through bolus tube feeding and all meds are though the peg. - He has had persistent midback pain had developed fevers as an outpt. He was seen by Dr Toledo last week as an outp and MRI ordered which reportedly showed concern for T4/5 abscess. Pt reviewed with Dr Lacy and Tre and sent to [facility] [place] for iv abx and IR bx/aspiration. - Pt given vanco and zosyn in ED. - He was resumed on daptomycin at admission and ID was consulted - IR was consulted for bx of t4/5 disc and aspiration of ?adjacent abscess on . - Pt had aspiration of fluid on 02/26 with gs/cx with no growth in 48 hours - Blood cx's (02/25/18) with 1/4 positive for MRSA. - 2D echo (02/28/18): - Normal left ventricular size. Mild concentric left ventricular hypertrophy. - The left ventricular systolic function is fcybontb-dq-wekrhpsk reduced with an estimated ejection fraction of 35%. Global hypokinesis. - Trace mitral valve regurgitation. - There is trace tricuspid valve regurgitation. - Appreciate Cardiology consultation for FABRIZIO, case discussed between Dr. Kearney and Dr. Abad on 03/01, due to pts previous head and neck cancer and XRT it was felt that the pt would be high risk for perforation with attempting FABRIZIO - Will need to discuss the case with ID as pt may need to be treated for presumptive endocarditis as FABRIZIO is unable to be performed. - PRN pain control - Pt is tolerating bolus TFs SCC oropharyngeal s/p mod radical neck dissection [place] 09/19 - Pt was initiated on cisplatin but after second treatment stopped due to infection - Pt has only completed about 50% of his radiation treatment - Pt was admitted in November and had persistent positive blood cx for MRSA, infusaport infection s/p removal - Pt had PICC placed and given IV daptomycin through 12/30 A. fib, rate controlled - Cont verapamil and metoprolol in peg. - No anticoagulation..poor candidate (2) Tongue cancer Code(s): C02.9 - Malignant neoplasm of tongue, unspecified Status: Acute (3) MRSA (methicillin resistant Staphylococcus aureus) septicemia Code(s): A41.02 - Sepsis due to Methicillin resistant Staphylococcus aureus Status: Acute (4) HBP (high blood pressure) Code(s): I10 - Essential (primary) hypertension Status: Acute - Attending Attestation Patient examined. Assessment and plan formulated with Brandi Canada PA-C. I agree with the above. Pt and updated at the bedside at length. All questions were answered to the best of my ability. Pt c/o continued pain despite prn norco 5mg. I increased pt's norco to 7.5mg q6h. Observe constipation precautions.
[2018-03-01] MEDS: LORazepam 0.5 MG Tablet G-TUBE PRN (18:31)
[2018-03-02 07:28] LABS: Baso % (Auto) 0.7 % (0.0-2.0); Eos # (Auto) 0.1 th/mm3 (0.0-0.4); Eos % (Auto) 2.5 % (0.0-4.0); Hematocrit 29.2 % (39.0-51.0); Hemoglobin 9.5 gm/dL (13.0-17.0); Lymph # (Auto) 0.8 th/mm3 (1.0-4.8); Mean Corpuscular HGB Conc 32.4 % (32.0-36.0); Mean Corpuscular Hemoglobin 28.6 pg (27.0-34.0); Mean Corpuscular Volume 88.2 fL (80.0-100.0); Mean Platelet Volume 8.2 fL (7.0-11.0); Mono # (Auto) 0.6 th/mm3 (0.0-0.9); Neut # (Auto) 3.5 th/mm3 (1.8-7.7); Neut % (Auto) 69.8 % (16.0-70.0); Platelet Count 269 th/mm3 (150-450); Red Blood Count 3.31 mil/mm3 (4.50-5.90); Red Cell Distribution Width 16.1 % (11.6-17.2)
[2018-03-02 07:58] LABS: Anion Gap 8 meq/L (5-15); Blood Urea Nitrogen 14 mg/dL (7-18); Calcium 8.5 mg/dL (8.5-10.1); Carbon Dioxide 28.2 meq/L (21.0-32.0); Chloride 108 meq/L (98-107); Glomerular Filtration Rate Greater Than 89 mL/min (>89); Glucose,Random 82 mg/dL (74-106); Potassium 3.3 meq/L (3.5-5.1); Sodium 144 meq/L (136-145)
[2018-03-02] MEDS: Metoprolol Tartrate 100 MG Tablet G-TUBE SCH ×2 (08:32→20:31)
[2018-03-02] MEDS: Lisinopril 5 MG Tablet PO SCH (08:33)
[2018-03-02] MEDS: Allopurinol 300 MG Tablet G-TUBE SCH (08:33)
[2018-03-02] MEDS ORDERED: Potassium Chloride 25 MEQ Effervescent Tablet G-TUBE ONE (08:35)
--- NOTE | 2018-03-02 10:04 | P.PNID ---
Subjective Remarks: Patient is a 67-year-old man, admitted to the hospital for further management of his worsening upper back pain. Patient's last hospitalization was back in November and at that time he had high-grade MRSA bacteremia. He had blood cultures from December 11, and December 13 that were positive for MRSA. His Puzkfb-b-Ricp was removed at that time, however the port was not sent for culture. Patient received IV Cubicin until December 30. He developed acute renal insufficiency due to vancomycin, and that is why he was switched over to daptomycin. According to the patient during that hospitalization he has complained of upper back pain. The pain persisted when he was discharged, and he stated about 3 weeks ago he had a CAT scan of his spine. Because of the persistent pain he had an MRI done February 25, and it showed findings suspicious for inflammatory process at T4-T5 level with an epidural component causing cord impingement, and there is a large paravertebral soft tissue mass/fluid collection. Patient was therefore admitted to the hospital for further evaluation and treatment. He has had some night sweats. Denies any respiratory complaint. No nausea or vomiting. Since admission his temperatures have been documented to be normal. His WBC is normal. Patient has known head and neck cancer, and has had surgery for it back in September. He has received some chemo and radiation, but due to his recent problems they have not been completed. Infectious disease consultation has been requested to evaluate the patient Notes reviewed Temps ok Back pain under control Has been ambulating and sitting up FABRIZIO cancelled BC with MRSA No new (+) BC Fluid C/S neg x 72H Antibiotics: Cubicin Lines: PIV no evidence of infection Past Medical History: Afib Alcohol withdrawal seizure Bloodstream infection due to Port-A-Cath DVT of upper extremity (deep vein thrombosis) Deep venous thrombosis of both lower extremities G tube feedings Gout Hearing impairment History of alcoholism Hypertension Infection due to Port-A-Cath MRSA (methicillin resistant Staphylococcus aureus) septicemia 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 Pulmonary emboli Squamous cell carcinoma of base of tongue Stroke Subdural hematoma History of removal of Port-a-Cath History of tonsillectomy S/P percutaneous endoscopic gastrostomy (PEG) tube placement Status post neck dissection Status post partial glossectomy Allergies/Adverse Reactions: Allergies codeine Allergy (Severe, Verified 02/25/18 17:42) Itching doxycycline Allergy (Severe, Verified 02/25/18 17:42) Rash Objective Vital Signs 03/01/18 12:00 03/01/18 16:00 03/01/18 20:00 Temperature 98.7 F 98 F 97.6 F Pulse Rate 88 94 H 93 H Respiratory Rate 18 18 18 Blood Pressure 125/82 122/92 H 109/72 Pulse Oximetry 99 98 97 03/01/18 20:12 03/02/18 00:00 03/02/18 00:22 Temperature 97.5 F L Pulse Rate 77 Respiratory Rate 16 18 20 Blood Pressure 115/75 Pulse Oximetry 99 03/02/18 04:00 03/02/18 04:04 03/02/18 07:34 Temperature 97.6 F 97.4 F L Pulse Rate 89 90 Respiratory Rate 18 20 12 Blood Pressure 140/83 124/79 Pulse Oximetry 97 96 Intake & Output 03/01/18 03/02/18 03/02/18 18:59 06:59 18:59 Output Total 650 / 650 Balance -650 / -650 Weight 85.4 kg Output: Urine 650 / 650 02/26/18 15:35 Fluid - Other Gram Stain - Final 02/26/18 15:35 Fluid - Other Wound Culture - Final No growth in 72 hours (aerobically and anaerobically ) 02/25/18 17:40 Blood - Peripheral Aerobic Blood Culture - Preliminary No growth in 4 days 02/25/18 17:40 Blood - Peripheral Anaerobic Blood Culture - Final S. aureus MRSA 02/28/18 07:56 Blood - Peripheral Aerobic Blood Culture - Preliminary No growth in 1 day 02/28/18 07:56 Blood - Peripheral Anaerobic Blood Culture - Preliminary No growth in 1 day 02/25/18 17:35 Blood - Peripheral Aerobic Blood Culture - Preliminary No growth in 4 days 02/25/18 17:35 Blood - Peripheral Anaerobic Blood Culture - Preliminary No growth in 4 days Lab - Hematology Results 03/02/18 06:32 WBC 5.0 RBC 3.31 L Hgb 9.5 L Hct 29.2 L MCV 88.2 MCH 28.6 MCHC 32.4 RDW 16.1 Plt Count 269 MPV 8.2 Neut % (Auto) 69.8 Lymph % (Auto) 15.0 [place] % (Auto) 12.0 H Eos % (Auto) 2.5 Baso % (Auto) 0.7 Neut # (Auto) 3.5 Lymph # (Auto) 0.8 L [place] # (Auto) 0.6 Eos # (Auto) 0.1 Baso # (Auto) 0.0 WBC Differential . Differential Comment Auto diff final Lab - Chemistry Results 02/28/18 03/02/18 07:56 06:32 Sodium 142 144 Potassium 3.5 3.3 L Chloride 107 108 H Carbon Dioxide 26.7 28.2 Anion Gap 8 8 BUN 16 14 Creatinine 0.60 0.62 Estimated GFR Greater than 89 Greater than 89 Random Glucose 87 82 Calcium 8.7 8.5 Imaging: ITS Impressions Chest X-Ray 02/25/18 17:36 CONCLUSION: No acute cardiopulmonary process. Needle Aspiration CT 02/26/18 06:00 CONCLUSION: Uncomplicated CT-guided aspiration Physical Exam: GENERAL: awake and alert, not in respiratory distress. SKIN: Warm and moist. No generalized rash, no ecchymoses and no evidence of embolic lesions. HEAD: Atraumatic. Normocephalic. No temporal wasting, or tenderness. EYES: [place] conjunctiva. No petechia or hemorrhage. Pupils equal, round and reactive to light. Extraocular movements full and intact. No scleral icterus. No injection or drainage. EARS, NOSE AND THROAT: Nose without bleeding or purulent nasal discharge. No sinus tenderness. Mucous membranes dry. NECK: Supple and not tender, no meningeal signs. Has scars C/W surgical history CARDIOVASCULAR: Regular rate and rhythm. No murmurs, rubs or gallops heard RESPIRATORY: Clear to auscultation. Breath sounds equal bilaterally. No rales , wheezing or rhonchi ABDOMEN: Soft, non-tender, nondistended. Bowel sounds present and normoactive. No guarding. No rebound. No organomegaly. EXTREMITIES: No clubbing, cyanosis, or edema.No joint effusion, has good ROM. No calf tenderness. Well perfused and warm. BACK: Has a mild deformity in thoracic spine, no change, and it is less tender below this deformity, no skin changes noted NEUROLOGICAL: Awake and alert. Cranial nerves grossly intact. Motor grossly within normal limits. PSYCHIATRIC: Normal affect, calm and cooperative. 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 MRSA sepsis December 11, and December 13 - S/P 2 weeks IV Abx Renal insufficiency during Vancomycin Rx Head and NEck CA, S/P surgery, has not completed his chemo and radiation Rx Recommendation Follow C/S Continue IV Cubicin - follow CPK - plan 8 weeks, needs fup ESR CRP and repeat MRI, may need longer up to 12 weeks - needs referral to Dr Beckwith so she can monitor from ID standpoint I will fill out infusion form If repeat BC negative today, ok to place PICC OK with me not to have FABRIZIO done since it will likely not change the plan of Rx; ?if patient even a surgical candidate if with significant valve abnormality Monitor progress I will be off 03/03-03/06, other ID MD covering in my absence Explained plan to the patient
--- NOTE | 2018-03-02 10:07 | P.DCO ---
Post Hospital Infusion Therapy Location of Infusion Therapy: Home Health Care IV Infusion Order (addendum: case d/w Dr. Bland. daily IV daptomycin thru 04/24/18) Patient Weight: 85.4 kg Allergies codeine Allergy (Severe, Verified 02/25/18 17:42) Itching doxycycline Allergy (Severe, Verified 02/25/18 17:42) Rash - Diagnosis (1) Epidural abscess Code(s): G06.2 - Extradural and subdural abscess, unspecified (2) MRSA (methicillin resistant Staphylococcus aureus) septicemia Code(s): A41.02 - Sepsis due to Methicillin resistant Staphylococcus aureus - Administer Medication Daptomycin Additional Dosing Instructions: Daptomycin 700 mg IV daily Stop Treatment: 04/24/18 - Additional Information Venous Access: PICC Line Additional Instructions: [x] Peripheral flush and dressing changes per protocol [x] Implanted port and central liner worker: * Implanted port: 10 ml Normal Saline followed by 5 ml Heparin 100 units/ml Heparin flush after each use and monthly to maintain. [] May leave port accessed during therapy. [] May leave peripheral site accessed for duration of therapy. [x] If patient has SOB or respiratory distress, check oxygen saturation. If less than 90% or clinical signs of respiratory distress, administer oxygen at 2 L/min. via nasal cannula and notify physician. [x] Anaphylaxis/Reaction orders: * Stop infusion. * Keep IV line open with saline flush. * Notify physician. * Monitor vital signs every 15 minutes until symptoms resolve. * Check Oxygen saturation; Oxygen at 2 L/min. via nasal cannula if less than 90% or clinical signs of respiratory distress. * Administer diphenhydramine (Benadryl) 25 mg IV STAT, (unless patient has received as pre-med). May repeat once, if necessary. * Solu-Cortef 250 mg IVP over 30-60 seconds, use 100 mg vials for each dissolution. * Epinephrine (1mg/1 ml) 0.3 mg subcutaneously or IVP now with any signs of respiratory distress. * Check with physician for new additional pre-med orders if patient is re- challenged or re-treated. [x] May remove PICC line when treatment complete, after confirming with Physician. [x] If the patient is admitted to the hospital, the ED, or transferred via [facility] , complete transfer form including medication reconciliation order sheet. Weekly Labs: CBC w/diff, Creatinine, LFTs (Hepatic Function Test), Serum CK Levels (Labs every Wednesday - copy to me and Dr Beckwith) Case Management Consult: No Additional Information: Please have patient followup and make appointment with Dr Inge Beckwith (ID)
[2018-03-02] MEDS: DAPTOmycin Inj 700 MG in Sodium Chlor 0.9% Inj 100 ML IV.SIG SCH (11:20)
[2018-03-02] MEDS: LORazepam 0.5 MG Tablet G-TUBE PRN ×2 (12:11→20:32)
--- NOTE | 2018-03-02 14:37 | P.DIET ---
Nutritional Evaluation Type of nutrition evaluation: follow-up Nutrition consult regarding: Tube Feeding Objective - Diagnosis Sepsis - Objective % IBW: 112 (IBW = 160#) Body Weight Used for Calculations: Actual (81.2kg) Energy Needs - Lower Range (kCal/kg): 28 Energy Needs - Upper Range (kCal/kg): 33 Lower Limit kCal/kg (kCals): 2,274 Upper Limit kCal/kg (kCals): 2,680 Lower Limit Protein Factor (Grams per Kg): 1.2 Upper Limit Protein Factor (Grams per Kg): 1.5 Lower Protein Needs (Protein): 97 Upper Protein Needs (Protein): 122 Fluid Factor (ml/kg): 30 Estimated Fluid Needs (ml): 2,436 Dietitian Reviewed in Medical Record: Current diet, Curent medications, Intake & Output, Labs, Medical history, Tube feeding Diet Order: Tf with tray Objective Comments: PMH: ETOH abuse, pancreatitis, ETOH withdraw seizures, anxiety, atrial fibrillation, GERD, gout, hypertension, tobacco abuse, DVT, PE, hemorrhagic CVA and 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 Feeding - Current Tube Feeding Tube Feeding Product: Jevity 1.5 Tube Feeding Method: Bolus (per home schedule) Assessment Assessment: Pt at nutritional risk r/t dx and need for TFing. Pt with oropharyngeal CA s/p resection correction through chemo and radiation treatments when he had to stop r/ t mrsa bacteremia and overall weakness. Pt presents with PEG tube where he gets most of his nutrition, however he still receives trays. Po intake is unknown at this time. To meet needs with continuous feeds, Jevity 1.5 with goal rate of 65 ml/hr will provide 2340 kcals, 100 gms protein and 1186 mls free water. Current order is for 2 cans of Jevity 1.5 (480 mls) at meals which provides 2160 kcals, 92 gms protein and 1094 mls of free water. Recommendations: Continue with home schedule as ordered. Diet per ST. Dietitian to Monitor: Lab values, Intake & Output, Tube feeding tolerance, Weight change, Medical course
--- NOTE | 2018-03-02 15:00 | P.PNIM ---
Subjective Interval history: Pt has NO new complaints. Back pain is better controlled with norco 7.5mg prn Physical Exam Vital signs: 03/02/18 04:04 03/02/18 07:34 03/02/18 09:00 Temperature 97.4 F L Pulse Rate 90 99 H Respiratory Rate 20 12 Blood Pressure 124/79 Pulse Oximetry 96 Narrative: General: NAD, awake, alert Cardiac: Regular Chest: CTA Abd: +BS, soft, nontender, peg in place Ext: no edema Skin: two large areas of papular rash below both scapulas - improved from Results - Labs CBC & Chem 7: 03/02/18 06:32 03/02/18 06:32 Microbiology 02/28/18 07:56 Blood - Peripheral Aerobic Blood Culture - Preliminary No growth in 2 days 02/28/18 07:56 Blood - Peripheral Anaerobic Blood Culture - Preliminary No growth in 2 days 02/25/18 17:40 Blood - Peripheral Aerobic Blood Culture - Final No growth in 5 days 02/25/18 17:40 Blood - Peripheral Anaerobic Blood Culture - Final S. aureus MRSA 02/25/18 17:35 Blood - Peripheral Aerobic Blood Culture - Final No growth in 5 days 02/25/18 17:35 Blood - Peripheral Anaerobic Blood Culture - Final No growth in 5 days 02/26/18 15:35 Fluid - Other Gram Stain - Final 02/26/18 15:35 Fluid - Other Wound Culture - Final No growth in 72 hours (aerobically and anaerobically ) Assessment and Plan - Assessment (1) Epidural abscess Code(s): G06.2 - Extradural and subdural abscess, unspecified Status: Acute Plan: Epidural abscess at t4/5 - Pt is a 67 y/o male with ETOH abuse, pancreatitis, ETOH withdraw seizures, anxiety, atrial fibrillation, GERD, gout, hypertension, tobacco abuse, DVT, PE, hemorrhagic CVA and 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 Pt received 2 doses of cisplatin and about 50% of his radiation when he was admitted to [place] for MRSA bacteremia in 11/2017 and he had his port removed during that admission and seen by ID. He was given daptomycin and ultimately sent home on daptomycin. Pt has been unable to resume chemo or radiation due to general weakness. He gets most of his calories through bolus tube feeding and all meds are though the peg. - He has had persistent midback pain had developed fevers as an outpt. He was seen by Dr Toledo last week as an outp and MRI ordered which reportedly showed concern for T4/5 abscess. Pt reviewed with Dr Lacy and Tre and sent to [facility] [place] for iv abx and IR bx/aspiration. - Pt given vanco and zosyn in ED. - He was resumed on daptomycin at admission and ID was consulted - IR was consulted for bx of t4/5 disc and aspiration of ?adjacent abscess on . - Pt had aspiration of fluid on 02/26 with gs/cx with no growth in 48 hours - Blood cx's (02/25/18) with 08/05 positive for MRSA. - 2D echo (02/28/18): - Normal left ventricular size. Mild concentric left ventricular hypertrophy. - The left ventricular systolic function is qqnzwxkj-to-ivhlvpsk reduced with an estimated ejection fraction of 35%. Global hypokinesis. - Trace mitral valve regurgitation. - There is trace tricuspid valve regurgitation. - Appreciate Cardiology consultation for FABRIZIO, - Case d/w Dr. Abad on 03/01, due to pts previous head and neck cancer and XRT it was felt that the pt would be high risk for perforation with attempting FABRIZIO - Will treat for presumptive endocarditis as FABRIZIO is unable to be performed. - [place] 7.5 mg q4h prn - TF: Current order is for 2 cans of Jevity 1.5 (480 mls) at meals which provides 2160 kcals, 92 gms protein and 1094 mls of free water. - Case d/w Infectious Disease (03/02/18). - Pt will need to continue Daptomycin thru Daptomycin 700 mg IV daily, thru - If repeat blood Cx (02/28/18) is negative x 3d tomorrow (03/03), then will place PICC - hopefully, d/c to home 03/03/18 SCC oropharyngeal s/p mod radical neck dissection [place] 09/19 - Pt was initiated on cisplatin but after second treatment stopped due to infection - Pt has only completed about 50% of his radiation treatment - Pt was admitted in November and had persistent positive blood cx for MRSA, infusaport infection s/p removal - Pt had PICC placed and given IV daptomycin through 12/30 A. fib, rate controlled - Cont verapamil and metoprolol in peg. - No anticoagulation..poor candidate (2) Tongue cancer Code(s): C02.9 - Malignant neoplasm of tongue, unspecified Status: Acute (3) MRSA (methicillin resistant Staphylococcus aureus) septicemia Code(s): A41.02 - Sepsis due to Methicillin resistant Staphylococcus aureus Status: Acute (4) HBP (high blood pressure) Code(s): I10 - Essential (primary) hypertension Status: Acute
[2018-03-03] MEDS: Allopurinol 300 MG Tablet G-TUBE SCH (09:53)
[2018-03-03] MEDS: Metoprolol Tartrate 100 MG Tablet G-TUBE SCH ×2 (09:54→21:25)
[2018-03-03] MEDS: Lisinopril 5 MG Tablet PO SCH (09:54)
[2018-03-03] MEDS: DAPTOmycin Inj 700 MG in Sodium Chlor 0.9% Inj 100 ML IV.SIG SCH (10:18)
--- NOTE | 2018-03-03 14:50 | P.DS ---
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 Pt recieved 2 doses of cisplatin and about 50% of his radiation when he was admitted to [facility] for mrsa bacteremia. He had port removed also during this admission and seen by ID. He was given daptomycin and ultimately sent home with daptomycin and f/u. Pt has been unable to resume chemo or radiation due to general weakness. He gets most of his calories thourgh bolus tube feeding and all meds are though the peg. He has had persistent midback pain and now fever. Seen by Dr Toledo last week and MRI ordered. Now shows concern for T4/5 abscess. Pt reviewed with Dr Lacy and Ter and sent here for iv abx, IR bx/aspiration. Pt given vanco and zosyn in ED. DS: Diagnosis - Discharge Diagnosis (1) Epidural abscess Status: Acute (2) MRSA (methicillin resistant Staphylococcus aureus) septicemia Status: Acute DS: Medications - Discharge Medications Prescriptions: famotidine 20 mg PO HS PRN 30 Days tab PRN Reason: Itching lisinopril 5 mg PO DAILY 30 Days #30 tab lorazepam 0.5 mg G-TUBE Q8H PRN #21 tab PRN Reason: Anxiety oxycodone-acetaminophen 1 tab G-TUBE Q4H PRN #42 tab PRN Reason: Pain 6-10;If Unable To Take Po DS: Summary Hospital Course: Epidural abscess at t4/5 - Pt is a 67 y/o male with ETOH abuse, pancreatitis, ETOH withdraw seizures, anxiety, atrial fibrillation, GERD, gout, hypertension, tobacco abuse, DVT, PE, hemorrhagic CVA and 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 Pt received 2 doses of cisplatin and about 50% of his radiation when he was admitted to [facility] for MRSA bacteremia in 11/2017 and he had his port removed during that admission and seen by ID. He was given daptomycin and ultimately sent home on daptomycin. Pt has been unable to resume chemo or radiation due to general weakness. He gets most of his calories through bolus tube feeding and all meds are though the peg. - He has had persistent midback pain had developed fevers as an outpt. He was seen by Dr Toledo last week as an outp and MRI ordered which reportedly showed concern for T4/5 abscess. Pt reviewed with Dr Lacy and Tre and sent to [facility] for iv abx and IR bx/aspiration. - Pt given vanco and zosyn in ED. - He was resumed on daptomycin at admission and ID was consulted - IR was consulted for bx of t4/5 disc and aspiration of ?adjacent abscess on . - Pt had aspiration of fluid on 02/26 with gs/cx with no growth in 48 hours - Blood cx's (02/25/18) with 1/ positive for MRSA. - 2D echo (02/28/18): - Normal left ventricular size. Mild concentric left ventricular hypertrophy. - The left ventricular systolic function is [id number] reduced with an estimated ejection fraction of 35%. Global hypokinesis. - Trace mitral valve regurgitation. - There is trace tricuspid valve regurgitation. - Appreciate Cardiology consultation for FABRIZIO, - Case d/w Dr. Abad on 03/01, due to pts previous head and neck cancer and XRT it was felt that the pt would be high risk for perforation with attempting FABRIZIO - Will treat for presumptive endocarditis as FABRIZIO is unable to be performed. - Posen 7.5 mg q4h prn - TF: Current order is for 2 cans of Jevity 1.5 (480 mls) at meals which provides 2160 kcals, 92 gms protein and 1094 mls of free water. - Case d/w Infectious Disease (03/02/18). - Pt will need to continue Daptomycin thru Daptomycin 700 mg IV daily, thru - If repeat blood Cx (02/28/18) is negative x 3d, then will place PICC - epeat blood Cx (02/28/18) is negative x 3d - d/c to home 03/03/18 once PICC once PICC line placed and IV abx arranged SCC oropharyngeal s/p mod radical neck dissection [place] 09/19 - Pt was initiated on cisplatin but after second treatment stopped due to infection - Pt has only completed about 50% of his radiation treatment - Pt was admitted in November and had persistent positive blood cx for MRSA, infusaport infection s/p removal - Pt had PICC placed and given IV daptomycin through 12/30 A. fib, rate controlled - Cont verapamil and metoprolol in peg. - No anticoagulation..poor candidate - Time Spent with Patient Total time spent providing and/or coordinating discharge services: Greater than 30 minutes - Quality: VTE Deep Vein Thrombosis/Pulmonary Embolism Present on Admission: No Exam Vital signs: Vital Signs 03/02/18 16:00 03/02/18 20:00 03/03/18 00:00 Temperature 98.3 F 98.2 F 98.2 F Pulse Rate 111 H 106 H 109 H Respiratory Rate 16 16 18 Blood Pressure 119/84 101/73 146/98 H Pulse Oximetry 95 97 100 03/03/18 04:00 03/03/18 08:00 03/03/18 12:00 Temperature 98.2 F 97.5 F L 98.1 F Pulse Rate 110 H 105 H 94 H Respiratory Rate 16 18 17 Blood Pressure 142/87 H 131/83 110/69 Pulse Oximetry 97 95 97 Intake & Output 03/02/18 03/03/18 03/03/18 18:59 06:59 18:59 Intake Total 100 / 100 Output Total 1150 / 1150 Balance 100 / 100 -1150 / -1150 Weight 85.4 kg Intake: IV 100 / 100 Cubicin Inj 700 MG In NS Inj 100 / 100 100 ML @ 200 mls/hr IV.SIG Q24H [facility] Rx#:[id number] Output: Urine 1150 / 1150 Other: Date of Last Bowel Movement 03/01/18 Narrative: General: NAD, awake, alert Cardiac: Regular Chest: CTA Abd: +BS, soft, nontender, peg in place Ext: no edema Skin: two large areas of papular rash below both scapulas - improved from Results Procedures completed during hospitalization: - Pt had aspiration of fluid from t4/5 disc 02/26 Labs on day of discharge: Preliminary micro results at discharge 02/28/18 07:56 Aerobic Blood Culture - Preliminary Blood - Peripheral No growth in 3 days Anaerobic Blood Culture - Preliminary No growth in 3 days - Impressions ITS Impressions Chest X-Ray 02/25/18 17:36 CONCLUSION: No acute cardiopulmonary process. Needle Aspiration CT 02/26/18 06:00 CONCLUSION: Uncomplicated CT-guided aspiration <Antonino Kearney - Last Filed: 03/22/18 09:15> Date of admission: 02/25/18 19:09 Primary care physician: Gary Arriaza DS: Diagnosis - Discharge Diagnosis (1) Epidural abscess Status: Acute (2) Tongue cancer Status: Acute (3) MRSA (methicillin resistant Staphylococcus aureus) septicemia Status: Acute (4) HBP (high blood pressure) Status: Acute DS: Summary - Time Spent with Patient Total time spent providing and/or coordinating discharge services: Results - Impressions ITS Impressions Chest X-Ray 02/25/18 17:36 CONCLUSION: No acute cardiopulmonary process. Needle Aspiration CT 02/26/18 06:00 CONCLUSION: Uncomplicated CT-guided aspiration PICC Line Insertion 03/03/18 00:00 CONCLUSION: 1. Uncomplicated central venous Power PICC line placement. 2. The PICC line can be used immediately. Discharge Plan - Discharge Order Discharge Orders: Discharge Order (Routine); Ordered 03/03/18 Ordered By: Lea Esparza - Discharge Details Anticipated Discharge Date: 03/03/18 - Physicians Team Primary Care Provider: Gary Arriaza Attending Provider: Anthony Lakhani Other Providers: Amanda Bland MD ; Pascual Toledo MD ; Per Lacy MD ; Denis Abad MD ; [facility]
--- NOTE | 2018-03-03 15:30 | P.DCO ---
- Home Health Nursing Order: Medical education, Signs/symptoms of disease process, Medication education-adverse effect, Wound care and dressing changes, Nursing assessment with vital signs, IV medication administration Instructions: Pt will require IV daptomycin thru 04/24/18 - Certification I have seen patient Royer España on 03/03/18. My clinical findings support the need for the requested home health care services because: Deconditioned with increased weakness, Medication compliance is questionable, Limited ability to care for self, Need for psychosocial assistance, Injectable medication education/administration I certify that my clinical findings support that this patient is homebound because: Unsafe to leave home unassisted, Need for psychosocial assistance, Unable to use public transportation
[2018-03-03] MEDS: LORazepam 0.5 MG Tablet G-TUBE PRN (16:46)
[2018-03-03] MEDS ORDERED: Heparin Central Flush 100 UNIT/ML 5 ML Vial IV.FLUSH ONE (17:58)
--- NOTE | 2018-03-03 18:39 | P.RAD ---
Post Procedure Progress Note - Pre Procedure Diagnosis (1) Epidural abscess - Post Procedure Diagnosis (1) Epidural abscess - Procedure Information Procedure Date: 03/03/18 Supervising Radiologist: Ben Sylvester MD Estimated blood loss (mL): 2 Anesthesia: Local - Plan of Activity Patient to Unit: Nursing Unit Patient Condition: Fair Additional Comments: PICC placed via the right arm. Catheter tip in the SVC Catheter length 45cm See PACS Report for procedural detail/treatment.
[2018-03-03 23:58] VITALS: O2SAT 97
[2018-03-04 09:08] VITALS: RESP 18
[2018-03-04] MEDS: Metoprolol Tartrate 100 MG Tablet G-TUBE SCH (11:16)
[2018-03-04] MEDS: DAPTOmycin Inj 700 MG in Sodium Chlor 0.9% Inj 100 ML IV.SIG SCH (11:16)
[2018-03-04] MEDS: Allopurinol 300 MG Tablet G-TUBE SCH (11:16)
[2018-03-04] MEDS: Lisinopril 5 MG Tablet PO SCH (11:16)
--- NOTE | 2018-03-04 11:51 | IR ---
EXAM DATE: 03/03/2018 6:48 PM EDT AGE/SEX: 67 years / Male INDICATIONS: Patient with L4-5 epidural abscess in need of PICC line placement for antibiotics. CLINICAL DATA: This is the patient's initial encounter. Patient reports that signs and symptoms have been present for 4 - 6 days and indicates a pain score of 0/10. MEDICAL/SURGICAL HISTORY: Hypertension. A-Fib, Head and neck cancer, Gout, DVT, MRSA, Pulmonary emboli, Stroke, Subdural hematoma G-tube, Port placement and removal, Neck dissection, Partial gloss ectomy COMPARISON: No prior exams available for comparison. FLUORO TIME (min): 2.5 IMAGE SERIES: 1 ACCESS SITE: Right basilic vein DEVICE(S): 5 [place] double lumen X45CM Xcela Power PICC . . PROCEDURE : 1. Ultrasound guidance for venous catheterization. 2. Fluoroscopic guidance. 3. Ultrasound & fluoroscopic guided central venous Power PICC line placement. The risks, benefits and alternatives to the procedure were explained and verbal and written consent w as obtained. The site was prepped in sterile fashion. Full sterile technique was used, including ca p, mask, sterile gloves and gown and a large sterile sheet. Hand hygiene and 2% chlorhexidine prep w as utilized per protocol for cutaneous antisepsis with appropriate dry time for site. Sterile gel a nd sterile probe cover were utilized for ultrasound guidance. The skin and subcutaneous tissues wer e infiltrated with local anesthetic solution. Under direct ultrasound guidance, a suitable vein was accessed and a measuring guidewire was introduc ed and positioned in the central venous system. The ultrasound images depicting access guidance were saved and stored to PACS for permanent record. A Power Injectable PICC line was cut to prescribed length and introduced, positioned with tip at the cavoatrial junction level. The line was flushed and secured per protocol. CONCLUSION: 1. Uncomplicated central venous Power PICC line placement. 2. The PICC line can be used immediately. Electronically signed by: Ben Sylvester MD 03/04/2018 11:50 AM EDT
[2018-03-08 18:07] VITALS: BP 134/72; PULSE 109; TEMP 97.6
== END 2018-03-04 15:10 | disposition home health service (06) ==
LOC: NEPE 17:02 → NEDA 19:09 → N05 21:12
PROVIDERS: ADMIT Hospitalist; ATTEND Hospitalist